=== PATIENT | female | born 1935 | race Caucasian/White ===

== ENCOUNTER → 2016-08-12 | Outpatient (CLI) | payer MEDICARE, OTHER ==
[2016-08-12 14:17] VITALS: BP 113/64; PULSE 74; RESP 18; TEMP 97.6
--- NOTE | 2016-08-12 14:32 | P.PN ---
Progress Note - Text Patient returns for followup for chronic back pain and right shoulder pain secondary to lumbar spondylosis, shoulder OA. Patient recently underwent right intra-articular shoulder injection with trigger point injections on left shoulder, which provided some relief for XXX interval. Patient continues on [place], tramadol, baclofen, and Neurontin medications for pain with good relief. Patient denies adverse drug effects from medications. Today, pt denies new-onset weakness, bowel/bladder incontinence, or any other signs or symptoms of cauda equina syndrome. There are no signs of acute intoxication, and no indications of medication diversion or overuse. In addition to above, 13-point review of systems is also negative for chest pain , shortness of breath, changes in vision, changes in hearing, new onset weakness , abdominal pain, diarrhea, extreme fatigue, malaise, fever, skin changes, homicidal or suicidal ideation, or bowel or bladder incontinence. 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 lumbar spondylosis without myelopathy 2. shoulder OA 3. myofascial pain syndrome Plan: 1. Explanation: Opioid and psychological risk scores were reviewed. Diagnoses , prognoses, and multiple treatment options including but not limited to physical therapy, interventional therapies, adjuvant medical therapies, narcotic medication therapies, and surgery were discussed with the patient and all questions were answered to the patient's satisfaction. 2. Opioid agreement: Patient has previously signed narcotic agreement, and was orally counseled to not overuse, abuse, divert, or cell medications, and to take them as prescribed by only 1 healthcare provider. The patient was also counseled to store opioid medications in a safe and preferably locked location. Patient was also counseled against driving or operating heavy equipment while using narcotic medications and also to not use alcohol or any illicit or recreational drugs. The patient verbalized understanding that lack of compliance with any of the above and likely result in failure to renew narcotic prescriptions, possible discharge from the clinic, and possible legal ramifications thereafter if indicated. 3. Counseling: The patient was counseled extensively on SMOKING CESSATION, BODY MASS INDEX, EXERCISE. Specifically, the patient was instructed regarding the importance of smoking cessation, obesity, and exercise in the context of both chronic pain and overall health. 4. Procedures: right, then left lumbar RFA 5. Consultations: None 6. Investigations: None 7. Medications: Dr. Diamond is now writing [facility]'s opioid at [facility], Will prescribe baclofen 10 TID and gabapentin 300 BID with several refills so no medications will be necessary anytime in the near future. 8. Disposition: f/u for PQRS measures: 1-Patient's medications are documented in the chart. 2-Tobacco use is negative 3-Patient has had a pneumococcal vaccine. 4-Advanced care planning discussed, patient unable to give. 5-Opioid contract signed with the patient. 6-Pain positive, follow-up visit or procedure scheduled 7-Patient's blood pressure measured and documented, and wnl. 8-Patient's weight was measured, and body mass index ABOVE the normal limits, and counseling was done. Patient instructed to follow up with PCP. 9-Patient WAS NOT identified as an unhealthy alcohol user.
== END | disposition home or self-care (01) ==
LOC: PNWHC3 13:59
PROVIDERS: ATTEND Anesthesiology
DX: M47.816 Spondylosis without myelopathy or radiculopathy, lumbar region (principal); M19.011 Primary osteoarthritis, right shoulder; M79.1 Myalgia; Z79.899 Other long term (current) drug therapy
CPT/HCPCS: 99211

== ENCOUNTER 2016-10-03 08:55 | Day surgery (SDC) | payer MEDICARE, OTHER ==
[2016-10-03 09:38] VITALS: RESP 20; TEMP 96.9
[2016-10-03] MEDS ORDERED: LACTATED RINGERS 1,000 ML IV SCH (09:45)
[2016-10-03 09:50] LABS: Glucose,Whole Blood 115 mg/dL (75-99)
[2016-10-03] MEDS ORDERED: LIDOCAINE 1% 20 ML VIAL (10MG/ML) FOR IV START INTRADERMA ONE (09:51)
[2016-10-03] MEDS ORDERED: MIDAZOLAM 2 MG/2 ML VIAL ONE (09:52)
[2016-10-03] MEDS ORDERED: TRIAMCINOLONE ACETONIDE 40 MG/ML 1 ML VIAL ONE (09:52)
[2016-10-03] MEDS ORDERED: fentaNYL (PF) 50 MCG/ML 2 ML AMP ONE (09:52)
[2016-10-03] MEDS ORDERED: IV FLUID CONTINUATION 1,000 ML IV ONE (10:32)
--- NOTE | 2016-10-03 10:34 | FL ---
Fluoroscopy INDICATION: Pain FINDINGS: Fluoroscopy time: 12 seconds. Images obtained: 3. IMPRESSIONS: 1. Documentation of fluoroscopy.
[2016-10-03 11:03] VITALS: BP 130/51; PULSE 68
--- NOTE | 2016-10-14 11:06 | P.PCN ---
Date of Procedure: 10/03/16 Surgeon: Lanre Guevara Pathology: none sent Condition: stable Disposition: PACU Description of Procedure: PREOPERATIVE DIAGNOSIS: Lumbar spondylosis without myelopathy and facet arthropathy POSTOPERATIVE DIAGNOSIS: Lumbar spondylosis without myelopathy and facet arthropathy PROCEDURES: Right Radiofrequency thermocoagulation, L3, L4, and L5 medial branch , with fluoroscopic guidance. ANESTHESIA: 1% lidocaine plain; Conscious sedation with versed/fentanyl EBL: Minimal PROCEDURE INDICATION: The patient with low back pain secondary to lumbar arthropathy who had more than 50% relief of pain with previous diagnostic lumbar medial branch block with bupivacaine and previous good relief from lumbar RFAs. Patient presents for RFA today; no use of blood thinners. PROCEDURE DESCRIPTION / TECHNIQUE: The patient was seen and identified in the preoperative area. Risks, benefits, complications, and alternatives were discussed with the patient (including but not limited to incomplete pain relief , bleeding, infection, nerve damage, and allergies to medications), the patient agreed to proceed with the procedure and signed the consent after all questions were answered. Patient was taken to the OR and time out was completed to verify proper patient , position, laterality of pain, and allergies. Pt was placed in the prone position. IV was started. Vital signs remained stable throughout the procedure. A pillow was placed under the patients chest to decrease lordosis. The lumbosacral area was prepped and draped in the usual sterile fashion. Vital signs were closely monitored during the procedure. Conscious sedation was used during the procedure to decrease patients anxiety. Using AP and then oblique fluoroscopy, the eye of the Jack dog corresponding to the connection between the superior and transverse articular processes of right L4, L5 and top of the sacrum were identified, marked, and localized with 1% lidocaine. Subsequently, a 18 gauge, 100-mm radiofrequency cannula with a 10-mm active tip was advanced guided by fluoroscopy to each of the eyes of the Jcak dog at right L3, L4, and L5 medial branches. Each site then underwent sensory testing at 50 Hz and 0 to 1 volt and motor testing at 2 Hz and 0 to 3 volt with local stimulation, but no radicular symptoms down the legs. Thereafter the right L3, L4, and L5 medial branch sites underwent radiofrequency thermocoagulation at 80 degrees Celsius for 90 seconds after injecting 0.5 ml of PF lidocaine 1%. After thermocoagulation, 1 ml of the block solution containing Kenalog 40 mg and 2 mL of preservative-free normal saline was injected at the right L3, L4, and L5 medial branch levels after negative aspiration of CSF and blood and with no paresthesias. Cannulas were retracted while injecting lidocaine 1% until the needles were removed. At the end of the procedure, the skin was cleansed and bandages were applied. COMPLICATIONS: No acute complications. DISPOSITION / PLANS: The patient was placed in a supine position and transferred to the recovery area in a stable condition for observation and was discharged from the recovery room after meeting discharge criteria. Home discharge instructions given to the patient by the staff. The patient was reexamined prior to discharge and there were no issues. The patient will schedule a follow up for left lumbar RFA in 4-6 weeks.
== END 2016-10-03 11:44 ==
LOC: ORPAIN 08:55
PROVIDERS: ATTEND Anesthesiology
DX: G89.29 Other chronic pain (principal); M54.5 Low back pain; M47.816 Spondylosis without myelopathy or radiculopathy, lumbar region; M46.96 Unspecified inflammatory spondylopathy, lumbar region; Z88.5 Allergy status to narcotic agent; Z88.0 Allergy status to penicillin; Z88.2 Allergy status to sulfonamides
CPT/HCPCS: 99152; 64635; 64636 ×2; J2250; J3301; J3010

== ENCOUNTER 2016-11-13 08:35 | Day surgery (SDC) | payer MEDICARE, OTHER ==
[2016-11-11 11:46] VITALS: BMI 34.2
[~2016-11-13 08:35] MED LIST: LACTATED RINGERS 1,000 ML IV SCH
[2016-11-13 09:08] VITALS: RESP 16; TEMP 98.3
[2016-11-13 09:33] LABS: Glucose,Whole Blood 132 mg/dL (75-99)
[2016-11-13] MEDS ORDERED: LIDOCAINE 1% 20 ML VIAL (10MG/ML) FOR IV START INTRADERMA ONE (09:33)
[2016-11-13] MEDS ORDERED: fentaNYL (PF) 50 MCG/ML 2 ML AMP ONE (09:55)
[2016-11-13] MEDS ORDERED: MIDAZOLAM 2 MG/2 ML VIAL ONE (09:55)
[2016-11-13] MEDS ORDERED: BUPIVACAINE (PF) 0.5% 30 ML VIAL ONE (09:55)
[2016-11-13] MEDS ORDERED: TRIAMCINOLONE ACETONIDE 40 MG/ML 1 ML VIAL ONE (09:55)
--- NOTE | 2016-11-13 10:31 | P.PCN ---
Date of Procedure: 11/13/16 Procedure(s) Performed: PREOPERATIVE DIAGNOSIS: 1-Lumbar Spondylosis with Facet Arthropathy without myelopathy. 2- Lumber degenerative disc disease. POSTOPERATIVE DIAGNOSIS: 1- Lumbar Spondylosis with Facet Arthropathy without myelopathy. 2- Lumber degenerative disc disease. PROCEDURES : Left Radiofrequency thermocoagulation, L3-L4, L4-L5, and L5- S1 medial branch, with fluoroscopic guidance ANESTHESIA: IV sedation with versed 1 mg and fentaneyl 100 mcg and local infiltration with lidocaine 1% 6 ml EBL: Minimal PROCEDURE INDICATION: The patient with low back pain secondary to lumbar facet arthropathy who had more than 50% relief of her pain with previous diagnostic lumbar medial branch block with bupivacaine. PROCEDURE DESCRIPTION / TECHNIQUE: The patient was seen and identified in the preoperative area. Risks, benefits, complications, including but not limited to risk of infection ,bleeding , allergic reactions to the medications and no complete pain releife , and alternatives were discussed with the patient, the patient agreed to proceed with the procedure and signed the consent. IV was started. Vital signs remained stable throughout the procedure. Patient was taken to the OR and time out was completed. The patient was placed in the prone position on the procedure table. The lumber area was prepped and draped in the usual sterile fashion. . Vital signs were closely monitored during the procedure .IV sedation was used during the procedure to decrease patients anxiety. Using AP and then oblique fluoroscopy, the ``eye of the Jack dog corresponding to the connection between the superior and transverse articular processes of left L3, L4, and L5 were identified, marked, and localized with 1 % lidocaine. Subsequently, a 18 [id number] radiofrequency cannula with a 10- mm active tip was advanced guided by fluoroscopy to each of the ``eyes of the Jack dog at left L3, L4, and L5. Each site then underwent sensory testing at 50 Hz and 0 to 1 volt and motor testing at 2.5 Hz and 0 to 3 volt with local stimulation, but no radicular symptoms down the legs. Thereafter the left L3-4, L4-5, and L5-S1 sites underwent radiofrequency thermocoagulation at 80 degrees celsius for 90 seconds after injecting 0.5 ml of PF lidocaine 1%. then After the thermocoagulation done , 1 ml of the block solution containing Kenalog 40 mg and 3 ml of marain 0.5% was injected at the left L3-4 , L4-5 , and L5-S1, levels after negative aspiration of CSF and blood and with no paresthesias. Cannulas were retracted while injecting lidocaine 1% until the needle is out. At the end of the procedure, the skin was cleansed and bandages were applied. COMPLICATIONS: No acute complications. DISPOSITION / PLANS: The patient was placed in a supine position and transferred to the recovery area in a stable condition for observation and was discharged from the recovery room after meeting discharge criteria. Home discharge instructions given to the patient by the staff. The patient was reexamined prior to discharge. The patient will schedule a follow up in the clinic in 2-4 weeks.
[2016-11-13] MEDS ORDERED: IV FLUID CONTINUATION 1,000 ML IV ONE (10:40)
[2016-11-13 10:45] VITALS: PULSE 67
--- NOTE | 2016-11-13 10:56 | FL ---
EXAMINATION TYPE: FL guided pain mgmt statistic DATE OF EXAM: 11/13/2016 10:33 AM CLINICAL HISTORY: Low back pain. TECHNIQUE: Fluoroscopy. COMPARISON: None. FINDINGS: Fluoroscopic guidance was provided during pain relief procedure performed by Dr. Romero . A total of 9 seconds of fluoroscopic time was utilized during the procedure and 3 spot images are acquired. Images acquired shows needle localization in the lower lumbar spine at several levels off the midline. IMPRESSION: As Above.
[2016-11-13 11:07] VITALS: BP 109/52
== END 2016-11-13 11:31 ==
LOC: ORPAIN 08:35
PROVIDERS: ATTEND Specialist
DX: M47.816 Spondylosis without myelopathy or radiculopathy, lumbar region (principal); M46.96 Unspecified inflammatory spondylopathy, lumbar region; M51.36 Other intervertebral disc degeneration, lumbar region; Z88.5 Allergy status to narcotic agent; Z88.0 Allergy status to penicillin; Z88.2 Allergy status to sulfonamides
CPT/HCPCS: 64635; 64636 ×2; 99152; J2250; J3301; J3010; 36415; 83036

== ENCOUNTER → 2017-01-08 | Outpatient (CLI) | payer MEDICARE, OTHER ==
[2017-01-08 14:23] VITALS: BP 126/71; PULSE 69; RESP 18; TEMP 97
--- NOTE | 2017-01-10 06:31 | P.PN ---
Subjective This is a follow-up visit for this 81 years old female with a chronic history of severe low back pain, status post radiofrequency ablation of the medial branch lumbar area, she gets excellent pain relief, her low back pain improved significantly, and she is here asking if anything can be done to help her right knee pain, she is having severe and continuous right knee pain, and her current pain medications she is taking is not helping her knee pain, she continues to take [place] 7.5/325 every 6-8 hours when necessary, amitriptyline 10 mg daily at bedtime, Ultram 50 every 6 hours, Motrin 400 mg every 8 hours, Neurontin 300 mg every morning and 600 mg every Pm, she denies any side effect of the medication she denies any excessive drowsiness and sleepiness Objective - Vital Signs Vital signs: Vital Signs Temp 97 F L 01/08/17 14:17 Pulse 69 01/08/17 14:17 Resp 18 01/08/17 14:17 BP 126/71 01/08/17 14: Pulse Ox 96 01/08/17 14:17 - Exam Physical Examinations : 1-Constitutiona : Cooperative , not in acute distress . 2-HEENT : nech ; supple , no Lymphadenopathy , normal thyroid size . eyes : no ptosis , no icterus, no photophobia . ENT : normal of hearing , normal oropharynx , no Thrush . 3- Respiratory : Chest clear to auscultations Bilaterally , no wheezing , no Rhonchi . 4- Cardiovascular : regular rate and rhythem , S1 , S2 , no S3 , no S4. 5- Gastrointestinal : abdomen soft no tenderness , bowel sounds positive all four quadrents , no organomegally . 6- Genitourinary : Defferred . 7- neurologic : axo x3 8-psychatric : alert , oriented X 3 , appropriate affect , intact judgment and insight . 9-Lymphatic : no Lymphadenopathy . 10- musculoskeltal : tenderness over the right knee flexion and extension of the right knee associated with severe pain There is no sign of effusion, no erythema Assessment and Plan Plan: Assessment and plan= chronic severe low back pain secondary to lumbar spondylosis status post radiofrequency ablation of the medial branch lumbar area Pain improved after the radiofrequency. Chronic severe right knee pain, patient could benefit from right genicular nerves block if she had good pain relief, then she would be good candidate to have radiofrequency of the right genicular nerves Time with Patient: Less than 30
== END ==
LOC: PNWHC3 12:46
PROVIDERS: ATTEND Specialist
DX: M47.816 Spondylosis without myelopathy or radiculopathy, lumbar region (principal); G89.29 Other chronic pain
CPT/HCPCS: 99211

== ENCOUNTER 2017-03-07 05:26 | Inpatient (IN) | payer MEDICARE, OTHER ==
[2017-03-07 05:39] LABS: Glucose,Whole Blood 111 mg/dL (75-99)
--- NOTE | 2017-03-07 05:47 | ED ---
Altered Mental Status HPI - General Source: EMS Mode of arrival: EMS Limitations: altered mental status - History of Present Illness MD Complaint: altered mental status -: unknown Severity: severe Context: history of similar presentation <Bro Brown - Last Filed: 03/07/17 07:10> <Jean Marie Murcia - Last Filed: 03/07/17 08:48> - General Chief Complaint: Altered Mental Status Stated Complaint: altered mental status Time Seen by Provider: 03/07/17 05:33 - History of Present Illness Initial Comments: This patient is an 81-year-old woman who presents with reported change in mental status. The patient is not able to give any history. The nurse to nurse report included that the patient has been moaning for a number of hours and not answering any questions, which she usually does. They do report there is significant underlying dementia. Reportedly the last time the patient was like this she was "septic" related to urinary tract infection. (Bro Brown) - Related Data Home Medications Medication Instructions Recorded Confirmed Amitriptyline HCl [Elavil] 10 mg PO HS 07/30/14 03/07/17 Atenolol [Tenormin] 25 mg PO DAILY 07/30/14 03/07/17 Fluticasone/Salmeterol [Advair 2 puff INHALATION RT-BID 07/30/14 03/07/17 500-50 Diskus] Memantine [Namenda] 10 mg PO BID 07/30/14 03/07/17 Pramipexole [Mirapex] 0.5 mg PO HS 07/30/14 03/07/17 lamoTRIgine [lamoTRIgine ER] 200 mg PO DAILY 07/30/14 03/07/17 Carbidopa-Levodopa 25-100 mg 1 tab PO QID 12/29/14 03/07/17 [Sinemet 25-100 mg] Donepezil [Aricept] 10 mg PO HS 12/29/14 03/07/17 metFORMIN HCL [Glucophage] 500 mg PO DAILY@1700 12/29/14 03/07/17 Pravastatin Sodium [Pravachol] 40 mg PO HS 12/30/14 03/07/17 Isosorbide Mononitrate ER [Imdur] 30 mg PO QAM 03/03/15 03/07/17 Magnesium Hydroxide [Milk of 30 ml PO DAILY PRN 04/10/15 03/07/17 Magnesia Concentrate] Albuterol Nebulized [Ventolin 2.5 mg INHALATION RT-BID 08/16/15 03/07/17 Nebulized] Acetaminophen Tab [Tylenol] 500 mg PO Q6H PRN 09/08/15 03/07/17 metFORMIN HCL 1,000 mg PO QAM 12/07/15 03/07/17 Ibuprofen [Motrin] 400 mg PO Q8HR PRN 05/14/16 03/07/17 Losartan Potassium [Cozaar] 50 mg PO DAILY 05/14/16 03/07/17 Sennosides [Senna] 8.6 mg PO HS 05/14/16 03/07/17 Bisacodyl [Dulcolax] 10 mg RECTAL DAILY PRN 05/23/16 03/07/17 Montelukast [Singulair] 10 mg PO HS 05/23/16 03/07/17 Menthol [Biofreeze] 1 applic TOPICAL Q6H PRN 06/24/16 03/07/17 HYDROcodone/APAP 7.5-325MG [Blairs 1 tab PO Q6H PRN 10/01/16 03/07/17 7.5-325] Metolazone [Zaroxolyn] 1.25 mg PO MOWEFR 10/01/16 03/07/17 Gabapentin [Neurontin] 300 mg PO BID 11/11/16 03/07/17 Mag Hydrox/Al Hydrox/Simeth 15 ml PO Q6HR PRN 11/11/16 03/07/17 [Maalox] Na Phos,M-B/Na Phos,Di-Ba [Fleet 1 dose RECTAL ONCE PRN 11/11/16 03/07/17 Adult] Amantadine HCl [Symmetrel] 100 mg PO DAILY 03/07/17 03/07/17 Glucerna Shake 1 can PO TID 03/07/17 03/07/17 Omeprazole [PriLOSEC] 20 - 40 mg PO DAILY 03/07/17 03/07/17 Previous Rx's Medication Instructions Recorded Furosemide [Lasix] 40 mg PO DAILY #0 05/27/16 Baclofen [Lioresal] 10 mg PO Q8H #90 tab 08/12/16 traMADol HCl [Ultram] 50 mg PO Q6H PRN #120 tab 08/12/16 Allergies Allergy/AdvReac Type Severity Reaction Status Date / Time codeine Allergy Unknown Verified 03/07/17 07:17 Penicillins Allergy Unknown Verified 03/07/17 07:17 Sulfa (Sulfonamide Allergy Unknown Verified 03/07/17 07:17 Antibiotics) Review of Systems ROS Other: All systems not noted in ROS Statement are negative. Limitations: ROS unobtainable due to patients medical condition <Bro Brown - Last Filed: 03/07/17 07:10> ROS Other: All systems not noted in ROS Statement are negative. <Jean Marie Murcia - Last Filed: 03/07/17 08:48> ROS Statement: Those systems with pertinent positive or pertinent negative responses have been documented in the HPI. Past Medical History Past Medical History: Asthma, Coronary Artery Disease (CAD), CVA/TIA, Dementia, Diabetes Mellitus, GERD/Reflux, Hyperlipidemia, Hypertension, Osteoarthritis (OA ), Renal Disease Additional Past Medical History / Comment(s): CVA/TIA; Dysphagia, RLS. Neuropathy. DEG DISC DX-HERNIATED DISCS, spinal stenosis, PARKINSON'S.INCONT BOWEL/BLADDER, CHRONIC PAIN. History of Any Multi-Drug Resistant Organisms: MRSA Date of last positivie culture/infection: 12/11/15 MDRO Source:: sputum Past Surgical History: Appendectomy, Cholecystectomy, Hysterectomy, Joint Replacement, Orthopedic Surgery Additional Past Surgical History / Comment(s): Neck Surgery x2 (1953), Bilat Knee Replacements. [facility] PROC . Past Anesthesia/Blood Transfusion Reactions: No Reported Reaction Past Psychological History: Anxiety, Depression Smoking Status: Former smoker - Past Family History Mother Family Medical History: Unable to Obtain Additional Family Medical History / Comment(s): PER [facility] UNKNOWN FAMILY HISTORY <Bro Brown - Last Filed: 03/07/17 07:10> General Exam Limitations: altered mental status General appearance: alert Head exam: Present: atraumatic, normocephalic Eye exam: Present: PERRL, EOMI. Absent: scleral icterus, conjunctival injection ENT exam: Present: mucous membranes dry Neck exam: Absent: tenderness Respiratory exam: Present: rales (Bilateral bases), other (Exam is slightly limited as the patient is moaning). Absent: wheezes, rhonchi, stridor Cardiovascular Exam: Present: regular rate, normal rhythm, normal heart sounds. Absent: systolic murmur, diastolic murmur, rubs, gallop GI/Abdominal exam: Present: soft. Absent: distended, tenderness, guarding, rebound, mass Extremities exam: Present: normal inspection, normal capillary refill. Absent: pedal edema, calf tenderness Back exam: Absent: CVA tenderness (R), CVA tenderness (L) Neurological exam: Present: alert Skin exam: Present: warm, dry, intact, normal color. Absent: rash <Bro Brown - Last Filed: 03/07/17 07:10> General appearance: alert, in no apparent distress Head exam: Present: atraumatic, normocephalic, normal inspection Eye exam: Present: normal appearance, PERRL, EOMI. Absent: scleral icterus, conjunctival injection, periorbital swelling ENT exam: Present: normal exam, mucous membranes moist Neck exam: Present: normal inspection. Absent: tenderness, meningismus, lymphadenopathy Respiratory exam: Present: normal lung sounds bilaterally. Absent: respiratory distress, wheezes, rales, rhonchi, stridor Cardiovascular Exam: Present: regular rate, normal rhythm, normal heart sounds. Absent: systolic murmur, diastolic murmur, rubs, gallop, clicks GI/Abdominal exam: Present: soft, normal bowel sounds. Absent: distended, tenderness, guarding, rebound, rigid Extremities exam: Present: normal inspection, full ROM, normal capillary refill. Absent: tenderness, pedal edema, joint swelling, calf tenderness Back exam: Present: normal inspection Neurological exam: Present: alert, oriented X3, CN II-XII intact Psychiatric exam: Present: normal affect, normal mood Skin exam: Present: warm, dry, intact, normal color. Absent: rash <Jean Marie Murcia - Last Filed: 03/07/17 08:48> Procedures - Restraint - Face to Face Restraint Occurrence 1 Patient's Immediate Situation: Endangers self safety Patient's Reaction to the Intervention: Restless, Resistive to care Patient's Medical & Behavioral Condition: Awake Need to Continue or Terminate Restraint or Seclusion: Continue Face to Face Eval of Restraint Date: 03/07/17 Face to Face Eval of Restraint Time: 06:40 <Bro Brown - Last Filed: 03/07/17 07:10> Medical Decision Making - Lab Data Result diagrams: 03/07/17 06:45 - EKG Data -: EKG Interpreted by Wy EKG shows normal: sinus rhythm, axis (Left axis deviation), intervals (QRS duration is prolonged at 142 ms.), QRS complexes (Right bundle-branch block pattern) Rate: normal (Rate 80 bpm) When compared to previous EKG there are: other (EKG is similar from 05/23/2016) Interpretation: other (Possible old septal infarct.) <Bro Brown - Last Filed: 03/07/17 07:10> - Lab Data Result diagrams: 03/07/17 06:45 03/07/17 06:45 <Jean Marie Murcia - Last Filed: 03/07/17 08:48> - Medical Decision Making 81 female in the ER regard altered mental status, patient is with urinary tract infection, dehydration, will admit for IV antibiotics and continued medical management (Jean Marie Murcia) - Lab Data Lab Results 03/07/17 03/07/17 03/07/17 Range/Units 05:30 06:25 06:45 WBC 8.0 (3.8-10.6) k/uL RBC 3.49 L (3.80-5.40) m/uL Hgb 10.4 L (11.4-16.0) gm/dL Hct 32.6 L (34.0-46.0) % MCV 93.3 (80.0-100.0) fL MCH 29.9 (25.0-35.0) pg MCHC 32.0 (31.0-37.0) g/dL RDW 14.4 (11.5-15.5) % Plt Count 200 (150-450) k/uL Neutrophils % 73 % Lymphocytes % 14 % Monocytes % 3 % Eosinophils % 8 % Basophils % 0 % Neutrophils # 5.8 (1.3-7.7) k/uL Lymphocytes # 1.1 (1.0-4.8) k/uL Monocytes # 0.3 (0-1.0) k/uL Eosinophils # 0.7 (0-0.7) k/uL Basophils # 0.0 (0-0.2) k/uL PT (9.0-12.0) sec INR (<1.2) APTT (22.0-30.0) sec Sodium (137-145) mmol/L Potassium (3.5-5.1) mmol/L Chloride (98-107) mmol/L Carbon Dioxide (22-30) mmol/L Anion Gap mmol/L BUN (7-17) mg/dL Creatinine (0.52-1.04) mg/dL Est GFR (MDRD) Af Amer (>60 ml/min/1.73 sqM) Est GFR (MDRD) Non-Af (>60 ml/min/1.73 sqM) Glucose (74-99) mg/dL POC Glucose (mg/dL) 111 H (75-99) mg/dL POC Glu Dental Instrument Maker ID Suad Dumas Plasma Lactic Acid Flex (0.7-2.0) mmol/L Calcium (8.4-10.2) mg/dL Total Bilirubin (0.2-1.3) mg/dL AST (14-36) U/L ALT (9-52) U/L Alkaline Phosphatase (38-126) U/L Total Creatine Kinase (30-135) U/L CK-MB (CK-2) (0.0-2.4) ng/mL CK-MB (CK-2) Rel Index Troponin I (0.000-0.034) ng/mL Total Protein (6.3-8.2) g/dL Albumin (3.5-5.0) g/dL Urine Color Light Red Urine Appearance Turbid H (Clear) Urine pH 5.5 (5.0-8.0) Ur Specific [place] 1.014 (1.001-1.035) Urine Protein 1+ H (Negative) Urine Glucose (UA) Negative (Negative) Urine Ketones Negative (Negative) Urine Blood Small H (Negative) Urine Nitrite Positive H (Negative) Urine Bilirubin Negative (Negative) Urine Urobilinogen <2.0 (<2.0) mg/dL Ur Leukocyte Esterase Large H (Negative) Urine RBC 25 H (0-5) /hpf Urine WBC >182 H (0-5) /hpf Urine WBC Clumps Many H (None) /hpf Urine Bacteria Many H (None) /hpf 03/07/17 03/07/17 03/07/17 Range/Units 06:45 06:45 06:45 WBC (3.8-10.6) k/uL RBC (3.80-5.40) m/uL Hgb (11.4-16.0) gm/dL Hct (34.0-46.0) % MCV (80.0-100.0) fL MCH (25.0-35.0) pg MCHC (31.0-37.0) g/dL RDW (11.5-15.5) % Plt Count (150-450) k/uL Neutrophils % % Lymphocytes % % Monocytes % % Eosinophils % % Basophils % % Neutrophils # (1.3-7.7) k/uL Lymphocytes # (1.0-4.8) k/uL Monocytes # (0-1.0) k/uL Eosinophils # (0-0.7) k/uL Basophils # (0-0.2) k/uL PT 10.4 (9.0-12.0) sec INR 1.0 (<1.2) APTT 26.7 (22.0-30.0) sec Sodium 138 (137-145) mmol/L Potassium 4.3 (3.5-5.1) mmol/L Chloride 96 L (98-107) mmol/L Carbon Dioxide 26 (22-30) mmol/L Anion Gap 16 mmol/L BUN 48 H (7-17) mg/dL Creatinine 2.30 H (0.52-1.04) mg/dL Est GFR (MDRD) Af Amer 25 (>60 ml/min/1.73 sqM) Est GFR (MDRD) Non-Af 20 (>60 ml/min/1.73 sqM) Glucose 99 (74-99) mg/dL POC Glucose (mg/dL) (75-99) mg/dL POC Glu Dental Instrument Maker ID Plasma Lactic Acid Flex (0.7-2.0) mmol/L Calcium 9.1 (8.4-10.2) mg/dL Total Bilirubin 0.4 (0.2-1.3) mg/dL AST 13 L (14-36) U/L ALT 23 (9-52) U/L Alkaline Phosphatase 82 (38-126) U/L Total Creatine Kinase 54 (30-135) U/L CK-MB (CK-2) 1.1 (0.0-2.4) ng/mL CK-MB (CK-2) Rel Index 2.0 Troponin I <0.012 (0.000-0.034) ng/mL Total Protein 6.9 (6.3-8.2) g/dL Albumin 4.2 (3.5-5.0) g/dL Urine Color Urine Appearance (Clear) Urine pH (5.0-8.0) Ur Specific [place] (1.001-1.035) Urine Protein (Negative) Urine Glucose (UA) (Negative) Urine Ketones (Negative) Urine Blood (Negative) Urine Nitrite (Negative) Urine Bilirubin (Negative) Urine Urobilinogen (<2.0) mg/dL Ur Leukocyte Esterase (Negative) Urine RBC (0-5) /hpf Urine WBC (0-5) /hpf Urine WBC Clumps (None) /hpf Urine Bacteria (None) /hpf 03/07/17 Range/Units 06:45 WBC (3.8-10.6) k/uL RBC (3.80-5.40) m/uL Hgb (11.4-16.0) gm/dL Hct (34.0-46.0) % MCV (80.0-100.0) fL MCH (25.0-35.0) pg MCHC (31.0-37.0) g/dL RDW (11.5-15.5) % Plt Count (150-450) k/uL Neutrophils % % Lymphocytes % % Monocytes % % Eosinophils % % Basophils % % Neutrophils # (1.3-7.7) k/uL Lymphocytes # (1.0-4.8) k/uL Monocytes # (0-1.0) k/uL Eosinophils # (0-0.7) k/uL Basophils # (0-0.2) k/uL PT (9.0-12.0) sec INR (<1.2) APTT (22.0-30.0) sec Sodium (137-145) mmol/L Potassium (3.5-5.1) mmol/L Chloride (98-107) mmol/L Carbon Dioxide (22-30) mmol/L Anion Gap mmol/L BUN (7-17) mg/dL Creatinine (0.52-1.04) mg/dL Est GFR (MDRD) Af Amer (>60 ml/min/1.73 sqM) Est GFR (MDRD) Non-Af (>60 ml/min/1.73 sqM) Glucose (74-99) mg/dL POC Glucose (mg/dL) (75-99) mg/dL POC Glu Dental Instrument Maker ID Plasma Lactic Acid Flex 2.3 H* (0.7-2.0) mmol/L Calcium (8.4-10.2) mg/dL Total Bilirubin (0.2-1.3) mg/dL AST (14-36) U/L ALT (9-52) U/L Alkaline Phosphatase (38-126) U/L Total Creatine Kinase (30-135) U/L CK-MB (CK-2) (0.0-2.4) ng/mL CK-MB (CK-2) Rel Index Troponin I (0.000-0.034) ng/mL Total Protein (6.3-8.2) g/dL Albumin (3.5-5.0) g/dL Urine Color Urine Appearance (Clear) Urine pH (5.0-8.0) Ur Specific [place] (1.001-1.035) Urine Protein (Negative) Urine Glucose (UA) (Negative) Urine Ketones (Negative) Urine Blood (Negative) Urine Nitrite (Negative) Urine Bilirubin (Negative) Urine Urobilinogen (<2.0) mg/dL Ur Leukocyte Esterase (Negative) Urine RBC (0-5) /hpf Urine WBC (0-5) /hpf Urine WBC Clumps (None) /hpf Urine Bacteria (None) /hpf Disposition <Bro Brown - Last Filed: 03/07/17 07:10> <Jean Marie Murcia - Last Filed: 03/07/17 08:48> Clinical Impression: Dehydration, Uremia, Urinary tract infection, Delirium due to general medical condition, Altered mental status Disposition: ADMITTED IP TO THIS HOSP Condition: Fair Referrals: Jose Luis Diamond MD [Primary Care Provider] - 1-2 days
[2017-03-07] MEDS ORDERED: LEVOFLOXACIN 750MG-D5W PMX 750 MG in DEXTROSE/WATER 1 150ML.BAG IVPB STA (06:21)
[2017-03-07 06:39] LABS: Appearance,Urine Turbid (Clear); Bacteria,Urine Many /hpf; Bilirubin,Urine Negative (Negative); Glucose,Urine (UA) Negative (Negative); Ketones,Urine Negative (Negative); Leukocyte Esterase,Urine Large (Negative); Nitrite,Urine Positive (Negative); PH, Urine 5.5 (5.0-8.0); Particle Count 130395; Protein,Urine 1+ (Negative); RBC,Urine 25 /hpf (0-5); UA Billing (MACRO vs. MICRO) MICRO; Urobilinogen,Urine <2.0 mg/dL (<2.0); WBC,Urine >182 /hpf (0-5)
--- NOTE | 2017-03-07 06:53 | XR ---
EXAM: XR Chest, 1 View CLINICAL HISTORY: Reason: altered mental status TECHNIQUE: Frontal view of the chest. COMPARISON: May 23, 2016. FINDINGS: Lungs: Unremarkable. No consolidation. Pleural space: Unremarkable. No pneumothorax. Heart: Unremarkable. No cardiomegaly. Mediastinum: Unremarkable. Bones/joints: Unremarkable. IMPRESSION: No acute cardiopulmonary process.
[2017-03-07 06:54] LABS: Specific Gravity,Urine 1.014 (1.001-1.035)
[2017-03-07 07:00] LABS: Basophils % (A) 0 %; CH 29.7; Eosinophils # (A) 0.7 k/uL (0-0.7); Eosinophils % (A) 8 %; HCT 32.6 % (34.0-46.0); HDW 2.57; HGB 10.4 gm/dL (11.4-16.0); Luc # (Auto) 0.11; Luc % (Auto) 1; Lymphocytes # (A) 1.1 k/uL (1.0-4.8); Lymphocytes % (A) 14 %; MCH 29.9 pg (25.0-35.0); MCV 93.3 fL (80.0-100.0); Mean Platelet Volume 8.2; Monocytes # (A) 0.3 k/uL (0-1.0); Monocytes % (A) 3 %; Neutrophils # (A) 5.8 k/uL (1.3-7.7); Neutrophils % (A) 73 %; RBC 3.49 m/uL (3.80-5.40); RDW 14.4 % (11.5-15.5); WBC (Perox) 8.12
--- NOTE | 2017-03-07 07:01 | CT ---
EXAM: CT Head Without Intravenous Contrast CLINICAL HISTORY: Reason: Pain TECHNIQUE: Axial computed tomography images of the head/brain without intravenous contrast. CTDI is 60 mGy and DLP is 1200 mGy-cm. This CT exam was performed using one or more of the following dose reduction techniques: automated exposure control, adjustment of the mA and/or kV according to patient size, and/or use of iterative reconstruction technique. Coronal and sagittal reformatted images were acquired. COMPARISON: May 23, 2016. FINDINGS: Brain: Stable small meningiomas. No hemorrhage. Age-appropriate white matter appearance. No CT evidence of acute infarct. Ventricles: Unremarkable. No ventriculomegaly. Bones/joints: Unremarkable. No acute fracture. Soft tissues: Unremarkable. Sinuses: Chronic appearing left maxillary sinusitis. Mastoid air cells: Unremarkable as visualized. No mastoid effusion. IMPRESSION: No acute intracranial process. Age-related changes. Chronic left maxillary sinusitis, worse since prior.
[2017-03-07 07:08] LABS: Partial Thromboplastin Time 26.7 sec (22.0-30.0); Prothrombin Time 10.4 sec (9.0-12.0)
[2017-03-07 07:12] LABS: Calcium 9.1 mg/dL (8.4-10.2); Potassium 4.3 mmol/L (3.5-5.1); Total Bilirubin 0.4 mg/dL (0.2-1.3); Total Protein 6.9 g/dL (6.3-8.2)
[2017-03-07] MEDS ORDERED: SODIUM CHLORIDE 0.9% 500 ML IV STA (07:17)
[2017-03-07] MEDS ORDERED: SODIUM CHLORIDE 0.9% 1,000 ML IV ONE (07:17)
[2017-03-07 07:25] LABS: Creatine Kinase 54 U/L (30-135)
[2017-03-07 07:38] LABS: Creatine Kinase MB 1.1 ng/mL (0.0-2.4); Troponin I <0.012 ng/mL (0.000-0.034)
[2017-03-07] MEDS ORDERED: SODIUM CHLORIDE 0.9% 1,000 ML IV STA (08:14)
[2017-03-07] MEDS ORDERED: ENOXAPARIN 40 MG/0.4 ML SYRINGE SQ SCH (09:00)
[2017-03-07] MEDS: SODIUM CHLORIDE 0.9% 1,000 ML IV ONE ×2 (09:03→10:20)
[2017-03-07] MEDS: ENOXAPARIN 30 MG/0.3 ML SYRINGE SQ SCH (10:20)
[2017-03-07] MEDS ORDERED: ACETAMINOPHEN TAB 500 MG TAB PO PRN (11:58)
[2017-03-07] MEDS ORDERED: BISACODYL 10 MG SUPP RECTAL PRN (11:58)
[2017-03-07] MEDS ORDERED: NON-FORMULARY DRUG (Menthol [Biofreeze] 1 APPLIC) TOPICAL PRN (11:58)
[2017-03-07] MEDS ORDERED: BACLOFEN 10 MG TAB PO SCH (12:00)
--- NOTE | 2017-03-07 13:12 | P.HPIM ---
History of Present Illness H&P Date: 03/07/17 Chief Complaint: Mental status changes This is an 81-year-old female who resides at [facility] under the care of Dr. Diamond. She has underlying history of dementia, asthma, CAD, diabetes mellitus, hypertension and Parkinson's disease. Patient was doing fine last Friday when she was visited by her daughter who was at the bedside, and she became quite confused and agitated with involuntary movement with mental status changes over the last 24 hours, off patient became quite confused a degree that they had to send her to the emergency department at [facility] she was found to have an acute kidney injury as well as acute urinary tract infection she was started on IV fluid resuscitation she was placed on IV antibiotic and she was admitted to the hospital for evaluation of urinary tract infection with sepsis associated with encephalopathy. Review of Systems ROS unobtainable: due to mental status Constitutional: Reports lethargy, Reports malaise, Reports weakness, Denies anorexia, Denies chronic headaches, Denies chronic pain Eyes: bilateral blurred vision, denies bulging eye, denies decreased vision, denies diplopia, denies discharge Ears: bilateral: decreased hearing Ears, nose, mouth and throat: Denies dysphagia, Denies neck lump, Denies swelling in throat, Denies sore throat Cardiovascular: Reports high blood pressure, Denies chest pain, Denies decreased exercise tolerance, Denies dyspnea on exertion, Denies paroxysmal nocturnal dyspnea, Denies phlebitis, Denies rapid heart beat, Denies shortness of breath, Denies syncope Respiratory: Denies congestion, Denies cough, Denies cough with sputum, Denies home oxygen, Denies sleep apnea, Denies snoring, Denies wheezing Gastrointestinal: Denies abdominal pain, Denies bloating, Denies BRBPR, Denies heartburn, Denies melena, Denies nausea, Denies vomiting Genitourinary: Reports dysuria, Reports urinary frequency, Denies hematuria Menstruation: Reports postmenopausal Musculoskeletal: Denies myalgias Musculoskeletal: absent: ankle pain, ankle stiffness, ankle swelling, elbow pain , elbow stiffness, elbow swelling, foot pain, foot stiffness, foot swelling, hand pain, hand stiffness, hand swelling, hip pain, hip stiffness, hip swelling , knee pain, knee stiffness, knee swelling, shoulder pain, shoulder stiffness, shoulder swelling, wrist pain, wrist stiffness, wrist swelling Integumentary: Denies pruritus, Denies rash Neurological: Reports confusion, Reports weakness Psychiatric: Reports anxiety, Reports confusion, Reports irritability, Reports sleep disturbances Endocrine: Denies fatigue, Denies weight change Past Medical History Past Medical History: Asthma, Coronary Artery Disease (CAD), CVA/TIA, Dementia, Diabetes Mellitus, GERD/Reflux, Hyperlipidemia, Hypertension, Osteoarthritis (OA ), Renal Disease Additional Past Medical History / Comment(s): CVA/TIA; Dysphagia, RLS. Neuropathy. DEG DISC DX-HERNIATED DISCS, spinal stenosis, PARKINSON'S.INCONT BOWEL/BLADDER, CHRONIC PAIN, PAST FECAL IMPACTION. History of Any Multi-Drug Resistant Organisms: MRSA Date of last positivie culture/infection: 12/11/15 MDRO Source:: sputum Past Surgical History: Appendectomy, Cholecystectomy, Hysterectomy, Joint Replacement, Orthopedic Surgery Additional Past Surgical History / Comment(s): Neck Surgery x2 (1953), Bilat Knee Replacements. PA[facility] PROC . Past Anesthesia/Blood Transfusion Reactions: No Reported Reaction Past Psychological History: Anxiety, Depression Additional Psychological History / Comment(s): Resident at [facility]. Pt is up in wheelchair. Normally feeds herself. Normally able to answer questions. Smoking Status: Former smoker Past Alcohol Use History: None Reported Additional Past Alcohol Use History / Comment(s): quit smoking 50 years ago Past Drug Use History: None Reported - Past Family History Mother Family Medical History: Diabetes Mellitus (mother at age of 88 from old age and she also had history of diabetes mellitus type 2.) Father Family Medical History: Cancer (father at age 91 from cancer of unknown origin.) Sister(s) Family Medical History: Cancer (patient had 4 sisters one of them in early 60s from colon cancer.) Brother(s) Family Medical History: No Reported History (patient has 4 brothers no major medical problems.) Daughter(s) Family Medical History: No Reported History (patient has 4 daughters no major medical problems.) Son(s) Family Medical History: No Reported History (patient has 2 sons no major medical problems) Medications and Allergies Home Medications Medication Instructions Recorded Confirmed Type Amitriptyline HCl [Elavil] 10 mg PO HS 07/30/14 03/07/17 History Atenolol [Tenormin] 25 mg PO DAILY 07/30/14 03/07/17 History Fluticasone/Salmeterol [Advair 2 puff INHALATION RT-BID 07/30/14 03/07/17 History 500-50 Diskus] Memantine [Namenda] 10 mg PO BID 07/30/14 03/07/17 History Pramipexole [Mirapex] 0.5 mg PO HS 07/30/14 03/07/17 History lamoTRIgine [lamoTRIgine ER] 200 mg PO DAILY 07/30/14 03/07/17 History Carbidopa-Levodopa 25-100 mg 1 tab PO QID 12/29/14 03/07/17 History [Sinemet 25-100 mg] Donepezil [Aricept] 10 mg PO HS 12/29/14 03/07/17 History metFORMIN HCL [Glucophage] 500 mg PO DAILY@1700 12/29/14 03/07/17 History Pravastatin Sodium [Pravachol] 40 mg PO HS 12/30/14 03/07/17 History Isosorbide Mononitrate ER [Imdur] 30 mg PO QAM 03/03/15 03/07/17 History Magnesium Hydroxide [Milk of 30 ml PO DAILY PRN 04/10/15 03/07/17 History Magnesia Concentrate] Albuterol Nebulized [Ventolin 2.5 mg INHALATION RT-BID 08/16/15 03/07/17 History Nebulized] Acetaminophen Tab [Tylenol] 500 mg PO Q6H PRN 09/08/15 03/07/17 History metFORMIN HCL 1,000 mg PO QAM 12/07/15 03/07/17 History Ibuprofen [Motrin] 400 mg PO Q8HR PRN 05/14/16 03/07/17 History Losartan Potassium [Cozaar] 50 mg PO DAILY 05/14/16 03/07/17 History Sennosides [Senna] 8.6 mg PO HS 05/14/16 03/07/17 History Bisacodyl [Dulcolax] 10 mg RECTAL DAILY PRN 05/23/16 03/07/17 History Montelukast [Singulair] 10 mg PO HS 05/23/16 03/07/17 History Menthol [Biofreeze] 1 applic TOPICAL Q6H PRN 06/24/16 03/07/17 History HYDROcodone/APAP 7.5-325MG [[place] 1 tab PO Q6H PRN 10/01/16 03/07/17 History 7.5-325] Metolazone [Zaroxolyn] 1.25 mg PO MOWEFR 10/01/16 03/07/17 History Gabapentin [Neurontin] 300 mg PO BID 11/11/16 03/07/17 History Mag Hydrox/Al Hydrox/Simeth 15 ml PO Q6HR PRN 11/11/16 03/07/17 History [Maalox] Na Phos,M-B/Na Phos,Di-Ba [Fleet 1 dose RECTAL ONCE PRN 11/11/16 03/07/17 History Adult] Amantadine HCl [Symmetrel] 100 mg PO DAILY 03/07/17 03/07/17 History Glucerna Shake 1 can PO TID 03/07/17 03/07/17 History Omeprazole [PriLOSEC] 20 - 40 mg PO DAILY 03/07/17 03/07/17 History Allergies Allergy/AdvReac Type Severity Reaction Status Date / Time codeine Allergy Unknown Verified 03/07/17 07:17 Penicillins Allergy Unknown Verified 03/07/17 07:17 Sulfa (Sulfonamide Allergy Unknown Verified 03/07/17 07:17 Antibiotics) Physical Exam Vitals: Vital Signs Temp Pulse Pulse Resp BP BP Pulse Ox 03/07/17 11:00 98.6 F 66 18 130/63 96 03/07/17 09:22 97.8 F 63 19 151/67 98 03/07/17 07:56 60 20 141/63 97 03/07/17 06:51 98.7 F 75 18 150/67 96 03/07/17 06:00 64 18 160/65 98 03/07/17 05:27 97.4 F L 94 18 163/69 Intake and Output 03/06/17 03/07/17 03/07/17 22:59 06:59 14:59 Other: Weight 86.183 kg - Constitutional General appearance: mild distress, obese - EENT Eyes: anicteric sclerae, EOMI, PERRLA, no ptosis, no scleral icterus, normal appearance ENT: hard of hearing, NA/AT, normal oropharynx, no thrush Ears: bilateral: normal - Neck Neck: no lymphadenopathy, normal ROM, no rigidity, no stridor, no thyromegaly Carotids: bilateral: upstroke delayed Thyroid: bilateral: normal size - Respiratory Respiratory: bilateral: diminished, negative: dullness, rales, rhonchi, wheezing , prolonged expiration - Cardiovascular Rhythm: regular Heart sounds: normal: S1, S2 Abnormal Heart Sounds: systolic murmur, no rub, no S3 Gallop, no S4 Gallop, no click - Gastrointestinal General gastrointestinal: normal bowel sounds, soft, no splenomegaly, tenderness , no umbilical hernia, no ventral hernia - Integumentary Integumentary: decreased turgor - Neurologic Neurologic: CNII-XII intact - Musculoskeletal Musculoskeletal: generalized weakness - Psychiatric Psychiatric: no A&O x's 3, no appropriate affect, no intact judgment & insight Results CBC & Chem 7: 03/07/17 06:45 03/07/17 06:45 Labs: Abnormal Lab Results - Last 24 Hours (Table) 03/07/17 03/07/17 03/07/17 Range/Units 05:30 06:25 06:45 RBC 3.49 L (3.80-5.40) m/uL Hgb 10.4 L (11.4-16.0) gm/dL Hct 32.6 L (34.0-46.0) % Chloride (98-107) mmol/L BUN (7-17) mg/dL Creatinine (0.52-1.04) mg/dL POC Glucose (mg/dL) 111 H (75-99) mg/dL Plasma Lactic Acid Flex (0.7-2.0) mmol/L AST (14-36) U/L Urine Appearance Turbid H (Clear) Urine Protein 1+ H (Negative) Urine Blood Small H (Negative) Urine Nitrite Positive H (Negative) Ur Leukocyte Esterase Large H (Negative) Urine RBC 25 H (0-5) /hpf Urine WBC >182 H (0-5) /hpf Urine WBC Clumps Many H (None) /hpf Urine Bacteria Many H (None) /hpf 03/07/17 03/07/17 Range/Units 06:45 06:45 RBC (3.80-5.40) m/uL Hgb (11.4-16.0) gm/dL Hct (34.0-46.0) % Chloride 96 L (98-107) mmol/L BUN 48 H (7-17) mg/dL Creatinine 2.30 H (0.52-1.04) mg/dL POC Glucose (mg/dL) (75-99) mg/dL Plasma Lactic Acid Flex 2.3 H* (0.7-2.0) mmol/L AST 13 L (14-36) U/L Urine Appearance (Clear) Urine Protein (Negative) Urine Blood (Negative) Urine Nitrite (Negative) Ur Leukocyte Esterase (Negative) Urine RBC (0-5) /hpf Urine WBC (0-5) /hpf Urine WBC Clumps (None) /hpf Urine Bacteria (None) /hpf Thrombosis Risk Factor Assmnt - DVT/VTE Prophylaxis DVT/VTE Prophylaxis: Pharmacologic Prophylaxis ordered, Mechanical Prophylaxis ordered - Choose All That Apply Any of the Below Risk Factors Present?: Yes Each Factor Represents 1 point: Medical pt on bed rest, Obesity (BMI >25) Other Risk Factors: Yes Each Risk Factor Represents 2 Points: Patient confined to bed Each Risk Factor Represents 3 Points: Age 75 years or older Other congenital or acquired thrombophilia - If yes, enter type in comment: No Thrombosis Risk Factor Assessment Total Risk Factor Score: 7 Thrombosis Risk Factor Assessment Level: High Risk Assessment and Plan Plan: Assessment and plan: 1. Urinary tract infection with sepsis. Urine culture, blood culture, start the patient on IV antibiotic in the form of Levaquin 500 mg IV piggyback every 48 hours, continue IV fluid resuscitation the form of normal saline at 100 mL an hour, discontinue all diuretics. 2. Severe metabolic encephalopathy secondary to urinary tract infection with sepsis in a patient with a baseline of Alzheimer dementia. Continue IV fluid, continue IV antibiotic, monitor the patient very closely, patient is to have a sitter 1 and 1. 3. CAD. Continue patient on Imdur 30 mg orally once every day, pravastatin 40 mg orally at bedtime, aspirin 81 mg orally once every day and atenolol 25 mg orally once every day. 4. Hypertension and hypertensive cardiovascular disease. Continue atenolol 25 mg orally once every day. 5. Hyperlipidemia. Continue pravastatin 40 mg orally at bedtime. 6. Diabetes mellitus type 2. Discontinue metformin, start the patient on sliding scale insulin. 7. Acute kidney injury and top of chronic kidney disease stage III. IV fluid resuscitation, check CMP, magnesium, and the next 24 hours. 8. Diabetic polyneuropathy. Continue gabapentin 300 mg orally twice every day. 9. Restless leg syndrome. Continue patient on Mirapex 0.5 mg at bedtime. 10. Alzheimer dementia. Continue Namenda 10 mg orally twice every day and Aricept 10 mg orally bedtime. 11. Depression. Continue Elavil 10 mg at bedtime and Lamictal 100 mg orally twice every day. 12. Parkinson. Continue patient on Sinemet 25/100 one tablet orally 4 times every day, amantadine 100 mg orally once every day. 13. DVT prophylaxis. Continue Lovenox 30 mg subcutaneously every 24 hours. 14. GI prophylaxis. Continue omeprazole 20 mg orally once every day. 15. Patient is full code. 16. Admit to inpatient. Estimate a length of stay 2 midnights.
[2017-03-07] MEDS: ATENOLOL 25 MG TAB PO SCH (13:42)
[2017-03-07] MEDS: CARBIDOPA-LEVODOPA 25-100 MG 1 EACH TAB PO SCH ×3 (13:42→17:08)
[2017-03-07 15:13] VITALS: BMI 29.7
[2017-03-07] MEDS ORDERED: NON-FORMULARY DRUG (Glucerna Shake 1 CAN) PO SCH (16:00)
[2017-03-07] MEDS: ALBUTEROL NEBULIZED 2.5 MG/3 ML INHALATION SCH (21:00)
[2017-03-07] MEDS: SYMBICORT 160-4.5 MCG INHALER INHALATION SCH ×2 (21:00→21:12)
[2017-03-08] MEDS: AMITRIPTYLINE HCL 10 MG TAB PO SCH ×2 (00:40→21:58)
[2017-03-08] MEDS: MEMANTINE 10 MG TAB PO SCH ×2 (00:41→08:01)
[2017-03-08] MEDS: MONTELUKAST 10 MG TAB PO SCH ×2 (00:41→21:57)
[2017-03-08] MEDS: GABAPENTIN 300 MG CAP PO SCH ×3 (00:41→21:58)
[2017-03-08] MEDS: DONEPEZIL 10 MG TAB PO SCH ×2 (00:41→21:58)
[2017-03-08] MEDS: PRAMIPEXOLE 0.5 MG TAB PO SCH ×2 (00:42→21:59)
[2017-03-08] MEDS: PRAVASTATIN SODIUM 40 MG TAB PO SCH ×2 (00:42→21:57)
[2017-03-08] MEDS: SENNOSIDES 8.6 MG TAB PO SCH ×2 (00:43→21:57)
[2017-03-08] MEDS: CARBIDOPA-LEVODOPA 25-100 MG 1 EACH TAB PO SCH ×5 (00:44→21:57)
[2017-03-08] MEDS: ACETAMINOPHEN IV (For NPO) 1,000 MG in EMPTY BAG 1 BAG IVPB PRN ×2 (02:55→08:13)
[2017-03-08] MEDS ORDERED: LEVOFLOXACIN 750MG-D5W PMX 750 MG in DEXTROSE/WATER 1 150ML.BAG IVPB SCH (07:00)
[2017-03-08 07:22] LABS: Calcium 8.3 mg/dL (8.4-10.2); Total Bilirubin 0.3 mg/dL (0.2-1.3); Total Protein 5.5 g/dL (6.3-8.2)
[2017-03-08] MEDS: ISOSORBIDE MONONITRATE ER 30 MG TAB.ER.24H PO SCH (08:01)
[2017-03-08] MEDS: lamoTRIgine 100 MG TAB PO SCH ×2 (08:01→21:58)
[2017-03-08] MEDS: ENOXAPARIN 30 MG/0.3 ML SYRINGE SQ SCH (08:02)
[2017-03-08] MEDS: PANTOPRAZOLE 40 MG TABLET PO SCH (08:02)
[2017-03-08] MEDS: ATENOLOL 25 MG TAB PO SCH (08:02)
[2017-03-08] MEDS: AMANTADINE HCL 100 MG CAP PO SCH (08:02)
[2017-03-08 08:06] LABS: Basophils % (A) 0 %; CH 29.1; Eosinophils # (A) 0.3 k/uL (0-0.7); Eosinophils % (A) 6 %; HDW 2.47; Luc # (Auto) 0.09; Luc % (Auto) 2; Lymphocytes # (A) 1.1 k/uL (1.0-4.8); Lymphocytes % (A) 20 %; MCH 30.1 pg (25.0-35.0); MCV 91.3 fL (80.0-100.0); Mean Platelet Volume 7.7; Monocytes # (A) 0.2 k/uL (0-1.0); Monocytes % (A) 4 %; Neutrophils # (A) 3.7 k/uL (1.3-7.7); Neutrophils % (A) 69 %; RBC 2.96 m/uL (3.80-5.40); RDW 13.7 % (11.5-15.5); WBC 5.4 k/uL (3.8-10.6); WBC (Perox) 5.68
[2017-03-08 08:10] LABS: HGB 8.9 gm/dL (11.4-16.0)
[2017-03-08] MEDS: ALBUTEROL NEBULIZED 2.5 MG/3 ML INHALATION SCH ×2 (08:37→21:13)
[2017-03-08] MEDS: SYMBICORT 160-4.5 MCG INHALER INHALATION SCH ×2 (08:38→21:13)
[2017-03-08] MEDS ORDERED: traMADol 50 MG TAB PO PRN (12:13)
[2017-03-08] MEDS: LOSARTAN 50 MG TAB PO SCH (14:00)
--- NOTE | 2017-03-08 15:40 | P.PN ---
Subjective This is an 81-year-old female who resides at [facility] under the care of Dr. Diamond. She has underlying history of dementia, asthma, CAD, diabetes mellitus, hypertension and Parkinson's disease. Patient was doing fine last Friday when she was visited by her daughter who was at the bedside, and she became quite confused and agitated with involuntary movement with mental status changes over the last 24 hours, off patient became quite confused a degree that they had to send her to the emergency department at [facility] she was found to have an acute kidney injury as well as acute urinary tract infection she was started on IV fluid resuscitation she was placed on IV antibiotic and she was admitted to the hospital for evaluation of urinary tract infection with sepsis associated with encephalopathy. 03/08: Patient's were alert, granddaughter at bedside, patient has improved clinically with mentation, patient denies any aspirate events, bedside swallow eval has been more appropriate for her to take pills this time, diabetes without any problems however she has intermittent dysphagia prior to admission, no aspirate events at this time, patient's wheelchair-bound status chronic chronically requiring intermittent restorative care at the skilled nursing, urine cultures are currently pending patient remains to be febrile, mechanical soft diet would be started secondary to her edentulous state. IV fluids to be decreased to 75 mL an hour. hemodynamically stable, creatinine 1.5 Objective - Vital Signs Vital signs: Vital Signs Temp 99 F 03/08/17 06:37 Pulse 100 03/08/17 09:02 Resp 18 03/08/17 06:37 BP 135/60 03/08/17 06:37 Pulse Ox 93 L 03/08/17 06:37 Intake & Output 03/07/17 03/08/17 03/08/17 18:59 06:59 18:59 Intake Total 350 Balance 350 Weight 86.183 kg 86.183 kg Intake: Oral 350 Other: Voiding Method Incontinent Incontinent Incontinent # Voids 2 1 - Constitutional General appearance: Present: cooperative, no acute distress - EENT Eyes: Present: anicteric sclerae, PERRLA, dentition normal, normal appearance ENT: Present: NA/AT, normal oropharynx - Neck Neck: Present: normal ROM - Respiratory Respiratory: bilateral: CTA, negative: diminished, dullness, rales - Cardiovascular Rhythm: regular Heart sounds: normal: S1, S2 Abnormal Heart Sounds: Absent: systolic murmur, diastolic murmur, rub, S3 Gallop , S4 Gallop, click, other - Gastrointestinal General gastrointestinal: Present: normal bowel sounds, soft - Integumentary Integumentary: Present: normal - Musculoskeletal Musculoskeletal Comment(s): Wheelchair-bound status - Psychiatric Psychiatric: Present: A&O x's 3 (Dysarthria with orofacial dyskinesia), intact judgment & insight - Labs CBC & Chem 7: 03/08/17 06:46 03/08/17 06:46 Labs: Abnormal Lab Results - Last 24 Hours (Table) 03/08/17 03/08/17 Range/Units 06:46 06:46 RBC 2.96 L (3.80-5.40) m/uL Hgb 8.9 L D (11.4-16.0) gm/dL Hct 27.0 L (34.0-46.0) % BUN 25 H (7-17) mg/dL Creatinine 1.55 H (0.52-1.04) mg/dL Calcium 8.3 L (8.4-10.2) mg/dL AST 11 L (14-36) U/L Total Protein 5.5 L (6.3-8.2) g/dL Albumin 3.1 L (3.5-5.0) g/dL Microbiology - Last 24 Hours (Table) 03/07/17 06:45 Blood Culture - Preliminary Blood No Growth after 24 hours 03/07/17 16:55 Urine Culture - Preliminary Urine,Catheterized Assessment and Plan Plan: 1. Urinary tract infection with sepsis. Urine culture, blood culture, start the patient on IV antibiotic in the form of Levaquin 500 mg IV piggyback every 48 hours, continue IV fluid resuscitation the form of normal saline at 100 mL an hourn decrease to 75 cc/hs, discontinue all diuretics. Can start on losartan , avoid hypotensive events 2. Severe metabolic encephalopathy secondary to urinary tract infection with sepsis in a patient with a baseline of Alzheimer dementia. Continue IV fluid, continue IV antibiotic, monitor the patient very closely, patient is to have a sitter 1 and 1. 3. CAD. Continue patient on Imdur 30 mg orally once every day, pravastatin 40 mg orally at bedtime, aspirin 81 mg orally once every day and atenolol 25 mg orally once every day. 4. Hypertension and hypertensive cardiovascular disease. Continue atenolol 25 mg orally once every day. Losartan restarted 5. Hyperlipidemia. Continue pravastatin 40 mg orally at bedtime. 6. Diabetes mellitus type 2. Discontinue metformin, start the patient on sliding scale insulin. 7. Acute kidney injury and top of chronic kidney disease stage III. IV fluid resuscitation, check CMP, magnesium, and the next 24 hours. 8. Diabetic polyneuropathy. Continue gabapentin 300 mg orally twice every day. 9. Restless leg syndrome. Continue patient on Mirapex 0.5 mg at bedtime. 10. Alzheimer dementia. Continue Namenda 10 mg orally twice every day and Aricept 10 mg orally bedtime. 11. Depression. Continue Elavil 10 mg at bedtime and Lamictal 100 mg orally twice every day. 12. Parkinson. Continue patient on Sinemet 25/100 one tablet orally 4 times every day, amantadine 100 mg orally once every day. 13. DVT prophylaxis. Continue Lovenox 30 mg subcutaneously every 24 hours. 14. GI prophylaxis. Continue omeprazole 20 mg orally once every day. 15. Patient is full code. 16. Admit to inpatient. Estimate a length of stay 2 midnights.
[2017-03-08] MEDS: HYDROcodone/APAP 7.5-325MG 1 EACH TAB PO PRN (21:56)
[2017-03-08] MEDS: MEMANTINE 5 MG TAB PO SCH (21:58)
[2017-03-08] MEDS: traMADol 50 MG TAB PO PRN (23:23)
[2017-03-09] MEDS ORDERED: LEVOFLOXACIN 500MG-D5W PMX 500 MG in DEXTROSE/WATER 1 100ML.BAG IVPB SCH (07:00)
[2017-03-09] MEDS ORDERED: LEVOFLOXACIN 750MG-D5W PMX 750 MG in DEXTROSE/WATER 1 150ML.BAG IVPB SCH (07:00)
[2017-03-09 07:33] LABS: CH 29.3; HCT 27.2 % (34.0-46.0); HDW 2.49; HGB 8.7 gm/dL (11.4-16.0); MCH 29.5 pg (25.0-35.0); MCHC 32.1 g/dL (31.0-37.0); MCV 91.9 fL (80.0-100.0); RBC 2.96 m/uL (3.80-5.40); RDW 13.5 % (11.5-15.5); WBC 5.9 k/uL (3.8-10.6)
[2017-03-09 07:50] LABS: Calcium 8.3 mg/dL (8.4-10.2); Potassium 3.7 mmol/L (3.5-5.1)
[2017-03-09] MEDS: CARBIDOPA-LEVODOPA 25-100 MG 1 EACH TAB PO SCH ×3 (08:32→20:01)
[2017-03-09] MEDS: ENOXAPARIN 30 MG/0.3 ML SYRINGE SQ SCH ×2 (08:32→08:33)
[2017-03-09] MEDS: ATENOLOL 25 MG TAB PO SCH (08:32)
[2017-03-09] MEDS: GABAPENTIN 300 MG CAP PO SCH ×2 (08:32→20:01)
[2017-03-09] MEDS: ISOSORBIDE MONONITRATE ER 30 MG TAB.ER.24H PO SCH (08:33)
[2017-03-09] MEDS: LOSARTAN 50 MG TAB PO SCH (08:33)
[2017-03-09] MEDS: MEMANTINE 5 MG TAB PO SCH ×2 (08:33→20:03)
[2017-03-09] MEDS: lamoTRIgine 100 MG TAB PO SCH ×2 (08:33→20:02)
[2017-03-09] MEDS: PANTOPRAZOLE 40 MG TABLET PO SCH (08:33)
[2017-03-09] MEDS: AMANTADINE HCL 100 MG CAP PO SCH (08:33)
[2017-03-09] MEDS: ALBUTEROL NEBULIZED 2.5 MG/3 ML INHALATION SCH ×2 (09:14→22:12)
[2017-03-09] MEDS: SYMBICORT 160-4.5 MCG INHALER INHALATION SCH ×2 (09:19→22:12)
[2017-03-09] MEDS: traMADol 50 MG TAB PO PRN (10:00)
--- NOTE | 2017-03-09 17:28 | P.PN ---
Subjective This is an 81-year-old female who resides at [facility] under the care of Dr. Diamond. She has underlying history of dementia, asthma, CAD, diabetes mellitus, hypertension and Parkinson's disease. Patient was doing fine last Friday when she was visited by her daughter who was at the bedside, and she became quite confused and agitated with involuntary movement with mental status changes over the last 24 hours, off patient became quite confused a degree that they had to send her to the emergency department at [facility] she was found to have an acute kidney injury as well as acute urinary tract infection she was started on IV fluid resuscitation she was placed on IV antibiotic and she was admitted to the hospital for evaluation of urinary tract infection with sepsis associated with encephalopathy. Creatinine on admission 2.3 03/08: Patient's were alert, granddaughter at bedside, patient has improved clinically with mentation, patient denies any aspirate events, bedside swallow eval has been more appropriate for her to take pills this time, diabetes without any problems however she has intermittent dysphagia prior to admission, no aspirate events at this time, patient's wheelchair-bound status chronic chronically requiring intermittent restorative care at the senior living, urine cultures are currently pending patient remains to be febrile, mechanical soft diet would be started secondary to her edentulous state. IV fluids to be decreased to 75 mL an hour. hemodynamically stable, creatinine 1.5 03/09:, Patient seems to be stronger today more alert, 40 seems to be better, patient has been eating without difficulties, family at bedside, urine culture is growing gram-negative bacilli, negative from blood cultures so far, patient remains afebrile creatinine today 1.2-6 Objective - Vital Signs Vital signs: Vital Signs Temp 97 F L 03/09/17 15:00 Pulse 71 03/09/17 15:00 Resp 20 03/09/17 15:00 BP 148/67 03/09/17 15:00 Pulse Ox 94 L 03/09/17 15:00 Intake & Output 03/08/17 03/09/17 03/09/17 18:59 06:59 18:59 Intake Total 350 350 Balance 350 350 Weight 86.183 kg Intake: Oral 350 350 Other: Voiding Method Incontinent Incontinent Incontinent # Voids 2 1 3 - Constitutional General appearance: Present: cooperative, no acute distress - EENT Eyes: Present: EOMI, dentition normal ENT: Present: hard of hearing, NA/AT - Neck Neck: Present: normal ROM. Absent: lymphadenopathy, other, rigidity, stridor, thyromegaly - Respiratory Respiratory: bilateral: rales, negative: CTA, rhonchi, wheezing - Cardiovascular Rhythm: regular Heart sounds: normal: S1, S2 Abnormal Heart Sounds: Absent: systolic murmur, diastolic murmur, rub, S3 Gallop , S4 Gallop, click, other - Gastrointestinal General gastrointestinal: Present: normal bowel sounds, soft - Integumentary Integumentary: Present: normal - Neurologic Neurologic: Present: CNII-XII intact - Musculoskeletal Musculoskeletal: Present: gait normal, strength equal bilaterally - Psychiatric Psychiatric: Present: A&O x's 3, appropriate affect - Labs CBC & Chem 7: 03/09/17 07:14 03/09/17 07:14 Labs: Abnormal Lab Results - Last 24 Hours (Table) 03/09/17 03/09/17 Range/Units 07:14 07:14 RBC 2.96 L (3.80-5.40) m/uL Hgb 8.7 L (11.4-16.0) gm/dL Hct 27.2 L (34.0-46.0) % Creatinine 1.26 H (0.52-1.04) mg/dL Calcium 8.3 L (8.4-10.2) mg/dL Microbiology - Last 24 Hours (Table) 03/07/17 06:45 Blood Culture - Preliminary Blood No Growth after 48 hours 03/07/17 16:55 Urine Culture - Preliminary Urine,Catheterized Gram Neg Bacilli Assessment and Plan Plan: 1. Urinary tract infection with sepsis. Urine culture, blood culture, start the patient on IV antibiotic in the form of Levaquin 500 mg IV piggyback every 48 hours, continue IV fluid resuscitation the form of normal saline at 100 mL an hourn decrease to 75 cc/hs, discontinue all diuretics. Can start on losartan , avoid hypotensive events 2. Severe metabolic encephalopathy secondary to urinary tract infection with sepsis in a patient with a baseline of Alzheimer dementia. Continue IV fluid, continue IV antibiotic, monitor the patient very closely, patient is to have a sitter 1 and 1. 3. CAD. Continue patient on Imdur 30 mg orally once every day, pravastatin 40 mg orally at bedtime, aspirin 81 mg orally once every day and atenolol 25 mg orally once every day. 4. Hypertension and hypertensive cardiovascular disease. Continue atenolol 25 mg orally once every day. Losartan restarted 5. Hyperlipidemia. Continue pravastatin 40 mg orally at bedtime. 6. Diabetes mellitus type 2. Discontinue metformin, start the patient on sliding scale insulin. 7. Acute kidney injury and top of chronic kidney disease stage III. IV fluid resuscitation, check CMP, magnesium, and the next 24 hours. 8. Diabetic polyneuropathy. Continue gabapentin 300 mg orally twice every day. 9. Restless leg syndrome. Continue patient on Mirapex 0.5 mg at bedtime. 10. Alzheimer dementia. Continue Namenda 10 mg orally twice every day and Aricept 10 mg orally bedtime. 11. Depression. Continue Elavil 10 mg at bedtime and Lamictal 100 mg orally twice every day. 12. Parkinson. Continue patient on Sinemet 25/100 one tablet orally 4 times every day, amantadine 100 mg orally once every day. 13. DVT prophylaxis. Continue Lovenox 30 mg subcutaneously every 24 hours. 14. GI prophylaxis. Continue omeprazole 20 mg orally once every day. 15. Patient is full code. 16. Admit to inpatient. Estimate a length of stay 2 midnights.
[2017-03-09] MEDS: HYDROcodone/APAP 7.5-325MG 1 EACH TAB PO PRN (20:00)
[2017-03-09] MEDS: PRAMIPEXOLE 0.5 MG TAB PO SCH (20:01)
[2017-03-09] MEDS: PRAVASTATIN SODIUM 40 MG TAB PO SCH (20:01)
[2017-03-09] MEDS: DONEPEZIL 10 MG TAB PO SCH (20:02)
[2017-03-09] MEDS: AMITRIPTYLINE HCL 10 MG TAB PO SCH (20:02)
[2017-03-09] MEDS: SENNOSIDES 8.6 MG TAB PO SCH (20:02)
[2017-03-09] MEDS: MONTELUKAST 10 MG TAB PO SCH (20:02)
[2017-03-09] MEDS: ONDANSETRON 4 MG/2 ML VIAL IVP PRN (20:08)
[2017-03-10] MEDS: CARBIDOPA-LEVODOPA 25-100 MG 1 EACH TAB PO SCH ×5 (00:01→20:34)
[2017-03-10] MEDS: ONDANSETRON 4 MG/2 ML VIAL IVP PRN (01:09)
[2017-03-10] MEDS: SYMBICORT 160-4.5 MCG INHALER INHALATION SCH ×2 (07:20→20:29)
[2017-03-10] MEDS: ALBUTEROL NEBULIZED 2.5 MG/3 ML INHALATION SCH ×2 (07:20→20:29)
[2017-03-10 08:14] LABS: CH 29.9; CHCM 32.6; HCT 27.9 % (34.0-46.0); HDW 2.49; HGB 9.2 gm/dL (11.4-16.0); MCH 30.4 pg (25.0-35.0); MCV 92.1 fL (80.0-100.0); Mean Platelet Volume 8.4; RBC 3.03 m/uL (3.80-5.40); RDW 13.9 % (11.5-15.5); WBC 7.3 k/uL (3.8-10.6)
[2017-03-10 08:21] LABS: Calcium 8.7 mg/dL (8.4-10.2); Potassium 4.2 mmol/L (3.5-5.1)
[2017-03-10] MEDS: MEMANTINE 5 MG TAB PO SCH ×2 (08:32→20:33)
[2017-03-10] MEDS: lamoTRIgine 100 MG TAB PO SCH ×2 (08:33→20:33)
[2017-03-10] MEDS: GABAPENTIN 300 MG CAP PO SCH ×2 (08:33→20:32)
[2017-03-10] MEDS: ISOSORBIDE MONONITRATE ER 30 MG TAB.ER.24H PO SCH (08:33)
[2017-03-10] MEDS: LOSARTAN 50 MG TAB PO SCH (08:33)
[2017-03-10] MEDS: ATENOLOL 25 MG TAB PO SCH (08:33)
[2017-03-10] MEDS: PANTOPRAZOLE 40 MG TABLET PO SCH (08:34)
[2017-03-10] MEDS: AMANTADINE HCL 100 MG CAP PO SCH (08:34)
[2017-03-10] MEDS: HYDROcodone/APAP 7.5-325MG 1 EACH TAB PO PRN ×2 (08:43→19:39)
--- NOTE | 2017-03-10 14:22 | P.PN ---
Subjective This is an 81-year-old female who resides at [facility] under the care of Dr. Diamond. She has underlying history of dementia, asthma, CAD, diabetes mellitus, hypertension and Parkinson's disease. Patient was doing fine last Friday when she was visited by her daughter who was at the bedside, and she became quite confused and agitated with involuntary movement with mental status changes over the last 24 hours, off patient became quite confused a degree that they had to send her to the emergency department at [facility] she was found to have an acute kidney injury as well as acute urinary tract infection she was started on IV fluid resuscitation she was placed on IV antibiotic and she was admitted to the hospital for evaluation of urinary tract infection with sepsis associated with encephalopathy. Creatinine on admission 2.3 03/08: Patient's were alert, granddaughter at bedside, patient has improved clinically with mentation, patient denies any aspirate events, bedside swallow eval has been more appropriate for her to take pills this time, diabetes without any problems however she has intermittent dysphagia prior to admission, no aspirate events at this time, patient's wheelchair-bound status chronic chronically requiring intermittent restorative care at the care home, urine cultures are currently pending patient remains to be febrile, mechanical soft diet would be started secondary to her edentulous state. IV fluids to be decreased to 75 mL an hour. hemodynamically stable, creatinine 1.5 03/09:, Patient seems to be stronger today more alert, 40 seems to be better, patient has been eating without difficulties, family at bedside, urine culture is growing gram-negative bacilli, negative from blood cultures so far, patient remains afebrile creatinine today 1.2-6 03/10: Patient is complaining of weakness for which physical therapy has been added. Patient only assist with transfers at [facility]. She denies any diarrhea. Consult added for Dr. Ring for antibiotic recommendations. Urine culture is E. coli resistant to fluoroquinolones and Bactrim and patient states she has had an anaphylactic reaction to penicillin. Anticipate possible discharge by tomorrow. Objective - Vital Signs Vital signs: Vital Signs Temp 98.8 F 03/10/17 07:00 Pulse 88 03/10/17 07:31 Resp 18 03/10/17 07:00 BP 164/80 03/10/17 07:00 Pulse Ox 92 L 03/10/17 07:22 Intake & Output 03/09/17 03/10/17 03/10/17 18:59 06:59 18:59 Intake Total 350 Balance 350 Intake: Oral 350 Other: Voiding Method Incontinent Incontinent Incontinent # Voids 3 1 2 - Exam General appearance: Present: cooperative, no acute distress - EENT Eyes: Present: EOMI, dentition normal ENT: Present: hard of hearing, NA/AT - Neck Neck: Present: normal ROM. Absent: lymphadenopathy, other, rigidity, stridor, thyromegaly - Respiratory Respiratory: bilateral: rales, negative: CTA, rhonchi, wheezing - Cardiovascular Rhythm: regular Heart sounds: normal: S1, S2 Abnormal Heart Sounds: Absent: systolic murmur, diastolic murmur, rub, S3 Gallop , S4 Gallop, click, other - Gastrointestinal General gastrointestinal: Present: normal bowel sounds, soft - Integumentary Integumentary: Present: normal - Neurologic Neurologic: Present: CNII-XII intact - Musculoskeletal Musculoskeletal: Present: gait normal, strength equal bilaterally - Psychiatric Psychiatric: Present: A&O x's 3, appropriate affect - Labs CBC & Chem 7: 03/10/17 07:42 03/10/17 07:42 Labs: Abnormal Lab Results - Last 24 Hours (Table) 03/10/17 03/10/17 Range/Units 07:42 07:42 RBC 3.03 L (3.80-5.40) m/uL Hgb 9.2 L (11.4-16.0) gm/dL Hct 27.9 L (34.0-46.0) % Creatinine 1.27 H (0.52-1.04) mg/dL Glucose 111 H (74-99) mg/dL Microbiology - Last 24 Hours (Table) 03/07/17 06:45 Blood Culture - Preliminary Blood No Growth after 72 hours 03/07/17 16:55 Urine Culture - Final Urine,Catheterized Escherichia coli Assessment and Plan Plan: 1. Urinary tract infection with sepsis. Urine culture, blood culture, start the patient on IV antibiotic in the form of Levaquin 500 mg IV piggyback every 48 hours, continue IV fluid resuscitation the form of normal saline at 100 mL an hourn decrease to 75 cc/hs, discontinue all diuretics. Can start on losartan , avoid hypotensive events. Consult with Dr. Ring 2. Severe metabolic encephalopathy secondary to urinary tract infection with sepsis in a patient with a baseline of Alzheimer dementia. Continue IV fluid, continue IV antibiotic, monitor the patient very closely, patient is to have a sitter 1 and 1. 3. CAD. Continue patient on Imdur 30 mg orally once every day, pravastatin 40 mg orally at bedtime, aspirin 81 mg orally once every day and atenolol 25 mg orally once every day. 4. Hypertension and hypertensive cardiovascular disease. Continue atenolol 25 mg orally once every day. Losartan restarted 5. Hyperlipidemia. Continue pravastatin 40 mg orally at bedtime. 6. Diabetes mellitus type 2. Discontinue metformin, start the patient on sliding scale insulin. 7. Acute kidney injury and top of chronic kidney disease stage III. IV fluid resuscitation, check CMP, magnesium, and the next 24 hours. 8. Diabetic polyneuropathy. Continue gabapentin 300 mg orally twice every day. 9. Restless leg syndrome. Continue patient on Mirapex 0.5 mg at bedtime. 10. Alzheimer dementia. Continue Namenda 10 mg orally twice every day and Aricept 10 mg orally bedtime. 11. Depression. Continue Elavil 10 mg at bedtime and Lamictal 100 mg orally twice every day. 12. Parkinson. Continue patient on Sinemet 25/100 one tablet orally 4 times every day, amantadine 100 mg orally once every day. 13. DVT prophylaxis. Continue Lovenox 30 mg subcutaneously every 24 hours. 14. GI prophylaxis. Continue omeprazole 20 mg orally once every day. 15. Patient is full code. Discharge plan: Return to [facility] tomorrow Impression and plan of care have been directed as dictated by the signing physician. Jailyn Navarro nurse practitioner acting as scribe for signing physician.
[2017-03-10] MEDS: AMITRIPTYLINE HCL 10 MG TAB PO SCH (20:32)
[2017-03-10] MEDS: DONEPEZIL 10 MG TAB PO SCH (20:32)
[2017-03-10] MEDS: MONTELUKAST 10 MG TAB PO SCH (20:33)
[2017-03-10] MEDS: PRAMIPEXOLE 0.5 MG TAB PO SCH (20:33)
[2017-03-10] MEDS: SENNOSIDES 8.6 MG TAB PO SCH (20:33)
[2017-03-10] MEDS: PRAVASTATIN SODIUM 40 MG TAB PO SCH (20:34)
[2017-03-11] MEDS: traMADol 50 MG TAB PO PRN (04:32)
[2017-03-11] MEDS: ALBUTEROL NEBULIZED 2.5 MG/3 ML INHALATION SCH ×2 (07:37→20:03)
[2017-03-11] MEDS: SYMBICORT 160-4.5 MCG INHALER INHALATION SCH ×2 (07:37→20:03)
[2017-03-11 08:55] LABS: CH 29.9; CHCM 32.9; HCT 28.3 % (34.0-46.0); HDW 2.48; MCH 29.1 pg (25.0-35.0); MCHC 31.9 g/dL (31.0-37.0); MCV 91.4 fL (80.0-100.0); Mean Platelet Volume 8.1; RBC 3.09 m/uL (3.80-5.40); RDW 13.8 % (11.5-15.5); WBC 5.7 k/uL (3.8-10.6)
[2017-03-11] MEDS: LOSARTAN 50 MG TAB PO SCH (08:57)
[2017-03-11] MEDS: lamoTRIgine 100 MG TAB PO SCH ×2 (08:57→20:00)
[2017-03-11] MEDS: AMANTADINE HCL 100 MG CAP PO SCH (08:57)
[2017-03-11] MEDS: PANTOPRAZOLE 40 MG TABLET PO SCH (08:57)
[2017-03-11] MEDS: ISOSORBIDE MONONITRATE ER 30 MG TAB.ER.24H PO SCH (08:57)
[2017-03-11] MEDS: GABAPENTIN 300 MG CAP PO SCH ×2 (08:57→20:00)
[2017-03-11] MEDS: MEMANTINE 5 MG TAB PO SCH ×2 (08:57→20:01)
[2017-03-11] MEDS: ATENOLOL 25 MG TAB PO SCH (08:57)
[2017-03-11] MEDS: ENOXAPARIN 30 MG/0.3 ML SYRINGE SQ SCH (08:58)
[2017-03-11] MEDS: CARBIDOPA-LEVODOPA 25-100 MG 1 EACH TAB PO SCH ×4 (08:58→20:02)
[2017-03-11 09:11] LABS: Calcium 8.5 mg/dL (8.4-10.2); Potassium 3.9 mmol/L (3.5-5.1)
--- NOTE | 2017-03-11 10:23 | P.DS ---
Providers Date of admission: 03/07/17 08:49 Expected date of discharge: 03/12/17 Attending physician: Reina Amaya Consults: 03/10/17 12:26 Consult Physician Routine Consulting Provider: Darwin Ring Consult Reason/Comments: MDRO UTI Do you want consulting provider notified?: Yes Primary care physician: [facility] Course: This is an 81-year-old female who resides at [facility] under the care of Dr. Diamond. She has underlying history of dementia, asthma, CAD, diabetes mellitus, hypertension and Parkinson's disease. Patient was doing fine last Friday when she was visited by her daughter who was at the bedside, and she became quite confused and agitated with involuntary movement with mental status changes over the last 24 hours, off patient became quite confused a degree that they had to send her to the emergency department at [facility] she was found to have an acute kidney injury as well as acute urinary tract infection she was started on IV fluid resuscitation she was placed on IV antibiotic and she was admitted to the hospital for evaluation of urinary tract infection with sepsis associated with encephalopathy. Creatinine on admission 2.3 03/08: Patient's were alert, granddaughter at bedside, patient has improved clinically with mentation, patient denies any aspirate events, bedside swallow eval has been more appropriate for her to take pills this time, diabetes without any problems however she has intermittent dysphagia prior to admission, no aspirate events at this time, patient's wheelchair-bound status chronic chronically requiring intermittent restorative care at the half-way, urine cultures are currently pending patient remains to be febrile, mechanical soft diet would be started secondary to her edentulous state. IV fluids to be decreased to 75 mL an hour. hemodynamically stable, creatinine 1.5 03/09:, Patient seems to be stronger today more alert, 40 seems to be better, patient has been eating without difficulties, family at bedside, urine culture is growing gram-negative bacilli, negative from blood cultures so far, patient remains afebrile creatinine today 1.2-6 03/10: Patient is complaining of weakness for which physical therapy has been added. Patient only assist with transfers at [facility]. She denies any diarrhea. Consult added for Dr. Ring for antibiotic recommendations. Urine culture is E. coli resistant to fluoroquinolones and Bactrim and patient states she has had an anaphylactic reaction to penicillin. Anticipate possible discharge by tomorrow. 03/11: Patient has been seen by Dr. Ring and started on ceftriaxone and patient has not had any reaction. He has recommended Ceftin 500 mg twice daily for 7 days for discharge. We will plan for discharge back to [facility] tomorrow. Patient has had increased confusion and paranoia today Xanax has been added. 03/12: No new complaints today. Mental status is improved today from yesterday. Patient will be discharged back to [facility] in stable condition. She will be continued on Ceftin as recommended by Dr. Ring. Discharge diagnoses: 1. [id number] E. coli urinary tract infection with sepsis. 2. Severe metabolic encephalopathy secondary to urinary tract infection with sepsis in a patient with a baseline of Alzheimer dementia. 3. CAD. 4. Hypertension and hypertensive cardiovascular disease. 5. Hyperlipidemia. 6. Diabetes mellitus type 2. 7. Acute kidney injury and top of chronic kidney disease stage III. 8. Diabetic polyneuropathy. 9. Restless leg syndrome. 10. Alzheimer dementia. 11. Depression, recurrent. 12. Parkinson. Discharge plan: Return to [facility] Impression and plan of care have been directed as dictated by the signing physician. Jailyn Navarro nurse practitioner acting as scribe for signing physician. Patient Condition at Discharge: Good Plan - Discharge Summary New Discharge Prescriptions: New Cefuroxime Axetil [Ceftin] 500 mg PO BID #14 tab ALPRAZolam [Xanax] 0.25 mg PO BID PRN #60 tab PRN Reason: Anxiety Melatonin 3 mg PO HS tab Continue Amitriptyline HCl [Elavil] 10 mg PO HS Memantine [Namenda] 10 mg PO BID Pramipexole [Mirapex] 0.5 mg PO HS Atenolol [Tenormin] 25 mg PO DAILY Fluticasone/Salmeterol [Advair 500-50 Diskus] 2 puff INHALATION RT-BID lamoTRIgine [lamoTRIgine ER] 200 mg PO DAILY Carbidopa-Levodopa 25-100 mg [Sinemet 25-100 mg] 1 tab PO QID Donepezil [Aricept] 10 mg PO HS Pravastatin Sodium [Pravachol] 40 mg PO HS Isosorbide Mononitrate ER [Imdur] 30 mg PO QAM Magnesium Hydroxide [Milk of Magnesia Concentrate] 30 ml PO DAILY PRN PRN Reason: Constipation Albuterol Nebulized [Ventolin Nebulized] 2.5 mg INHALATION RT-BID Acetaminophen Tab [Tylenol] 500 mg PO Q6H PRN PRN Reason: Pain Losartan Potassium [Cozaar] 50 mg PO DAILY Sennosides [Senna] 8.6 mg PO HS Bisacodyl [Dulcolax] 10 mg RECTAL DAILY PRN PRN Reason: Constipation Montelukast [Singulair] 10 mg PO HS Furosemide [Lasix] 40 mg PO DAILY #0 Menthol [Biofreeze] 1 applic TOPICAL Q6H PRN PRN Reason: Pain Baclofen [Lioresal] 10 mg PO Q8H #90 tab Metolazone [Zaroxolyn] 1.25 mg PO MOWEFR Gabapentin [Neurontin] 300 mg PO BID Na Phos,M-B/Na Phos,Di-Ba [Fleet Adult] 1 dose RECTAL ONCE PRN PRN Reason: Constipation Mag Hydrox/Al Hydrox/Simeth [Maalox] 15 ml PO Q6HR PRN PRN Reason: Upset Stomach Amantadine HCl [Symmetrel] 100 mg PO DAILY Glucerna Shake 1 can PO TID Omeprazole [PriLOSEC] 20 - 40 mg PO DAILY HYDROcodone/APAP 7.5-325MG [[place] 7.5-325] 1 tab PO Q6H PRN #90 PRN Reason: Severe Pain traMADol HCl [Ultram] 50 mg PO Q6H PRN #120 tab PRN Reason: Mild Pain Changed metFORMIN HCL [Glucophage] 1,000 mg PO DAILY@1700 #0 Discontinued metFORMIN HCL 1,000 mg PO QAM Ibuprofen [Motrin] 400 mg PO Q8HR PRN PRN Reason: Pain Discharge Medication List Amitriptyline HCl [Elavil] 10 mg PO HS 07/30/14 [History] Atenolol [Tenormin] 25 mg PO DAILY 07/30/14 [History] Fluticasone/Salmeterol [Advair 500-50 Diskus] 2 puff INHALATION RT-BID 07/30/14 [History] Memantine [Namenda] 10 mg PO BID 07/30/14 [History] Pramipexole [Mirapex] 0.5 mg PO HS 07/30/14 [History] lamoTRIgine [lamoTRIgine ER] 200 mg PO DAILY 07/30/14 [History] Carbidopa-Levodopa 25-100 mg [Sinemet 25-100 mg] 1 tab PO QID 12/29/14 [History] Donepezil [Aricept] 10 mg PO HS 12/29/14 [History] Pravastatin Sodium [Pravachol] 40 mg PO HS 12/30/14 [History] Isosorbide Mononitrate ER [Imdur] 30 mg PO QAM 03/03/15 [History] Magnesium Hydroxide [Milk of Magnesia Concentrate] 30 ml PO DAILY PRN 04/10/15 [ History] Albuterol Nebulized [Ventolin Nebulized] 2.5 mg INHALATION RT-BID 08/16/15 [ History] Acetaminophen Tab [Tylenol] 500 mg PO Q6H PRN 09/08/15 [History] Losartan Potassium [Cozaar] 50 mg PO DAILY 05/14/16 [History] Sennosides [Senna] 8.6 mg PO HS 05/14/16 [History] Bisacodyl [Dulcolax] 10 mg RECTAL DAILY PRN 05/23/16 [History] Montelukast [Singulair] 10 mg PO HS 05/23/16 [History] Furosemide [Lasix] 40 mg PO DAILY #0 05/27/16 [Rx] Menthol [Biofreeze] 1 applic TOPICAL Q6H PRN 06/24/16 [History] Baclofen [Lioresal] 10 mg PO Q8H #90 tab 08/12/16 [Rx] Metolazone [Zaroxolyn] 1.25 mg PO MOWEFR 10/01/16 [History] Gabapentin [Neurontin] 300 mg PO BID 11/11/16 [History] Mag Hydrox/Al Hydrox/Simeth [Maalox] 15 ml PO Q6HR PRN 11/11/16 [History] Na Phos,M-B/Na Phos,Di-Ba [Fleet Adult] 1 dose RECTAL ONCE PRN 11/11/16 [History ] Amantadine HCl [Symmetrel] 100 mg PO DAILY 03/07/17 [History] Glucerna Shake 1 can PO TID 03/07/17 [History] Omeprazole [PriLOSEC] 20 - 40 mg PO DAILY 03/07/17 [History] Cefuroxime Axetil [Ceftin] 500 mg PO BID #14 tab 03/11/17 [Rx] ALPRAZolam [Xanax] 0.25 mg PO BID PRN #60 tab 03/12/17 [Rx] HYDROcodone/APAP 7.5-325MG [[place] 7.5-325] 1 tab PO Q6H PRN #90 03/12/17 [Rx] Melatonin 3 mg PO HS tab 03/12/17 [Rx] metFORMIN HCL [Glucophage] 1,000 mg PO DAILY@1700 #0 03/12/17 [Rx] traMADol HCl [Ultram] 50 mg PO Q6H PRN #120 tab 03/12/17 [Rx] Follow up Appointment(s)/Referral(s): Jose Luis Diamond MD [Primary Care Provider] - 1 Week (at [facility]) Patient Instructions/Handouts: Cefuroxime (By mouth), Hydrocodone/ Acetaminophen (By mouth), Alprazolam (By mouth), Tramadol (By mouth), Dehydration (DC), Altered Mental Status (GEN) Discharge Disposition: TRANSFER TO SNF/ECF
[2017-03-11] MEDS: HYDROcodone/APAP 7.5-325MG 1 EACH TAB PO PRN ×2 (11:09→22:00)
[2017-03-11] MEDS ORDERED: ALPRAZolam 0.25 MG TAB PO PRN (11:40)
[2017-03-11] MEDS ORDERED: ALPRAZolam 0.25 MG TAB PO STA (11:40)
--- NOTE | 2017-03-11 12:28 | CONS ---
DATE OF SERVICE: 03/11/2017 REASON FOR CONSULTATION: Urinary tract infection, multidrug resistant HISTORY OF PRESENT ILLNESS: The patient is an 81-year-old female who presented to the ER at [facility] on 03/07/2017 with chief complaint of mental status changes. Per history given by the ER nurse, the patient was noticed to be moaning for a number of hours and not answering any questions like she usually does. The patient did have underlying significant dementia and prone to UTIs. The patient was noted to have significantly positive UA. Her white count was normal and no fever. Patient was admitted to the hospital for urinary tract infection and was being treated with Levaquin. However, the urinary culture reported yesterday positive E. Coli that did show resistant to the quinolones. Patient did have underlying sulfa and penicillin allergy. Hence , ID was consulted for further recommendations regarding antibiotic therapy. Per discussion with the patient and nurse on the phone yesterday she was noticed to have ,PCN allergy with rash and no history of anaphylaxis. The patient was given a dose of Rocephin and has tolerated it so far. She was slightly more awake and alert today to me though she denied having any headache , any chest pain, shortness of breath or cough. No abdominal pain. No diarrhea. Review of systems could not be reliably obtained with the positive points as mentioned in HPI. PAST MEDICAL HISTORY: Significant for coronary artery disease, CVA, TIA, dementia, diabetes mellitus, gastroesophageal reflux disease, hypertension, hyperlipidemia, osteoarthritis. Parkinsons disease. PAST SURGICAL HISTORY: Appendectomy, cholecystectomy, hysterectomy, neck surgery, bilateral knee replacement. SOCIAL HISTORY: Remote history of smoking. No drinking or drug use. FAMILY HISTORY: No pertinent findings noticed. ALLERGIES: PENICILLIN AND SULFA. No history of anaphylaxis. Medications include the patient is currently on Senokot, Pravachol, Mirapex, Protonix, Zofran, Singulair, Namenda, melatonin, Cozaar, Lamictal, Imdur, Neurontin, Aricept, Sinemet, Dulcolax, Elavil, Xanax, [place]. On examination: Blood pressure 150/84 with pulse 85. Temperature 99.2. She is 96 % on 2-L nasal cannula. General description is an elderly female lying in bed in no distress. No tachypnea or accessory muscle of respiration use. HEENT examination shows no pallor or scleral icterus. oral mucous membrane is dry. NECK: Trachea is central. No thyromegaly. LUNGS: Unlabored breathing. Clear to auscultation anteriorly. HEART: S1, S2 regular rate and rhythm. ABDOMEN: Soft, no tenderness. No guarding or rigidity. EXTREMITIES: No edema feet. SKIN: No rash or mass palpable. NEUROLOGICAL: Patient is awake, alert, oriented x3. Mood and affect normal. LABS: Hemoglobin is 9. White count 5.7. BUN 12, creatinine 1.27. Urine was positive and culture with an E. coli. DIAGNOSTIC IMPRESSION AND PLAN: Patient admitted to the hospital with mental status changes with likely multifactorial and likely component of urinary tract infection with urine showing E. coli resistant to the quinolones, sulfa; though sensitive to the ceftriaxone. Patient did have a PENICILLIN ALLERGY but no anaphylaxis and seems to have done well with Rocephin. PLAN: Patient is continued on Rocephin 1 gram daily and the patient will continue with plan to finish therapy with p.o. Ceftin 500 mg daily twice a day for another 7 days. MTDD
[2017-03-11] MEDS: ACETAMINOPHEN TAB 325 MG TAB PO PRN ×2 (14:18→19:59)
--- NOTE | 2017-03-11 14:30 | P.PN ---
Subjective This is an 81-year-old female who resides at [facility] under the care of Dr. Diamond. She has underlying history of dementia, asthma, CAD, diabetes mellitus, hypertension and Parkinson's disease. Patient was doing fine last Friday when she was visited by her daughter who was at the bedside, and she became quite confused and agitated with involuntary movement with mental status changes over the last 24 hours, off patient became quite confused a degree that they had to send her to the emergency department at [facility] she was found to have an acute kidney injury as well as acute urinary tract infection she was started on IV fluid resuscitation she was placed on IV antibiotic and she was admitted to the hospital for evaluation of urinary tract infection with sepsis associated with encephalopathy. Creatinine on admission 2.3 03/08: Patient's were alert, granddaughter at bedside, patient has improved clinically with mentation, patient denies any aspirate events, bedside swallow eval has been more appropriate for her to take pills this time, diabetes without any problems however she has intermittent dysphagia prior to admission, no aspirate events at this time, patient's wheelchair-bound status chronic chronically requiring intermittent restorative care at the assisted, urine cultures are currently pending patient remains to be febrile, mechanical soft diet would be started secondary to her edentulous state. IV fluids to be decreased to 75 mL an hour. hemodynamically stable, creatinine 1.5 03/09:, Patient seems to be stronger today more alert, 40 seems to be better, patient has been eating without difficulties, family at bedside, urine culture is growing gram-negative bacilli, negative from blood cultures so far, patient remains afebrile creatinine today 1.2-6 03/10: Patient is complaining of weakness for which physical therapy has been added. Patient only assist with transfers at [facility]. She denies any diarrhea. Consult added for Dr. Ring for antibiotic recommendations. Urine culture is E. coli resistant to fluoroquinolones and Bactrim and patient states she has had an anaphylactic reaction to penicillin. Anticipate possible discharge by tomorrow. 03/11: Patient has been seen by Dr. Ring and started on ceftriaxone and patient has not had any reaction. He has recommended Ceftin 500 mg twice daily for 7 days for discharge. We will plan for discharge back to [facility] tomorrow. Patient has had increased confusion and paranoia today Xanax has been added. Objective - Vital Signs Vital signs: Vital Signs Temp 99.4 F 03/11/17 11:00 Pulse 85 03/11/17 08:00 Resp 20 03/11/17 08:00 BP 150/84 03/11/17 07:00 Pulse Ox 94 L 03/11/17 07:37 Intake & Output 03/10/17 03/11/17 03/11/17 18:59 06:59 18:59 Intake Total 990 120 Balance 990 120 Weight 86.183 kg Intake: Oral 990 120 Other: Voiding Method Incontinent Incontinent Incontinent # Voids 2 3 2 - Exam General appearance: Present: cooperative, no acute distress - EENT Eyes: Present: EOMI, dentition normal ENT: Present: hard of hearing, NA/AT - Neck Neck: Present: normal ROM. Absent: lymphadenopathy, other, rigidity, stridor, thyromegaly - Respiratory Respiratory: bilateral: rales, negative: CTA, rhonchi, wheezing - Cardiovascular Rhythm: regular Heart sounds: normal: S1, S2 Abnormal Heart Sounds: Absent: systolic murmur, diastolic murmur, rub, S3 Gallop , S4 Gallop, click, other - Gastrointestinal General gastrointestinal: Present: normal bowel sounds, soft - Integumentary Integumentary: Present: normal - Neurologic Neurologic: Present: CNII-XII intact - Musculoskeletal Musculoskeletal: Present: gait normal, strength equal bilaterally - Psychiatric Psychiatric: Present: A&O x's 3, appropriate affect - Labs CBC & Chem 7: 03/11/17 08:30 03/11/17 08:30 Labs: Abnormal Lab Results - Last 24 Hours (Table) 03/11/17 03/11/17 Range/Units 08:30 08:30 RBC 3.09 L (3.80-5.40) m/uL Hgb 9.0 L (11.4-16.0) gm/dL Hct 28.3 L (34.0-46.0) % Creatinine 1.27 H (0.52-1.04) mg/dL Glucose 106 H (74-99) mg/dL Microbiology - Last 24 Hours (Table) 03/07/17 06:45 Blood Culture - Preliminary Blood No Growth after 96 hours Assessment and Plan Plan: 1. Urinary tract infection with sepsis. Continue ceftriaxone. Consult with Dr. Jhonathan benítez. 2. Severe metabolic encephalopathy secondary to urinary tract infection with sepsis in a patient with a baseline of Alzheimer dementia. Continue IV fluid, continue IV antibiotic, monitor the patient very closely, patient is to have a sitter 1 and 1. 3. CAD. Continue patient on Imdur 30 mg orally once every day, pravastatin 40 mg orally at bedtime, aspirin 81 mg orally once every day and atenolol 25 mg orally once every day. 4. Hypertension and hypertensive cardiovascular disease. Continue atenolol 25 mg orally once every day. Losartan restarted 5. Hyperlipidemia. Continue pravastatin 40 mg orally at bedtime. 6. Diabetes mellitus type 2. Discontinue metformin, start the patient on sliding scale insulin. 7. Acute kidney injury and top of chronic kidney disease stage III. IV fluid resuscitation, check CMP, magnesium, and the next 24 hours. 8. Diabetic polyneuropathy. Continue gabapentin 300 mg orally twice every day. 9. Restless leg syndrome. Continue patient on Mirapex 0.5 mg at bedtime. 10. Alzheimer dementia with behavioral disturbance. Continue Namenda 10 mg orally twice every day and Aricept 10 mg orally bedtime. Xanax added 11. Depression. Continue Elavil 10 mg at bedtime and Lamictal 100 mg orally twice every day. 12. Parkinson. Continue patient on Sinemet 25/100 one tablet orally 4 times every day, amantadine 100 mg orally once every day. 13. DVT prophylaxis. Continue Lovenox 30 mg subcutaneously every 24 hours. 14. GI prophylaxis. Continue omeprazole 20 mg orally once every day. 15. Patient is full code. Discharge plan: Return to [facility] tomorrow Impression and plan of care have been directed as dictated by the signing physician. Jailyn Navarro nurse practitioner acting as scribe for signing physician.
[2017-03-11] MEDS: DONEPEZIL 10 MG TAB PO SCH (20:00)
[2017-03-11] MEDS: AMITRIPTYLINE HCL 10 MG TAB PO SCH (20:00)
[2017-03-11] MEDS: PRAMIPEXOLE 0.5 MG TAB PO SCH (20:01)
[2017-03-11] MEDS: PRAVASTATIN SODIUM 40 MG TAB PO SCH (20:01)
[2017-03-11] MEDS: MONTELUKAST 10 MG TAB PO SCH (20:01)
[2017-03-11] MEDS: SENNOSIDES 8.6 MG TAB PO SCH (20:01)
[2017-03-11] MEDS ORDERED: MELATONIN 3 MG TABLET PO SCH (21:00)
[2017-03-12] MEDS: SYMBICORT 160-4.5 MCG INHALER INHALATION SCH (07:52)
[2017-03-12] MEDS: ALBUTEROL NEBULIZED 2.5 MG/3 ML INHALATION SCH (07:52)
[2017-03-12 08:03] VITALS: PULSE 72
[2017-03-12 08:12] LABS: CH 29.9; CHCM 32.7; HCT 31.1 % (34.0-46.0); HDW 2.52; HGB 9.9 gm/dL (11.4-16.0); MCH 29.2 pg (25.0-35.0); MCHC 31.7 g/dL (31.0-37.0); Mean Platelet Volume 8.2; RBC 3.38 m/uL (3.80-5.40); RDW 14.2 % (11.5-15.5); WBC 6.2 k/uL (3.8-10.6)
[2017-03-12 08:27] LABS: Calcium 8.8 mg/dL (8.4-10.2); Potassium 3.7 mmol/L (3.5-5.1)
[2017-03-12 08:28] VITALS: RESP 20
[2017-03-12 08:55] VITALS: BP 164/80
[2017-03-12] MEDS: PANTOPRAZOLE 40 MG TABLET PO SCH (08:56)
[2017-03-12] MEDS: AMANTADINE HCL 100 MG CAP PO SCH (08:56)
[2017-03-12] MEDS: lamoTRIgine 100 MG TAB PO SCH (08:57)
[2017-03-12] MEDS: MEMANTINE 5 MG TAB PO SCH (08:57)
[2017-03-12] MEDS: ISOSORBIDE MONONITRATE ER 30 MG TAB.ER.24H PO SCH (08:57)
[2017-03-12] MEDS: GABAPENTIN 300 MG CAP PO SCH (08:57)
[2017-03-12] MEDS: ATENOLOL 25 MG TAB PO SCH (08:57)
[2017-03-12] MEDS: LOSARTAN 50 MG TAB PO SCH (08:57)
[2017-03-12] MEDS: CARBIDOPA-LEVODOPA 25-100 MG 1 EACH TAB PO SCH ×2 (08:57→15:33)
[2017-03-12] MEDS ORDERED: ENOXAPARIN 40 MG/0.4 ML SYRINGE SQ SCH (09:00)
[2017-03-12 16:26] VITALS: TEMP 98.4
--- NOTE | 2017-03-12 18:08 | PN ---
DATE OF SERVICE: 03/12/2017 REASON FOR FOLLOWUP: E coli urinary tract infection. INTERVAL HISTORY: The patient is afebrile. She is breathing comfortably. Patient remains pleasantly confused. No nausea, vomiting or any diarrhea per the nursing staff. On examination, blood pressure is 164/80 with a pulse of 72, temperature 98.8. . General description is an elderly female up in the bed in no distress. RESPIRATORY SYSTEM: Unlabored breathing. Clear to auscultation anteriorly. HEART: S1, S2. Regular rate and rhythm. ABDOMEN: Soft. No tenderness. LABS: Hemoglobin is 9.9 with a white count of 6.2 with a BUN of 16, creatinine 1.29. DIAGNOSTIC IMPRESSION AND PLAN: Patient with an E coli urinary tract infection, multi-resistant. Patient seems to have shown overall clinical improvement. Plan to finish therapy with p.o. Ceftin 500 mg twice a day for another week. Continue supportive care. MTDD
== END 2017-03-12 16:32 | DRG 871 ==
LOC: EC 05:26 → 5MS5E 08:49
PROVIDERS: ADMIT Internal Medicine; ATTEND Internal Medicine
DX: A41.51 Sepsis due to Escherichia coli [E. coli] (principal); G93.41 Metabolic encephalopathy; N17.9 Acute kidney failure, unspecified; F05 Delirium due to known physiological condition; N39.0 Urinary tract infection, site not specified; F33.9 Major depressive disorder, recurrent, unspecified; G30.9 Alzheimer's disease, unspecified; E11.22 Type 2 diabetes mellitus with diabetic chronic kidney disease; I13.10 Hypertensive heart and chronic kidney disease without heart failure, with stage 1 through stage 4 chronic kidney disease, or unspecified chronic kidney disease; G20 Parkinson's disease; N18.3 Chronic kidney disease, stage 3 (moderate); I25.10 Atherosclerotic heart disease of native coronary artery without angina pectoris; R13.10 Dysphagia, unspecified; E11.42 Type 2 diabetes mellitus with diabetic polyneuropathy; E86.0 Dehydration; J45.909 Unspecified asthma, uncomplicated; F22 Delusional disorders; F02.80 Dementia in other diseases classified elsewhere, unspecified severity, without behavioral disturbance, psychotic disturbance, mood disturbance, and anxiety; G24.4 Idiopathic orofacial dystonia; K08.109 Complete loss of teeth, unspecified cause, unspecified class; K21.9 Gastro-esophageal reflux disease without esophagitis; R47.1 Dysarthria and anarthria; E78.5 Hyperlipidemia, unspecified; G25.81 Restless legs syndrome; F41.9 Anxiety disorder, unspecified; G89.29 Other chronic pain; M48.00 Spinal stenosis, site unspecified; I45.10 Unspecified right bundle-branch block; R32 Unspecified urinary incontinence; E66.9 Obesity, unspecified; R53.1 Weakness; M19.90 Unspecified osteoarthritis, unspecified site; H91.90 Unspecified hearing loss, unspecified ear; R21 Rash and other nonspecific skin eruption; Z99.3 Dependence on wheelchair; Z87.440 Personal history of urinary (tract) infections; Z16.24 Resistance to multiple antibiotics; Z88.5 Allergy status to narcotic agent; Z71.3 Dietary counseling and surveillance; Z87.891 Personal history of nicotine dependence; Z96.653 Presence of artificial knee joint, bilateral; Z86.73 Personal history of transient ischemic attack (TIA), and cerebral infarction without residual deficits; Z83.3 Family history of diabetes mellitus; Z80.0 Family history of malignant neoplasm of digestive organs; Z79.899 Other long term (current) drug therapy; Z88.0 Allergy status to penicillin; Z88.2 Allergy status to sulfonamides; Z90.49 Acquired absence of other specified parts of digestive tract; Z90.710 Acquired absence of both cervix and uterus; Z80.9 Family history of malignant neoplasm, unspecified; Z86.14 Personal history of Methicillin resistant Staphylococcus aureus infection; Z87.19 Personal history of other diseases of the digestive system; Z79.84 Long term (current) use of oral hypoglycemic drugs; Z79.1 Long term (current) use of non-steroidal anti-inflammatories (NSAID); Z79.51 Long term (current) use of inhaled steroids; Z79.891 Long term (current) use of opiate analgesic
CPT/HCPCS: 36415; 70450; 71010; 80048; 80053; 81001; 82550; 82553; 83605; 83735; 84484; 85025; 85027; 85610; 85730; 87040; 87077; 87086; 87186; 93005; 94640; 94760; 96360; 96365; 96366; 99285

== ENCOUNTER 2017-04-03 19:33 | Inpatient (IN) | payer MEDICARE, OTHER ==
[2017-04-03] MEDS ORDERED: SODIUM CHLORIDE 0.9% 500 ML IV ONE (19:43)
--- NOTE | 2017-04-03 19:46 | ED ---
General Adult HPI <Audi Márquez - Last Filed: 04/03/17 22:37> <Analy Barksdale - Last Filed: 04/03/17 23:15> - General Stated complaint: Sepsis Fever - History of Present Illness Initial comments: 81-year-old female patient who currently resides at [facility] under the care of Dr. Diamond presents today for evaluation of altered mental status and fever. Patient has a past medical history significant for CVA, CAD, dementia, Parkinson's, renal disease, hypertension, diabetes mellitus. Staff at [facility] gave nurse to nurse report and stated that patient did have a temperature today of 101.3, and has had altered mental status today. Patient is currently being treated with IV Rocephin for urinary tract infection with multidrug resistant E. coli. Patient was discharged from here on 03/12/2017 for similar symptoms. Patient does follow commands and gives one word answers however is a very poor historian and is unable to give any information regarding her symptoms. (Analy Barksdale) - Related Data Home Medications Medication Instructions Recorded Confirmed Amitriptyline HCl [Elavil] 10 mg PO HS 07/30/14 04/03/17 Atenolol [Tenormin] 25 mg PO DAILY 07/30/14 04/03/17 Fluticasone/Salmeterol [Advair 1 puff INHALATION RT-BID@0800,1700 07/30/1404/03 500-50 Diskus] Memantine [Namenda] 10 mg PO BID 07/30/14 04/03/17 Pramipexole [Mirapex] 0.5 mg PO HS 07/30/14 04/03/17 Carbidopa-Levodopa 25-100 mg 1 tab PO QID@08,12,17,21 12/29/14 04/03/17 [Sinemet 25-100 mg] Donepezil [Aricept] 10 mg PO HS 12/29/14 04/03/17 Pravastatin Sodium [Pravachol] 40 mg PO HS 12/30/14 04/03/17 Isosorbide Mononitrate ER [Imdur] 30 mg PO DAILY 03/03/15 04/03/17 Magnesium Hydroxide [Milk of 7,200 mg PO DAILY PRN 04/10/15 04/03/17 Magnesia Concentrate] Albuterol Nebulized [Ventolin 2.5 mg INHALATION RT-BID@0800,1700 08/16/15 Nebulized] Acetaminophen Tab [Tylenol] 500 mg PO Q6H PRN 09/08/15 04/03/17 Losartan Potassium [Cozaar] 50 mg PO DAILY 05/14/16 04/03/17 Sennosides [Senna] 8.6 mg PO HS 05/14/16 04/03/17 Bisacodyl [Dulcolax] 10 mg RECTAL DAILY PRN 05/23/16 04/03/17 Montelukast [Singulair] 10 mg PO HS 05/23/16 04/03/17 Menthol [Biofreeze] 1 applic TOPICAL Q6H PRN 06/24/16 04/03/17 Metolazone [Zaroxolyn] 1.25 mg PO MOWEFR 10/01/16 04/03/17 Gabapentin [Neurontin] 300 mg PO BID@0800,1700 11/11/16 04/03/17 Mag Hydrox/Al Hydrox/Simeth 30 ml PO Q6HR PRN 11/11/16 04/03/17 [Maalox] Na Phos,M-B/Na Phos,Di-Ba [Fleet 1 dose RECTAL ONCE PRN 11/11/16 04/03/17 Adult] Omeprazole [PriLOSEC] 20 mg PO DAILY 03/07/17 04/03/17 ALPRAZolam [Xanax] 0.25 mg PO BID PRN 04/03/17 04/03/17 ALPRAZolam [Xanax] 0.25 mg PO BID@1400,209904/03/17 04/03/17 Baclofen [Lioresal] 10 mg PO TID@0600,1400,2100 04/03/17 04/03/17 Cefuroxime Axetil [Ceftin] 500 mg PO BID 04/03/17 04/03/17 QUEtiapine [SEROquel] 50 mg PO HS 04/03/17 04/03/17 lamoTRIgine 200 mg PO DAILY 04/03/17 04/03/17 metFORMIN HCL 1,000 mg PO QAM 04/03/17 04/03/17 metFORMIN HCL [Glucophage] 500 mg PO DAILY@1700 04/03/17 04/03/17 Previous Rx's Medication Instructions Recorded Furosemide [Lasix] 40 mg PO DAILY #0 05/27/16 HYDROcodone/APAP 7.5-325MG [[place] 1 tab PO Q6H PRN #90 03/12/17 7.5-325] Melatonin 3 mg PO HS tab 03/12/17 traMADol HCl [Ultram] 50 mg PO Q6H PRN #120 tab 03/12/17 Allergies Allergy/AdvReac Type Severity Reaction Status Date / Time codeine Allergy Unknown Verified 04/03/17 19:56 Penicillins Allergy Unknown Verified 04/03/17 19:56 Sulfa (Sulfonamide Allergy Unknown Verified 04/03/17 19:56 Antibiotics) Review of Systems ROS Other: All systems not noted in ROS Statement are negative. <Audi Márquez - Last Filed: 04/03/17 22:37> ROS Other: All systems not noted in ROS Statement are negative. <Analy Barksdale - Last Filed: 04/03/17 23:15> ROS Statement: Those systems with pertinent positive or pertinent negative responses have been documented in the HPI. Past Medical History Past Medical History: Asthma, Coronary Artery Disease (CAD), CVA/TIA, Dementia, Diabetes Mellitus, GERD/Reflux, Hyperlipidemia, Hypertension, Osteoarthritis (OA ), Renal Disease Additional Past Medical History / Comment(s): CVA/TIA; Dysphagia, RLS. Neuropathy. DEG DISC DX-HERNIATED DISCS, spinal stenosis, PARKINSON'S.INCONT BOWEL/BLADDER, CHRONIC PAIN, PAST FECAL IMPACTION. History of Any Multi-Drug Resistant Organisms: MRSA Date of last positivie culture/infection: 12/11/15 MDRO Source:: sputum Past Surgical History: Appendectomy, Cholecystectomy, Hysterectomy, Joint Replacement, Orthopedic Surgery Additional Past Surgical History / Comment(s): Neck Surgery x2 (195), Bilat Knee Replacements. PAIN clinic PROC . Past Anesthesia/Blood Transfusion Reactions: No Reported Reaction Past Psychological History: Anxiety, Depression Additional Psychological History / Comment(s): Resident at [facility]. Pt is up in wheelchair. Normally feeds herself. Normally able to answer questions. Smoking Status: Former smoker Past Alcohol Use History: None Reported Additional Past Alcohol Use History / Comment(s): quit smoking 50 years ago Past Drug Use History: None Reported - Past Family History Father Family Medical History: Cancer (father at age 91 from cancer of unknown origin.) Sister(s) Family Medical History: Cancer (patient had 4 sisters one of them in early 60s from colon cancer.) Brother(s) Family Medical History: No Reported History (patient has 4 brothers no major medical problems.) Daughter(s) Family Medical History: No Reported History (patient has 4 daughters no major medical problems.) Son(s) Family Medical History: No Reported History (patient has 2 sons no major medical problems) Mother Family Medical History: Diabetes Mellitus (mother at age of 88 from old age and she also had history of diabetes mellitus type 2.) Additional Family Medical History / Comment(s): PER LONG TERM UNKNOWN FAMILY HISTORY <Analy Barksdale - Last Filed: 04/03/17 23:15> General Exam General appearance: alert, in no apparent distress Head exam: Present: atraumatic, normocephalic, normal inspection Eye exam: Present: normal appearance, PERRL, EOMI. Absent: scleral icterus, conjunctival injection, periorbital swelling ENT exam: Present: normal exam, normal oropharynx, mucous membranes moist, TM's normal bilaterally Neck exam: Present: normal inspection. Absent: tenderness, meningismus, lymphadenopathy Respiratory exam: Present: normal lung sounds bilaterally, rhonchi (Right lung alfred). Absent: respiratory distress, wheezes, rales, stridor Cardiovascular Exam: Present: regular rate, normal rhythm, normal heart sounds. Absent: systolic murmur, diastolic murmur, rubs, gallop, clicks GI/Abdominal exam: Present: soft, normal bowel sounds. Absent: distended, tenderness, guarding, rebound, rigid Extremities exam: Present: normal inspection, full ROM, normal capillary refill. Absent: tenderness, pedal edema, joint swelling, calf tenderness Back exam: Present: normal inspection. Absent: CVA tenderness (R), CVA tenderness (L) Neurological exam: Present: alert, CN II-XII intact, other (Gives one-word answers, speech is slurred.). Absent: oriented X3 (Oriented 1 only) Skin exam: Present: warm, dry, intact, normal color. Absent: rash <Analy Barksdale - Last Filed: 04/03/17 23:15> EKG Findings - EKG Comments: EKG Findings:: EKG obtained at 2003 shows an overlying sinus rhythm with heavy artifact related to patient's resting tremor. Ventricular rate is 68, QRS duration 134, QT 466, QTC 495. The P waves are difficult to distinguish from the artifact however some P waves present and rhythm is regular. <Analy Barksdale - Last Filed: 04/03/17 23:15> Medical Decision Making - Lab Data Result diagrams: 04/03/17 20:41 04/03/17 20:41 <Audi Márquez - Last Filed: 04/03/17 22:37> - Lab Data Result diagrams: 04/03/17 20:41 04/03/17 20:41 - Radiology Data Radiology results: report reviewed, image reviewed <Analy Barksdale - Last Filed: 04/03/17 23:15> - Medical Decision Making Patient reevaluated by myself, Dr. Márquez. Patient is nonverbal. Family states this normally happens with urinary tract infection. Patient was on Rocephin at the custodial. Case was discussed in detail with Dr. Eagle, who will admit for Dr. Diamond. Patient does not meet sepsis criteria at this time. This will be started on meropenem 1 g every 12. She also request kidney ultrasound. ( Audi Márquez) 81-year-old female patient was sent to to emergency department today for evaluation of altered mental status. Patient has been being treated with IV Rocephin for urinary tract infection however today developed some confusion and fever. Lab work was performed and did show a hemoglobin of 10.5 which is improved from last visit, BUN 38, creatinine of 1.90. Urinalysis did show a turbid appearance, 1+ protein, small amount of blood, positive for nitrates, large amount of leukocyte esterase, 18 red blood cells, greater than 182 white blood cells many white blood cell clumps, and bacteria in the urine. Influenza was tested and was negative. Chest x-ray was negative for any acute cardiopulmonary process. Patient will be admitted to the hospital for IV antibiotics and further evaluation of altered mental status. My attending Dr. Márquez did speak to Dr. Eagle covering for Dr. Diamond who agrees to admission. Ultrasound of the kidneys will be obtained. (Bantle,Analy M) - Lab Data Lab Results 04/03/17 04/03/17 04/03/17 Range/Units 20:41 20:41 20:41 WBC 6.5 (3.8-10.6) k/uL RBC 3.59 L (3.80-5.40) m/uL Hgb 10.5 L (11.4-16.0) gm/dL Hct 32.2 L (34.0-46.0) % MCV 89.6 (80.0-100.0) fL MCH 29.2 (25.0-35.0) pg MCHC 32.6 (31.0-37.0) g/dL RDW 14.1 (11.5-15.5) % Plt Count 164 (150-450) k/uL Neutrophils % 80 % Lymphocytes % 11 % Monocytes % 3 % Eosinophils % 5 % Basophils % 0 % Neutrophils # 5.1 (1.3-7.7) k/uL Lymphocytes # 0.7 L (1.0-4.8) k/uL Monocytes # 0.2 (0-1.0) k/uL Eosinophils # 0.3 (0-0.7) k/uL Basophils # 0.0 (0-0.2) k/uL PT (9.0-12.0) sec INR (<1.2) APTT (22.0-30.0) sec Sodium 142 (137-145) mmol/L Potassium 4.3 (3.5-5.1) mmol/L Chloride 101 (98-107) mmol/L Carbon Dioxide 30 (22-30) mmol/L Anion Gap 11 mmol/L BUN 38 H (7-17) mg/dL Creatinine 1.90 H (0.52-1.04) mg/dL Est GFR (MDRD) Af Amer 31 (>60 ml/min/1.73 sqM) Est GFR (MDRD) Non-Af 25 (>60 ml/min/1.73 sqM) Glucose 107 H (74-99) mg/dL Plasma Lactic Acid Flex 0.9 (0.7-2.0) mmol/L Calcium 8.9 (8.4-10.2) mg/dL Total Bilirubin 0.4 (0.2-1.3) mg/dL AST 14 (14-36) U/L ALT 24 (9-52) U/L Alkaline Phosphatase 91 (38-126) U/L Total Protein 6.7 (6.3-8.2) g/dL Albumin 3.9 (3.5-5.0) g/dL Urine Color Urine Appearance (Clear) Urine pH (5.0-8.0) Ur Specific [place] (1.001-1.035) Urine Protein (Negative) Urine Glucose (UA) (Negative) Urine Ketones (Negative) Urine Blood (Negative) Urine Nitrite (Negative) Urine Bilirubin (Negative) Urine Urobilinogen (<2.0) mg/dL Ur Leukocyte Esterase (Negative) Urine RBC (0-5) /hpf Urine WBC (0-5) /hpf Urine WBC Clumps (None) /hpf Urine Bacteria (None) /hpf Influenza Type A RNA (Not Detectd) Influenza Type B (PCR) (Not Detectd) 04/03/17 04/03/17 04/03/17 Range/Units 20:41 20:41 21:22 WBC (3.8-10.6) k/uL RBC (3.80-5.40) m/uL Hgb (11.4-16.0) gm/dL Hct (34.0-46.0) % MCV (80.0-100.0) fL MCH (25.0-35.0) pg MCHC (31.0-37.0) g/dL RDW (11.5-15.5) % Plt Count (150-450) k/uL Neutrophils % % Lymphocytes % % Monocytes % % Eosinophils % % Basophils % % Neutrophils # (1.3-7.7) k/uL Lymphocytes # (1.0-4.8) k/uL Monocytes # (0-1.0) k/uL Eosinophils # (0-0.7) k/uL Basophils # (0-0.2) k/uL PT 10.8 (9.0-12.0) sec INR 1.1 (<1.2) APTT 32.9 H (22.0-30.0) sec Sodium (137-145) mmol/L Potassium (3.5-5.1) mmol/L Chloride (98-107) mmol/L Carbon Dioxide (22-30) mmol/L Anion Gap mmol/L BUN (7-17) mg/dL Creatinine (0.52-1.04) mg/dL Est GFR (MDRD) Af Amer (>60 ml/min/1.73 sqM) Est GFR (MDRD) Non-Af (>60 ml/min/1.73 sqM) Glucose (74-99) mg/dL Plasma Lactic Acid Flex (0.7-2.0) mmol/L Calcium (8.4-10.2) mg/dL Total Bilirubin (0.2-1.3) mg/dL AST (14-36) U/L ALT (9-52) U/L Alkaline Phosphatase (38-126) U/L Total Protein (6.3-8.2) g/dL Albumin (3.5-5.0) g/dL Urine Color Yellow Urine Appearance Turbid H (Clear) Urine pH 5.5 (5.0-8.0) Ur Specific [place] 1.016 (1.001-1.035) Urine Protein 1+ H (Negative) Urine Glucose (UA) Negative (Negative) Urine Ketones Negative (Negative) Urine Blood Small H (Negative) Urine Nitrite Positive H (Negative) Urine Bilirubin Negative (Negative) Urine Urobilinogen <2.0 (<2.0) mg/dL Ur Leukocyte Esterase Large H (Negative) Urine RBC 18 H (0-5) /hpf Urine WBC >182 H (0-5) /hpf Urine WBC Clumps Many H (None) /hpf Urine Bacteria Many H (None) /hpf Influenza Type A RNA Not Detected (Not Detectd) Influenza Type B (PCR) Not Detected (Not Detectd) - Radiology Data Two-view x-ray of the chest shows the EKG leads are noted. There is no pulmonary edema. There is no definite focal airspace opacity, pleural effusion , or pneumothorax seen. The cardiac silhouette size is within normal limits. The osseous structures are intact. Impression by Dr. Medellin shows no acute process. (Analy Barksdale) Disposition <Audi Márquez - Last Filed: 04/03/17 22:37> Decision to Admit Reason: Admit from EC Decision Date: 04/03/17 Decision Time: 23:10 <Analy Barksdale - Last Filed: 04/03/17 23:15> Clinical Impression: Urinary tract infection, Metabolic encephalopathy Disposition: ADMITTED IP TO THIS HOSP Condition: Fair Referrals: Jose Luis Diamond MD [Primary Care Provider] - 1-2 days
[2017-04-03 20:56] LABS: Basophils % (A) 0 %; CH 30.3; Eosinophils # (A) 0.3 k/uL (0-0.7); Eosinophils % (A) 5 %; HCT 32.2 % (34.0-46.0); HDW 2.42; HGB 10.5 gm/dL (11.4-16.0); Luc # (Auto) 0.09; Luc % (Auto) 1; Lymphocytes # (A) 0.7 k/uL (1.0-4.8); Lymphocytes % (A) 11 %; MCH 29.2 pg (25.0-35.0); MCHC 32.6 g/dL (31.0-37.0); MCV 89.6 fL (80.0-100.0); Mean Platelet Volume 8.6; Monocytes # (A) 0.2 k/uL (0-1.0); Monocytes % (A) 3 %; Neutrophils # (A) 5.1 k/uL (1.3-7.7); Neutrophils % (A) 80 %; RBC 3.59 m/uL (3.80-5.40); RDW 14.1 % (11.5-15.5); WBC 6.5 k/uL (3.8-10.6); WBC (Perox) 6.77
[2017-04-03 21:07] LABS: Calcium 8.9 mg/dL (8.4-10.2); INR 1.1 (<1.2); Partial Thromboplastin Time 32.9 sec (22.0-30.0); Potassium 4.3 mmol/L (3.5-5.1); Prothrombin Time 10.8 sec (9.0-12.0); Total Bilirubin 0.4 mg/dL (0.2-1.3); Total Protein 6.7 g/dL (6.3-8.2)
--- NOTE | 2017-04-03 21:14 | XR ---
EXAMINATION TYPE: XR chest 2V DATE OF EXAM: 04/03/2017 COMPARISON: 03/07/2017 AP upright portable radiograph HISTORY: Fever and sepsis TECHNIQUE: PA and lateral views FINDINGS: EKG leads are noted. There is no pulmonary edema. There is no definite focal air space opac ity, pleural effusion, or pneumothorax seen. The cardiac silhouette size is within normal limits. The osseous structures are intact. IMPRESSION: NO ACUTE PROCESS.
[2017-04-03 22:01] LABS: Appearance,Urine Turbid (Clear); Bacteria,Urine Many /hpf; Bilirubin,Urine Negative (Negative); Glucose,Urine (UA) Negative (Negative); Ketones,Urine Negative (Negative); Leukocyte Esterase,Urine Large (Negative); Nitrite,Urine Positive (Negative); PH, Urine 5.5 (5.0-8.0); Particle Count 28174; Protein,Urine 1+ (Negative); RBC,Urine 18 /hpf (0-5); Specific Gravity,Urine 1.016 (1.001-1.035); UA Billing (MACRO vs. MICRO) MICRO; Urobilinogen,Urine <2.0 mg/dL (<2.0); WBC,Urine >182 /hpf (0-5)
[2017-04-03] MEDS ORDERED: SODIUM CHLORIDE 0.9% 1,000 ML IV STA (22:40)
[2017-04-03] MEDS ORDERED: NALOXONE 0.4 MG/ML 1 ML VIAL IV PRN (22:57)
[2017-04-03] MEDS ORDERED: FLUCONAZOLE 100 MG TAB PO ONE (23:33)
--- NOTE | 2017-04-04 00:08 | US ---
EXAM: US Retroperitoneal Limited, Renal CLINICAL HISTORY: Reason: Pain TECHNIQUE: Real-time ultrasound of the retroperitoneum (limited) with image documentation. COMPARISON: CT abdomen-pelvis 05/23/2016 FINDINGS: Right kidney: Right kidney measures 11.5 x 3.6 x 5.1 cm. Benign- appearing cyst upper pole of right kidney measuring 3.8 cm in maximum diameter. No renal mass identified. No shadowing renal calculi. No evidence of hydronephrosis. Left kidney: Left kidney measures 9.2 x 6.0 x 4.3 cm. Left kidney suboptimally visualized due to patient's clinical status small approximately 1 cm cyst inferior pole left kidney. No definite renal mass. No evidence of hydronephrosis. No shadowing renal calculi identified. Bladder: Urinary bladder is unremarkable. Left ureteral jet identified. Right ureteral jet is not clearly visualized. IMPRESSION: Bilateral renal cysts. No evidence of renal calculi or hydronephrosis.
[2017-04-04] MEDS: MEROPENEM 1 GM in SODIUM CHLORIDE 0.9% 100 ML IVPB SCH ×2 (03:56→09:49)
[2017-04-04] MEDS: SODIUM CHLORIDE 0.9% 1,000 ML IV SCH ×2 (03:56→21:09)
[2017-04-04] MEDS: BACLOFEN 10 MG TAB PO SCH ×3 (06:32→21:02)
[2017-04-04] MEDS: PANTOPRAZOLE 40 MG TABLET PO SCH (06:32)
[2017-04-04 06:57] LABS: Glucose,Whole Blood 109 mg/dL (75-99)
[2017-04-04] MEDS: ALBUTEROL NEBULIZED 2.5 MG/3 ML INHALATION SCH ×2 (08:12→19:29)
[2017-04-04] MEDS: SYMBICORT 160-4.5 MCG INHALER INHALATION SCH ×2 (08:15→19:27)
[2017-04-04 08:24] LABS: Basophils % (A) 0 %; CHCM 33.2; Eosinophils # (A) 0.3 k/uL (0-0.7); Eosinophils % (A) 6 %; HCT 30.5 % (34.0-46.0); HDW 2.43; HGB 9.6 gm/dL (11.4-16.0); Luc # (Auto) 0.09; Luc % (Auto) 2; Lymphocytes # (A) 0.7 k/uL (1.0-4.8); Lymphocytes % (A) 14 %; MCH 28.6 pg (25.0-35.0); MCHC 31.5 g/dL (31.0-37.0); MCV 90.9 fL (80.0-100.0); Mean Platelet Volume 8.9; Monocytes # (A) 0.2 k/uL (0-1.0); Monocytes % (A) 4 %; Neutrophils # (A) 3.9 k/uL (1.3-7.7); Neutrophils % (A) 74 %; RBC 3.36 m/uL (3.80-5.40); RDW 13.9 % (11.5-15.5); WBC 5.3 k/uL (3.8-10.6); WBC (Perox) 5.32
[2017-04-04 08:27] LABS: Calcium 8.8 mg/dL (8.4-10.2); Potassium 3.8 mmol/L (3.5-5.1)
[2017-04-04] MEDS ORDERED: LOSARTAN 50 MG TAB PO SCH (09:00)
[2017-04-04 09:46] LABS: Hemoglobin A1C 5.5 % (4.2-6.1)
[2017-04-04] MEDS: CARBIDOPA-LEVODOPA 25-100 MG 1 EACH TAB PO SCH ×4 (09:49→21:02)
[2017-04-04] MEDS: GABAPENTIN 300 MG CAP PO SCH ×2 (09:49→16:51)
[2017-04-04] MEDS: FUROSEMIDE 40 MG TAB PO SCH (09:50)
[2017-04-04] MEDS: ATENOLOL 25 MG TAB PO SCH (09:50)
[2017-04-04] MEDS: ISOSORBIDE MONONITRATE ER 30 MG TAB.ER.24H PO SCH (09:50)
[2017-04-04] MEDS: lamoTRIgine 100 MG TAB PO SCH (09:51)
[2017-04-04] MEDS: MEMANTINE 10 MG TAB PO SCH ×2 (09:52→21:02)
[2017-04-04] MEDS: METOLAZONE 2.5 MG TAB PO SCH (09:53)
[2017-04-04] MEDS: metFORMIN 500 MG TAB PO SCH (09:53)
[2017-04-04 11:57] LABS: Glucose,Whole Blood 112 mg/dL (75-99)
[2017-04-04] MEDS: INSULIN LISPRO (humaLOG) 300 UNIT/3 ML VIAL SQ SCH ×3 (12:27→21:03)
[2017-04-04] MEDS: ALPRAZolam 0.25 MG TAB PO SCH ×2 (14:27→21:09)
[2017-04-04] MEDS: HYDROcodone/APAP 7.5-325MG 1 EACH TAB PO PRN (16:49)
--- NOTE | 2017-04-04 16:53 | P.HPIM ---
History of Present Illness This is an 81-year-old female who resides at [facility] under the care of Dr. Diamond. She has underlying history of dementia, asthma, CAD, diabetes mellitus, hypertension and Parkinson's disease. She has recurrent urinary tract infection and was sent in secondary to increasing confusion and discharge not eating, patient was subsequently transferred to emergency room and was found to have another urinary tract infection. She received Rocephin at [facility] prior to her transfer here to [facility]. Patient is admitted for urinary tract infection with sepsis with metabolic encephalopathy. ALLERGIES were noted patient was initially started on meropenem based on our ER discussion with up history of penicillin ALLERGY and can only resistant E. coli based on urine sensitivity 03/07/2017 Past Medical History Past Medical History: Asthma, Coronary Artery Disease (CAD), CVA/TIA, Dementia, Diabetes Mellitus, GERD/Reflux, Hyperlipidemia, Hypertension, Osteoarthritis (OA ), Renal Disease Additional Past Medical History / Comment(s): Osteoarthritis, HTN, asthma, hyperlipidemia, TIA, insomina, RLS, Parkinson's disease, spinal stenosis, intervertebral disc degeneration (lumbosacral region), neuropathy, dysphagia, MRSA, dementia, diabetes mellitus type 2, UTI, bowel/bladder incontinence, past fecal impaction, chronic pain. History of Any Multi-Drug Resistant Organisms: MRSA Date of last positivie culture/infection: 12/11/15 MDRO Source:: sputum Past Surgical History: Appendectomy, Cholecystectomy, Hysterectomy, Joint Replacement, Orthopedic Surgery Additional Past Surgical History / Comment(s): Neck Surgery x2 (195), BL knee replacements. Pain clinic procedure. Past Anesthesia/Blood Transfusion Reactions: No Reported Reaction Past Psychological History: Anxiety, Depression Additional Psychological History / Comment(s): Resident at [facility]. Pt is up in wheelchair. Normally feeds herself. Normally able to answer questions. Smoking Status: Former smoker Past Alcohol Use History: None Reported Additional Past Alcohol Use History / Comment(s): Quit smoking 50 years ago Past Drug Use History: None Reported - Past Family History Father Family Medical History: Cancer Sister(s) Family Medical History: Cancer Brother(s) Family Medical History: No Reported History Daughter(s) Family Medical History: No Reported History Son(s) Family Medical History: No Reported History Mother Family Medical History: Diabetes Mellitus Additional Family Medical History / Comment(s): PER ALF UNKNOWN FAMILY HISTORY Medications and Allergies Home Medications Medication Instructions Recorded Confirmed Type Amitriptyline HCl [Elavil] 10 mg PO HS 07/30/14 04/03/17 History Atenolol [Tenormin] 25 mg PO DAILY 07/30/14 04/03/17 History Fluticasone/Salmeterol [Advair 1 puff INHALATION RT-BID@0800,1700 07/30/1404/03 History 500-50 Diskus] Memantine [Namenda] 10 mg PO BID 07/30/14 04/03/17 History Pramipexole [Mirapex] 0.5 mg PO HS 07/30/14 04/03/17 History Carbidopa-Levodopa 25-100 mg 1 tab PO QID@08,,17,21 12/29/14 04/03/17 History [Sinemet 25-100 mg] Donepezil [Aricept] 10 mg PO HS 12/29/14 04/03/17 History Pravastatin Sodium [Pravachol] 40 mg PO HS 12/30/14 04/03/17 History Isosorbide Mononitrate ER [Imdur] 30 mg PO DAILY 03/03/15 04/03/17 History Magnesium Hydroxide [Milk of 7,200 mg PO DAILY PRN 04/10/15 04/03/17 History Magnesia Concentrate] Albuterol Nebulized [Ventolin 2.5 mg INHALATION RT-BID@0800,1700 08/16/15 History Nebulized] Acetaminophen Tab [Tylenol] 500 mg PO Q6H PRN 09/08/15 04/03/17 History Losartan Potassium [Cozaar] 50 mg PO DAILY 05/14/16 04/03/17 History Sennosides [Senna] 8.6 mg PO HS 05/14/16 04/03/17 History Bisacodyl [Dulcolax] 10 mg RECTAL DAILY PRN 05/23/16 04/03/17 History Montelukast [Singulair] 10 mg PO HS 05/23/16 04/03/17 History Furosemide [Lasix] 40 mg PO DAILY #0 05/27/16 04/03/17 Rx Menthol [Biofreeze] 1 applic TOPICAL Q6H PRN 06/24/16 04/03/17 History Metolazone [Zaroxolyn] 1.25 mg PO MOWEFR 10/01/16 04/03/17 History Gabapentin [Neurontin] 300 mg PO BID@0800,1700 11/11/16 04/03/17 History Mag Hydrox/Al Hydrox/Simeth 30 ml PO Q6HR PRN 11/11/16 04/03/17 History [Maalox] Na Phos,M-B/Na Phos,Di-Ba [Fleet 1 dose RECTAL ONCE PRN 11/11/16 04/03/17 History Adult] Omeprazole [PriLOSEC] 20 mg PO DAILY 03/07/17 04/03/17 History HYDROcodone/APAP 7.5-325MG [[place] 1 tab PO Q6H PRN #90 03/12/17 04/03/17 Rx 7.5-325] Melatonin 3 mg PO HS tab 03/12/17 04/03/17 Rx traMADol HCl [Ultram] 50 mg PO Q6H PRN #120 tab 03/12/17 04/03/17 Rx ALPRAZolam [Xanax] 0.25 mg PO BID PRN 04/03/17 04/03/17 History ALPRAZolam [Xanax] 0.25 mg PO BID@1400,2100 04/03/17 04/03/17 History Baclofen [Lioresal] 10 mg PO TID@0600,1400,2100 04/03/17 04/03/17 History Cefuroxime Axetil [Ceftin] 500 mg PO BID 04/03/17 04/03/17 History QUEtiapine [SEROquel] 50 mg PO HS 04/03/17 04/03/17 History lamoTRIgine 200 mg PO DAILY 04/03/17 04/03/17 History metFORMIN HCL 1,000 mg PO QAM 04/03/17 04/03/17 History metFORMIN HCL [Glucophage] 500 mg PO DAILY@1700 04/03/17 04/03/17 History Allergies Allergy/AdvReac Type Severity Reaction Status Date / Time codeine Allergy Unknown Verified 04/03/17 19:56 Penicillins Allergy Unknown Verified 04/03/17 19:56 Sulfa (Sulfonamide Allergy Unknown Verified 04/03/17 19:56 Antibiotics) Physical Exam Vitals: Vital Signs Temp Pulse Pulse Resp BP BP Pulse Ox 04/04/17 08:26 68 04/04/17 08:15 68 97 04/04/17 07:00 99.4 F 66 18 144/73 97 04/04/17 00:34 98.6 F 63 14 114/56 96 04/03/17 22:55 98.7 F 60 18 139/62 95 04/03/17 21:24 99.2 F 57 L 16 139/64 97 04/03/17 20:44 61 18 148/104 96 04/03/17 19:34 101.0 F H 65 18 175/77 92 L Intake and Output 04/03/17 04/04/17 04/04/17 22:59 06:59 14:59 Other: Voiding Method Diaper Incontinent # Voids 3 Weight 90.718 kg Results CBC & Chem 7: 04/04/17 07:52 04/04/17 07:52 Labs: Abnormal Lab Results - Last 24 Hours (Table) 04/03/17 04/03/17 04/03/17 Range/Units 20:41 20:41 20:41 RBC 3.59 L (3.80-5.40) m/uL Hgb 10.5 L (11.4-16.0) gm/dL Hct 32.2 L (34.0-46.0) % Lymphocytes # 0.7 L (1.0-4.8) k/uL APTT 32.9 H (22.0-30.0) sec Carbon Dioxide (22-30) mmol/L BUN 38 H (7-17) mg/dL Creatinine 1.90 H (0.52-1.04) mg/dL Glucose 107 H (74-99) mg/dL POC Glucose (mg/dL) (75-99) mg/dL Urine Appearance (Clear) Urine Protein (Negative) Urine Blood (Negative) Urine Nitrite (Negative) Ur Leukocyte Esterase (Negative) Urine RBC (0-5) /hpf Urine WBC (0-5) /hpf Urine WBC Clumps (None) /hpf Urine Bacteria (None) /hpf 04/03/17 04/04/17 04/04/17 Range/Units 21:22 06:52 07:52 RBC 3.36 L (3.80-5.40) m/uL Hgb 9.6 L (11.4-16.0) gm/dL Hct 30.5 L (34.0-46.0) % Lymphocytes # 0.7 L (1.0-4.8) k/uL APTT (22.0-30.0) sec Carbon Dioxide (22-30) mmol/L BUN (7-17) mg/dL Creatinine (0.52-1.04) mg/dL Glucose (74-99) mg/dL POC Glucose (mg/dL) 109 H (75-99) mg/dL Urine Appearance Turbid H (Clear) Urine Protein 1+ H (Negative) Urine Blood Small H (Negative) Urine Nitrite Positive H (Negative) Ur Leukocyte Esterase Large H (Negative) Urine RBC 18 H (0-5) /hpf Urine WBC >182 H (0-5) /hpf Urine WBC Clumps Many H (None) /hpf Urine Bacteria Many H (None) /hpf 04/04/17 Range/Units 07:52 RBC (3.80-5.40) m/uL Hgb (11.4-16.0) gm/dL Hct (34.0-46.0) % Lymphocytes # (1.0-4.8) k/uL APTT (22.0-30.0) sec Carbon Dioxide 32 H (22-30) mmol/L BUN 32 H (7-17) mg/dL Creatinine 1.69 H (0.52-1.04) mg/dL Glucose 102 H (74-99) mg/dL POC Glucose (mg/dL) (75-99) mg/dL Urine Appearance (Clear) Urine Protein (Negative) Urine Blood (Negative) Urine Nitrite (Negative) Ur Leukocyte Esterase (Negative) Urine RBC (0-5) /hpf Urine WBC (0-5) /hpf Urine WBC Clumps (None) /hpf Urine Bacteria (None) /hpf Thrombosis Risk Factor Assmnt - Choose All That Apply Any of the Below Risk Factors Present?: Yes Each Risk Factor Represents 2 Points: Patient confined to bed Each Risk Factor Represents 3 Points: Age 75 years or older Other congenital or acquired thrombophilia - If yes, enter type in comment: No Thrombosis Risk Factor Assessment Total Risk Factor Score: 5 Thrombosis Risk Factor Assessment Level: High Risk Assessment and Plan Plan: 1. Urinary tract infection with sepsis. Urine culture, blood culture, start the patient on IV antibiotic in the form of Rocephin 1 g every 24 hours, discuss this with Dr. Ring which we have consulted meropenem that was started from the ER was discontinued, monitor for any drug reaction with underlying history of penicillin ALLERGY, 2. Severe metabolic encephalopathy secondary to urinary tract infection with sepsis in a patient with a baseline of Alzheimer dementia. Continue IV fluid, continue IV antibiotic, no safety person needed at this time and patient has improved 3. CAD. Continue patient on Imdur 30 mg orally once every day, pravastatin 40 mg orally at bedtime, aspirin 81 mg orally once every day and atenolol 25 mg orally once every day. Losartan 50 mg daily 4. Hypertension and hypertensive cardiovascular disease. Continue atenolol 25 mg orally once every day. 5. Hyperlipidemia. Continue pravastatin 40 mg orally at bedtime. 6. Diabetes mellitus type 2. discontinue metformin secondary to elevated creatinine of 1.9. Would resume this once creatinine is 1.4, start the patient on sliding scale insulin. 7. Acute kidney injury and top of chronic kidney disease stage III. IV fluid resuscitation, check CMP, magnesium, and the next 24 hours. 8. Diabetic polyneuropathy. disContinue gabapentin 300 mg orally twice every day. 9. Restless leg syndrome. Continue patient on Mirapex 0.5 mg at bedtime. 10. Alzheimer dementia with behaviors and impaired oral phase of eating patient tends to pocket food. Continue Namenda 10 mg orally twice every day and Aricept 10 mg orally bedtime. Seroquel 50 mg at bedtime and Lamictal 200 mg daily changes made 11. Depression. Continue Elavil 10 mg at bedtime and Lamictal 100 mg orally twice every day. 12. Parkinson with orofacial dyskinesia. Continue patient on Sinemet 25/100 one tablet orally 4 times every day, amantadine 100 mg orally once every day. Baclofen 13. Stage III decubitus sacral ulcer present before admission, a Aquacel Silver with yfn [address] wound care nurse 13. DVT prophylaxis. Continue Lovenox 30 mg subcutaneously every 24 hours. 14. GI prophylaxis. Continue omeprazole 20 mg orally once every day. 15. Patient is full code. 16. Admit to inpatient. Estimate a length of stay 2 midnights.
[2017-04-04 17:13] LABS: Glucose,Whole Blood 113 mg/dL (75-99)
[2017-04-04 20:43] LABS: Glucose,Whole Blood 125 mg/dL (75-99)
[2017-04-04] MEDS: PRAVASTATIN SODIUM 40 MG TAB PO SCH (21:01)
[2017-04-04] MEDS: AMITRIPTYLINE HCL 10 MG TAB PO SCH (21:01)
[2017-04-04] MEDS: DONEPEZIL 10 MG TAB PO SCH (21:01)
[2017-04-04] MEDS: PRAMIPEXOLE 0.5 MG TAB PO SCH (21:01)
[2017-04-04] MEDS: MONTELUKAST 10 MG TAB PO SCH (21:02)
[2017-04-04] MEDS: QUEtiapine 50 MG TAB PO SCH (21:02)
[2017-04-04] MEDS: MELATONIN 3 MG TABLET PO SCH (21:02)
[2017-04-04] MEDS ORDERED: SODIUM CHLORIDE 0.9% 500 ML IV ONE (23:28)
[2017-04-05] MEDS: SODIUM CHLORIDE 0.9% 1,000 ML IV SCH ×6 (01:20→23:29)
[2017-04-05] MEDS: BACLOFEN 10 MG TAB PO SCH ×3 (06:58→21:13)
[2017-04-05] MEDS: INSULIN LISPRO (humaLOG) 300 UNIT/3 ML VIAL SQ SCH ×4 (07:40→21:16)
[2017-04-05 07:49] LABS: Glucose,Whole Blood 104 mg/dL (75-99)
[2017-04-05] MEDS: ISOSORBIDE MONONITRATE ER 30 MG TAB.ER.24H PO SCH (08:11)
[2017-04-05] MEDS: ATENOLOL 25 MG TAB PO SCH (08:11)
[2017-04-05] MEDS: CARBIDOPA-LEVODOPA 25-100 MG 1 EACH TAB PO SCH ×4 (08:14→21:14)
[2017-04-05] MEDS: lamoTRIgine 100 MG TAB PO SCH (08:15)
[2017-04-05] MEDS: GABAPENTIN 300 MG CAP PO SCH ×2 (08:15→16:44)
[2017-04-05] MEDS: PANTOPRAZOLE 40 MG TABLET PO SCH (08:15)
[2017-04-05] MEDS: HYDROcodone/APAP 7.5-325MG 1 EACH TAB PO PRN (08:15)
[2017-04-05] MEDS: MEMANTINE 10 MG TAB PO SCH ×2 (08:15→21:12)
[2017-04-05] MEDS: SYMBICORT 160-4.5 MCG INHALER INHALATION SCH ×2 (08:39→19:49)
[2017-04-05] MEDS: ALBUTEROL NEBULIZED 2.5 MG/3 ML INHALATION SCH ×2 (08:40→19:51)
--- NOTE | 2017-04-05 09:03 | CONS ---
CONSULTATION DATE OF SERVICE: 04/04/2017 REASON FOR CONSULTATION: Urinary tract infection and sacral pressure ulcer. HISTORY OF PRESENT ILLNESS: The patient is an 81-year-old, female, previously seen by myself back in January when the patient was treated for E coli urinary tract infection. She finished therapy with p.o. Ceftin. The patient who is a resident of [facility] has been sent to the ER at [facility] with chief complaints of mental status changes and fever. Apparently the patient's symptoms started that evening and the patient was noted to have fever of 101.3 degrees Fahrenheit. The patient subsequently was evaluated by the ER physician at this facility. The patient did have a chest x-ray that was reported to be negative. The patient did have a positive UA with large leukocyte esterase with 9 WBC count. Influenza A and B were negative. She did receive a dose of Rocephin; however, subsequently over to meropenem with concern for her PENICILLIN allergy. She was admitted to the hospital and ID was consulted for further recommendation regarding antibiotic therapy. The patient also notice to have pressure ulcer in the sacral area. Most of this information has been obtained from review of the chart and talking to the nurses. The patient is not verbal and unable to provide any reliable history. REVIEW OF SYSTEMS: Could not be reliably obtained. The positive points have been mentioned in HPI. PAST MEDICAL HISTORY: Significant for recurrent urinary tract infection, history of coronary artery disease, dementia, diabetes mellitus, hypertension, hyperlipidemia, osteoarthritis, renal insufficiency and recurrent UTIs. PAST SURGICAL HISTORY: Significant for an appendectomy, cholecystectomy, hysterectomy, back surgery x2 and bilateral knee replacement. SOCIAL HISTORY: The patient quit smoking about 50 years ago. Currently a resident of [facility]. No drinking or drug use. FAMILY HISTORY: No pertinent findings noticed. ALLERGY: PENICILLIN, SULFA AND CODEINE. MEDICATIONS: Include the patient is currently on [place], Ventolin, Xanax, Elavil, Tenormin, baclofen, Symbicort, Sinemet, meropenem 1 g q.12h. She is on Aricept, Lasix, Humalog, Imdur, Lamictal, Cozaar, melatonin, Namenda, Glucophage, Zaroxolyn. EXAMINATION: On examination, blood pressure is 144/73 with a pulse of 63, temperature 99.4, T-max of 101.3. She is 97% on 3 L nasal cannula. General description is an elderly female, lying in bed, in no distress. No tachypnea or accessory muscle of respiration use. HEENT: Shows slight pallor. No scleral icterus. Oral mucous membranes dry. NECK: Trachea is central. No thyromegaly. LUNGS: Unlabored breathing. Clear to auscultation anteriorly. No wheeze or crackle. HEART: S1, S2. Regular rate and rhythm. ABDOMEN: Soft, no tenderness. No guarding or rigidity. EXTREMITIES: No edema of feet. SKIN EXAMINATION: No rash or mass palpable. NEUROLOGICAL: Patient is awake, responds to her name. However orientation could not be done as the patient is nonverbal. LABS: Hemoglobin is 9.8, white count of 5.3 with a BUN of 32, creatinine 1.69. UA has been positive. The ultrasound did show some cyst, but no evidence of any hydronephrosis. DIAGNOSTIC IMPRESSION AND PLAN: 1. Patient with a fever in a patient in patient who did have mental status changes in patient who did have history of recurrent urinary tract infection. The last urine culture done on March 29 was positive for a E coli that was sensitive to Rocephin. 2. Patient with a stage III sacral pressure ulcer. No evidence of any cellulitis. PLAN: 1. Discontinue meropenem. 2. Start the patient on Rocephin 1 g IV piggyback daily to cover for the possible E. coli urinary tract infection. 3. Aquacel silver dressing to the sacral wound. Keep the area off pressure. 4. We will follow up on clinical condition and cultures to further adjust medication if needed. Plan of care discussed in detail with the attending physician on the phone. MMODL / IJN: [id number] /
[2017-04-05 12:20] LABS: Glucose,Whole Blood 112 mg/dL (75-99)
[2017-04-05] MEDS: ALPRAZolam 0.25 MG TAB PO SCH ×2 (14:15→23:28)
[2017-04-05 14:46] VITALS: BMI 30.4
--- NOTE | 2017-04-05 16:27 | P.PN ---
Subjective This is an 81-year-old female who resides at [facility] under the care of Dr. Diamond. She has underlying history of dementia, asthma, CAD, diabetes mellitus, hypertension and Parkinson's disease. She has recurrent urinary tract infection and was sent in secondary to increasing confusion and discharge not eating, patient was subsequently transferred to emergency room and was found to have another urinary tract infection. She received Rocephin at [facility] prior to her transfer here to [facility]. Patient is admitted for urinary tract infection with sepsis with metabolic encephalopathy. ALLERGIES were noted patient was initially started on meropenem based on our ER discussion with up history of penicillin ALLERGY and can only resistant E. coli based on urine sensitivity 03/07/201704/05: Patient continues to be stable, slight hypotension noted, fluid boluses and IV hydration still maintain and increase the 125 mL an hour overnight, and decreased to 100 cc an hour, cultures gram-negative bacilli ID and sensitivity pending. Blood cultures negative so far, T-max 100.5 predicted events noted diarrhea. Losartan on hold metformin on hold Lasix on hold Objective - Vital Signs Vital signs: Vital Signs Temp 98.4 F 04/05/17 15:00 Pulse 65 04/05/17 15:00 Resp 16 04/05/17 15:00 BP 113/65 04/05/17 15:00 Pulse Ox 97 04/05/17 15:00 Intake & Output 04/04/17 04/05/17 04/05/17 18:59 06:59 18:59 Intake Total 1376 Balance 1376 Weight 90.718 kg Intake: IV 50 cefTRIAXone 1,000 mg In 50 Sodium Chloride 0.9% 50 ml @ 100 mls/hr IVPB Q24H NABEEL Rx#:[id number] Intake, IV Titration 800 Amount Sodium Chloride 0.9% 1, 800 000 ml @ 125 mls/hr IV . Q8H NABEEL Rx#:[id number] Oral 526 Other: Voiding Method Diaper Diaper Incontinent Incontinent # Voids 3 1 3 # Bowel Movements 0 0 0 - Constitutional General appearance: Present: cooperative, no acute distress - EENT Eyes: Present: anicteric sclerae, EOMI, PERRLA, normal appearance ENT: Present: NA/AT, normal oropharynx - Neck Neck: Present: normal ROM - Respiratory Respiratory: bilateral: CTA, negative: diminished, dullness, rales, rhonchi - Cardiovascular Rhythm: regular Heart sounds: normal: S1, S2 Abnormal Heart Sounds: Absent: systolic murmur, diastolic murmur, rub, S3 Gallop , S4 Gallop, click, other - Gastrointestinal General gastrointestinal: Present: normal bowel sounds, soft - Integumentary Integumentary: Present: normal, normal turgor - Neurologic Neurologic: Present: CNII-XII intact - Musculoskeletal Musculoskeletal: Present: gait normal - Psychiatric Psychiatric: Present: A&O x's 3, appropriate affect - Labs CBC & Chem 7: 04/04/17 07:52 04/04/17 07:52 Labs: Abnormal Lab Results - Last 24 Hours (Table) 04/04/17 04/04/17 04/05/17 Range/Units 17:11 20:39 07:29 POC Glucose (mg/dL) 113 H 125 H 104 H (75-99) mg/dL 04/05/17 Range/Units 12:00 POC Glucose (mg/dL) 112 H (75-99) mg/dL Microbiology - Last 24 Hours (Table) 04/03/17 21:22 Urine Culture - Preliminary Urine,Catheterized Gram Neg Bacilli 04/03/17 20:41 Blood Culture - Preliminary Blood No Growth after 24 hours Assessment and Plan Plan: 1. Urinary tract infection with sepsis. With hemodynamic instability and hypotension secondary to sepsis Urine culture, blood culture, start the patient on IV antibiotic in the form of Rocephin 1 g every 24 hours, discuss this with Dr. Ring which we have consulted, meropenem that was started from the ER was discontinued, monitor for any drug reaction with underlying history of penicillin ALLERGY, 2. Severe metabolic encephalopathy secondary to urinary tract infection with sepsis in a patient with a baseline of Alzheimer dementia. Continue IV fluid, continue IV antibiotic, no safety and skill based pay manager needed at this time and patient has improved 3. CAD. Continue patient on Imdur 30 mg orally once every day, pravastatin 40 mg orally at bedtime, aspirin 81 mg orally once every day and atenolol 25 mg orally once every day. Losartan 50 mg daily 4. Hypertension and hypertensive cardiovascular disease. Continue atenolol 25 mg orally once every day. 5. Hyperlipidemia. Continue pravastatin 40 mg orally at bedtime. 6. Diabetes mellitus type 2. discontinue metformin secondary to elevated creatinine of 1.9. Would resume this once creatinine is 1.4, start the patient on sliding scale insulin. 7. Acute kidney injury and top of chronic kidney disease stage III. IV fluid resuscitation, check CMP, magnesium, and the next 24 hours. 8. Diabetic polyneuropathy. disContinue gabapentin 300 mg orally twice every day. 9. Restless leg syndrome. Continue patient on Mirapex 0.5 mg at bedtime. 10. Alzheimer dementia with behaviors and impaired oral phase of eating patient tends to pocket food. Continue Namenda 10 mg orally twice every day and Aricept 10 mg orally bedtime. Seroquel 50 mg at bedtime and Lamictal 200 mg daily changes made 11. Depression. Continue Elavil 10 mg at bedtime and Lamictal 100 mg orally twice every day. 12. Parkinson with orofacial dyskinesia. Continue patient on Sinemet 25/100 one tablet orally 4 times every day, amantadine 100 mg orally once every day. Baclofen 13. Stage III decubitus sacral ulcer present before admission, a Aquacel Silver with yfn [address] wound care nurse 13. DVT prophylaxis. Continue Lovenox 30 mg subcutaneously every 24 hours. 14. GI prophylaxis. Continue omeprazole 20 mg orally once every day. 15. Patient is full code. 16. Admit to inpatient. Estimate a length of stay 2 midnights.
[2017-04-05 17:00] LABS: Glucose,Whole Blood 126 mg/dL (75-99)
[2017-04-05 20:18] LABS: Glucose,Whole Blood 154 mg/dL (75-99)
[2017-04-05] MEDS: QUEtiapine 50 MG TAB PO SCH (21:13)
[2017-04-05] MEDS: PRAMIPEXOLE 0.5 MG TAB PO SCH (21:13)
[2017-04-05] MEDS: AMITRIPTYLINE HCL 10 MG TAB PO SCH (21:13)
[2017-04-05] MEDS: MONTELUKAST 10 MG TAB PO SCH (21:14)
[2017-04-05] MEDS: DONEPEZIL 10 MG TAB PO SCH (21:14)
[2017-04-05] MEDS: PRAVASTATIN SODIUM 40 MG TAB PO SCH (21:14)
[2017-04-05] MEDS: MELATONIN 3 MG TABLET PO SCH (21:40)
[2017-04-06] MEDS: SODIUM CHLORIDE 0.9% 1,000 ML IV SCH ×2 (00:50→11:38)
[2017-04-06] MEDS: BACLOFEN 10 MG TAB PO SCH ×3 (06:18→20:49)
[2017-04-06] MEDS: SYMBICORT 160-4.5 MCG INHALER INHALATION SCH ×2 (07:01→20:16)
[2017-04-06] MEDS: ALBUTEROL NEBULIZED 2.5 MG/3 ML INHALATION SCH ×2 (07:01→20:15)
[2017-04-06 07:23] LABS: Glucose,Whole Blood 106 mg/dL (75-99)
[2017-04-06 07:29] LABS: Basophils % (A) 0 %; CH 28.5; CHCM 31.6; Eosinophils # (A) 0.4 k/uL (0-0.7); Eosinophils % (A) 9 %; HCT 26.4 % (34.0-46.0); HDW 2.59; HGB 8.6 gm/dL (11.4-16.0); Luc # (Auto) 0.09; Luc % (Auto) 2; Lymphocytes # (A) 0.9 k/uL (1.0-4.8); Lymphocytes % (A) 18 %; MCH 29.7 pg (25.0-35.0); MCHC 32.8 g/dL (31.0-37.0); MCV 90.6 fL (80.0-100.0); Mean Platelet Volume 8.2; Monocytes # (A) 0.3 k/uL (0-1.0); Monocytes % (A) 5 %; Neutrophils # (A) 3.5 k/uL (1.3-7.7); Neutrophils % (A) 67 %; RBC 2.91 m/uL (3.80-5.40); RDW 13.4 % (11.5-15.5); WBC 5.2 k/uL (3.8-10.6); WBC (Perox) 5.49
[2017-04-06 07:45] LABS: Calcium 8.1 mg/dL (8.4-10.2); Potassium 3.5 mmol/L (3.5-5.1); Total Bilirubin 0.2 mg/dL (0.2-1.3); Total Protein 5.1 g/dL (6.3-8.2)
[2017-04-06] MEDS: INSULIN LISPRO (humaLOG) 300 UNIT/3 ML VIAL SQ SCH ×4 (08:03→20:49)
[2017-04-06] MEDS: lamoTRIgine 100 MG TAB PO SCH (08:06)
[2017-04-06] MEDS: FUROSEMIDE 40 MG TAB PO SCH (08:06)
[2017-04-06] MEDS: MEMANTINE 10 MG TAB PO SCH ×2 (08:06→20:49)
[2017-04-06] MEDS: ISOSORBIDE MONONITRATE ER 30 MG TAB.ER.24H PO SCH (08:06)
[2017-04-06] MEDS: ATENOLOL 25 MG TAB PO SCH (08:06)
[2017-04-06] MEDS: CARBIDOPA-LEVODOPA 25-100 MG 1 EACH TAB PO SCH ×4 (08:06→20:49)
[2017-04-06] MEDS: GABAPENTIN 300 MG CAP PO SCH ×2 (08:06→16:00)
[2017-04-06] MEDS: PANTOPRAZOLE 40 MG TABLET PO SCH (08:06)
[2017-04-06] MEDS: ALPRAZolam 0.25 MG TAB PO SCH ×3 (08:51→21:02)
[2017-04-06] MEDS ORDERED: ACETAMINOPHEN IV (For NPO) 1,000 MG in EMPTY BAG 1 BAG IVPB STA (09:43)
[2017-04-06 10:13] LABS: ABG Base Excess 5.6 mmol/L; ABG HCO3 30 mmol/L (21-25); ABG PCO2 45 mmHg (35-45); ABG PH 7.44 (7.35-7.45); ABG PO2 75 mmHg (83-108); ABG TCO2 31 mmol/L (19-24)
--- NOTE | 2017-04-06 10:20 | XR ---
EXAMINATION TYPE: XR chest 1V portable DATE OF EXAM: 04/06/2017 HISTORY: fever. REFERENCE: Previous study dated 04/03/2017. FINDINGS: The heart is enlarged. There is vascular congestion and pulmonary edema. There is a small l eft effusion. IMPRESSION: FINDINGS CONSISTENT WITH CONGESTIVE HEART FAILURE.
--- NOTE | 2017-04-06 12:17 | CT ---
EXAMINATION TYPE: CT brain wo con DATE OF EXAM: 04/06/2017 COMPARISON: Previous study dated 03/07/2017. HISTORY: Altered mental changes CT DLP: 1060.4 mGycm Automated exposure control for dose reduction was used. FINDINGS: There are mild, generalized changes of sulcal prominence and ventriculomegaly, compatible with atroph ic change. There is diffuse periventricular white matter lucency, compatible with chronic white matte r ischemic change. There is no acute focal lesion, mass effect or midline shift identified. I do not see evidence of intracranial blood. There is complete opacification of the left maxillary sinus. Previously was only partially opacified. This suggests ongoing inflammation. No bony expansion is seen. There is also some mucosal disease in the anterior ethmoid air cells on the left. IMPRESSION: 1. NO ACUTE INTRACRANIAL ABNORMALITY. 2. MILD ATROPHIC CHANGE. 3. CHRONIC WHITE MATTER ISCHEMIC CHANGE. 4. ACUTE ON CHRONIC SINUS MUCOSAL DISEASE.
[2017-04-06 12:22] LABS: Glucose,Whole Blood 201 mg/dL (75-99)
--- NOTE | 2017-04-06 13:49 | P.CONS ---
History of Present Illness - Reason for Consult Consult date: 04/06/17 altered mental status - Chief Complaint altered mental status - History of Present Illness Is an 81-year-old female who is a resident of [facility]. She has a history of dementia, asthma, coronary artery disease, diabetes, hypertension, Alzheimer's dementia with behavior changes and Parkinson's. She was sent to the [facility] with increased confusion and a urinary tract infection. She had been doing well until last night when she developed increased confusion and agitation. A CT of the brain was done and showed no acute intracranial abnormalities. There was some mild atrophy. There is chronic white matter ischemic changes. At the time of my exam she is agitated. Review of Systems All systems: negative Past Medical History Past Medical History: Asthma, Coronary Artery Disease (CAD), CVA/TIA, Dementia, Diabetes Mellitus, GERD/Reflux, Hyperlipidemia, Hypertension, Osteoarthritis (OA ), Renal Disease Additional Past Medical History / Comment(s): Osteoarthritis, HTN, asthma, hyperlipidemia, TIA, insomina, RLS, Parkinson's disease, spinal stenosis, intervertebral disc degeneration (lumbosacral region), neuropathy, dysphagia, MRSA, dementia, diabetes mellitus type 2, UTI, bowel/bladder incontinence, past fecal impaction, chronic pain. History of Any Multi-Drug Resistant Organisms: MRSA Year Discovered:: 12/11/15 MDRO Source:: sputum Past Surgical History: Appendectomy, Cholecystectomy, Hysterectomy, Joint Replacement, Orthopedic Surgery Additional Past Surgical History / Comment(s): Neck Surgery x2 (195), BL knee replacements. Pain clinic procedure. Past Anesthesia/Blood Transfusion Reactions: No Reported Reaction Past Psychological History: Anxiety, Depression Additional Psychological History / Comment(s): Resident at [facility]. Pt is up in wheelchair. Normally feeds herself. Normally able to answer questions. Smoking Status: Former smoker Past Alcohol Use History: None Reported Additional Past Alcohol Use History / Comment(s): Quit smoking 50 years ago Past Drug Use History: None Reported - Past Family History Father Family Medical History: Cancer Sister(s) Family Medical History: Cancer Brother(s) Family Medical History: No Reported History Daughter(s) Family Medical History: No Reported History Son(s) Family Medical History: No Reported History Mother Family Medical History: Diabetes Mellitus Additional Family Medical History / Comment(s): PER CUSTODIAL UNKNOWN FAMILY HISTORY Medications and Allergies Home Medications Medication Instructions Recorded Confirmed Type RX: Amitriptyline HCl [Elavil] 10 mg PO HS 07/30/14 04/03/17 History RX: Atenolol [Tenormin] 25 mg PO DAILY 07/30/14 04/03/17 History RX: Fluticasone/Salmeterol [Advair 1 puff INHALATION RT-BID@0800,1700 07/30/14 04/03/17 History 500-50 Diskus] RX: Memantine [Namenda] 10 mg PO BID 07/30/14 04/03/17 History RX: Pramipexole [Mirapex] 0.5 mg PO HS 07/30/14 04/03/17 History RX: Carbidopa-Levodopa 25-100 mg 1 tab PO QID@08,12,17,21 12/29/14 04/03/17 History [Sinemet 25-100 mg] RX: Donepezil [Aricept] 10 mg PO HS 12/29/14 04/03/17 History RX: Pravastatin Sodium [Pravachol] 40 mg PO HS 12/30/14 04/03/17 History RX: Isosorbide Mononitrate ER 30 mg PO DAILY 03/03/15 04/03/17 History [Imdur] RX: Magnesium Hydroxide [Milk of 7,200 mg PO DAILY PRN 04/10/15 04/03/17 History Magnesia Concentrate] RX: Albuterol Nebulized [Ventolin 2.5 mg INHALATION RT-BID@0800,1700 08/16/15 History Nebulized] RX: Acetaminophen Tab [Tylenol] 500 mg PO Q6H PRN 09/08/15 04/03/17 History RX: Losartan Potassium [Cozaar] 50 mg PO DAILY 05/14/16 04/03/17 History RX: Sennosides [Senna] 8.6 mg PO HS 05/14/16 04/03/17 History RX: Bisacodyl [Dulcolax] 10 mg RECTAL DAILY PRN 05/23/16 04/03/17 History RX: Montelukast [Singulair] 10 mg PO HS 05/23/16 04/03/17 History RX: Furosemide [Lasix] 40 mg PO DAILY #0 05/27/16 04/03/17 Rx RX: Menthol [Biofreeze] 1 applic TOPICAL Q6H PRN 06/24/16 04/03/17 History RX: Metolazone [Zaroxolyn] 1.25 mg PO MOWEFR 10/01/16 04/03/17 History RX: Gabapentin [Neurontin] 300 mg PO BID@0800,1700 11/11/16 04/03/17 History RX: Mag Hydrox/Al Hydrox/Simeth 30 ml PO Q6HR PRN 11/11/16 04/03/17 History [Maalox] RX: Na Phos,M-B/Na Phos,Di-Ba 1 dose RECTAL ONCE PRN 11/11/16 04/03/17 History [[facility] Adult] RX: Omeprazole [PriLOSEC] 20 mg PO DAILY 03/07/17 04/03/17 History RX: HYDROcodone/APAP 7.5-325MG 1 tab PO Q6H PRN #90 03/12/17 04/03/17 Rx [[place] 7.5-325] RX: Melatonin 3 mg PO HS tab 03/12/17 04/03/17 Rx RX: traMADol HCl [Ultram] 50 mg PO Q6H PRN #120 tab 03/12/17 04/03/17 Rx ALPRAZolam [Xanax] 0.25 mg PO BID PRN 04/03/17 04/03/17 History Cefuroxime Axetil [Ceftin] 500 mg PO BID 04/03/17 04/03/17 History QUEtiapine [SEROquel] 50 mg PO HS 04/03/17 04/03/17 History RX: ALPRAZolam [Xanax] 0.25 mg PO BID@1400,2100 04/03/17 04/03/17 History RX: Baclofen [Lioresal] 10 mg PO TID@0600,1400,2100 04/03/17 04/03/17 History RX: lamoTRIgine 200 mg PO DAILY 04/03/17 04/03/17 History RX: metFORMIN HCL 1,000 mg PO QAM 04/03/17 04/03/17 History RX: metFORMIN HCL [Glucophage] 500 mg PO DAILY@1700 04/03/17 04/03/17 History Allergies Allergy/AdvReac Type Severity Reaction Status Date / Time codeine Allergy Unknown Verified 04/03/17 19:56 Penicillins Allergy Unknown Verified 04/03/17 19:56 Sulfa (Sulfonamide Allergy Unknown Verified 04/03/17 19:56 Antibiotics) Physical Exam Vitals: Vital Signs Temp Pulse Pulse Pulse Resp BP BP 04/06/17 07:12 78 14 04/06/17 07:01 78 14 04/06/17 07:00 97.0 F L 67 22 142/61 04/05/17 23:00 99.2 F 81 16 122/60 04/05/17 20:01 80 04/05/17 19:51 80 04/05/17 15:00 98.4 F 65 16 113/65 Pulse Ox 04/06/17 07:12 04/06/17 07:01 04/06/17 07:00 99 04/05/17 23:00 97 04/05/17 20:01 04/05/17 19:51 04/05/17 15:00 97 Intake and Output 04/05/17 04/06/17 04/06/17 22:59 06:59 14:59 Intake Total 800 Balance 800 Intake: Intake, IV Titration 800 Amount Sodium Chloride 0.9% 1, 800 000 ml @ 100 mls/hr IV . Q10H [facility] Rx#:[id number] Other: Voiding Method Diaper Diaper Diaper Incontinent Incontinent Incontinent # Voids 1 1 # Bowel Movements 0 0 - Constitutional General appearance: mild distress - EENT Eyes: no abnormal pupil, EOMI, PERRLA, no ptosis ENT: hearing grossly normal - Neck Neck: normal ROM, no rigidity Thyroid: bilateral: normal size - Respiratory Respiratory: negative: prolonged expiration, prolonged inspiration - Cardiovascular Rhythm: regular - Gastrointestinal General gastrointestinal: no distended, no tenderness - Neurologic The patient is awake but does not respond to her name or simple commands. She is quite agitated. There is no facial asymmetry. There is no observed lateralizing weakness. She has sensation to light touch in bilateral upper and lower extremities. No tremors or seizure-like activities are seen. Results CBC & Chem 7: 04/06/17 06:44 04/06/17 06:41 Labs: Abnormal Lab Results - Last 24 Hours (Table) 04/05/17 04/05/17 04/06/17 Range/Units 16:49 20:16 06:41 RBC (3.80-5.40) m/uL Hgb (11.4-16.0) gm/dL Hct (34.0-46.0) % Plt Count (150-450) k/uL Lymphocytes # (1.0-4.8) k/uL ABG pO2 (83-108) mmHg ABG HCO3 (21-25) mmol/L ABG Total CO2 (19-24) mmol/L Carbon Dioxide 31 H (22-30) mmol/L Creatinine 1.20 H (0.52-1.04) mg/dL Glucose 100 H (74-99) mg/dL POC Glucose (mg/dL) 126 H 154 H (75-99) mg/dL Calcium 8.1 L (8.4-10.2) mg/dL AST 9 L (14-36) U/L Total Protein 5.1 L (6.3-8.2) g/dL Albumin 2.8 L (3.5-5.0) g/dL 04/06/17 04/06/17 04/06/17 Range/Units 06:44 07:21 10:06 RBC 2.91 L (3.80-5.40) m/uL Hgb 8.6 L (11.4-16.0) gm/dL Hct 26.4 L (34.0-46.0) % Plt Count 115 L (150-450) k/uL Lymphocytes # 0.9 L (1.0-4.8) k/uL ABG pO2 75 L (83-108) mmHg ABG HCO3 30 H (21-25) mmol/L ABG Total CO2 31 H (19-24) mmol/L Carbon Dioxide (22-30) mmol/L Creatinine (0.52-1.04) mg/dL Glucose (74-99) mg/dL POC Glucose (mg/dL) 106 H (75-99) mg/dL Calcium (8.4-10.2) mg/dL AST (14-36) U/L Total Protein (6.3-8.2) g/dL Albumin (3.5-5.0) g/dL 04/06/17 Range/Units 12:20 RBC (3.80-5.40) m/uL Hgb (11.4-16.0) gm/dL Hct (34.0-46.0) % Plt Count (150-450) k/uL Lymphocytes # (1.0-4.8) k/uL ABG pO2 (83-108) mmHg ABG HCO3 (21-25) mmol/L ABG Total CO2 (19-24) mmol/L Carbon Dioxide (22-30) mmol/L Creatinine (0.52-1.04) mg/dL Glucose (74-99) mg/dL POC Glucose (mg/dL) 201 H (75-99) mg/dL Calcium (8.4-10.2) mg/dL AST (14-36) U/L Total Protein (6.3-8.2) g/dL Albumin (3.5-5.0) g/dL Microbiology - Last 24 Hours (Table) 04/03/17 21:22 Urine Culture - Final Urine,Catheterized Escherichia coli 04/03/17 20:41 Blood Culture - Preliminary Blood No Growth after 48 hours Assessment and Plan (1) Metabolic encephalopathy Status: Suspected (2) Urinary tract infection Status: Acute (3) Altered mental status Status: Acute (4) Delirium due to general medical condition Status: Acute (5) Dementia Status: Chronic (6) Diabetes mellitus Status: Chronic (7) Parkinson disease Status: Chronic Plan: This 81-year-old female with multiple complex medical problems is likely experiencing severe metabolic and infectious encephalopathy on top of her chronic dementia and behavioral impairment. It's reassuring that her CAT scan showed no acute intracranial abnormalities. We have ordered a carotid Doppler and EEG. Doubt any underlying seizure activity. Continue to treat urinary tract infection and decubitus ulcer. Continue to follow medically and correct any metabolic abnormalities. Continue Namenda and Aricept for her dementia. Continue Sinemet and amantadine for Parkinson's. Her gabapentin has been discontinued for now. It looks like this was for her diabetic neuropathy. Start aspirin 81 mg. We will continue to follow and make recommendations based on the above studies. I have reviewed the history and physical on the above patient. I have reviewed the above note, and agree.
--- NOTE | 2017-04-06 15:12 | P.PN ---
Subjective This is an 81-year-old female who resides at [facility] under the care of Dr. Diamond. She has underlying history of dementia, asthma, CAD, diabetes mellitus, hypertension and Parkinson's disease. She has recurrent urinary tract infection and was sent in secondary to increasing confusion and discharge not eating, patient was subsequently transferred to emergency room and was found to have another urinary tract infection. She received Rocephin at [facility] prior to her transfer here to [facility]. Patient is admitted for urinary tract infection with sepsis with metabolic encephalopathy. ALLERGIES were noted patient was initially started on meropenem based on our ER discussion with up history of penicillin ALLERGY and can only resistant E. coli based on urine sensitivity 03/07/201704/05: Patient continues to be stable, slight hypotension noted, fluid boluses and IV hydration still maintain and increase the 125 mL an hour overnight, and decreased to 100 cc an hour, cultures gram-negative bacilli ID and sensitivity pending. Blood cultures negative so far, T-max 100.5 predicted events noted diarrhea. Losartan on hold metformin on hold Lasix on hold 04/06:. New mental status changes with obtundation, unknown cause, possibly lack off proper sleep from last night, no new medication changes to include any psychotropic started, cannot rule out seizure disorder, ABGs performed without any CO2 retention, chest x-ray did not show any aspirative infiltrate. Stat CT performed, EEG of the brain to be performed, consult with Dr. Acosta neurology. Chest x-ray shows mild congestion, clinically patient is without any pulmonary complaints, IV fluid increase to 50 mL an hour especially with diminished by mouth intake with her new mental status change and blood cultures currently pending, urine culture growing Escherichia coli sensitive to Rocephin Objective - Vital Signs Vital signs: Vital Signs Temp 97.0 F L 04/06/17 07:00 Pulse 78 04/06/17 07:12 Resp 14 04/06/17 07:12 BP 142/61 04/06/17 07:00 Pulse Ox 99 04/06/17 07:00 Intake & Output 04/05/17 04/06/17 04/06/17 18:59 06:59 18:59 Intake Total 1376 800 Balance 1376 800 Weight 90.718 kg Intake: IV 50 cefTRIAXone 1,000 mg In 50 Sodium Chloride 0.9% 50 ml @ 100 mls/hr IVPB Q24H [facility] Rx#:[id number] Intake, IV Titration 800 800 Amount Sodium Chloride 0.9% 1, 800 800 000 ml @ 100 mls/hr IV . Q10H [facility] Rx#:[id number] Oral 526 Other: Voiding Method Diaper Diaper Diaper Incontinent Incontinent Incontinent # Voids 2 1 # Bowel Movements 0 0 - Constitutional General appearance: Present: average body habitus - EENT Eyes: Present: anicteric sclerae, poor dentition ENT: Present: NA/AT - Respiratory Respiratory: bilateral: CTA, negative: dullness, rales, prolonged expiration, prolonged inspiration - Cardiovascular Rhythm: regular Heart sounds: normal: S1 - Gastrointestinal General gastrointestinal: Present: normal bowel sounds, soft - Integumentary Integumentary: Present: decreased turgor, normal - Neurologic Neurologic: Present: CNII-XII intact - Psychiatric Psychiatric Comment(s): Patient's obtunded takes off quickly to sleep, withdraws only with painful stimuli otherwise has been more difficult to arouse - Labs CBC & Chem 7: 04/06/17 06:44 04/06/17 06:41 Labs: Abnormal Lab Results - Last 24 Hours (Table) 04/05/17 04/05/17 04/06/17 Range/Units 16:49 20:16 06:41 RBC (3.80-5.40) m/uL Hgb (11.4-16.0) gm/dL Hct (34.0-46.0) % Plt Count (150-450) k/uL Lymphocytes # (1.0-4.8) k/uL ABG pO2 (83-108) mmHg ABG HCO3 (21-25) mmol/L ABG Total CO2 (19-24) mmol/L Carbon Dioxide 31 H (22-30) mmol/L Creatinine 1.20 H (0.52-1.04) mg/dL Glucose 100 H (74-99) mg/dL POC Glucose (mg/dL) 126 H 154 H (75-99) mg/dL Calcium 8.1 L (8.4-10.2) mg/dL AST 9 L (14-36) U/L Total Protein 5.1 L (6.3-8.2) g/dL Albumin 2.8 L (3.5-5.0) g/dL 09/10/17 09/10/17 09/10/17 Range/Units 06:44 07:21 10:06 RBC 2.91 L (3.80-5.40) m/uL Hgb 8.6 L (11.4-16.0) gm/dL Hct 26.4 L (34.0-46.0) % Plt Count 115 L (150-450) k/uL Lymphocytes # 0.9 L (1.0-4.8) k/uL ABG pO2 75 L (83-108) mmHg ABG HCO3 30 H (21-25) mmol/L ABG Total CO2 31 H (19-24) mmol/L Carbon Dioxide (22-30) mmol/L Creatinine (0.52-1.04) mg/dL Glucose (74-99) mg/dL POC Glucose (mg/dL) 106 H (75-99) mg/dL Calcium (8.4-10.2) mg/dL AST (14-36) U/L Total Protein (6.3-8.2) g/dL Albumin (3.5-5.0) g/dL 04/06/17 Range/Units 12:20 RBC (3.80-5.40) m/uL Hgb (11.4-16.0) gm/dL Hct (34.0-46.0) % Plt Count (150-450) k/uL Lymphocytes # (1.0-4.8) k/uL ABG pO2 (83-108) mmHg ABG HCO3 (21-25) mmol/L ABG Total CO2 (19-24) mmol/L Carbon Dioxide (22-30) mmol/L Creatinine (0.52-1.04) mg/dL Glucose (74-99) mg/dL POC Glucose (mg/dL) 201 H (75-99) mg/dL Calcium (8.4-10.2) mg/dL AST (14-36) U/L Total Protein (6.3-8.2) g/dL Albumin (3.5-5.0) g/dL Microbiology - Last 24 Hours (Table) 04/03/17 21:22 Urine Culture - Final Urine,Catheterized Escherichia coli 04/03/17 20:41 Blood Culture - Preliminary Blood No Growth after 48 hours Assessment and Plan Plan: 1. Urinary tract infection with sepsis. With hemodynamic instability and hypotension secondary to sepsis Urine culture, blood culture, start the patient on IV antibiotic in the form of Rocephin 1 g every 24 hours, discuss this with Dr. Ring which we have consulted, meropenem that was started from the ER was discontinued, monitor for any drug reaction with underlying history of penicillin ALLERGY, 2. Severe metabolic encephalopathy secondary to urinary tract infection with sepsis in a patient with a baseline of Alzheimer dementia. Continue IV fluid, continue IV antibiotic, no occupational health and safety adviser needed at this time and patient has improved. 3. New mental status changes with obtundation, unknown cause, possibly lack off proper sleep from last night, no new medication changes to include any psychotropic started, cannot rule out seizure disorder, ABGs performed without any CO2 retention, chest x-ray did not show any aspirative infiltrate. Stat CT performed, EEG of the brain to be performed, consult with Dr. Hinkle neurology 3. CAD. Continue patient on Imdur 30 mg orally once every day, pravastatin 40 mg orally at bedtime, aspirin 81 mg orally once every day and atenolol 25 mg orally once every day. Losartan 50 mg daily 4. Hypertension and hypertensive cardiovascular disease. Continue atenolol 25 mg orally once every day. 5. Hyperlipidemia. Continue pravastatin 40 mg orally at bedtime. 6. Diabetes mellitus type 2. discontinue metformin secondary to elevated creatinine of 1.9. Would resume this once creatinine is 1.4, start the patient on sliding scale insulin. 7. Acute kidney injury and top of chronic kidney disease stage III. IV fluid resuscitation, check CMP, magnesium, and the next 24 hours. 8. Diabetic polyneuropathy. disContinue gabapentin 300 mg orally twice every day. 9. Restless leg syndrome. Continue patient on Mirapex 0.5 mg at bedtime. 10. Alzheimer dementia with behaviors and impaired oral phase of eating patient tends to pocket food. Continue Namenda 10 mg orally twice every day and Aricept 10 mg orally bedtime. Seroquel 50 mg at bedtime and Lamictal 200 mg daily changes made 11. Depression. Continue Elavil 10 mg at bedtime and Lamictal 100 mg orally twice every day. 12. Parkinson with orofacial dyskinesia. Continue patient on Sinemet 25/100 one tablet orally 4 times every day, amantadine 100 mg orally once every day. Baclofen 13. Stage III decubitus sacral ulcer present before admission, a Aquacel Silver with yfn [address] wound care nurse 13. DVT prophylaxis. Continue Lovenox 30 mg subcutaneously every 24 hours. 14. GI prophylaxis. Continue omeprazole 20 mg orally once every day. 15. Patient is full code. 16. Admit to inpatient. Estimate a length of stay 2 midnights.
[2017-04-06] MEDS: ASPIRIN 81 MG PO SCH (15:55)
[2017-04-06] MEDS: metFORMIN 500 MG TAB PO SCH (16:00)
[2017-04-06 17:14] LABS: Glucose,Whole Blood 112 mg/dL (75-99)
[2017-04-06 20:43] LABS: Glucose,Whole Blood 107 mg/dL (75-99)
[2017-04-06] MEDS: AMITRIPTYLINE HCL 10 MG TAB PO SCH (20:49)
[2017-04-06] MEDS: DONEPEZIL 10 MG TAB PO SCH (20:49)
[2017-04-06] MEDS: MONTELUKAST 10 MG TAB PO SCH (20:50)
[2017-04-06] MEDS: PRAMIPEXOLE 0.5 MG TAB PO SCH (20:50)
[2017-04-06] MEDS: MELATONIN 3 MG TABLET PO SCH (20:51)
[2017-04-06] MEDS: PRAVASTATIN SODIUM 40 MG TAB PO SCH (21:09)
[2017-04-06] MEDS: QUEtiapine 50 MG TAB PO SCH (21:12)
[2017-04-07] MEDS: HYDROcodone/APAP 7.5-325MG 1 EACH TAB PO PRN ×3 (01:03→15:17)
[2017-04-07] MEDS: BACLOFEN 10 MG TAB PO SCH ×3 (05:27→21:43)
--- NOTE | 2017-04-07 07:05 | PN ---
PROGRESS NOTE DATE OF SERVICE: 04/06/2017. REASON FOR FOLLOWUP: 1. E. coli urinary tract infection. 2. Stage III sacral wound. INTERVAL HISTORY: The patient is afebrile. She seemed to have more mental status changes for which Neurology has been consulted. No nausea or vomiting has been noticed or any diarrhea. Patient remains unable to provide any history. PHYSICAL EXAMINATION: On examination, blood pressure 120/58 with a pulse of 66, temperature 99.3. She is 95% on 3 L nasal cannula. General description in an elderly female lying in bed in no distress. RESPIRATORY SYSTEM: Unlabored breathing. Clear to auscultation anteriorly. HEART: S1, S2. Regular rate and rhythm. ABDOMEN: Soft. No tenderness. LABS: Lactic acid of 0.9 with hemoglobin 8.6, white count 5.2. Urine with an E coli sensitive to Rocephin. Blood culture has been negative. DIAGNOSTIC IMPRESSION AND PLAN: Patient with Escherichia coli urinary tract infection. Patient admitted to the hospital with fever and mental status changes. The patient's fever has resolved. White count normal. Urine with Escherichia coli that is sensitive to Rocephin, that will be continued. Blood culture has been negative. Family was present at bedside. Their questions were answered. MMODL / IJN: [id number] /
[2017-04-07] MEDS: ALBUTEROL NEBULIZED 2.5 MG/3 ML INHALATION SCH ×2 (07:12→16:49)
[2017-04-07] MEDS: SYMBICORT 160-4.5 MCG INHALER INHALATION SCH ×2 (07:14→16:49)
[2017-04-07 07:39] LABS: Glucose,Whole Blood 102 mg/dL (75-99)
[2017-04-07 07:42] LABS: Basophils % (A) 0 %; CH 28.7; CHCM 31.7; Eosinophils # (A) 0.4 k/uL (0-0.7); Eosinophils % (A) 9 %; HCT 26.8 % (34.0-46.0); HDW 2.62; HGB 8.8 gm/dL (11.4-16.0); Luc # (Auto) 0.11; Luc % (Auto) 3; Lymphocytes # (A) 1.1 k/uL (1.0-4.8); Lymphocytes % (A) 25 %; MCH 29.8 pg (25.0-35.0); MCHC 32.8 g/dL (31.0-37.0); Mean Platelet Volume 8.1; Monocytes # (A) 0.2 k/uL (0-1.0); Monocytes % (A) 4 %; Neutrophils # (A) 2.5 k/uL (1.3-7.7); Neutrophils % (A) 58 %; RBC 2.94 m/uL (3.80-5.40); RDW 13.3 % (11.5-15.5); WBC 4.3 k/uL (3.8-10.6); WBC (Perox) 4.45
[2017-04-07] MEDS: INSULIN LISPRO (humaLOG) 300 UNIT/3 ML VIAL SQ SCH ×4 (08:00→21:45)
[2017-04-07 08:20] LABS: Calcium 8.4 mg/dL (8.4-10.2); Potassium 3.2 mmol/L (3.5-5.1); Total Bilirubin 0.3 mg/dL (0.2-1.3); Total Protein 5.5 g/dL (6.3-8.2)
[2017-04-07] MEDS: CARBIDOPA-LEVODOPA 25-100 MG 1 EACH TAB PO SCH ×4 (08:36→21:45)
[2017-04-07] MEDS: SODIUM CHLORIDE 0.9% 1,000 ML IV SCH (08:36)
[2017-04-07] MEDS: PANTOPRAZOLE 40 MG TABLET PO SCH (08:36)
[2017-04-07] MEDS: ATENOLOL 25 MG TAB PO SCH (08:37)
[2017-04-07] MEDS: GABAPENTIN 300 MG CAP PO SCH ×2 (08:37→16:59)
[2017-04-07] MEDS: ASPIRIN 81 MG PO SCH (08:37)
[2017-04-07] MEDS: FUROSEMIDE 40 MG TAB PO SCH (08:37)
[2017-04-07] MEDS: lamoTRIgine 100 MG TAB PO SCH (08:38)
[2017-04-07] MEDS: ISOSORBIDE MONONITRATE ER 30 MG TAB.ER.24H PO SCH (08:38)
[2017-04-07] MEDS: METOLAZONE 2.5 MG TAB PO SCH (08:39)
[2017-04-07] MEDS: metFORMIN 500 MG TAB PO SCH ×2 (08:39→16:59)
[2017-04-07] MEDS: MEMANTINE 10 MG TAB PO SCH ×2 (08:39→21:44)
--- NOTE | 2017-04-07 11:38 | US ---
EXAMINATION TYPE: US carotid duplex BILAT DATE OF EXAM: 04/07/2017 COMPARISON: US CLINICAL HISTORY: ms change. Mental status change EXAM MEASUREMENTS: RIGHT: Peak Systolic Velocity (PSV) cm/sec ----- Right CCA: 74.2 ----- Right ICA: 100.0 ----- Right ECA: 119.0 ICA/CCA ratio: 1.3 RIGHT: End Diastole cm/sec ----- Right CCA: 12.0 ----- Right ICA: 20.9 ----- Right ECA: 0.0 LEFT: Peak Systolic Velocity (PSV) cm/sec ----- Left CCA: 83.4 ----- Left ICA: 78.7 ----- Left ECA: 124.1 ICA/CCA ratio: 0.9 LEFT: End Diastole cm/sec ----- Left CCA: 17.2 ----- Left ICA: 24.3 ----- Left ECA: 7.3 VERTEBRALS (direction of flow): Right Vertebral: Antegrade Left Vertebral: Antegrade Bilateral intimal thickening, plaque bilateral bulb and ICA, no elevated velocities, no significant s tenosis. IMPRESSION: Minimal bilateral grayscale atheromatous plaquing without significant hemodynamic stenos is of either carotid system.
[2017-04-07 12:19] LABS: Glucose,Whole Blood 141 mg/dL (75-99)
--- NOTE | 2017-04-07 14:51 | P.PN ---
Subjective Principal diagnosis: Altered mental status Is an 81-year-old female continuing to be evaluated by the neurology service for altered mental status. She resides [place]. She presented with acute confusion and urinary tract infection. She did develop an acute episode of increased confusion and agitation. This has resolved. Recall his CT of the brain showed no acute intracranial abnormalities. Carotid Doppler showed no hemodynamically significant stenosis. At the time of my exam she is resting comfortably in bed home and conversant. He is being followed by infectious disease, and treated for her infectious processes. Objective - Vital Signs Vital signs: Vital Signs Temp 100.5 F H 04/07/17 07:00 Pulse 68 04/07/17 07:28 Resp 16 04/07/17 07:00 BP 145/63 04/07/17 07:00 Pulse Ox 95 04/07/17 07:14 Intake & Output 04/06/17 04/07/17 04/07/17 18:59 06:59 18:59 Intake Total 50 240 Balance 50 240 Intake: Intake, IV Titration 50 Amount cefTRIAXone 1,000 mg In 50 Sodium Chloride 0.9% 50 ml @ 100 mls/hr IVPB Q24H [facility] Rx#:[id number] Oral 240 Other: Voiding Method Diaper Diaper Diaper Incontinent Incontinent Incontinent # Voids 2 2 # Bowel Movements 0 0 - Constitutional General appearance: Present: cooperative, no acute distress - EENT Eyes: Present: EOMI, PERRLA. Absent: abnormal pupil, ptosis - Neck Neck: Present: normal ROM. Absent: rigidity - Respiratory Respiratory: negative: prolonged expiration, prolonged inspiration - Gastrointestinal General gastrointestinal: Absent: distended - Neurologic Neurologic Comment(s): Patient is alert awake and oriented to self and partially to place and partially to time. Speech and language are normal. There is no lateralizing weakness. There is resting tremor bilateral upper extremities. There is no sensory deficit appreciated. - Labs CBC & Chem 7: 04/07/17 06:56 04/07/17 06:56 Labs: Abnormal Lab Results - Last 24 Hours (Table) 04/06/17 04/06/17 04/07/17 Range/Units 17:08 20:40 06:56 RBC 2.94 L (3.80-5.40) m/uL Hgb 8.8 L (11.4-16.0) gm/dL Hct 26.8 L (34.0-46.0) % Plt Count 128 L (150-450) k/uL Potassium (3.5-5.1) mmol/L Carbon Dioxide (22-30) mmol/L Creatinine (0.52-1.04) mg/dL POC Glucose (mg/dL) 112 H 107 H (75-99) mg/dL AST (14-36) U/L Total Protein (6.3-8.2) g/dL Albumin (3.5-5.0) g/dL 04/07/17 04/07/17 04/07/17 Range/Units 06:56 07:18 12:13 RBC (3.80-5.40) m/uL Hgb (11.4-16.0) gm/dL Hct (34.0-46.0) % Plt Count (150-450) k/uL Potassium 3.2 L (3.5-5.1) mmol/L Carbon Dioxide 34 H (22-30) mmol/L Creatinine 1.24 H (0.52-1.04) mg/dL POC Glucose (mg/dL) 102 H 141 H (75-99) mg/dL AST 9 L (14-36) U/L Total Protein 5.5 L (6.3-8.2) g/dL Albumin 3.1 L (3.5-5.0) g/dL Microbiology - Last 24 Hours (Table) 04/06/17 09:53 Blood Culture - Preliminary Blood No Growth after 24 hours 04/03/17 20:41 Blood Culture - Preliminary Blood No Growth after 72 hours Assessment and Plan (1) Metabolic encephalopathy Status: Suspected (2) Urinary tract infection Status: Acute (3) Altered mental status Status: Resolved (4) Delirium due to general medical condition Status: Resolved (5) Dementia Status: Chronic (6) Diabetes mellitus Status: Chronic (7) Parkinson disease Status: Chronic Plan: This 81-year-old female with multiple complex medical problems was likely experiencing severe metabolic and infectious encephalopathy on top of her chronic dementia and behavioral impairment. It's reassuring that her CAT scan showed no acute intracranial abnormalities. Her EEG has been performed and we are in the process of evaluating the data. Doubt any underlying seizure activity. Continue to treat urinary tract infection and decubitus ulcer. Continue to follow medically and correct any metabolic abnormalities. Continue Namenda and Aricept for her dementia. Continue Sinemet and amantadine for Parkinson's. Continue aspirin 81 mg. according to her and her family at bedside she is back to her baseline. Barring any significant abnormalities on her EEG she would be cleared from a neurological standpoint. I have reviewed the history and physical on the above patient. I have reviewed the above note, and agree.
[2017-04-07] MEDS: CEFUROXIME 250 MG TAB PO SCH ×2 (15:17→21:45)
[2017-04-07] MEDS: ALPRAZolam 0.25 MG TAB PO SCH ×2 (15:18→21:43)
--- NOTE | 2017-04-07 15:18 | P.PN ---
Subjective This is an 81-year-old female who resides at [facility] under the care of Dr. Diamond. She has underlying history of dementia, asthma, CAD, diabetes mellitus, hypertension and Parkinson's disease. She has recurrent urinary tract infection and was sent in secondary to increasing confusion and discharge not eating, patient was subsequently transferred to emergency room and was found to have another urinary tract infection. She received Rocephin at [facility] prior to her transfer here to [facility]. Patient is admitted for urinary tract infection with sepsis with metabolic encephalopathy. ALLERGIES were noted patient was initially started on meropenem based on our ER discussion with up history of penicillin ALLERGY and can only resistant E. coli based on urine sensitivity 03/07/201704/05: Patient continues to be stable, slight hypotension noted, fluid boluses and IV hydration still maintain and increase the 125 mL an hour overnight, and decreased to 100 cc an hour, cultures gram-negative bacilli ID and sensitivity pending. Blood cultures negative so far, T-max 100.5 predicted events noted diarrhea. Losartan on hold metformin on hold Lasix on hold 04/06: New mental status changes with obtundation, unknown cause, possibly lack off proper sleep from last night, no new medication changes to include any psychotropic started, cannot rule out seizure disorder, ABGs performed without any CO2 retention, chest x-ray did not show any aspirative infiltrate. Stat CT performed, EEG of the brain to be performed, consult with Dr. Acosta neurology. Chest x-ray shows mild congestion, clinically patient is without any pulmonary complaints, IV fluid increase to 50 mL an hour especially with diminished by mouth intake with her new mental status change and blood cultures currently pending, urine culture growing Escherichia coli sensitive to Rocephin 04/07: Patient was seen and evaluated today. She was noted sitting up in bed eating lunch. Urine culture shows Escherichia Coli urinary tract infection, blood culture still pending. Carotid ultrasound show minimal bilateral plaquing but without significant stenosis. Infectious disease on consult. She continues to receive IV ceftriaxone. Will add Ceftin 250 mg twice a day, plan for discharge tomorrow back to [facility]. Objective - Vital Signs Vital signs: Vital Signs Temp 100.5 F H 04/07/17 07:00 Pulse 68 04/07/17 07:28 Resp 16 04/07/17 07:00 BP 145/63 04/07/17 07:00 Pulse Ox 95 04/07/17 07:14 Intake & Output 04/06/17 04/07/17 04/07/17 18:59 06:59 18:59 Intake Total 50 Balance 50 Intake: Intake, IV Titration 50 Amount cefTRIAXone 1,000 mg In 50 Sodium Chloride 0.9% 50 ml @ 100 mls/hr IVPB Q24H [facility] Rx#:[id number] Other: Voiding Method Diaper Diaper Incontinent Incontinent # Voids 2 2 # Bowel Movements 0 0 - Exam - Constitutional General appearance: Present: average body habitus - EENT Eyes: Present: anicteric sclerae, poor dentition ENT: Present: NA/AT - Respiratory Respiratory: bilateral: CTA, negative: dullness, rales, prolonged expiration, prolonged inspiration - Cardiovascular Rhythm: regular Heart sounds: normal: S1 - Gastrointestinal General gastrointestinal: Present: normal bowel sounds, soft - Integumentary Integumentary: Present: decreased turgor, normal - Neurologic Neurologic: Present: CNII-XII intact - Psychiatric Psychiatric Comment(s): Patient's obtunded takes off quickly to sleep, withdraws only with painful stimuli otherwise has been more difficult to arouse - Labs CBC & Chem 7: 04/07/17 06:56 04/07/17 06:56 Labs: Abnormal Lab Results - Last 24 Hours (Table) 04/06/17 04/06/17 04/06/17 Range/Units 10:06 12:20 17:08 RBC (3.80-5.40) m/uL Hgb (11.4-16.0) gm/dL Hct (34.0-46.0) % Plt Count (150-450) k/uL ABG pO2 75 L (83-108) mmHg ABG HCO3 30 H (21-25) mmol/L ABG Total CO2 31 H (19-24) mmol/L Potassium (3.5-5.1) mmol/L Carbon Dioxide (22-30) mmol/L Creatinine (0.52-1.04) mg/dL POC Glucose (mg/dL) 201 H 112 H (75-99) mg/dL AST (14-36) U/L Total Protein (6.3-8.2) g/dL Albumin (3.5-5.0) g/dL 04/06/17 04/07/17 04/07/17 Range/Units 20:40 06:56 06:56 RBC 2.94 L (3.80-5.40) m/uL Hgb 8.8 L (11.4-16.0) gm/dL Hct 26.8 L (34.0-46.0) % Plt Count 128 L (150-450) k/uL ABG pO2 (83-108) mmHg ABG HCO3 (21-25) mmol/L ABG Total CO2 (19-24) mmol/L Potassium 3.2 L (3.5-5.1) mmol/L Carbon Dioxide 34 H (22-30) mmol/L Creatinine 1.24 H (0.52-1.04) mg/dL POC Glucose (mg/dL) 107 H (75-99) mg/dL AST 9 L (14-36) U/L Total Protein 5.5 L (6.3-8.2) g/dL Albumin 3.1 L (3.5-5.0) g/dL 04/07/17 Range/Units 07:18 RBC (3.80-5.40) m/uL Hgb (11.4-16.0) gm/dL Hct (34.0-46.0) % Plt Count (150-450) k/uL ABG pO2 (83-108) mmHg ABG HCO3 (21-25) mmol/L ABG Total CO2 (19-24) mmol/L Potassium (3.5-5.1) mmol/L Carbon Dioxide (22-30) mmol/L Creatinine (0.52-1.04) mg/dL POC Glucose (mg/dL) 102 H (75-99) mg/dL AST (14-36) U/L Total Protein (6.3-8.2) g/dL Albumin (3.5-5.0) g/dL Microbiology - Last 24 Hours (Table) 04/03/17 20:41 Blood Culture - Preliminary Blood No Growth after 72 hours 04/03/17 21:22 Urine Culture - Final Urine,Catheterized Escherichia coli Assessment and Plan Plan: 1. Urinary tract infection with sepsis. With hemodynamic instability and hypotension secondary to sepsis Urine culture, blood culture, start the patient on IV antibiotic in the form of Rocephin 1 g every 24 hours, discuss this with Dr. Ring which we have consulted, meropenem that was started from the ER was discontinued, monitor for any drug reaction with underlying history of penicillin. Ceftin added. 2. Severe metabolic encephalopathy secondary to urinary tract infection with sepsis in a patient with a baseline of Alzheimer dementia. Continue IV fluid, continue IV antibiotic, no manager environmental health and safety needed at this time and patient has improved. 3. New mental status changes with obtundation, unknown cause, possibly lack off proper sleep from last night, no new medication changes to include any psychotropic started, cannot rule out seizure disorder, ABGs performed without any CO2 retention, chest x-ray did not show any aspirative infiltrate. Stat CT performed, EEG of the brain to be performed, consult with Dr. Hinkle neurology 3. CAD. Continue patient on Imdur 30 mg orally once every day, pravastatin 40 mg orally at bedtime, aspirin 81 mg orally once every day and atenolol 25 mg orally once every day. Losartan 50 mg daily 4. Hypertension and hypertensive cardiovascular disease. Continue atenolol 25 mg orally once every day. 5. Hyperlipidemia. Continue pravastatin 40 mg orally at bedtime. 6. Diabetes mellitus type 2. discontinue metformin secondary to elevated creatinine of 1.9. Would resume this once creatinine is 1.4, start the patient on sliding scale insulin. 7. Acute kidney injury and top of chronic kidney disease stage III. IV fluid resuscitation, check CMP, magnesium, and the next 24 hours. 8. Diabetic polyneuropathy. disContinue gabapentin 300 mg orally twice every day. 9. Restless leg syndrome. Continue patient on Mirapex 0.5 mg at bedtime. 10. Alzheimer dementia with behaviors and impaired oral phase of eating patient tends to pocket food. Continue Namenda 10 mg orally twice every day and Aricept 10 mg orally bedtime. Seroquel 50 mg at bedtime and Lamictal 200 mg daily changes made 11. Depression. Continue Elavil 10 mg at bedtime and Lamictal 100 mg orally twice every day. 12. Parkinson with orofacial dyskinesia. Continue patient on Sinemet 25/100 one tablet orally 4 times every day, amantadine 100 mg orally once every day. Baclofen 13. Stage III decubitus sacral ulcer present before admission, a Aquacel Silver with Tomás, yfn Ring aware, wound care nurse 13. DVT prophylaxis. Continue Lovenox 30 mg subcutaneously every 24 hours. 14. GI prophylaxis. Continue omeprazole 20 mg orally once every day. The above impression and plan of care have been discussed and directed by signing physician. Christina Dietz nurse practitioner acting as scribe for signing physician.
[2017-04-07 17:18] LABS: Glucose,Whole Blood 131 mg/dL (75-99)
[2017-04-07 20:43] LABS: Glucose,Whole Blood 149 mg/dL (75-99)
--- NOTE | 2017-04-07 20:50 | EEG ---
ELECTROENCEPHALOGRAM REPORT DATE OF SERVICE: 04/07/2017. REASON FOR TESTING: Altered mental status. DESCRIPTION OF THE PROCEDURE: This EEG was performed using a 21 channel digital electroencephalograph, following international 10-20 system. DESCRIPTION OF THE RECORDING: From the beginning of the tracing, and with patient's eyes closed, the background rhythm was mostly consisting of 8 Hz alpha frequency in the posterior occipital leads. No obvious asymmetry is seen. Photic stimulation was performed with no driving response seen. No pathological waves were elicited. Hyperventilation was not performed. Occasional movement artifacts are seen. The patient remains awake throughout the tracing. No epileptiform discharges were seen. Her EKG lead showed a regular rate and rhythm. INTERPRETATION: This awake EEG can be considered within normal limits. There is no asymmetry seen. No epileptiform discharges were noticed. The absence of epileptiform discharges does not rule out the diagnosis of epilepsy, therefore clinical correlation is recommended. MMVONNIEL / IJAlison: [id number] /
[2017-04-07] MEDS: MONTELUKAST 10 MG TAB PO SCH (21:43)
[2017-04-07] MEDS: QUEtiapine 50 MG TAB PO SCH (21:44)
[2017-04-07] MEDS: PRAVASTATIN SODIUM 40 MG TAB PO SCH (21:44)
[2017-04-07] MEDS: AMITRIPTYLINE HCL 10 MG TAB PO SCH (21:44)
[2017-04-07] MEDS: DONEPEZIL 10 MG TAB PO SCH (21:44)
[2017-04-07] MEDS: PRAMIPEXOLE 0.5 MG TAB PO SCH (21:44)
[2017-04-07] MEDS: MELATONIN 3 MG TABLET PO SCH (21:44)
--- NOTE | 2017-04-08 00:05 | PN ---
PROGRESS NOTE DATE OF SERVICE: 04/07/2017 REASON FOR FOLLOWUP: 1. E coli urinary tract infection. 2. Stage III sacral wound. INTERVAL HISTORY: The patient did have a low-grade fever this morning of 100.5. The patient has been afebrile since then. The patient is more awake and alert today. She is breathing comfortably. Denies any chest pain, shortness of breath or cough. No abdominal pain or any diarrhea. PHYSICAL EXAMINATION: Blood pressure is 117/58 with a pulse of 70, temperature 99.8. She is 99% on 3 L nasal cannula. General description is an elderly female lying in bed in no distress. RESPIRATORY SYSTEM: Unlabored breathing with decreased breath sounds at the bases. HEART: S1, S2. Regular rate and rhythm. ABDOMEN: Soft. No tenderness. Sacral wound examined with the daughter with a stage III wound, with no significant slough tissue or surrounding erythema. LABS: Hemoglobin 8.8, white count 4.3 with a BUN of 14, creatinine 1.24. Urine culture has grown E coli. DIAGNOSTIC IMPRESSION/PLAN: 1. Patient admitted to hospital with a fever. Source is multifactorial with a urinary tract infection, urine showing an E coli, currently covered with Rocephin. Still has a low-grade fever with a question of possible atelectasis. Patient will be started on incentive spirometry, as the patient ( ) antibiotic for her urinary tract infection and the sacral wound does not look infected. 2. Sacral wound, stage III. Aquacel Silver dressing and keep the area off pressure. Daughter was present at the bedside. All her questions were answered. MMODL / IJN: [id number] /
[2017-04-08] MEDS: SODIUM CHLORIDE 0.9% 1,000 ML IV SCH (06:37)
[2017-04-08] MEDS: BACLOFEN 10 MG TAB PO SCH (06:38)
[2017-04-08 07:22] LABS: Glucose,Whole Blood 128 mg/dL (75-99)
[2017-04-08] MEDS: INSULIN LISPRO (humaLOG) 300 UNIT/3 ML VIAL SQ SCH (07:29)
[2017-04-08 07:41] VITALS: BP 132/60; RESP 19; TEMP 99
[2017-04-08] MEDS: metFORMIN 500 MG TAB PO SCH (07:50)
[2017-04-08] MEDS: ASPIRIN 81 MG PO SCH (07:51)
[2017-04-08] MEDS: FUROSEMIDE 40 MG TAB PO SCH (07:51)
[2017-04-08] MEDS: lamoTRIgine 100 MG TAB PO SCH (07:51)
[2017-04-08] MEDS: ISOSORBIDE MONONITRATE ER 30 MG TAB.ER.24H PO SCH (07:51)
[2017-04-08] MEDS: ATENOLOL 25 MG TAB PO SCH (07:51)
[2017-04-08] MEDS: CARBIDOPA-LEVODOPA 25-100 MG 1 EACH TAB PO SCH (07:51)
[2017-04-08] MEDS: MEMANTINE 10 MG TAB PO SCH (07:51)
[2017-04-08] MEDS: CEFUROXIME 250 MG TAB PO SCH (07:51)
[2017-04-08] MEDS: GABAPENTIN 300 MG CAP PO SCH (07:51)
[2017-04-08] MEDS: PANTOPRAZOLE 40 MG TABLET PO SCH (07:51)
[2017-04-08] MEDS: SYMBICORT 160-4.5 MCG INHALER INHALATION SCH (07:58)
[2017-04-08] MEDS: ALBUTEROL NEBULIZED 2.5 MG/3 ML INHALATION SCH (07:58)
[2017-04-08 08:50] LABS: Basophils % (A) 0 %; CH 29.5; CHCM 32.8; Eosinophils # (A) 0.5 k/uL (0-0.7); Eosinophils % (A) 9 %; HCT 25.6 % (34.0-46.0); HGB 8.3 gm/dL (11.4-16.0); Luc # (Auto) 0.09; Luc % (Auto) 2; Lymphocytes # (A) 1.5 k/uL (1.0-4.8); Lymphocytes % (A) 27 %; MCH 29.4 pg (25.0-35.0); MCHC 32.6 g/dL (31.0-37.0); MCV 90.4 fL (80.0-100.0); Monocytes # (A) 0.2 k/uL (0-1.0); Monocytes % (A) 4 %; Neutrophils # (A) 3.2 k/uL (1.3-7.7); Neutrophils % (A) 58 %; RBC 2.83 m/uL (3.80-5.40); RDW 13.9 % (11.5-15.5); WBC 5.6 k/uL (3.8-10.6); WBC (Perox) 5.65
[2017-04-08] MEDS: HYDROcodone/APAP 7.5-325MG 1 EACH TAB PO PRN (08:51)
[2017-04-08 09:17] LABS: Calcium 7.9 mg/dL (8.4-10.2); Potassium 3.3 mmol/L (3.5-5.1); Total Bilirubin 0.2 mg/dL (0.2-1.3); Total Protein 5.3 g/dL (6.3-8.2)
[2017-04-08 10:22] VITALS: PULSE 69
--- NOTE | 2017-04-08 12:20 | P.DS ---
Providers Date of admission: 04/03/17 22:39 Expected date of discharge: 04/08/17 Attending physician: Fide Eagle Consults: 04/04/17 14:39 Consult Physician Routine Consulting Provider: Darwin Ring Consult Reason/Comments: recurrent uti Do you want consulting provider notified?: Already Contacted 04/06/17 11:15 Consult Physician Routine Consulting Provider: Jaison Acosta Consult Reason/Comments: acute mental status change, Do you want consulting provider notified?: Yes Primary care physician: [facility] Hospital Course: This is an 81-year-old female who resides at [facility] under the care of Dr. Diamond. She has underlying history of dementia, asthma, CAD, diabetes mellitus, hypertension and Parkinson's disease. She has recurrent urinary tract infection and was sent in secondary to increasing confusion and discharge not eating, patient was subsequently transferred to emergency room and was found to have another urinary tract infection. She received Rocephin at [facility] prior to her transfer here to [facility]. Patient is admitted for urinary tract infection with sepsis with metabolic encephalopathy. ALLERGIES were noted patient was initially started on meropenem based on our ER discussion with up history of penicillin ALLERGY and can only resistant E. coli based on urine sensitivity 03/07/201704/05: Patient continues to be stable, slight hypotension noted, fluid boluses and IV hydration still maintain and increase the 125 mL an hour overnight, and decreased to 100 cc an hour, cultures gram-negative bacilli ID and sensitivity pending. Blood cultures negative so far, T-max 100.5 predicted events noted diarrhea. Losartan on hold metformin on hold Lasix on hold 04/06: New mental status changes with obtundation, unknown cause, possibly lack off proper sleep from last night, no new medication changes to include any psychotropic started, cannot rule out seizure disorder, ABGs performed without any CO2 retention, chest x-ray did not show any aspirative infiltrate. Stat CT performed, EEG of the brain to be performed, consult with Dr. Acosta neurology. Chest x-ray shows mild congestion, clinically patient is without any pulmonary complaints, IV fluid increase to 50 mL an hour especially with diminished by mouth intake with her new mental status change and blood cultures currently pending, urine culture growing Escherichia coli sensitive to Rocephin 04/07: Patient was seen and evaluated today. She was noted sitting up in bed eating lunch. Urine culture shows Escherichia Coli urinary tract infection, blood culture still pending. Carotid ultrasound show minimal bilateral plaquing but without significant stenosis. Infectious disease on consult. She continues to receive IV ceftriaxone. Will add Ceftin 250 mg twice a day, plan for discharge tomorrow back to [facility]. 04/08: Patient's overall condition has improved. The patient will finish Ceftin for 10 days. She will then be started on Macrodantin daily for the next 60 days for prophylaxis for her UTIs. Will also obtain UA every 2 weeks for next 3 months. Will watch closely for recurrence. She will be transferred back to [facility] today. Discharge diagnoses 1. Urinary tract infection with sepsis 2. Severe metabolic encephalopathy secondary to urinary tract infection with sepsis 3. New mental status changes 3. CAD 4. Hypertension and hypertensive cardiovascular disease 5. Hyperlipidemia 6. Diabetes mellitus type 2 7. Acute kidney injury and top of chronic kidney disease stage III 8. Diabetic polyneuropathy 9. Restless leg syndrome 10. Alzheimer dementia 11. Depression 12. Parkinson with orofacial dyskinesia 13. Stage III decubitus sacral ulcer The above impression and plan of care have been discussed and directed by signing physician. Christina Dietz nurse practitioner acting as scribe for signing physician. Patient Condition at Discharge: Good Plan - Discharge Summary New Discharge Prescriptions: New Aspirin 81 mg PO DAILY Cefuroxime [Ceftin] 250 mg PO BID #18 tab Nitrofurantoin Macrocrystal [Macrodantin] 100 mg PO HS #60 cap Continue Amitriptyline HCl [Elavil] 10 mg PO HS Memantine [Namenda] 10 mg PO BID Pramipexole [Mirapex] 0.5 mg PO HS Atenolol [Tenormin] 25 mg PO DAILY Fluticasone/Salmeterol [Advair 500-50 Diskus] 1 puff INHALATION RT-BID@0800, 1700 Carbidopa-Levodopa 25-100 mg [Sinemet 25-100 mg] 1 tab PO QID@08,12,17,21 Donepezil [Aricept] 10 mg PO HS Pravastatin Sodium [Pravachol] 40 mg PO HS Isosorbide Mononitrate ER [Imdur] 30 mg PO DAILY Magnesium Hydroxide [Milk of Magnesia Concentrate] 7,200 mg PO DAILY PRN PRN Reason: Constipation Albuterol Nebulized [Ventolin Nebulized] 2.5 mg INHALATION RT-BID@0800,1700 Acetaminophen Tab [Tylenol] 500 mg PO Q6H PRN PRN Reason: Pain Losartan Potassium [Cozaar] 50 mg PO DAILY Sennosides [Senna] 8.6 mg PO HS Bisacodyl [Dulcolax] 10 mg RECTAL DAILY PRN PRN Reason: Constipation Montelukast [Singulair] 10 mg PO HS Furosemide [Lasix] 40 mg PO DAILY #0 Menthol [Biofreeze] 1 applic TOPICAL Q6H PRN PRN Reason: Pain Metolazone [Zaroxolyn] 1.25 mg PO MOWEFR Gabapentin [Neurontin] 300 mg PO BID@0800,1700 Na Phos,M-B/Na Phos,Di-Ba [Fleet Adult] 1 dose RECTAL ONCE PRN PRN Reason: Constipation Mag Hydrox/Al Hydrox/Simeth [Maalox] 30 ml PO Q6HR PRN PRN Reason: Indigestion Omeprazole [PriLOSEC] 20 mg PO DAILY Melatonin 3 mg PO HS tab ALPRAZolam [Xanax] 0.25 mg PO BID PRN PRN Reason: Anxiety QUEtiapine [SEROquel] 50 mg PO HS metFORMIN HCL 1,000 mg PO QAM lamoTRIgine 200 mg PO DAILY Baclofen [Lioresal] 10 mg PO TID@0600,1400,2100 Cefuroxime Axetil [Ceftin] 500 mg PO BID metFORMIN HCL [Glucophage] 500 mg PO DAILY@1700 ALPRAZolam [Xanax] 0.25 mg PO BID@1400,2100 #60 HYDROcodone/APAP 7.5-325MG [Windom 7.5-325] 1 tab PO Q6H PRN #90 PRN Reason: Severe Pain traMADol HCl [Ultram] 50 mg PO Q6H PRN #120 tab PRN Reason: Mild Pain Discharge Medication List Amitriptyline HCl [Elavil] 10 mg PO HS 07/30/14 [History] Atenolol [Tenormin] 25 mg PO DAILY 07/30/14 [History] Fluticasone/Salmeterol [Advair 500-50 Diskus] 1 puff INHALATION RT-BID@0800, 1700 07/30/14 [History] Memantine [Namenda] 10 mg PO BID 07/30/14 [History] Pramipexole [Mirapex] 0.5 mg PO HS 07/30/14 [History] Carbidopa-Levodopa 25-100 mg [Sinemet 25-100 mg] 1 tab PO QID@08,12,17,21 [History] Donepezil [Aricept] 10 mg PO HS 12/29/14 [History] Pravastatin Sodium [Pravachol] 40 mg PO HS 12/30/14 [History] Isosorbide Mononitrate ER [Imdur] 30 mg PO DAILY 03/03/15 [History] Magnesium Hydroxide [Milk of Magnesia Concentrate] 7,200 mg PO DAILY PRN [History] Albuterol Nebulized [Ventolin Nebulized] 2.5 mg INHALATION RT-BID@0800,1700 [History] Acetaminophen Tab [Tylenol] 500 mg PO Q6H PRN 09/08/15 [History] Losartan Potassium [Cozaar] 50 mg PO DAILY 05/14/16 [History] Sennosides [Senna] 8.6 mg PO HS 05/14/16 [History] Bisacodyl [Dulcolax] 10 mg RECTAL DAILY PRN 05/23/16 [History] Montelukast [Singulair] 10 mg PO HS 05/23/16 [History] Furosemide [Lasix] 40 mg PO DAILY #0 05/27/16 [Rx] Menthol [Biofreeze] 1 applic TOPICAL Q6H PRN 06/24/16 [History] Metolazone [Zaroxolyn] 1.25 mg PO MOWEFR 10/01/16 [History] Gabapentin [Neurontin] 300 mg PO BID@0800,1700 11/11/16 [History] Mag Hydrox/Al Hydrox/Simeth [Maalox] 30 ml PO Q6HR PRN 11/11/16 [History] Na Phos,M-B/Na Phos,Di-Ba [Fleet Adult] 1 dose RECTAL ONCE PRN 11/11/16 [History ] Omeprazole [PriLOSEC] 20 mg PO DAILY 03/07/17 [History] Melatonin 3 mg PO HS tab 03/12/17 [Rx] ALPRAZolam [Xanax] 0.25 mg PO BID PRN 04/03/17 [History] Baclofen [Lioresal] 10 mg PO TID@0600,1400,2100 04/03/17 [History] Cefuroxime Axetil [Ceftin] 500 mg PO BID 04/03/17 [History] QUEtiapine [SEROquel] 50 mg PO HS 04/03/17 [History] lamoTRIgine 200 mg PO DAILY 04/03/17 [History] metFORMIN HCL 1,000 mg PO QAM 04/03/17 [History] metFORMIN HCL [Glucophage] 500 mg PO DAILY@1700 04/03/17 [History] ALPRAZolam [Xanax] 0.25 mg PO BID@1400,2100 #60 04/08/17 [Rx] Aspirin 81 mg PO DAILY 04/08/17 [Rx] Cefuroxime [Ceftin] 250 mg PO BID #18 tab 04/08/17 [Rx] HYDROcodone/APAP 7.5-325MG [Windom 7.5-325] 1 tab PO Q6H PRN #90 04/08/17 [Rx] Nitrofurantoin Macrocrystal [Macrodantin] 100 mg PO HS #60 cap 04/08/17 [Rx] traMADol HCl [Ultram] 50 mg PO Q6H PRN #120 tab 04/08/17 [Rx] Follow up Appointment(s)/Referral(s): Jose Luis Diamond MD [Primary Care Provider] - 1-2 days Roel Singh [NON-STAFF] - 1 Week Ambulatory/Diagnostic Orders: Urinalysis [LAB.AMB] Location: Determined By Patient Patient Instructions/Handouts: Urinary Tract Infection in Women (DC), Pressure Ulcer (DC) Activity/Diet/Wound Care/Special Instructions: MRSA precautions. Turn every 2 hours while awake. Discharge Disposition: TRANSFER TO SNF/ECF
--- NOTE | 2017-04-08 22:45 | PN ---
PROGRESS NOTE DATE OF SERVICE: 04/08/2017 REASON FOR FOLLOWUP: 1. E. coli urinary tract infection. 2. Stage III sacral wound. INTERVAL HISTORY: The patient was seen on rounds early this morning. The patient has been afebrile. She denies having any chest pain, shortness of breath or cough. No abdominal pain or any diarrhea. EXAMINATION: Blood pressure is 132/60 with a pulse of 69, temperature 99. She is 95% on 3L nasal cannula. GENERAL DESCRIPTION: An elderly female lying in bed in no distress. RESPIRATORY SYSTEM: Unlabored breathing. Clear to auscultation anteriorly. HEART: S1, S2. Regular rate and rhythm. ABDOMEN: Soft. No tenderness. LABS: Hemoglobin 8.3, white count 5.6 with a BUN of 16, creatinine 1.18. DIAGNOSTIC IMPRESSION/PLAN: 1. Patient with an Escherichia coli urinary tract infection. Continue therapy with p.o. Ceftin 250 twice a day for another 7 to 10 days. 2. Stage III sacral wound, persistent and worsening. Keep the area off the pressure. MMODL / IJN: [id number] /
== END 2017-04-08 11:19 | DRG 871 ==
LOC: EC 19:33 → 4MS4W 22:39
PROVIDERS: ADMIT Family Medicine; ATTEND Family Medicine
DX: A41.9 Sepsis, unspecified organism (principal); G93.41 Metabolic encephalopathy; N17.9 Acute kidney failure, unspecified; L89.153 Pressure ulcer of sacral region, stage 3; E11.22 Type 2 diabetes mellitus with diabetic chronic kidney disease; I13.10 Hypertensive heart and chronic kidney disease without heart failure, with stage 1 through stage 4 chronic kidney disease, or unspecified chronic kidney disease; E11.42 Type 2 diabetes mellitus with diabetic polyneuropathy; F05 Delirium due to known physiological condition; F02.81 Dementia in other diseases classified elsewhere, unspecified severity, with behavioral disturbance; N39.0 Urinary tract infection, site not specified; G30.9 Alzheimer's disease, unspecified; B96.20 Unspecified Escherichia coli [E. coli] as the cause of diseases classified elsewhere; E78.5 Hyperlipidemia, unspecified; F32.9 Major depressive disorder, single episode, unspecified; F41.9 Anxiety disorder, unspecified; G20 Parkinson's disease; G25.81 Restless legs syndrome; G24.4 Idiopathic orofacial dystonia; I25.10 Atherosclerotic heart disease of native coronary artery without angina pectoris; J45.909 Unspecified asthma, uncomplicated; K21.9 Gastro-esophageal reflux disease without esophagitis; N18.3 Chronic kidney disease, stage 3 (moderate); Z86.14 Personal history of Methicillin resistant Staphylococcus aureus infection; Z79.82 Long term (current) use of aspirin; Z79.899 Other long term (current) drug therapy; Z80.0 Family history of malignant neoplasm of digestive organs; Z83.3 Family history of diabetes mellitus; Z86.73 Personal history of transient ischemic attack (TIA), and cerebral infarction without residual deficits; Z87.440 Personal history of urinary (tract) infections; Z87.891 Personal history of nicotine dependence; Z88.0 Allergy status to penicillin; Z96.653 Presence of artificial knee joint, bilateral; Z74.01 Bed confinement status; R45.1 Restlessness and agitation; M19.90 Unspecified osteoarthritis, unspecified site; Z88.5 Allergy status to narcotic agent; Z88.2 Allergy status to sulfonamides; G47.00 Insomnia, unspecified; M51.37 Other intervertebral disc degeneration, lumbosacral region; M48.00 Spinal stenosis, site unspecified; R15.9 Full incontinence of feces; R32 Unspecified urinary incontinence; G89.29 Other chronic pain
CPT/HCPCS: 36415; 36600; 70450; 71010; 71020; 76770; 80048; 80053; 81001; 82805; 83036; 83605; 85025; 85610; 85730; 87040; 87077; 87086; 87186; 87502; 93005; 93880; 94640; 94760; 95819; 99285

== ENCOUNTER 2017-04-20 21:55 | Inpatient (IN) | payer MEDICARE, OTHER ==
[2017-04-20 22:41] LABS: Basophils % (A) 1 %; CH 29.8; CHCM 32.8; Eosinophils # (A) 0.9 k/uL (0-0.7); Eosinophils % (A) 14 %; HCT 30.8 % (34.0-46.0); HDW 2.38; HGB 9.7 gm/dL (11.4-16.0); Luc % (Auto) 2; Lymphocytes # (A) 1.4 k/uL (1.0-4.8); Lymphocytes % (A) 22 %; MCH 28.7 pg (25.0-35.0); MCHC 31.4 g/dL (31.0-37.0); MCV 91.3 fL (80.0-100.0); Mean Platelet Volume 8.7; Monocytes # (A) 0.2 k/uL (0-1.0); Monocytes % (A) 3 %; Neutrophils # (A) 3.6 k/uL (1.3-7.7); Neutrophils % (A) 59 %; RBC 3.38 m/uL (3.80-5.40); RDW 14.2 % (11.5-15.5); WBC 6.2 k/uL (3.8-10.6); WBC (Perox) 6.53
[2017-04-20 22:50] LABS: Calcium 8.8 mg/dL (8.4-10.2); INR 1.1 (<1.2); Potassium 4.2 mmol/L (3.5-5.1); Prothrombin Time 11.5 sec (9.0-12.0); Total Bilirubin 0.3 mg/dL (0.2-1.3)
[2017-04-20 22:51] LABS: Ammonia <9 umol/L (<30)
[2017-04-20 23:03] LABS: Creatine Kinase 88 U/L (30-135)
[2017-04-20 23:15] LABS: Appearance,Urine Cloudy (Clear); Bacteria,Urine Rare /hpf; Bilirubin,Urine Negative (Negative); Glucose,Urine (UA) Negative (Negative); Ketones,Urine Negative (Negative); Leukocyte Esterase,Urine Small (Negative); Mucus,Urine Rare /hpf; Nitrite,Urine Negative (Negative); PH, Urine 5.5 (5.0-8.0); Particle Count 12070; Protein,Urine Trace (Negative); RBC,Urine <1 /hpf (0-5); Specific Gravity,Urine 1.015 (1.001-1.035); Squamous Epithelial Cell,Urine 1 /hpf (0-4); UA Billing (MACRO vs. MICRO) MICRO; Urobilinogen,Urine <2.0 mg/dL (<2.0); WBC,Urine 2 /hpf (0-5)
[2017-04-20 23:15] LABS: Creatine Kinase MB 1.9 ng/mL (0.0-2.4); Troponin I <0.012 ng/mL (0.000-0.034)
[2017-04-20] MEDS ORDERED: SODIUM CHLORIDE 0.9% 1,000 ML IV ONE (23:15)
[2017-04-20 23:23] LABS: Glucose,Whole Blood 116 mg/dL (75-99)
[2017-04-21] MEDS ORDERED: SODIUM CHLORIDE 0.9% 1,000 ML IV ONE (00:24)
[2017-04-21] MEDS ORDERED: CARBIDOPA-LEVODOPA 25-100 MG 1 EACH TAB PO STA (00:25)
--- NOTE | 2017-04-21 00:45 | XR ---
EXAM: XR Chest, 1 View CLINICAL HISTORY: Reason: altered mental status TECHNIQUE: Frontal view of the chest. COMPARISON: Chest x-ray 04/03/17 FINDINGS: Lungs: Mild vascular prominence. Left midlung atelectasis. Pleural space: Tiny left pleural effusion. No pneumothorax. Heart: Cardiomegaly. Mediastinum: Unremarkable. Bones/joints: Unremarkable. Other findings: IMPRESSION: Cardiomegaly. Mild vascular prominence. Tiny left pleural effusion
--- NOTE | 2017-04-21 00:54 | CT ---
EXAM: CT Head Without Intravenous Contrast CLINICAL HISTORY: Reason: altered mental status TECHNIQUE: Axial computed tomography images of the head/brain without intravenous contrast. CTDI is 57.4 mGy and DLP is 1862 mGy-cm. This CT exam was performed using one or more of the following dose reduction techniques: automated exposure control, adjustment of the mA and/or kV according to patient size, and/or use of iterative reconstruction technique. COMPARISON: Head CT 04/06/17 FINDINGS: There is mild motion degradation. No intracranial hemorrhage, abnormal intra- or extra-axial collections or parenchymal lesions are seen. There are mild involutional changes with prominence of the sulci, basal cisterns and ventricles. Scattered white matter hypoattenuations are present, likely from small vessel disease. The andersen-white differentiation is preserved. Bilateral frontal and right parietal small extra-axial calcifications likely small meningiomas. There is a 9.7 mm right frontal extra-axial soft tissue density with associated calcification likely meningioma, stable. No evidence of mass effect, midline shift, or edema. The osseous structures are unremarkable. Complete opacification of the left maxillary sinus. IMPRESSION: 1. No acute intracranial process. 2. Involutional changes with small vessel disease. 3. Stable chronic left maxillary sinus opacification.
[2017-04-21] MEDS ORDERED: NALOXONE 0.4 MG/ML 1 ML VIAL IV PRN (05:17)
[2017-04-21] MEDS ORDERED: SODIUM CHLORIDE 0.9% 2,000 ML IV ONE (05:21)
[2017-04-21] MEDS: ALBUTEROL NEBULIZED 2.5 MG/3 ML INHALATION SCH ×2 (10:49→20:23)
[2017-04-21] MEDS: ATENOLOL 25 MG TAB PO SCH (11:08)
[2017-04-21] MEDS: CARBIDOPA-LEVODOPA 25-100 MG 1 EACH TAB PO SCH ×4 (11:08→22:56)
[2017-04-21] MEDS: SODIUM CHLORIDE 0.9% 1,000 ML IV SCH ×2 (11:08→14:39)
[2017-04-21] MEDS: HEPARIN SODIUM,PORCINE 5,000 UNIT/ML 1 ML VIAL SQ SCH ×2 (11:09→22:54)
--- NOTE | 2017-04-21 11:11 | P.NPCON ---
History of Present Illness - Reason for Consult acute renal failure - History of Present Illness Reason for consultation: Acute kidney injury on chronic kidney disease History of present illness: Patient is a 81-year-old female seen in renal consultation for acute kidney injury on chronic kidney disease. Patient has underlying chronic kidney disease stage III with baseline creatinine near 1.2 secondary to diabetic kidney disease. Patient presented from [facility] with altered mental status.. She was refusing all her medications. She received 4 L of IV fluid resuscitation in the ER and is currently maintained on normal saline at 1 25 mL an hour. It appears she was taking a diuretic as well as an angiotensin receptor nazia along with metformin which are all currently held at this time. Patient remains quite confused and somewhat combative. She is only moaning and does not respond appropriately to verbal commands. No history of vomiting or diarrhea. She has been voiding but is incontinent. Hemodynamically she stable. Urinalysis is quite benign with no evidence of UTI. Patient was recently discharged earlier this month and at that time was admitted with altered mental status as well as urinary tract infection. Vital signs are stable. She is afebrile. No pitting edema. Patient is refusing rest of the physical exam at this time. Past Medical History Past Medical History: Asthma, Coronary Artery Disease (CAD), CVA/TIA, Dementia, Diabetes Mellitus, GERD/Reflux, Hyperlipidemia, Hypertension, Osteoarthritis (OA ), Renal Disease Additional Past Medical History / Comment(s): Osteoarthritis, HTN, asthma, hyperlipidemia, TIA, insomina, RLS, Parkinson's disease, spinal stenosis, intervertebral disc degeneration (lumbosacral region), neuropathy, dysphagia, MRSA, dementia, diabetes mellitus type 2, UTI, bowel/bladder incontinence, past fecal impaction, chronic pain. History of Any Multi-Drug Resistant Organisms: MRSA Date of last positivie culture/infection: 12/11/15 MDRO Source:: sputum Past Surgical History: Appendectomy, Cholecystectomy, Hysterectomy, Joint Replacement, Orthopedic Surgery Additional Past Surgical History / Comment(s): Neck Surgery x2 (1954), BL knee replacements. Pain clinic procedure. Past Anesthesia/Blood Transfusion Reactions: No Reported Reaction Past Psychological History: Unable to Obtain, Anxiety, Depression Smoking Status: Unknown if ever smoked Past Alcohol Use History: Unable to Obtain Past Drug Use History: Unable to Obtain - Past Family History Father Family Medical History: Cancer Sister(s) Family Medical History: Cancer Brother(s) Family Medical History: No Reported History Daughter(s) Family Medical History: No Reported History Son(s) Family Medical History: No Reported History Mother Family Medical History: Diabetes Mellitus Additional Family Medical History / Comment(s): PER [facility] UNKNOWN FAMILY HISTORY Medications and Allergies Home Medications Medication Instructions Recorded Confirmed Type Amitriptyline HCl [Elavil] 10 mg PO HS 07/30/14 04/20/17 History Atenolol [Tenormin] 25 mg PO QAM 07/30/14 04/20/17 History Fluticasone/Salmeterol [Advair 1 puff INHALATION RT-BID@0800,1700 07/30/1404/20 History 500-50 Diskus] Memantine [Namenda] 10 mg PO BID 07/30/14 04/20/17 History Pramipexole [Mirapex] 0.5 mg PO HS 07/30/14 04/20/17 History Carbidopa-Levodopa 25-100 mg 1 tab PO QID 12/29/14 04/20/17 History [Sinemet 25-100 mg] Donepezil [Aricept] 10 mg PO HS 12/29/14 04/20/17 History Pravastatin Sodium [Pravachol] 40 mg PO HS 12/30/14 04/20/17 History Isosorbide Mononitrate ER [Imdur] 30 mg PO DAILY 03/03/15 04/20/17 History Magnesium Hydroxide [Milk of 7,200 mg PO DAILY PRN 04/10/15 04/20/17 History Magnesia Concentrate] Albuterol Nebulized [Ventolin 2.5 mg INHALATION RT-BID@0800,1700 08/16/15 History Nebulized] Acetaminophen Tab [Tylenol] 500 mg PO Q6H PRN 09/08/15 04/20/17 History Losartan Potassium [Cozaar] 50 mg PO QAM 05/14/16 04/20/17 History Sennosides [Senna] 8.6 mg PO HS 05/14/16 04/20/17 History Bisacodyl [Dulcolax] 10 mg RECTAL DAILY PRN 05/23/16 04/20/17 History Montelukast [Singulair] 10 mg PO HS 05/23/16 04/20/17 History Menthol [Biofreeze] 1 applic TOPICAL Q6H PRN 06/24/16 04/20/17 History Metolazone [Zaroxolyn] 1.25 mg PO MOWEFR 10/01/16 04/20/17 History Gabapentin [Neurontin] 300 mg PO BID@0800,1700 11/11/16 04/20/17 History Mag Hydrox/Al Hydrox/Simeth 30 ml PO Q6HR PRN 11/11/16 04/20/17 History [Maalox] Na Phos,M-B/Na Phos,Di-Ba [Fleet 133 ml RECTAL DAILY PRN 11/11/16 04/20/17 History Adult] Omeprazole [PriLOSEC] 20 mg PO QAM 03/07/17 04/20/17 History Melatonin 3 mg PO HS tab 03/12/17 04/20/17 Rx ALPRAZolam [Xanax] 0.25 mg PO BID PRN 04/03/17 04/20/17 History Baclofen [Lioresal] 10 mg PO TID@0600,1400,2100 04/03/17 04/20/17 History QUEtiapine [SEROquel] 50 mg PO HS 04/03/17 04/20/17 History lamoTRIgine 200 mg PO QAM 04/03/17 04/20/17 History metFORMIN HCL 1,000 mg PO QAM 04/03/17 04/20/17 History metFORMIN HCL [Glucophage] 500 mg PO DAILY@1700 04/03/17 04/20/17 History ALPRAZolam [Xanax] 0.25 mg PO BID@1400,2100 #60 04/08/17 04/20/17 Rx traMADol HCl [Ultram] 50 mg PO Q6H PRN #120 tab 04/08/17 04/20/17 Rx Aspirin 81 mg PO QAM 04/20/17 04/20/17 History Furosemide [Lasix] 40 mg PO QAM 04/20/17 04/20/17 History HYDROcodone/APAP 7.5-325MG [[place] 1 tab PO Q6H PRN 04/20/17 04/20/17 History 7.5-325] Nitrofurantoin Monohyd/M-Cryst 100 mg PO HS 04/20/17 04/20/17 History [Macrobid] Olopatadine HCl [Patanol] 1 drop BOTH EYES BID@0700,1700 04/20/17 04/20/17 History Allergies Allergy/AdvReac Type Severity Reaction Status Date / Time codeine Allergy Unknown Verified 04/20/17 23:50 Penicillins Allergy Unknown Verified 04/20/17 23:24 Sulfa (Sulfonamide Allergy Unknown Verified 04/20/17 23:24 Antibiotics) Physical Exam Vitals: Vital Signs Temp Pulse Pulse Resp BP BP Pulse Ox 04/21/17 08:00 98.1 F 63 16 109/65 93 L 04/21/17 06:39 98.3 F 70 147/66 96 04/21/17 05:33 97.9 F 70 20 97 04/21/17 04:15 68 18 112/53 99 04/21/17 03:20 53 L 104/51 100 04/21/17 02:28 53 L 16 135/63 98 04/21/17 01:39 69 16 135/58 97 04/21/17 00:44 63 20 150/61 96 04/21/17 00:00 68 94 L 04/20/17 23:07 65 22 96 04/20/17 22:04 98.0 F 72 20 161/99 95 Intake and Output 04/20/17 04/21/17 04/21/17 22:59 06:59 14:59 Intake Total 1999 Balance 1999 Intake: Amount of Fluid Infused ( 2000 ml) Other: Voiding Method Diaper Weight 108.862 kg Results - Lab Results Most recent lab results Calcium 8.8 mg/dL (8.4-10.2) 04/20/17 22:11 04/20/17 22:11 04/20/17 22:11 Assessment and Plan Plan: Assessment: #1. Nonoliguric acute kidney injury mostly prerenal from poor oral intake and further worsened with the use of hard and diuretics. She was also on metformin. Creatinine up to 2. Urinalysis is quite benign. #2. Chronic kidney disease stage III secondary to diabetic kidney disease with baseline creatinine near 1.2. #3. Anemia. Rule out iron deficiency. #4. Altered mental status. No signs of sepsis. Possibly drug induced. She does have underlying dementia. #5. Diabetes mellitus. Plan: Continue normal saline to be run at 125 mL an hour. Next line check iron studies. Avoid nephrotoxic agents and hypotensive episodes. Diuretics and Cozaar held for now. Recommend staying off metformin as her GFR is quite labile. Repeat electrolytes in the morning. Follow-up cultures. Thank you for the consultation. I will continue to follow the patient with you during her hospital stay.
[2017-04-21] MEDS ORDERED: NA PHOS,M-B/NA PHOS,DI-BA 133 ML ENEMA RECTAL PRN (13:20)
[2017-04-21] MEDS ORDERED: MAG HYDROX/AL HYDROX/SIMETH 30 ML CUP PO PRN (13:20)
[2017-04-21] MEDS ORDERED: HYDROcodone/APAP 7.5-325MG 1 EACH TAB PO PRN (13:20)
[2017-04-21] MEDS ORDERED: ACETAMINOPHEN TAB 500 MG TAB PO PRN (13:20)
[2017-04-21] MEDS ORDERED: MENTHOL-ZINC OXIDE OINT 113 GM TUBE TOPICAL PRN (13:20)
[2017-04-21] MEDS ORDERED: BISACODYL 10 MG SUPP RECTAL PRN (13:20)
[2017-04-21] MEDS ORDERED: MAGNESIUM HYDROXIDE 2,400 MG/10 ML CUP PO PRN (13:20)
--- NOTE | 2017-04-21 16:05 | P.HPIM ---
History of Present Illness H&P Date: 04/21/17 Chief Complaint: Confusion This is an 81-year-old female who resides at [facility] under the care of Dr. Diamond. She has underlying history of dementia, asthma, CAD, diabetes mellitus, hypertension, chronic kidney disease stage III and Parkinson' s disease. She has recurrent urinary tract infection and has had multiple admissions in the recent past for E. coli urinary tract infections and has been on IV antibiotics in the past. Most recently she was discharged on April 08 on Ceftin for 10 days. On that admission, patient had a workup for metabolic encephalopathy and was seen by neurology, Dr. Acosta. Carotid ultrasound show minimal bilateral plaquing without significant stenosis. CAT scan of the brain showed no acute intracranial abnormality. Mild atrophic change. Chronic white matter ischemic change. Acute on chronic sinus disease. EEG was within normal limits. Patient is now transferred from [facility] due to increasing mental status changes and combativeness. Patient was refusing to take medication. She underwent a CAT scan of the brain that showed no acute intracranial process, there is small vessel disease and stable chronic left maxillary sinus opacification. Chest x-ray showed cardiomegaly and mild vascular prominence. Tiny left pleural effusion. Creatinine was elevated at 2 which her baseline is around 1.6. Patient was started on IV fluids and [facility] and consult requested with nephrology. Urinalysis negative for urinary tract infection. There is noted to be small amount of blood and protein and small leukoesterase. Review of Systems ROS unobtainable: due to mental status Past Medical History Past Medical History: Asthma, CVA/TIA, Dementia, Diabetes Mellitus, GERD/Reflux , Hyperlipidemia, Hypertension, Musculoskeletal Disorder, Neurologic Disorder, Osteoarthritis (OA), Renal Disease Additional Past Medical History / Comment(s): Pt recently admitted to [facility] on 04/03/17 with UTI/sepsis, AMS, severe metabolic encephalopathy Other HX: Current stage III decubitus ulcer, TIA possible CVA, insomina, RLS, Parkinson's disease with orofacial dyskinesia, dysphagia, spinal stenosis, DDD (lumbosacral region), NIDDM type II, polyneuropathy, UTI, chronic kidney dx stage IV, bowel/ bladder incontinence, past fecal impaction, chronic pain, per family-pt has periods of lucidity and occasional confusion. History of Any Multi-Drug Resistant Organisms: MRSA Date of last positivie culture/infection: 12/11/15 MDRO Source:: sputum Past Surgical History: Appendectomy, Cholecystectomy, Hysterectomy, Joint Replacement, Orthopedic Surgery Additional Past Surgical History / Comment(s): Cervical surgery x2 (1954), BL knee replacements. Pain clinic procedure. Past Anesthesia/Blood Transfusion Reactions: No Reported Reaction Smoking Status: Former smoker - Past Family History Father Family Medical History: Cancer Additional Family Medical History / Comment(s): Unknown type of cancer. Sister(s) Family Medical History: Cancer Brother(s) Family Medical History: No Reported History Daughter(s) Family Medical History: No Reported History Son(s) Family Medical History: No Reported History Mother Family Medical History: Diabetes Mellitus Additional Family Medical History / Comment(s): PER [facility]F UNKNOWN FAMILY HISTORY Medications and Allergies Home Medications Medication Instructions Recorded Confirmed Type RX: Amitriptyline HCl [Elavil] 10 mg PO HS 07/30/14 04/20/17 History RX: Atenolol [Tenormin] 25 mg PO QAM 07/30/14 04/20/17 History RX: Fluticasone/Salmeterol [Advair 1 puff INHALATION RT-BID@0800,1700 07/30/14 04/20/17 History 500-50 Diskus] RX: Memantine [Namenda] 10 mg PO BID 07/30/14 04/20/17 History RX: Pramipexole [Mirapex] 0.5 mg PO HS 07/30/14 04/20/17 History RX: Carbidopa-Levodopa 25-100 mg 1 tab PO QID 12/29/14 04/20/17 History [Sinemet 25-100 mg] RX: Donepezil [Aricept] 10 mg PO HS 12/29/14 04/20/17 History RX: Pravastatin Sodium [Pravachol] 40 mg PO HS 12/30/14 04/20/17 History RX: Isosorbide Mononitrate ER 30 mg PO DAILY 03/03/15 04/20/17 History [Imdur] RX: Magnesium Hydroxide [Milk of 7,200 mg PO DAILY PRN 04/10/15 04/20/17 History Magnesia Concentrate] RX: Albuterol Nebulized [Ventolin 2.5 mg INHALATION RT-BID@0800,1700 08/16/15 History Nebulized] RX: Acetaminophen Tab [Tylenol] 500 mg PO Q6H PRN 09/08/15 04/20/17 History RX: Losartan Potassium [Cozaar] 50 mg PO QAM 05/14/16 04/20/17 History RX: Sennosides [Senna] 8.6 mg PO HS 05/14/16 04/20/17 History RX: Bisacodyl [Dulcolax] 10 mg RECTAL DAILY PRN 05/23/16 04/20/17 History RX: Montelukast [Singulair] 10 mg PO HS 05/23/16 04/20/17 History RX: Menthol [Biofreeze] 1 applic TOPICAL Q6H PRN 06/24/16 04/20/17 History RX: Metolazone [Zaroxolyn] 1.25 mg PO MOWEFR 10/01/16 04/20/17 History RX: Gabapentin [Neurontin] 300 mg PO BID@0800,1700 11/11/16 04/20/17 History RX: Mag Hydrox/Al Hydrox/Simeth 30 ml PO Q6HR PRN 11/11/16 04/20/17 History [Maalox] RX: Na Phos,M-B/Na Phos,Di-Ba 133 ml RECTAL DAILY PRN 11/11/16 04/20/17 History [Fleet Adult] RX: Omeprazole [PriLOSEC] 20 mg PO QAM 03/07/17 04/20/17 History RX: Melatonin 3 mg PO HS tab 03/12/17 04/20/17 Rx RX: ALPRAZolam [Xanax] 0.25 mg PO BID PRN 04/03/17 04/20/17 History RX: Baclofen [Lioresal] 10 mg PO TID@0600,1400,2100 04/03/17 04/20/17 History RX: QUEtiapine [SEROquel] 50 mg PO HS 04/03/17 04/20/17 History RX: lamoTRIgine 200 mg PO QAM 04/03/17 04/20/17 History RX: metFORMIN HCL 1,000 mg PO QAM 04/03/17 04/20/17 History RX: metFORMIN HCL [Glucophage] 500 mg PO DAILY@1700 04/03/17 04/20/17 History RX: ALPRAZolam [Xanax] 0.25 mg PO BID@1400,2100 #60 04/08/17 04/20/17 Rx RX: traMADol HCl [Ultram] 50 mg PO Q6H PRN #120 tab 04/08/17 04/20/17 Rx Nitrofurantoin Monohyd/M-Cryst 100 mg PO HS 04/20/17 04/20/17 History [Macrobid] Olopatadine HCl [Patanol] 1 drop BOTH EYES BID@0700,1700 04/20/17 04/20/17 History RX: Aspirin 81 mg PO QAM 04/20/17 04/20/17 History RX: Furosemide [Lasix] 40 mg PO QAM 04/20/17 04/20/17 History RX: HYDROcodone/APAP 7.5-325MG 1 tab PO Q6H PRN 04/20/17 04/20/17 History [[place] 7.5-325] Allergies Allergy/AdvReac Type Severity Reaction Status Date / Time codeine Allergy Unknown Verified 04/20/17 23:50 Penicillins Allergy Unknown Verified 04/20/17 23:24 Sulfa (Sulfonamide Allergy Unknown Verified 04/20/17 23:24 Antibiotics) Physical Exam Vitals: Vital Signs Temp Pulse Pulse Resp BP BP Pulse Ox 04/21/17 08:00 98.1 F 63 16 109/65 93 L 04/21/17 06:39 98.3 F 70 147/66 96 04/21/17 05:33 97.9 F 70 20 97 04/21/17 04:15 68 18 112/53 99 04/21/17 03:20 53 L 104/51 100 04/21/17 02:28 53 L 16 135/63 98 04/21/17 01:39 69 16 135/58 97 04/21/17 00:44 63 20 150/61 96 04/21/17 00:00 68 94 L 04/20/17 23:07 65 22 96 04/20/17 22:04 98.0 F 72 20 161/99 95 Intake and Output 04/21/17 04/21/17 04/21/17 06:59 14:59 22:59 Intake Total 1999 1499 Balance 1999 1499 Intake: Amount of Fluid Infused ( 2000 ml) Intake, IV Titration 1500 Amount Sodium Chloride 0.9% 1, 1000 000 ml @ 125 mls/hr IV . Q8H [facility] Rx#:[id number] Sodium Chloride 0.9% 2, 500 000 ml @ 999 mls/hr IV . Q2H1M ONE Rx#:[id number] Other: Voiding Method Diaper General appearance: Present: cooperative, no acute distress - EENT Eyes: Present: anicteric sclerae, EOMI, PERRLA, normal appearance ENT: Present: NA/AT, normal oropharynx - Neck Neck: Present: normal ROM - Respiratory Respiratory: bilateral: CTA, negative: diminished, dullness, rales, rhonchi - Cardiovascular Rhythm: regular Heart sounds: normal: S1, S2 Abnormal Heart Sounds: Absent: systolic murmur, diastolic murmur, rub, S3 Gallop , S4 Gallop, click, other - Gastrointestinal General gastrointestinal: Present: normal bowel sounds, soft - Integumentary Integumentary: Present: normal, normal turgor - Neurologic Neurologic: Present: CNII-XII intact - Musculoskeletal Musculoskeletal: Present: gait normal - Psychiatric Psychiatric: Present: A&O x's 1, no appropriate affect Results CBC & Chem 7: 04/23/17 02:53 04/23/17 02:53 Labs: Abnormal Lab Results - Last 24 Hours (Table) 04/20/17 04/20/17 04/20/17 Range/Units 22:11 22:11 22:11 RBC 3.38 L (3.80-5.40) m/uL Hgb 9.7 L (11.4-16.0) gm/dL Hct 30.8 L (34.0-46.0) % Eosinophils # 0.9 H (0-0.7) k/uL APTT 34.0 H (22.0-30.0) sec Sodium 136 L (137-145) mmol/L Chloride 95 L (98-107) mmol/L Carbon Dioxide 31 H (22-30) mmol/L BUN 48 H (7-17) mg/dL Creatinine 2.00 H (0.52-1.04) mg/dL POC Glucose (mg/dL) (75-99) mg/dL AST 12 L (14-36) U/L Total Protein 6.0 L (6.3-8.2) g/dL Albumin 3.4 L (3.5-5.0) g/dL Urine Appearance (Clear) Urine Protein (Negative) Urine Blood (Negative) Ur Leukocyte Esterase (Negative) Urine Bacteria (None) /hpf Urine Mucus (None) /hpf 04/20/17 04/20/17 Range/Units 23:00 23:12 RBC (3.80-5.40) m/uL Hgb (11.4-16.0) gm/dL Hct (34.0-46.0) % Eosinophils # (0-0.7) k/uL APTT (22.0-30.0) sec Sodium (137-145) mmol/L Chloride (98-107) mmol/L Carbon Dioxide (22-30) mmol/L BUN (7-17) mg/dL Creatinine (0.52-1.04) mg/dL POC Glucose (mg/dL) 116 H (75-99) mg/dL AST (14-36) U/L Total Protein (6.3-8.2) g/dL Albumin (3.5-5.0) g/dL Urine Appearance Cloudy H (Clear) Urine Protein Trace H (Negative) Urine Blood Trace H (Negative) Ur Leukocyte Esterase Small H (Negative) Urine Bacteria Rare H (None) /hpf Urine Mucus Rare H (None) /hpf Microbiology - Last 24 Hours (Table) 04/20/17 23:00 Urine Culture - Preliminary Urine,Catheterized Thrombosis Risk Factor Assmnt - DVT/VTE Prophylaxis DVT/VTE Prophylaxis: Pharmacologic Prophylaxis ordered - Choose All That Apply Any of the Below Risk Factors Present?: Yes Each Factor Represents 1 point: Obesity (BMI >25) Other Risk Factors: Yes Each Risk Factor Represents 3 Points: Age 75 years or older Other congenital or acquired thrombophilia - If yes, enter type in comment: No Thrombosis Risk Factor Assessment Total Risk Factor Score: 4 Thrombosis Risk Factor Assessment Level: Moderate Risk Assessment and Plan Plan: 1. Acute metabolic encephalopathy secondary to acute kidney injury. Patient on IV fluids of 1 25 mL per hour. Diuretics and Cozaar are on hold as well as metformin. Nephrology consult is appreciated. 2. Acute kidney injury with chronic kidney disease stage III. Continue as in # 1. Repeat labs daily. 3. CAD. Continue patient on Imdur 30 mg orally once every day, pravastatin 40 mg orally at bedtime, aspirin 81 mg orally once every day and atenolol 25 mg orally once every day. Losartan discontinued. 4. Hypertension and hypertensive cardiovascular disease. Continue atenolol 25 mg orally once every day. 5. Hyperlipidemia. Continue pravastatin 40 mg orally at bedtime. 6. Diabetes mellitus type 2. discontinue metformin secondary to elevated creatinine. Humalog scale before meals and at bedtime. 7. Parkinson with orofacial dyskinesia. Continue patient on Sinemet 25/100 one tablet orally 4 times every day, amantadine 100 mg orally once every day. Baclofen 8. Diabetic polyneuropathy. disContinue gabapentin 300 mg orally twice every day. 9. Restless leg syndrome. Continue patient on Mirapex 0.5 mg at bedtime. 10. Alzheimer dementia with behavior disturbance and impaired oral phase of eating patient tends to pocket food. Continue Namenda 10 mg orally twice every day and Aricept 10 mg orally bedtime. Seroquel 50 mg at bedtime and Lamictal 200 mg daily changes made. Speech therapy on consult. 11. Depression, recurrent. Continue Elavil 10 mg at bedtime and Lamictal 100 mg orally twice every day. 12. Frequent urinary tract infections. Patient has on Macrobid 100 mg at bedtime prophylactically. 13. Stage III decubitus sacral ulcer present before admission, a Aquacel Silver with yfn [address] wound care nurse 13. DVT prophylaxis. Heparin 5000 units every 12 hours subcutaneously. 14. GI prophylaxis. Protonix 40 mg daily. 15. Patient is no code. 16. Admit to inpatient. Estimate a length of stay 2 midnights. Discharge plan: Return to [facility] Impression and plan of care have been directed as dictated by the signing physician. Jailyn Navarro nurse practitioner acting as scribe for signing physician.
[2017-04-21] MEDS ORDERED: SYMBICORT 160-4.5 MCG INHALER INHALATION SCH (17:00)
[2017-04-21 17:11] LABS: Iron Saturation 12.4 (12.00-45.00)
[2017-04-21 17:58] LABS: Glucose,Whole Blood 108 mg/dL (75-99)
[2017-04-21] MEDS: KETOTIFEN 0.025% OPHTH DROPS 5 ML BTL BOTH EYES SCH (18:02)
[2017-04-21] MEDS: INSULIN LISPRO (humaLOG) 300 UNIT/3 ML VIAL SQ SCH ×2 (18:03→22:54)
[2017-04-21 20:13] LABS: Hemoglobin A1C 5.4 % (4.2-6.1)
[2017-04-21 22:33] LABS: Glucose,Whole Blood 87 mg/dL (75-99)
[2017-04-21] MEDS: DONEPEZIL 10 MG TAB PO SCH (22:54)
[2017-04-21] MEDS: MONTELUKAST 10 MG TAB PO SCH (22:55)
[2017-04-21] MEDS: MELATONIN 3 MG TABLET PO SCH (22:55)
[2017-04-21] MEDS: NITROFURANTOIN MONOHYD/M-CRYST 100 MG CAP PO SCH (22:55)
[2017-04-21] MEDS: MEMANTINE 10 MG TAB PO SCH (22:55)
[2017-04-21] MEDS: PRAVASTATIN SODIUM 40 MG TAB PO SCH (22:56)
[2017-04-21] MEDS: SENNOSIDES 8.6 MG TAB PO SCH (22:56)
[2017-04-21] MEDS: QUEtiapine 50 MG TAB PO SCH (22:56)
[2017-04-21] MEDS: PRAMIPEXOLE 0.5 MG TAB PO SCH (22:56)
[2017-04-22] MEDS: SODIUM CHLORIDE 0.9% 1,000 ML IV SCH (00:31)
[2017-04-22] MEDS ORDERED: METOPROLOL TARTRATE 5 MG/5 ML VIAL IVP PRN (02:09)
[2017-04-22] MEDS: DEXTROSE 5%-0.45% NACL 1,000 ML IV SCH ×2 (04:43→17:41)
[2017-04-22] MEDS: hydrALAZINE HCL 20 MG/ML 1 ML VIAL IVP PRN ×2 (04:44→19:08)
[2017-04-22 07:53] LABS: Glucose,Whole Blood 96 mg/dL (75-99)
[2017-04-22] MEDS: SYMBICORT 160-4.5 MCG INHALER INHALATION SCH ×2 (08:50→21:07)
[2017-04-22] MEDS: ALBUTEROL NEBULIZED 2.5 MG/3 ML INHALATION SCH ×2 (08:51→21:07)
--- NOTE | 2017-04-22 08:52 | P.PN ---
Subjective Patient is seen in follow-up for acute kidney injury on chronic kidney disease. Patient has chronic kidney disease stage III secondary to diabetic kidney disease with baseline creatinine near 1.2. Her creatinine was elevated at 21 admission. Patient presented from [facility] with altered mental status. There was concern for UTI however her urinalysis has been quite benign. Patient has a little bit more calm today but remains confused. Vital signs are stable. General: The patient appeared well nourished and normally developed. HEENT: Head exam is unremarkable. Neck is without jugular venous distension. EXTREMITITES: No clubbing, cyanosis, or edema. Patient refusing rest of the physical exam. Objective - Vital Signs Vital signs: Vital Signs Temp 98.4 F 04/22/17 08:11 Pulse 71 04/22/17 08:11 Resp 17 04/22/17 08:11 BP 156/78 04/22/17 08:11 Pulse Ox 93 L 04/22/17 01:35 Intake & Output 04/21/17 04/22/17 04/22/17 18:59 06:59 18:59 Intake Total 1500 Balance 1500 Intake: Intake, IV Titration 1500 Amount Sodium Chloride 0.9% 1, 1000 000 ml @ 125 mls/hr IV . Q8H [facility] Rx#:[id number] Sodium Chloride 0.9% 2, 500 000 ml @ 999 mls/hr IV . Q2H1M [facility] Rx#:[id number] Other: Voiding Method Diaper Diaper # Voids 2 - Labs CBC & Chem 7: 04/20/17 22:11 04/20/17 22:11 Labs: Abnormal Lab Results - Last 24 Hours (Table) 04/20/17 04/21/17 Range/Units 22:11 17:56 POC Glucose (mg/dL) 108 H (75-99) mg/dL Iron 30 L (50-170) ug/dL Microbiology - Last 24 Hours (Table) 04/20/17 22:11 Blood Culture - Preliminary Blood No Growth after 24 hours 04/20/17 23:00 Urine Culture - Preliminary Urine,Catheterized Assessment and Plan Plan: Assessment: #1. Nonoliguric acute kidney injury mostly prerenal from poor oral intake and further worsened with the use of ARB and diuretics. She was also on metformin. Creatinine up to 2. Urinalysis is quite benign. Labs from today are pending at this time. #2. Chronic kidney disease stage III secondary to diabetic kidney disease with baseline creatinine near 1.2. #3. Anemia of chronic kidney disease. Iron replete. #4. Altered mental status. No signs of sepsis. Possibly drug induced. She does have underlying dementia. #5. Diabetes mellitus. Plan: Continue with half-normal saline at 75 mL an hour but need to monitor sodium levels closely as it may further drop her sodium level. Avoid nephrotoxic agents and hypotensive episodes. Diuretics and Cozaar held for now. Recommend staying off metformin as her GFR is quite labile. Repeat electrolytes in the morning. Follow-up cultures. Discontinue Fleet enemas.
[2017-04-22 09:21] LABS: Basophils % (A) 0 %; CH 28.7; CHCM 31.1; Eosinophils # (A) 0.3 k/uL (0-0.7); Eosinophils % (A) 5 %; HCT 30.9 % (34.0-46.0); HDW 2.42; HGB 9.8 gm/dL (11.4-16.0); Hypochromasia Slight; Luc # (Auto) 0.12; Luc % (Auto) 2; Lymphocytes # (A) 1.3 k/uL (1.0-4.8); Lymphocytes % (A) 20 %; MCH 29.4 pg (25.0-35.0); MCHC 31.8 g/dL (31.0-37.0); MCV 92.4 fL (80.0-100.0); Mean Platelet Volume 8.1; Monocytes # (A) 0.2 k/uL (0-1.0); Monocytes % (A) 3 %; Neutrophils # (A) 4.5 k/uL (1.3-7.7); Neutrophils % (A) 70 %; RBC 3.35 m/uL (3.80-5.40); RDW 13.5 % (11.5-15.5); WBC 6.4 k/uL (3.8-10.6); WBC (Perox) 6.74
[2017-04-22 09:27] LABS: ALT 19 U/L (9-52); AST 14 U/L (14-36); Alkaline Phosphatase 69 U/L (38-126); Anion Gap 14 mmol/L; Blood Urea Nitrogen 18 mg/dL (7-17); Calcium 8.6 mg/dL (8.4-10.2); Carbon Dioxide 23 mmol/L (22-30); Chloride 108 mmol/L (98-107); Glucose 92 mg/dL (74-99); Non-African American GFR(MDRD) 51 (>60 ml/min/1.73 sqM); Potassium 3.6 mmol/L (3.5-5.1); Sodium 145 mmol/L (137-145); Total Bilirubin 0.2 mg/dL (0.2-1.3); Total Protein 5.8 g/dL (6.3-8.2)
--- NOTE | 2017-04-22 10:01 | CONS ---
CONSULTATION DATE OF CONSULTATION: 04/21/2017 CHIEF COMPLAINT: Altered mental status. HISTORY OF PRESENT ILLNESS: Mrs. Butcher is a pleasant 81-year-old, female, who was being evaluated today on 04/21/2017 by the Neurology Service per the request of Dr. Eagle for altered mental status. The patient resides at [facility] and was transferred to [facility] Emergency Room for increased confusion. The patient has been having recurrent urinary tract infections which do cause her to be quite confused afterwards. She also has significant problems of confusion when she becomes even slightly dehydrated according to the family. Prior to this admission, the patient had a significant reduction in oral intake and was not drinking any fluids. She is having dysphagia at this time. Given this, she has not been receiving her oral medications at the [facility]. She does have a previous history of dementia and stroke. A CT scan of the brain was done, which showed small-vessel ischemic changes. Her CBC showed anemia with a hemoglobin of 9.7 and hematocrit of 30.8. Her comprehensive metabolic profile showed renal insufficiency with a BUN of 48 and creatinine of 2.0. Her urinalysis showed 2+ WBCs with small leukocyte esterase. At the time of my evaluation, the patient is sitting up in her bed and appears to be in no acute distress. She appears to be confused and speech is difficult to comprehend. She does move her extremities spontaneously. PAST MEDICAL HISTORY: Asthma, stroke, dementia, diabetes, gastroesophageal reflux disease, dyslipidemia, hypertension, arthritis, recurrent urinary tract infections, decubitus ulcers, Parkinson's disease, restless legs syndrome, polyneuropathy, history of cervical spine surgery, knee replacement surgery, appendectomy, cholecystectomy, hysterectomy. SOCIAL HISTORY: The patient is a former smoker. There is no history of any alcohol or drug use. FAMILY HISTORY: Positive for cancer. HOME MEDICATIONS: Reviewed in the chart. ALLERGIES: CODEINE, PENICILLIN, SULFA DRUGS. REVIEW OF SYSTEMS: Unable to obtain due to altered mental status. PHYSICAL EXAM: Vital signs show a temperature of 97.9, pulse 70, respirations 16, blood pressure 110/74. GENERAL APPEARANCE: The patient is a well-developed, elderly female, who appears to be in no acute distress. HEENT: Normocephalic, atraumatic, no facial asymmetry is seen. Neck is supple with no masses felt. CARDIOVASCULAR: Regular rate and rhythm. ABDOMEN: Nontender, nondistended. Extremities showed edema with no clubbing seen. NEUROLOGICAL EXAM: The patient is awake. She does not answer questions appropriately and appears to be quite disoriented. Speech is difficult to comprehend. She does have an oral facial dyskinesias. She is not following commands appropriately but she does move her extremities spontaneously. I was unable to perform a sensory examination as she was not understanding the questions. Postural tremors are seen. No seizure-like activity is noticed. No obvious facial asymmetry is seen on cranial nerve testing. IMPRESSION: 1. Altered mental status. 2. Acute multifactorial encephalopathy. 3. Dehydration. 4. Dysphagia. 5. Possible aphasia. 6. Renal insufficiency. 7. Small vessel ischemic disease. RECOMMENDATION: The patient has been having recurrent episodes of significant encephalopathy secondary to urinary tract infections and dehydration. She has been having dysphagia lately which likely contributed to her current dehydration status. Continue IV hydration as tolerated. Repeat lab work has been ordered for the morning. I will repeat a CT scan of the brain tomorrow to rule out any ischemic strokes as she does have some evidence of a receptive aphasia. I will consult speech therapy for her dysphagia and will order a barium swallow study. An EEG has been ordered. Continue the rest of your current workup and management. I will continue to follow with you. Further recommendations to follow. Thank you for allowing me to participate in the care of your patient. If you have any questions, please feel free to contact me. YOLI / GARCIA: [id number] /
--- NOTE | 2017-04-22 10:54 | CT ---
EXAMINATION TYPE: CT brain wo con DATE OF EXAM: 04/22/2017 HISTORY: Altered mental status rule out CVA. CT DLP: 981.7 mGycm. Automated Exposure Control for Dose Reduction was Utilized. TECHNIQUE: CT scan of the head is performed without contrast. COMPARISON: CT brain from 2 days earlier and older studies. FINDINGS: There is no acute intracranial hemorrhage or midline shift identified. There is diffuse v entricular and sulcal prominence consistent with diffuse age-related cerebral atrophy. There is low- attenuation in the periventricular white matter consistent with chronic small vessel ischemic change. Near complete opacification of left maxillary sinus is redemonstrated. There is mild to moderate muc osal thickening in the left sphenoid sinus. There is mild mucosal thickening in the posterior left et hmoid sinus. Hyperostosis frontalis is present. Bilateral globes are intact. IMPRESSION: No acute intracranial hemorrhage or midline shift. There is mild diffuse age-related ce rebral atrophy and mild to moderate chronic small vessel ischemic change noted. No significant rodriguez e from CT study 2 days earlier.
[2017-04-22 12:28] LABS: Glucose,Whole Blood 97 mg/dL (75-99)
[2017-04-22] MEDS: ATENOLOL 25 MG TAB PO SCH ×3 (13:44→17:59)
[2017-04-22] MEDS: KETOTIFEN 0.025% OPHTH DROPS 5 ML BTL BOTH EYES SCH ×2 (13:44→17:34)
[2017-04-22] MEDS: PANTOPRAZOLE 40 MG TABLET PO SCH (13:44)
[2017-04-22] MEDS: ASPIRIN 81 MG PO SCH (13:44)
[2017-04-22] MEDS: INSULIN LISPRO (humaLOG) 300 UNIT/3 ML VIAL SQ SCH ×4 (13:45→21:40)
[2017-04-22] MEDS: lamoTRIgine 100 MG TAB PO SCH (13:45)
[2017-04-22] MEDS: HEPARIN SODIUM,PORCINE 5,000 UNIT/ML 1 ML VIAL SQ SCH ×2 (13:45→22:02)
[2017-04-22] MEDS: CARBIDOPA-LEVODOPA 25-100 MG 1 EACH TAB PO SCH ×3 (13:45→23:19)
[2017-04-22] MEDS: ISOSORBIDE MONONITRATE ER 30 MG TAB.ER.24H PO SCH ×3 (13:45→17:59)
[2017-04-22] MEDS: MEMANTINE 10 MG TAB PO SCH ×2 (13:45→22:03)
[2017-04-22 17:33] LABS: Glucose,Whole Blood 106 mg/dL (75-99)
--- NOTE | 2017-04-22 17:35 | XR ---
EXAMINATION TYPE: XR chest 1V portable DATE OF EXAM: 04/22/2017 COMPARISON: 04/20/2017 HISTORY: Aspiration TECHNIQUE: Single frontal view of the chest is obtained. FINDINGS: There is general coarsening of interstitial markings. Heart is enlarged. There is probably pulmonary vascular congestion. There is no pulmonary consolidation. Thoracic aorta is atheromatous. IMPRESSION: There is evidence for new mild congestive heart failure compared to last exam. No pulmon oscar consolidation.
--- NOTE | 2017-04-22 17:38 | P.PN ---
Subjective Principal diagnosis: Patient is a pleasant 81-year-old female who is being followed by the neurology service for altered mental status. Patient presented to [facility] from [facility] with increased confusion. Patient has history of chronic recurrent urinary tract infections and dehydration. snf staff reports patient had several day history of decreased oral intake. Patient does have previous history of dementia and stroke. Computed tomography scan of the brain showed no acute intracranial process. CT did show cerebral atrophy and small vessel ischemic disease. Family informs me patient has been bedbound for his last few years. She does follow simple commands. She does move all extremities spontaneously. A meaningful neurological exam was unable to be performed due to patient not understanding questions. Patient had an EEG performed today. At the time of my evaluation, patient is resting comfortably in bed and appears to be in no acute distress. Objective - Vital Signs Vital signs: Vital Signs Temp 98.4 F 04/22/17 08:11 Pulse 71 04/22/17 08:11 Resp 17 04/22/17 08:11 BP 156/78 04/22/17 08:11 Pulse Ox 93 L 04/22/17 01:35 Intake & Output 04/21/17 04/22/17 04/22/17 18:59 06:59 18:59 Intake Total 1500 600 Balance 1500 600 Intake: Intake, IV Titration 1500 600 Amount Dextrose 5%-0.45% NaCl 1, 600 000 ml @ 75 mls/hr IV . [id number] [facility] Rx#:[id number] Sodium Chloride 0.9% 1, 1000 000 ml @ 125 mls/hr IV . Q8H [facility] Rx#:[id number] Sodium Chloride 0.9% 2, 500 000 ml @ 999 mls/hr IV . Q2H1M [facility] Rx#:[id number] Other: Voiding Method Diaper Diaper Diaper # Voids 2 1 - Exam PHYSICAL EXAM: GENERAL APPEARANCE: Patient is a well-developed, female who appears to be in no acute distress. HEENT: Normocephalic, atraumatic, no facial asymmetry is seen. Neck is supple with no masses felt. CARDIOVASCULAR: Regular rate and rhythm. ABDOMEN: Nontender, nondistended. EXTREMITIES: Show no edema or clubbing. NEUROLOGICAL EXAM: Patient is awake, alert, and oriented to self only. Patient states she is at [facility]. Patient states the year is 2036. Patient does not always answer questions appropriately. Each is difficult to comprehend. Patient does have an oral facial dyskinesia. Mild postural tremors noted. No seizure-like activity is seen. No obvious facial asymmetry is seen on cranial nerve testing. - Labs CBC & Chem 7: 04/22/17 08:03 04/22/17 08:03 Labs: Abnormal Lab Results - Last 24 Hours (Table) 04/20/17 04/21/17 04/22/17 Range/Units 22:11 17:56 08:03 RBC (3.80-5.40) m/uL Hgb (11.4-16.0) gm/dL Hct (34.0-46.0) % Chloride 108 H (98-107) mmol/L BUN 18 H (7-17) mg/dL POC Glucose (mg/dL) 108 H (75-99) mg/dL Iron 30 L (50-170) ug/dL Total Protein 5.8 L (6.3-8.2) g/dL Albumin 3.2 L (3.5-5.0) g/dL 04/22/17 Range/Units 08:03 RBC 3.35 L (3.80-5.40) m/uL Hgb 9.8 L (11.4-16.0) gm/dL Hct 30.9 L (34.0-46.0) % Chloride (98-107) mmol/L BUN (7-17) mg/dL POC Glucose (mg/dL) (75-99) mg/dL Iron (50-170) ug/dL Total Protein (6.3-8.2) g/dL Albumin (3.5-5.0) g/dL Microbiology - Last 24 Hours (Table) 04/20/17 23:00 Urine Culture - Final Urine,Catheterized 04/20/17 22:11 Blood Culture - Preliminary Blood No Growth after 24 hours Assessment and Plan (1) Altered mental status Status: Acute (2) Dehydration Status: Acute (3) Metabolic encephalopathy Status: Acute (4) Urinary tract infection Status: Acute Plan: Patient's changes in mental status and recurrent episodes of significant encephalopathy most likely due to urinary tract infections and dehydration. Family states patient has been having difficulty with dysphagia lately which contributed to her current dehydration status. Repeat computed tomography scan of the brain was done which showed no change from previous computed tomography scan of 2 days ago. Computed tomography scan did show cerebral atrophy and small vessel ischemic disease. Staff reports patient mentation is improved since being on IV hydration. Barium swallow was unable to be performed due to patient holding food and meds in her mouth. Nurse reports she will try to give her meds with some applesauce now the patient is more awake and alert. I recommend speech therapy to retry a barium swallow and continue to see her for dysphagia. Continue medical management for urinary tract infection and dehydration. EEG was done and results are pending. I will continue to follow with you. Further recommendations to follow. I performed an examination of the patient and discussed the management with the DISTRICT SALES REPRESENTATIVE. I have reviewed the DISTRICT SALES REPRESENTATIVE notes and agree with the findings and plan of care.
--- NOTE | 2017-04-22 19:15 | EEG ---
ELECTROENCEPHALOGRAM REPORT DATE OF SERVICE: 04/22/2017. REASON FOR TESTING: Altered mental status. PROCEDURE: This EEG was performed using a 21 channel digital electroencephalograph, following international 10-20 system. DESCRIPTION OF THE RECORDING: From the beginning of the tracing, and with the patient's eyes closed, the background rhythm was mostly consisting of 6-7 hertz theta frequency in the posterior occipital leads. No obvious asymmetry is seen. Frequent muscle artifacts and movement artifacts are seen. Photic stimulation was performed with no driving response seen. No pathological waves were elicited. Hyperventilation was not performed. The patient remains awake throughout the tracing. No epileptiform discharges were seen. Her EKG lead showed a regular rate and rhythm. INTERPRETATION: This awake EEG is abnormal due to the presence of generalized slowing of the background rhythm, mostly in the theta range. This is consistent with mild encephalopathy. The study is limited due to the frequency of movement and muscle artifacts. No obvious epileptiform discharges were seen. The absence of epileptiform discharges does not rule out the diagnosis of epilepsy, therefore clinical correlation is recommended. MMVONNIEL / IJAlison: [id number] /
[2017-04-22 20:09] LABS: Glucose,Whole Blood 119 mg/dL (75-99)
[2017-04-22] MEDS ORDERED: ACETAMINOPHEN SUPPOSITORY 650 MG SUPP RECTAL PRN (21:05)
[2017-04-22] MEDS: DONEPEZIL 10 MG TAB PO SCH (21:58)
[2017-04-22] MEDS: MELATONIN 3 MG TABLET PO SCH (22:03)
[2017-04-22] MEDS: MONTELUKAST 10 MG TAB PO SCH (22:03)
[2017-04-22] MEDS: NITROFURANTOIN MONOHYD/M-CRYST 100 MG CAP PO SCH (23:11)
[2017-04-22] MEDS: PRAMIPEXOLE 0.5 MG TAB PO SCH (23:12)
[2017-04-22] MEDS: PRAVASTATIN SODIUM 40 MG TAB PO SCH (23:13)
[2017-04-22] MEDS: SENNOSIDES 8.6 MG TAB PO SCH (23:18)
[2017-04-22] MEDS: QUEtiapine 50 MG TAB PO SCH (23:18)
[2017-04-23 03:41] LABS: Basophils % (A) 0 %; CH 28.9; CHCM 31.1; Eosinophils # (A) 0.1 k/uL (0-0.7); Eosinophils % (A) 2 %; HCT 31.1 % (34.0-46.0); HGB 9.7 gm/dL (11.4-16.0); Hypochromasia Slight; Luc # (Auto) 0.12; Luc % (Auto) 2; Lymphocytes # (A) 1.1 k/uL (1.0-4.8); Lymphocytes % (A) 18 %; MCH 29.1 pg (25.0-35.0); MCHC 31.2 g/dL (31.0-37.0); MCV 93.2 fL (80.0-100.0); Mean Platelet Volume 7.5; Monocytes # (A) 0.3 k/uL (0-1.0); Monocytes % (A) 4 %; Neutrophils # (A) 4.8 k/uL (1.3-7.7); Neutrophils % (A) 74 %; RBC 3.34 m/uL (3.80-5.40); RDW 13.5 % (11.5-15.5); WBC 6.5 k/uL (3.8-10.6)
[2017-04-23 03:53] LABS: ALT 27 U/L (9-52); AST 16 U/L (14-36); Alkaline Phosphatase 72 U/L (38-126); Anion Gap 13 mmol/L; Blood Urea Nitrogen 13 mg/dL (7-17); Calcium 8.8 mg/dL (8.4-10.2); Carbon Dioxide 24 mmol/L (22-30); Chloride 105 mmol/L (98-107); Glucose 123 mg/dL (74-99); Non-African American GFR(MDRD) >60 (>60 ml/min/1.73 sqM); Potassium 3.4 mmol/L (3.5-5.1); Sodium 142 mmol/L (137-145); Total Bilirubin 0.3 mg/dL (0.2-1.3); Total Protein 5.8 g/dL (6.3-8.2)
[2017-04-23] MEDS: DEXTROSE 5%-0.45% NACL 1,000 ML IV SCH (04:22)
[2017-04-23 07:07] LABS: Glucose,Whole Blood 120 mg/dL (75-99)
--- NOTE | 2017-04-23 08:15 | XR ---
EXAMINATION TYPE: XR chest 1V portable DATE OF EXAM: 04/23/2017 COMPARISON: 04/22/2017 HISTORY: Shortness of breath TECHNIQUE: Frontal and lateral views of the chest are obtained. FINDINGS: Scattered senescent parenchymal changes noted. Hyperinflation compatible with COPD. No evidence for infiltrate. No evidence for atelectasis. The heart is enlarged. Pulmonary venous congestion without overt failure at this time. Overall stable examination. Mediastinal structures are stable and grossly unremarkable. No evidence for hilar prominence. Degenerative changes dorsal spine. IMPRESSION: 1. The heart is enlarged. Pulmonary venous congestion without overt failure at this time. Overall sta ble examination.
[2017-04-23] MEDS: KETOTIFEN 0.025% OPHTH DROPS 5 ML BTL BOTH EYES SCH ×2 (08:25→18:02)
[2017-04-23] MEDS: INSULIN LISPRO (humaLOG) 300 UNIT/3 ML VIAL SQ SCH ×4 (08:25→21:52)
[2017-04-23] MEDS: ISOSORBIDE MONONITRATE ER 30 MG TAB.ER.24H PO SCH (08:26)
[2017-04-23] MEDS: ASPIRIN 81 MG PO SCH (08:26)
[2017-04-23] MEDS: CARBIDOPA-LEVODOPA 25-100 MG 1 EACH TAB PO SCH ×3 (08:26→21:52)
[2017-04-23] MEDS: PANTOPRAZOLE 40 MG TABLET PO SCH (08:26)
[2017-04-23] MEDS: MEMANTINE 10 MG TAB PO SCH ×2 (08:26→21:51)
[2017-04-23] MEDS: ATENOLOL 25 MG TAB PO SCH (08:26)
[2017-04-23] MEDS: lamoTRIgine 100 MG TAB PO SCH (08:26)
[2017-04-23] MEDS: ALBUTEROL NEBULIZED 2.5 MG/3 ML INHALATION SCH ×2 (08:33→21:21)
[2017-04-23] MEDS: SYMBICORT 160-4.5 MCG INHALER INHALATION SCH ×3 (08:33→21:23)
--- NOTE | 2017-04-23 08:50 | P.PN ---
Subjective Patient is seen in follow-up for acute kidney injury on chronic kidney disease. Patient has chronic kidney disease stage III secondary to diabetic kidney disease with baseline creatinine near 1-1.2. Her creatinine was elevated at 2.1 admission. Down to 0.9 today. Patient presented from [facility] with altered mental status. There was concern for UTI however her urinalysis has been quite benign. Her mentation is improved today. Vital signs are stable. General: The patient appeared well nourished and normally developed. HEENT: Head exam is unremarkable. Neck is without jugular venous distension. LUNGS: Lungs are clear to auscultation and percussion. Breath sounds decreased. HEART: Rate and Rhythm are regular. First and second heart sounds normal. No murmurs, rubs or gallops. ABDOMEN: Abdominal exam reveals normal bowel sounds. Non-tender and non- distended. No evidence of peritonitis. EXTREMITITES: No clubbing, cyanosis, or edema. Objective - Vital Signs Vital signs: Vital Signs Temp 98.1 F 04/23/17 07:20 Pulse 92 04/23/17 08:33 Resp 17 04/23/17 07:20 BP 160/86 04/23/17 07:20 Pulse Ox 95 04/23/17 00:10 Intake & Output 04/22/17 04/23/17 04/23/17 18:59 06:59 18:59 Intake Total 600 Balance 600 Weight 108.862 kg Intake: Intake, IV Titration 600 Amount Dextrose 5%-0.45% NaCl 1, 600 000 ml @ 75 mls/hr IV . [id number] [facility] Rx#:[id number] Other: Voiding Method Diaper Diaper # Voids 1 1 - Labs CBC & Chem 7: 04/23/17 02:53 04/23/17 02:53 Labs: Abnormal Lab Results - Last 24 Hours (Table) 04/22/17 04/22/17 04/22/17 Range/Units 08:03 08:03 17:30 RBC 3.35 L (3.80-5.40) m/uL Hgb 9.8 L (11.4-16.0) gm/dL Hct 30.9 L (34.0-46.0) % Potassium (3.5-5.1) mmol/L Chloride 108 H (98-107) mmol/L BUN 18 H (7-17) mg/dL Glucose (74-99) mg/dL POC Glucose (mg/dL) 106 H (75-99) mg/dL Troponin I (0.000-0.034) ng/mL Total Protein 5.8 L (6.3-8.2) g/dL Albumin 3.2 L (3.5-5.0) g/dL 04/22/17 04/22/17 04/23/17 Range/Units 20:07 21:21 02:53 RBC 3.34 L (3.80-5.40) m/uL Hgb 9.7 L (11.4-16.0) gm/dL Hct 31.1 L (34.0-46.0) % Potassium (3.5-5.1) mmol/L Chloride (98-107) mmol/L BUN (7-17) mg/dL Glucose (74-99) mg/dL POC Glucose (mg/dL) 119 H (75-99) mg/dL Troponin I 0.035 H* (0.000-0.034) ng/mL Total Protein (6.3-8.2) g/dL Albumin (3.5-5.0) g/dL 04/23/17 04/23/17 Range/Units 02:53 07:05 RBC (3.80-5.40) m/uL Hgb (11.4-16.0) gm/dL Hct (34.0-46.0) % Potassium 3.4 L (3.5-5.1) mmol/L Chloride (98-107) mmol/L BUN (7-17) mg/dL Glucose 123 H (74-99) mg/dL POC Glucose (mg/dL) 120 H (75-99) mg/dL Troponin I (0.000-0.034) ng/mL Total Protein 5.8 L (6.3-8.2) g/dL Albumin 3.3 L (3.5-5.0) g/dL Microbiology - Last 24 Hours (Table) 04/20/17 22:11 Blood Culture - Preliminary Blood No Growth after 48 hours 04/20/17 23:00 Urine Culture - Final Urine,Catheterized Assessment and Plan Plan: Assessment: #1. Nonoliguric acute kidney injury mostly prerenal from poor oral intake and further worsened with the use of ARB and diuretics. She was also on metformin. Creatinine up to 2 on admission and is down to 0.9 today. Urinalysis is quite benign. #2. Chronic kidney disease stage III secondary to diabetic kidney disease with baseline creatinine near 1-1.2. #3. Anemia of chronic kidney disease. Iron replete. #4. Altered mental status. No signs of sepsis. Possibly drug induced. She does have underlying dementia. #5. Diabetes mellitus. #6. Mild fluid overload. #7. Hypokalemia from poor oral intake. Rule out magnesium deficiency. Plan: Decrease half-normal saline to be run at 50 mL an hour. Lasix 20 mg IV once today. Replace potassium. 40 mEq today. Check magnesium level. Avoid nephrotoxic agents and hypotensive episodes. Recommend staying off metformin as her GFR is quite labile. Repeat electrolytes in the morning. Follow-up cultures. Discontinued Fleet enemas.
[2017-04-23] MEDS ORDERED: FUROSEMIDE 10 MG/ML 2 ML VIAL IV ONE (09:00)
[2017-04-23] MEDS: POTASSIUM CHLORIDE 10 MEQ, LIDOCAINE 2% INJ 10 MG in SODIUM CHLORIDE 0.9% 100 ML IVPB SCH ×4 (09:54→15:07)
--- NOTE | 2017-04-23 10:21 | P.PN ---
Subjective This is an 81-year-old female who resides at [facility] under the care of Dr. Diamond. She has underlying history of dementia, asthma, CAD, diabetes mellitus, hypertension, chronic kidney disease stage III and Parkinson' s disease. She has recurrent urinary tract infection and has had multiple admissions in the recent past for E. coli urinary tract infections and has been on IV antibiotics in the past. Most recently she was discharged on April 08 on Ceftin for 10 days. On that admission, patient had a workup for metabolic encephalopathy and was seen by neurology, Dr. Acosta. Carotid ultrasound show minimal bilateral plaquing without significant stenosis. CAT scan of the brain showed no acute intracranial abnormality. Mild atrophic change. Chronic white matter ischemic change. Acute on chronic sinus disease. EEG was within normal limits. Patient is now transferred from [facility] due to increasing mental status changes and combativeness. Patient was refusing to take medication. She underwent a CAT scan of the brain that showed no acute intracranial process, there is small vessel disease and stable chronic left maxillary sinus opacification. Chest x-ray showed cardiomegaly and mild vascular prominence. Tiny left pleural effusion. Creatinine was elevated at 2 which her baseline is around 1.6. Patient was started on IV fluids and admitted to [facility] floor and consult requested with nephrology. Urinalysis negative for urinary tract infection. There is noted to be small amount of blood and protein and small leukoesterase. 04/22: Patient failed evaluation by speech therapy and is unable to undergo modified barium swallow. Patient continues to be confused. She's not eating anything and is now nothing by mouth. Chest x-ray and echocardiogram ordered. Repeat CAT scan of the brain was negative for acute change. There is mild diffuse age-related cerebral atrophy and mild to moderate chronic small vessel ischemic changes. Patient is followed by neurology. EEG is abnormal due to presence of generalized slowing of the background rhythm mostly in the theta range. This is consistent with mild encephalopathy. Patient is also followed by Dr. Baumann. He has decreased half normal saline to 50 mL per hour. BUN is 18 and creatinine 1.04. Urine culture is finalized with no growth and blood culture showing no growth at 48 hours. Objective - Vital Signs Vital signs: Vital Signs Temp 98.4 F 04/22/17 08:11 Pulse 71 04/22/17 08:11 Resp 17 04/22/17 08:11 BP 156/78 04/22/17 08:11 Pulse Ox 93 L 04/22/17 01:35 Intake & Output 04/21/17 04/22/17 04/22/17 18:59 06:59 18:59 Intake Total 1500 600 Balance 1500 600 Intake: Intake, IV Titration 1500 600 Amount Dextrose 5%-0.45% NaCl 1, 600 000 ml @ 75 mls/hr IV . [id number] [facility] Rx#:[id number] Sodium Chloride 0.9% 1, 1000 000 ml @ 125 mls/hr IV . Q8H [facility] Rx#:[id number] Sodium Chloride 0.9% 2, 500 000 ml @ 999 mls/hr IV . Q2H1M [facility] Rx#:[id number] Other: Voiding Method Diaper Diaper Diaper # Voids 2 1 - Exam General appearance: Present: cooperative, no acute distress - EENT Eyes: Present: anicteric sclerae, EOMI, PERRLA, normal appearance ENT: Present: NA/AT, normal oropharynx - Neck Neck: Present: normal ROM - Respiratory Respiratory: bilateral: CTA, negative: diminished, dullness, rales, rhonchi - Cardiovascular Rhythm: regular Heart sounds: normal: S1, S2 Abnormal Heart Sounds: Absent: systolic murmur, diastolic murmur, rub, S3 Gallop , S4 Gallop, click, other - Gastrointestinal General gastrointestinal: Present: normal bowel sounds, soft - Integumentary Integumentary: Present: normal, normal turgor - Neurologic Neurologic: Present: CNII-XII intact - Musculoskeletal Musculoskeletal: Present: gait normal - Psychiatric Psychiatric: Present: A&O x's 1, no appropriate affect - Labs CBC & Chem 7: 04/23/17 02:53 04/23/17 02:53 Labs: Abnormal Lab Results - Last 24 Hours (Table) 04/20/17 04/21/17 04/22/17 Range/Units 22:11 17:56 08:03 RBC (3.80-5.40) m/uL Hgb (11.4-16.0) gm/dL Hct (34.0-46.0) % Chloride 108 H (98-107) mmol/L BUN 18 H (7-17) mg/dL POC Glucose (mg/dL) 108 H (75-99) mg/dL Iron 30 L (50-170) ug/dL Total Protein 5.8 L (6.3-8.2) g/dL Albumin 3.2 L (3.5-5.0) g/dL 04/22/17 Range/Units 08:03 RBC 3.35 L (3.80-5.40) m/uL Hgb 9.8 L (11.4-16.0) gm/dL Hct 30.9 L (34.0-46.0) % Chloride (98-107) mmol/L BUN (7-17) mg/dL POC Glucose (mg/dL) (75-99) mg/dL Iron (50-170) ug/dL Total Protein (6.3-8.2) g/dL Albumin (3.5-5.0) g/dL Microbiology - Last 24 Hours (Table) 04/20/17 23:00 Urine Culture - Final Urine,Catheterized 04/20/17 22:11 Blood Culture - Preliminary Blood No Growth after 24 hours Assessment and Plan Plan: 1. Acute metabolic encephalopathy secondary to acute kidney injury. Patient on IV fluids. Diuretics and Cozaar are on hold as well as metformin. Nephrology consult is appreciated. 2. Acute kidney injury with chronic kidney disease stage III. Continue as in # 1. Repeat labs daily. 3. CAD. Continue patient on Imdur 30 mg orally once every day, pravastatin 40 mg orally at bedtime, aspirin 81 mg orally once every day and atenolol 25 mg orally once every day. Losartan discontinued. 4. Hypertension and hypertensive cardiovascular disease. Continue atenolol 25 mg orally once every day. 5. Hyperlipidemia. Continue pravastatin 40 mg orally at bedtime. 6. Diabetes mellitus type 2. discontinue metformin secondary to elevated creatinine. Humalog scale before meals and at bedtime. 7. Parkinson with orofacial dyskinesia. Continue patient on Sinemet 25/100 one tablet orally 4 times every day, amantadine 100 mg orally once every day. Baclofen 8. Diabetic polyneuropathy. disContinue gabapentin 300 mg orally twice every day. 9. Restless leg syndrome. Continue patient on Mirapex 0.5 mg at bedtime. 10. Alzheimer dementia with behavior disturbance and impaired oral phase of eating patient tends to pocket food. Continue Namenda 10 mg orally twice every day and Aricept 10 mg orally bedtime. Seroquel 50 mg at bedtime and Lamictal 200 mg daily changes made. Speech therapy is following. 11. Depression, recurrent. Continue Elavil 10 mg at bedtime and Lamictal 100 mg orally twice every day. 12. Frequent urinary tract infections. Patient has on Macrobid 100 mg at bedtime prophylactically. 13. Stage III decubitus sacral ulcer present before admission, a Aquacel Silver with [employer], ma Dr. Jhonathan montoya, wound care nurse 13. DVT prophylaxis. Heparin 5000 units every 12 hours subcutaneously. 14. GI prophylaxis. Protonix 40 mg daily. 15. Patient is no code. Discharge plan: Return to [facility] Impression and plan of care have been directed as dictated by the signing physician. Jailyn Navarro nurse practitioner acting as scribe for signing physician.
--- NOTE | 2017-04-23 10:52 | ECHOF ---
Referral Reason:LVF MEASUREMENTS -------- HEIGHT: 170.2 cm WEIGHT: 108.9 kg BP: 156/78 RVIDd: 2.8 cm (< 3.3) IVSd: 1.4 cm (0.6 - 1.1) LVIDd: 5.0 cm (3.9 - 5.3) LVPWd: 1.3 cm (0.6 - 1.1) IVSs: 2.1 cm LVIDs: 3.2 cm LVPWs: 2.0 cm LAESV Index (A-L): 28.29 ml/m Ao Diam: 3.4 cm (2.0 - 3.7) AV Cusp: 0.8 cm (1.5 - 2.6) LA Diam: 3.3 cm (2.7 - 3.8) MV EXCURSION: 17.007 mm (> 18.000) MV EF SLOPE: 78 mm/s (70 - 150) EPSS: 0.7 cm MV E Santiago: 1.16 m/s MV DecT: 290 ms MV A Santiago: 1.44 m/s MV E/A Ratio: 0.81 AV maxP.64 mmHg AV meanP.57 mmHg RAP: 5.00 mmHg RVSP: 44.77 mmHg FINDINGS -------- Sinus rhythm. This was a technically adequate study. The left ventricular size is normal. There is mild concentric left ventricular hypertrophy. Overall left ventricular systolic function is normal with, an EF between 55 - 60 %. Sigmoid shaped septum with focal hypertrophy of the basal septum. The right ventricle is normal in size and function. Normal LA size by volume 22+/-6 ml/m2. The right atrium is normal in size. Aortic valve is trileaflet and is moderately thickened. Trace amount of aortic regurgitation. Mild aortic stenosis with peak/mean pressure gradient of 32.64mmHg / 15.57mmHg , the aortic valve area by continuity equation is 1.2cm. The mitral valve leaflets are mildly thickened. There is trace mitral regurgitation. Trace tricuspid regurgitation present. There is mild pulmonary hypertension. The right ventricular systolic pressure, as measured by Doppler, is 44.77mmHg. The pulmonic valve was not well visualized. The aortic root size is normal. Normal inferior vena cava with normal inspiratory collapse consistent with estimated right atrial pressure of 5 mmHg. There is a small pericardial effusion is located near the right ventricle. CONCLUSIONS -------- 1. Sinus rhythm. 2. Mild aortic stenosis with peak/mean pressure gradient of 32.64mmHg / 15.57mmHg , the aortic valve area by continuity equation is 1.2cm. 3. The mitral valve leaflets are mildly thickened. 4. There is trace mitral regurgitation. 5. Trace tricuspid regurgitation present. 6. There is mild pulmonary hypertension. 7. The right ventricular systolic pressure, as measured by Doppler, is 44.77mmHg. 8. The pulmonic valve was not well visualized. 9. The aortic root size is normal. 10. There is a small pericardial effusion is located near the right ventricle. 11. This was a technically adequate study. 12. The left ventricular size is normal. 13. There is mild concentric left ventricular hypertrophy. 14. Overall left ventricular systolic function is normal with, an EF between 55 - 60 %. 15. Sigmoid shaped septum with focal hypertrophy of the basal septum. 16. Normal LA size by volume 22+/-6 ml/m2. 17. Aortic valve is trileaflet and is moderately thickened. 18. Trace amount of aortic regurgitation. PAEDIATRIC SURGEON: Jenny Johansen RDCS
[2017-04-23] MEDS: HEPARIN SODIUM,PORCINE 5,000 UNIT/ML 1 ML VIAL SQ SCH ×2 (10:57→21:52)
[2017-04-23 11:21] LABS: Glucose,Whole Blood 134 mg/dL (75-99)
[2017-04-23 13:42] VITALS: BMI 37.5
[2017-04-23] MEDS: hydrALAZINE HCL 20 MG/ML 1 ML VIAL IVP PRN (15:50)
[2017-04-23] MEDS ORDERED: VANCOMYCIN IV PER PHARMACY 1 EACH MISC MISCELLANE PRN (16:11)
[2017-04-23] MEDS ORDERED: VANCOMYCIN 2,000 MG in SODIUM CHLORIDE 0.9% 500 ML IVPB ONE (17:00)
[2017-04-23 17:06] LABS: Glucose,Whole Blood 115 mg/dL (75-99)
--- NOTE | 2017-04-23 18:03 | P.PN ---
Subjective Principal diagnosis: Patient is a pleasant 81-year-old female who is being followed by the neurology service for altered mental status. Patient presented to [facility] from [facility] with increased confusion. Patient has history of chronic recurrent urinary tract infections and dehydration. long term staff reports patient had several day history of decreased oral intake. Patient does have previous history of dementia and stroke. Computed tomography scan of the brain showed no acute intracranial process. CT did show cerebral atrophy and small vessel ischemic disease. Family informs me patient has been bedbound for his last few years. She does follow simple commands. She does move all extremities spontaneously. A meaningful neurological exam was unable to be performed due to patient not understanding questions. Patient had an EEG performed today. At the time of my evaluation, patient is resting comfortably in bed and appears to be in no acute distress. 04/23/2017 Patient is much more awake and alert today. Family is at the bedside. Family informs me patient has frequent cycles of dehydration and urinary tract infections with recurrent episodes of significant encephalopathy. Patient's been living at [facility] for the last 3 years. Patient had a speech therapy evaluation for swallow done which did not show evidence for aspiration. Patient dysphagia is much improved and she is tolerating diet well. Speech is much more intelligible today. Patient had repeat computed tomography scan of the brain which was negative for any acute abnormality. CT did show cerebral atrophy and small vessel ischemic disease. EEG was done and showed mild encephalopathy. At the time of my evaluation, patient's resting comfortably in bed and appears to be in no acute distress. Objective - Vital Signs Vital signs: Vital Signs Temp 98.2 F 04/23/17 14:14 Pulse 80 04/23/17 15:15 Resp 16 04/23/17 14:14 BP 172/75 04/23/17 15:15 Pulse Ox 98 04/23/17 14:14 Intake & Output 04/22/17 04/23/17 04/23/17 18:59 06:59 18:59 Intake Total 600 550 Balance 600 550 Weight 108.862 kg 108.862 kg Intake: Intake, IV Titration 600 500 Amount Dextrose 5%-0.45% NaCl 1, 600 400 000 ml @ 50 mls/hr IV . Q20H [facility] Rx#:[id number] Potassium Chloride 10 meq 100 Lidocaine 2% Inj 10 mg In Sodium Chloride 0.9% 100 ml @ 100 mls/hr IVPB Q1HR [facility] Rx#:[id number] Oral 50 Other: Voiding Method Diaper Diaper Diaper Incontinent # Voids 1 1 3 - Exam PHYSICAL EXAM: GENERAL APPEARANCE: Patient is a well-developed, female who appears to be in no acute distress. HEENT: Normocephalic, atraumatic, no facial asymmetry is seen. Neck is supple with no masses felt. CARDIOVASCULAR: Regular rate and rhythm. ABDOMEN: Nontender, nondistended. EXTREMITIES: Show no edema or clubbing. NEUROLOGICAL EXAM: Patient is awake, alert, and oriented to self only. Patient states she is at [facility]. Patient does not always answer questions appropriately. Speech is much clearer today. Patient does have an oral facial dyskinesia. Mild postural tremors noted. No seizure-like activity is seen. No obvious facial asymmetry is seen on cranial nerve testing. - Labs CBC & Chem 7: 04/23/17 02:53 04/23/17 02:53 Labs: Abnormal Lab Results - Last 24 Hours (Table) 04/22/17 04/22/17 04/22/17 Range/Units 17:30 20:07 21:21 RBC (3.80-5.40) m/uL Hgb (11.4-16.0) gm/dL Hct (34.0-46.0) % Potassium (3.5-5.1) mmol/L Glucose (74-99) mg/dL POC Glucose (mg/dL) 106 H 119 H (75-99) mg/dL Troponin I 0.035 H* (0.000-0.034) ng/mL Total Protein (6.3-8.2) g/dL Albumin (3.5-5.0) g/dL 04/23/17 04/23/17 04/23/17 Range/Units 02:53 02:53 07:05 RBC 3.34 L (3.80-5.40) m/uL Hgb 9.7 L (11.4-16.0) gm/dL Hct 31.1 L (34.0-46.0) % Potassium 3.4 L (3.5-5.1) mmol/L Glucose 123 H (74-99) mg/dL POC Glucose (mg/dL) 120 H (75-99) mg/dL Troponin I (0.000-0.034) ng/mL Total Protein 5.8 L (6.3-8.2) g/dL Albumin 3.3 L (3.5-5.0) g/dL 04/23/17 04/23/17 Range/Units 11:15 17:03 RBC (3.80-5.40) m/uL Hgb (11.4-16.0) gm/dL Hct (34.0-46.0) % Potassium (3.5-5.1) mmol/L Glucose (74-99) mg/dL POC Glucose (mg/dL) 134 H 115 H (75-99) mg/dL Troponin I (0.000-0.034) ng/mL Total Protein (6.3-8.2) g/dL Albumin (3.5-5.0) g/dL Microbiology - Last 24 Hours (Table) 04/22/17 21:21 Blood Culture Gram Stain - Preliminary Blood Blood Culture - Preliminary 04/22/17 21:21 Blood Culture - Final Blood 04/20/17 22:11 Blood Culture - Preliminary Blood No Growth after 48 hours Assessment and Plan (1) Altered mental status Status: Acute (2) Dehydration Status: Acute (3) Metabolic encephalopathy Status: Acute (4) Urinary tract infection Status: Acute Plan: Patient's changes in mental status and recurrent episodes of significant encephalopathy most likely due to urinary tract infections and dehydration. Family states patient has been having difficulty with dysphagia lately which contributed to her current dehydration status. Repeat computed tomography scan of the brain was done which showed no change from previous computed tomography scan of 2 days ago. Computed tomography scan did show cerebral atrophy and small vessel ischemic disease. Patient mentation is improved since being on IV hydration. Continue medical management for urinary tract infection and dehydration. EEG was done which showed mild encephalopathy. Patient is with acute metabolic encephalopathy and is being followed by medicine. Patient is stable from a neurology standpoint for discharge. I will continue to follow with you on an as-needed basis. Feel free to call with any questions or concerns. I performed an examination of the patient and discussed the management with the TOOL GRINDING TECHNICIAN. I have reviewed the TOOL GRINDING TECHNICIAN notes and agree with the findings and plan of care.
[2017-04-23 20:18] LABS: Glucose,Whole Blood 136 mg/dL (75-99)
[2017-04-23] MEDS: PRAVASTATIN SODIUM 40 MG TAB PO SCH (21:51)
[2017-04-23] MEDS: QUEtiapine 50 MG TAB PO SCH (21:51)
[2017-04-23] MEDS: DONEPEZIL 10 MG TAB PO SCH (21:52)
[2017-04-23] MEDS: MONTELUKAST 10 MG TAB PO SCH (21:53)
[2017-04-23] MEDS: MELATONIN 3 MG TABLET PO SCH (21:53)
[2017-04-23] MEDS: NITROFURANTOIN MONOHYD/M-CRYST 100 MG CAP PO SCH (21:55)
[2017-04-23] MEDS: PRAMIPEXOLE 0.5 MG TAB PO SCH ×2 (22:07→22:15)
[2017-04-24] MEDS: SENNOSIDES 8.6 MG TAB PO SCH (00:25)
[2017-04-24] MEDS: CARBIDOPA-LEVODOPA 25-100 MG 1 EACH TAB PO SCH ×3 (00:25→13:07)
[2017-04-24] MEDS: hydrALAZINE HCL 20 MG/ML 1 ML VIAL IVP PRN ×2 (01:50→09:06)
[2017-04-24 06:58] LABS: Glucose,Whole Blood 132 mg/dL (75-99)
[2017-04-24 07:37] LABS: Basophils % (A) 0 %; CHCM 31.9; Eosinophils # (A) 0.3 k/uL (0-0.7); Eosinophils % (A) 5 %; HCT 31.4 % (34.0-46.0); HDW 2.37; HGB 9.8 gm/dL (11.4-16.0); Luc # (Auto) 0.09; Luc % (Auto) 2; Lymphocytes # (A) 1.2 k/uL (1.0-4.8); Lymphocytes % (A) 20 %; MCH 28.5 pg (25.0-35.0); MCHC 31.2 g/dL (31.0-37.0); MCV 91.2 fL (80.0-100.0); Monocytes # (A) 0.3 k/uL (0-1.0); Monocytes % (A) 5 %; Neutrophils % (A) 68 %; RBC 3.44 m/uL (3.80-5.40); RDW 13.6 % (11.5-15.5); WBC 5.8 k/uL (3.8-10.6); WBC (Perox) 5.81
[2017-04-24 07:48] LABS: Anion Gap 9 mmol/L; Blood Urea Nitrogen 11 mg/dL (7-17); Calcium 8.1 mg/dL (8.4-10.2); Carbon Dioxide 27 mmol/L (22-30); Chloride 105 mmol/L (98-107); Glucose 114 mg/dL (74-99); Magnesium 1.1 mg/dL (1.6-2.3); Non-African American GFR(MDRD) >60 (>60 ml/min/1.73 sqM); Potassium 3.2 mmol/L (3.5-5.1); Sodium 141 mmol/L (137-145)
[2017-04-24] MEDS: SYMBICORT 160-4.5 MCG INHALER INHALATION SCH (07:56)
[2017-04-24] MEDS: ALBUTEROL NEBULIZED 2.5 MG/3 ML INHALATION SCH (07:56)
--- NOTE | 2017-04-24 08:31 | P.PN ---
Subjective This is an 81-year-old female who resides at [facility] under the care of Dr. Diamond. She has underlying history of dementia, asthma, CAD, diabetes mellitus, hypertension, chronic kidney disease stage III and Parkinson' s disease. She has recurrent urinary tract infection and has had multiple admissions in the recent past for E. coli urinary tract infections and has been on IV antibiotics in the past. Most recently she was discharged on April 08 on Ceftin for 10 days. On that admission, patient had a workup for metabolic encephalopathy and was seen by neurology, Dr. Acosta. Carotid ultrasound show minimal bilateral plaquing without significant stenosis. CAT scan of the brain showed no acute intracranial abnormality. Mild atrophic change. Chronic white matter ischemic change. Acute on chronic sinus disease. EEG was within normal limits. Patient is now transferred from [facility] due to increasing mental status changes and combativeness. Patient was refusing to take medication. She underwent a CAT scan of the brain that showed no acute intracranial process, there is small vessel disease and stable chronic left maxillary sinus opacification. Chest x-ray showed cardiomegaly and mild vascular prominence. Tiny left pleural effusion. Creatinine was elevated at 2 which her baseline is around 1.6. Patient was started on IV fluids and admitted to the [facility] floor and consult requested with nephrology. Urinalysis negative for urinary tract infection. There is noted to be small amount of blood and protein and small leukoesterase. 04/22: Patient failed evaluation by speech therapy and is unable to undergo modified barium swallow. Patient continues to be confused. She's not eating anything and is now nothing by mouth. Chest x-ray and echocardiogram ordered. Repeat CAT scan of the brain was negative for acute change. There is mild diffuse age-related cerebral atrophy and mild to moderate chronic small vessel ischemic changes. Patient is followed by neurology. EEG is abnormal due to presence of generalized slowing of the background rhythm mostly in the theta range. This is consistent with mild encephalopathy. Patient is also followed by Dr. Baumann. He has decreased half normal saline to 50 mL per hour. BUN is 18 and creatinine 1.04. Urine culture is finalized with no growth and blood culture showing no growth at 48 hours. 04/23: Repeat BUN [address] Baumann has ordered Lasix 20 mg IV 1. He has also replace potassium. EKG showed T-wave inversion for which a cardiology consult and troponins were ordered. Patient has been reevaluated by speech therapy and can start diet. Blood culture is showing gram-positive cocci which may be a contamination. Weight 4 culture report finalized. Objective - Vital Signs Vital signs: Vital Signs Temp 98.1 F 04/23/17 07:20 Pulse 92 04/23/17 08:50 Resp 17 04/23/17 07:20 BP 160/86 04/23/17 07:20 Pulse Ox 95 04/23/17 00:10 Intake & Output 04/22/17 04/23/17 04/23/17 18:59 06:59 18:59 Intake Total 600 Balance 600 Weight 108.862 kg Intake: Intake, IV Titration 600 Amount Dextrose 5%-0.45% NaCl 1, 600 000 ml @ 75 mls/hr IV . [id number] [facility] Rx#:[id number] Other: Voiding Method Diaper Diaper # Voids 1 1 - Exam General appearance: Present: cooperative, no acute distress - EENT Eyes: Present: anicteric sclerae, EOMI, PERRLA, normal appearance ENT: Present: NA/AT, normal oropharynx - Neck Neck: Present: normal ROM - Respiratory Respiratory: bilateral: CTA, negative: diminished, dullness, rales, rhonchi - Cardiovascular Rhythm: regular Heart sounds: normal: S1, S2 Abnormal Heart Sounds: Absent: systolic murmur, diastolic murmur, rub, S3 Gallop , S4 Gallop, click, other - Gastrointestinal General gastrointestinal: Present: normal bowel sounds, soft - Integumentary Integumentary: Present: normal, normal turgor - Neurologic Neurologic: Present: CNII-XII intact - Musculoskeletal Musculoskeletal: Present: gait normal - Psychiatric Psychiatric: Present: A&O x's 1, no appropriate affect - Labs CBC & Chem 7: 04/24/17 06:45 04/24/17 06:45 Labs: Abnormal Lab Results - Last 24 Hours (Table) 04/22/17 04/22/17 04/22/17 Range/Units 17:30 20:07 21:21 RBC (3.80-5.40) m/uL Hgb (11.4-16.0) gm/dL Hct (34.0-46.0) % Potassium (3.5-5.1) mmol/L Glucose (74-99) mg/dL POC Glucose (mg/dL) 106 H 119 H (75-99) mg/dL Troponin I 0.035 H* (0.000-0.034) ng/mL Total Protein (6.3-8.2) g/dL Albumin (3.5-5.0) g/dL 04/23/17 04/23/17 04/23/17 Range/Units 02:53 02:53 07:05 RBC 3.34 L (3.80-5.40) m/uL Hgb 9.7 L (11.4-16.0) gm/dL Hct 31.1 L (34.0-46.0) % Potassium 3.4 L (3.5-5.1) mmol/L Glucose 123 H (74-99) mg/dL POC Glucose (mg/dL) 120 H (75-99) mg/dL Troponin I (0.000-0.034) ng/mL Total Protein 5.8 L (6.3-8.2) g/dL Albumin 3.3 L (3.5-5.0) g/dL Microbiology - Last 24 Hours (Table) 04/20/17 22:11 Blood Culture - Preliminary Blood No Growth after 48 hours 04/20/17 23:00 Urine Culture - Final Urine,Catheterized Assessment and Plan Plan: 1. Acute metabolic encephalopathy secondary to acute kidney injury. Patient on IV fluids. Diuretics and Cozaar are on hold as well as metformin. Nephrology consult is appreciated. 2. Acute kidney injury with chronic kidney disease stage III. Continue as in # 1. Repeat labs daily. 3. CAD. Continue patient on Imdur 30 mg orally once every day, pravastatin 40 mg orally at bedtime, aspirin 81 mg orally once every day and atenolol 25 mg orally once every day. Losartan discontinued. 4. Hypertension and hypertensive cardiovascular disease. Continue atenolol 25 mg orally once every day. 5. Hyperlipidemia. Continue pravastatin 40 mg orally at bedtime. 6. Diabetes mellitus type 2. discontinue metformin secondary to elevated creatinine. Humalog scale before meals and at bedtime. 7. Parkinson with orofacial dyskinesia. Continue patient on Sinemet 25/100 one tablet orally 4 times every day, amantadine 100 mg orally once every day. Baclofen. Patient is followed by speech therapy 8. Diabetic polyneuropathy. disContinue gabapentin 300 mg orally twice every day. 9. Restless leg syndrome. Continue patient on Mirapex 0.5 mg at bedtime. 10. Alzheimer dementia with behavior disturbance and impaired oral phase of eating patient tends to pocket food. Continue Namenda 10 mg orally twice every day and Aricept 10 mg orally bedtime. Seroquel 50 mg at bedtime and Lamictal 200 mg daily changes made. Speech therapy is following. 11. Depression, recurrent. Continue Elavil 10 mg at bedtime and Lamictal 100 mg orally twice every day. 12. Frequent urinary tract infections. Patient has on Macrobid 100 mg at bedtime prophylactically. 13. Stage III decubitus sacral ulcer present before admission, a Aquacel Silver with yfn [address] Dr[address] wound care nurse 13. DVT prophylaxis. Heparin 5000 units every 12 hours subcutaneously. 14. GI prophylaxis. Protonix 40 mg daily. 15. Positive blood culture for which it appears to be contamination. Await finalization. Patient is no code. Discharge plan: Return to [facility] Impression and plan of care have been directed as dictated by the signing physician. Jailyn Navarro nurse practitioner acting as scribe for signing physician.
[2017-04-24] MEDS: INSULIN LISPRO (humaLOG) 300 UNIT/3 ML VIAL SQ SCH ×2 (08:46→11:58)
[2017-04-24] MEDS: MEMANTINE 10 MG TAB PO SCH (08:57)
[2017-04-24] MEDS: lamoTRIgine 100 MG TAB PO SCH (08:57)
[2017-04-24] MEDS: ATENOLOL 25 MG TAB PO SCH (08:57)
[2017-04-24] MEDS: ISOSORBIDE MONONITRATE ER 30 MG TAB.ER.24H PO SCH (08:58)
[2017-04-24] MEDS: HEPARIN SODIUM,PORCINE 5,000 UNIT/ML 1 ML VIAL SQ SCH (08:58)
[2017-04-24] MEDS ORDERED: VANCOMYCIN 1,750 MG in SODIUM CHLORIDE 0.9% 250 ML IVPB SCH (09:00)
[2017-04-24] MEDS: KETOTIFEN 0.025% OPHTH DROPS 5 ML BTL BOTH EYES SCH (09:02)
[2017-04-24] MEDS ORDERED: POTASSIUM CHLORIDE ER 20 MEQ TAB.ER PO STA (09:04)
--- NOTE | 2017-04-24 09:04 | P.PN ---
Subjective Patient is seen in follow-up for acute kidney injury on chronic kidney disease. Patient has chronic kidney disease stage III secondary to diabetic kidney disease with baseline creatinine near 1. Her creatinine was elevated at 2.1 admission. Down to 0.88 today. Patient presented from [facility] with altered mental status. There was concern for UTI however her urinalysis has been quite benign. Her mentation is improved today. Oral intake is starting to improve. Has been voiding. Vital signs are stable. General: The patient appeared well nourished and normally developed. HEENT: Head exam is unremarkable. Neck is without jugular venous distension. LUNGS: Lungs are clear to auscultation and percussion. Breath sounds decreased. HEART: Rate and Rhythm are regular. First and second heart sounds normal. No murmurs, rubs or gallops. ABDOMEN: Abdominal exam reveals normal bowel sounds. Non-tender and non- distended. No evidence of peritonitis. EXTREMITITES: No clubbing, cyanosis, or edema. Objective - Vital Signs Vital signs: Vital Signs Temp 98 F 04/24/17 07:00 Pulse 92 04/24/17 08:04 Resp 12 04/24/17 07:00 BP 172/84 04/24/17 07:00 Pulse Ox 95 04/24/17 07:00 Intake & Output 04/23/17 04/24/17 04/24/17 18:59 06:59 18:59 Intake Total 550 600 Balance 550 600 Weight 108.862 kg Intake: Intake, IV Titration 500 600 Amount Dextrose 5%-0.45% NaCl 1, 400 600 000 ml @ 50 mls/hr IV . Q20H [facility] Rx#:[id number] Potassium Chloride 10 meq 100 Lidocaine 2% Inj 10 mg In Sodium Chloride 0.9% 100 ml @ 100 mls/hr IVPB Q1HR [facility] Rx#:[id number] Oral 50 Other: Voiding Method Diaper Diaper Incontinent Incontinent # Voids 3 1 - Labs CBC & Chem 7: 04/24/17 06:45 04/24/17 06:45 Labs: Abnormal Lab Results - Last 24 Hours (Table) 04/23/17 04/23/17 04/23/17 Range/Units 11:15 17:03 20:16 RBC (3.80-5.40) m/uL Hgb (11.4-16.0) gm/dL Hct (34.0-46.0) % Potassium (3.5-5.1) mmol/L Glucose (74-99) mg/dL POC Glucose (mg/dL) 134 H 115 H 136 H (75-99) mg/dL Calcium (8.4-10.2) mg/dL Magnesium (1.6-2.3) mg/dL 04/24/17 04/24/17 04/24/17 Range/Units 06:45 06:45 06:52 RBC 3.44 L (3.80-5.40) m/uL Hgb 9.8 L (11.4-16.0) gm/dL Hct 31.4 L (34.0-46.0) % Potassium 3.2 L (3.5-5.1) mmol/L Glucose 114 H (74-99) mg/dL POC Glucose (mg/dL) 132 H (75-99) mg/dL Calcium 8.1 L (8.4-10.2) mg/dL Magnesium 1.1 L (1.6-2.3) mg/dL Microbiology - Last 24 Hours (Table) 04/20/17 22:11 Blood Culture - Preliminary Blood No Growth after 72 hours 04/22/17 22:10 Blood Culture - Preliminary Blood No Growth after 24 hours 04/22/17 21:21 Blood Culture Gram Stain - Preliminary Blood Blood Culture - Preliminary 04/22/17 21:21 Blood Culture - Final Blood Assessment and Plan Plan: Assessment: #1. Nonoliguric acute kidney injury mostly prerenal from poor oral intake and further worsened with the use of ARB and diuretics. She was also on metformin. Creatinine up to 2 on admission and is down to 0.88 today. Urinalysis is quite benign. #2. Chronic kidney disease stage III secondary to diabetic kidney disease with baseline creatinine near 1-1.2. #3. Anemia of chronic kidney disease. Iron replete. #4. Altered mental status. No signs of sepsis. Possibly drug induced. She does have underlying dementia. #5. Diabetes mellitus. #6. Mild fluid overload. #7. Hypokalemia from poor oral intake and hypoMg. #8. Hypomagnesemia secondary to poor nutritional status and diuretics. Plan: Fluids have been discontinued. Replace potassium. 60 mEq today. Replace magnesium. 4 g magnesium sulfate IV today Avoid nephrotoxic agents and hypotensive episodes. Recommend staying off metformin as her GFR is quite labile. Repeat electrolytes in the morning. Follow-up cultures. Discontinued Fleet enemas.
[2017-04-24] MEDS ORDERED: LOSARTAN 50 MG TAB PO SCH (09:15)
[2017-04-24] MEDS: PANTOPRAZOLE 40 MG TABLET PO SCH (10:32)
[2017-04-24] MEDS: ASPIRIN 81 MG PO SCH (10:32)
[2017-04-24] MEDS: MAGNESIUM SULFATE-D5W PMX 1 GM in DEXTROSE/WATER 1 100ML.BAG IVPB SCH ×4 (10:37→14:16)
[2017-04-24] MEDS ORDERED: POTASSIUM CHLORIDE ER 20 MEQ TAB.ER PO ONE (11:00)
--- NOTE | 2017-04-24 11:26 | P.DS ---
Providers Date of admission: 04/21/17 05:18 Expected date of discharge: 04/24/17 Attending physician: Fide Eagle Consults: 04/21/17 05:19 Consult Physician Routine Consulting Provider: Natalie León Consult Reason/Comments: Acute renal failure Do you want consulting provider notified?: Yes 04/21/17 13:31 Consult Physician Routine Consulting Provider: aJison Acosta Consult Reason/Comments: confusion Do you want consulting provider notified?: Yes 04/23/17 14:39 Consult Physician Routine Consulting Provider: Hardy Tijerina Consult Reason/Comments: t wave inversion Do you want consulting provider notified?: Yes Primary care physician: [facility] Course: This is an 81-year-old female who resides at [facility] under the care of Dr. Diamond. She has underlying history of dementia, asthma, CAD, diabetes mellitus, hypertension, chronic kidney disease stage III and Parkinson' s disease. She has recurrent urinary tract infection and has had multiple admissions in the recent past for E. coli urinary tract infections and has been on IV antibiotics in the past. Most recently she was discharged on April 08 on Ceftin for 10 days. On that admission, patient had a workup for metabolic encephalopathy and was seen by neurology, Dr. Acosta. Carotid ultrasound show minimal bilateral plaquing without significant stenosis. CAT scan of the brain showed no acute intracranial abnormality. Mild atrophic change. Chronic white matter ischemic change. Acute on chronic sinus disease. EEG was within normal limits. Patient is now transferred from [facility] due to increasing mental status changes and combativeness. Patient was refusing to take medication. She underwent a CAT scan of the brain that showed no acute intracranial process, there is small vessel disease and stable chronic left maxillary sinus opacification. Chest x-ray showed cardiomegaly and mild vascular prominence. Tiny left pleural effusion. Creatinine was elevated at 2 which her baseline is around 1.6. Patient was started on IV fluids and admitted to the [facility] floor and consult requested with nephrology. Urinalysis negative for urinary tract infection. There is noted to be small amount of blood and protein and small leukoesterase. 04/22: Patient failed evaluation by speech therapy and is unable to undergo modified barium swallow. Patient continues to be confused. She's not eating anything and is now nothing by mouth. Chest x-ray and echocardiogram ordered. Repeat CAT scan of the brain was negative for acute change. There is mild diffuse age-related cerebral atrophy and mild to moderate chronic small vessel ischemic changes. Patient is followed by neurology. EEG is abnormal due to presence of generalized slowing of the background rhythm mostly in the theta range. This is consistent with mild encephalopathy. Patient is also followed by Dr. Baumann. He has decreased half normal saline to 50 mL per hour. BUN is 18 and creatinine 1.04. Urine culture is finalized with no growth and blood culture showing no growth at 48 hours. 04/23: Repeat BUN [address] Baumann has ordered Lasix 20 mg IV 1. He has also replace potassium. EKG showed T-wave inversion for which a cardiology consult and troponins were ordered. Patient has been reevaluated by speech therapy and can start diet. Blood culture is showing gram-positive cocci which may be a contamination. Wait for culture report finalized. 04/24: Blood culture came back positive for coag negative staph which is a contamination. Vancomycin will be discontinued. Dr. Baumann has ordered for potassium and magnesium replacement today. Patient has been seen by cyber forensics analyst and atenolol has been increased. We have made significant changes to her medications for discharge either related to her kidney function or mental status changes. Patient is much more alert today and seems to be back to baseline. Speech therapy has evaluated and recommend a regular diet at [facility]. Patient will be discharged back to [facility] today in stable condition. Discharge diagnoses: 1. Acute metabolic encephalopathy secondary to acute kidney injury. 2. Acute kidney injury with chronic kidney disease stage III. 3. CAD. 4. Hypertension and hypertensive cardiovascular disease. 5. Hyperlipidemia. 6. Diabetes mellitus type 2. 7. Parkinson with orofacial dyskinesia. 8. Diabetic polyneuropathy. 9. Restless leg syndrome. 10. Alzheimer dementia with behavior disturbance and impaired oral phase of eating patient tends to pocket food. 11. Depression, recurrent. 12. Frequent urinary tract infections. 13. Stage III decubitus sacral ulcer present before admission Discharge plan: Return to [facility] Impression and plan of care have been directed as dictated by the signing physician. Jailyn Navarro nurse practitioner acting as scribe for signing physician. Patient Condition at Discharge: Good Plan - Discharge Summary New Discharge Prescriptions: New Atenolol [Tenormin] 50 mg PO DAILY tab Continue Memantine [Namenda] 10 mg PO BID Pramipexole [Mirapex] 0.5 mg PO HS Fluticasone/Salmeterol [Advair 500-50 Diskus] 1 puff INHALATION RT-BID@0800, 1700 Carbidopa-Levodopa 25-100 mg [Sinemet 25-100 mg] 1 tab PO QID Donepezil [Aricept] 10 mg PO HS Pravastatin Sodium [Pravachol] 40 mg PO HS Isosorbide Mononitrate ER [Imdur] 30 mg PO DAILY Magnesium Hydroxide [Milk of Magnesia Concentrate] 7,200 mg PO DAILY PRN PRN Reason: Constipation Albuterol Nebulized [Ventolin Nebulized] 2.5 mg INHALATION RT-BID@0800,1700 Acetaminophen Tab [Tylenol] 500 mg PO Q6H PRN PRN Reason: Pain Losartan Potassium [Cozaar] 50 mg PO QAM Sennosides [Senna] 8.6 mg PO HS Bisacodyl [Dulcolax] 10 mg RECTAL DAILY PRN PRN Reason: Constipation Montelukast [Singulair] 10 mg PO HS Menthol [Biofreeze] 1 applic TOPICAL Q6H PRN PRN Reason: Pain Na Phos,M-B/Na Phos,Di-Ba [Fleet Adult] 133 ml RECTAL DAILY PRN PRN Reason: Constipation Mag Hydrox/Al Hydrox/Simeth [Maalox] 30 ml PO Q6HR PRN PRN Reason: Indigestion Omeprazole [PriLOSEC] 20 mg PO QAM Melatonin 3 mg PO HS tab ALPRAZolam [Xanax] 0.25 mg PO BID PRN PRN Reason: Anxiety QUEtiapine [SEROquel] 50 mg PO HS metFORMIN HCL 1,000 mg PO QAM lamoTRIgine 200 mg PO QAM Aspirin 81 mg PO QAM Furosemide [Lasix] 40 mg PO QAM Nitrofurantoin Monohyd/M-Cryst [Macrobid] 100 mg PO HS Olopatadine HCl [Patanol] 1 drop BOTH EYES BID@0700,1700 ALPRAZolam [Xanax] 0.25 mg PO BID@1400,2100 #60 HYDROcodone/APAP 7.5-325MG [Cassandra 7.5-325] 1 tab PO Q6H PRN #90 PRN Reason: Severe Pain Discontinued Amitriptyline HCl [Elavil] 10 mg PO HS Atenolol [Tenormin] 25 mg PO QAM Metolazone [Zaroxolyn] 1.25 mg PO MOWEFR Gabapentin [Neurontin] 300 mg PO BID@0800,1700 Baclofen [Lioresal] 10 mg PO TID@0600,1400,2100 metFORMIN HCL [Glucophage] 500 mg PO DAILY@1700 traMADol HCl [Ultram] 50 mg PO Q6H PRN #120 tab PRN Reason: Mild Pain Discharge Medication List Fluticasone/Salmeterol [Advair 500-50 Diskus] 1 puff INHALATION RT-BID@0800, 1700 07/30/14 [History] Memantine [Namenda] 10 mg PO BID 07/30/14 [History] Pramipexole [Mirapex] 0.5 mg PO HS 07/30/14 [History] Carbidopa-Levodopa 25-100 mg [Sinemet 25-100 mg] 1 tab PO QID 12/29/14 [History] Donepezil [Aricept] 10 mg PO HS 12/29/14 [History] Pravastatin Sodium [Pravachol] 40 mg PO HS 12/30/14 [History] Isosorbide Mononitrate ER [Imdur] 30 mg PO DAILY 03/03/15 [History] Magnesium Hydroxide [Milk of Magnesia Concentrate] 7,200 mg PO DAILY PRN [History] Albuterol Nebulized [Ventolin Nebulized] 2.5 mg INHALATION RT-BID@0800,1700 [History] Acetaminophen Tab [Tylenol] 500 mg PO Q6H PRN 09/08/15 [History] Losartan Potassium [Cozaar] 50 mg PO QAM 05/14/16 [History] Sennosides [Senna] 8.6 mg PO HS 05/14/16 [History] Bisacodyl [Dulcolax] 10 mg RECTAL DAILY PRN 05/23/16 [History] Montelukast [Singulair] 10 mg PO HS 05/23/16 [History] Menthol [Biofreeze] 1 applic TOPICAL Q6H PRN 06/24/16 [History] Mag Hydrox/Al Hydrox/Simeth [Maalox] 30 ml PO Q6HR PRN 11/11/16 [History] Na Phos,M-B/Na Phos,Di-Ba [Fleet Adult] 133 ml RECTAL DAILY PRN 11/11/16 [ History] Omeprazole [PriLOSEC] 20 mg PO QAM 03/07/17 [History] Melatonin 3 mg PO HS tab 03/12/17 [Rx] ALPRAZolam [Xanax] 0.25 mg PO BID PRN 04/03/17 [History] QUEtiapine [SEROquel] 50 mg PO HS 04/03/17 [History] lamoTRIgine 200 mg PO QAM 04/03/17 [History] metFORMIN HCL 1,000 mg PO QAM 04/03/17 [History] Aspirin 81 mg PO QAM 04/20/17 [History] Furosemide [Lasix] 40 mg PO QAM 04/20/17 [History] Nitrofurantoin Monohyd/M-Cryst [Macrobid] 100 mg PO HS 04/20/17 [History] Olopatadine HCl [Patanol] 1 drop BOTH EYES BID@0700,1700 04/20/17 [History] ALPRAZolam [Xanax] 0.25 mg PO BID@1400,2100 #60 04/24/17 [Rx] Atenolol [Tenormin] 50 mg PO DAILY tab 04/24/17 [Rx] HYDROcodone/APAP 7.5-325MG [Cassandra 7.5-325] 1 tab PO Q6H PRN #90 04/24/17 [Rx] Follow up Appointment(s)/Referral(s): Jose Luis Diamond MD [Primary Care Provider] - 1 Week (at [facility]) Ethan Rose MD [STAFF PHYSICIAN] - 2 Weeks Activity/Diet/Wound Care/Special Instructions: Regular diet at [facility] Discharge Disposition: TRANSFER TO SNF/ECF
[2017-04-24 11:57] LABS: Glucose,Whole Blood 135 mg/dL (75-99)
--- NOTE | 2017-04-24 12:52 | P.CRDCN ---
History of Present Illness History of present illness: Patient interviewed and examined. Patient admitted with altered mental status. Called to evaluate for an abnormal ECG Twelve-lead ECG shows a right bundle branch block pattern with T-wave inversions. We reviewed all her ECGs and it appears that the T-wave inversions in V4 through the 6 are now inverted. I would treat this lady with statins and aspirin and increase atenolol to 50 mrem by mouth daily Recommend medical management. Please see full dictation by nurse practitioner Please call us as needed Past Medical History Past Medical History: Asthma, CVA/TIA, Dementia, Diabetes Mellitus, GERD/Reflux , Hyperlipidemia, Hypertension, Musculoskeletal Disorder, Neurologic Disorder, Osteoarthritis (OA), Renal Disease Additional Past Medical History / Comment(s): Pt recently admitted to [facility] on 04/03/17 with UTI/sepsis, AMS, severe metabolic encephalopathy Other HX: Current stage III decubitus ulcer, TIA possible CVA, insomina, RLS, Parkinson's disease with orofacial dyskinesia, dysphagia, spinal stenosis, DDD (lumbosacral region), NIDDM type II, polyneuropathy, UTI, chronic kidney dx stage IV, bowel/ bladder incontinence, past fecal impaction, chronic pain, per family-pt has periods of lucidity and occasional confusion. History of Any Multi-Drug Resistant Organisms: MRSA Date of last positivie culture/infection: 12/11/15 MDRO Source:: sputum Past Surgical History: Appendectomy, Cholecystectomy, Hysterectomy, Joint Replacement, Orthopedic Surgery Additional Past Surgical History / Comment(s): Cervical surgery x2 (195), BL knee replacements. Pain clinic procedure. Past Anesthesia/Blood Transfusion Reactions: No Reported Reaction Smoking Status: Former smoker - Past Family History Father Family Medical History: Cancer Additional Family Medical History / Comment(s): Unknown type of cancer. Sister(s) Family Medical History: Cancer Brother(s) Family Medical History: No Reported History Daughter(s) Family Medical History: No Reported History Son(s) Family Medical History: No Reported History Mother Family Medical History: Diabetes Mellitus Additional Family Medical History / Comment(s): PER RESIDENTIAL UNKNOWN FAMILY HISTORY Medications and Allergies Home Medications Medication Instructions Recorded Confirmed Type Amitriptyline HCl [Elavil] 10 mg PO HS 07/30/14 04/20/17 History Atenolol [Tenormin] 25 mg PO QAM 07/30/14 04/20/17 History Fluticasone/Salmeterol [Advair 1 puff INHALATION RT-BID@0800,1700 07/30/1404/20 History 500-50 Diskus] Memantine [Namenda] 10 mg PO BID 07/30/14 04/20/17 History Pramipexole [Mirapex] 0.5 mg PO HS 07/30/14 04/20/17 History Carbidopa-Levodopa 25-100 mg 1 tab PO QID 12/29/14 04/20/17 History [Sinemet 25-100 mg] Donepezil [Aricept] 10 mg PO HS 12/29/14 04/20/17 History Pravastatin Sodium [Pravachol] 40 mg PO HS 12/30/14 04/20/17 History Isosorbide Mononitrate ER [Imdur] 30 mg PO DAILY 03/03/15 04/20/17 History Magnesium Hydroxide [Milk of 7,200 mg PO DAILY PRN 04/10/15 04/20/17 History Magnesia Concentrate] Albuterol Nebulized [Ventolin 2.5 mg INHALATION RT-BID@0800,1700 08/16/15 History Nebulized] Acetaminophen Tab [Tylenol] 500 mg PO Q6H PRN 09/08/15 04/20/17 History Losartan Potassium [Cozaar] 50 mg PO QAM 05/14/16 04/20/17 History Sennosides [Senna] 8.6 mg PO HS 05/14/16 04/20/17 History Bisacodyl [Dulcolax] 10 mg RECTAL DAILY PRN 05/23/16 04/20/17 History Montelukast [Singulair] 10 mg PO HS 05/23/16 04/20/17 History Menthol [Biofreeze] 1 applic TOPICAL Q6H PRN 06/24/16 04/20/17 History Metolazone [Zaroxolyn] 1.25 mg PO MOWEFR 10/01/16 04/20/17 History Gabapentin [Neurontin] 300 mg PO BID@0800,1700 11/11/16 04/20/17 History Mag Hydrox/Al Hydrox/Simeth 30 ml PO Q6HR PRN 11/11/16 04/20/17 History [Maalox] Na Phos,M-B/Na Phos,Di-Ba [Fleet 133 ml RECTAL DAILY PRN 11/11/16 04/20/17 History Adult] Omeprazole [PriLOSEC] 20 mg PO QAM 03/07/17 04/20/17 History Melatonin 3 mg PO HS tab 03/12/17 04/20/17 Rx ALPRAZolam [Xanax] 0.25 mg PO BID PRN 04/03/17 04/20/17 History Baclofen [Lioresal] 10 mg PO TID@0600,1400,2100 04/03/17 04/20/17 History QUEtiapine [SEROquel] 50 mg PO HS 04/03/17 04/20/17 History lamoTRIgine 200 mg PO QAM 04/03/17 04/20/17 History metFORMIN HCL 1,000 mg PO QAM 04/03/17 04/20/17 History metFORMIN HCL [Glucophage] 500 mg PO DAILY@1700 04/03/17 04/20/17 History ALPRAZolam [Xanax] 0.25 mg PO BID@1400,2100 #60 04/08/17 04/20/17 Rx traMADol HCl [Ultram] 50 mg PO Q6H PRN #120 tab 04/08/17 04/20/17 Rx Aspirin 81 mg PO QAM 04/20/17 04/20/17 History Furosemide [Lasix] 40 mg PO QAM 04/20/17 04/20/17 History HYDROcodone/APAP 7.5-325MG [[place] 1 tab PO Q6H PRN 04/20/17 04/20/17 History 7.5-325] Nitrofurantoin Monohyd/M-Cryst 100 mg PO HS 04/20/17 04/20/17 History [Macrobid] Olopatadine HCl [Patanol] 1 drop BOTH EYES BID@0700,1700 04/20/17 04/20/17 History Allergies Allergy/AdvReac Type Severity Reaction Status Date / Time codeine Allergy Unknown Verified 04/20/17 23:50 Penicillins Allergy Unknown Verified 04/20/17 23:24 Sulfa (Sulfonamide Allergy Unknown Verified 04/20/17 23:24 Antibiotics) Physical Exam Vitals: Vital Signs Temp Pulse Pulse Resp BP Pulse Ox 04/24/17 10:37 128/76 04/24/17 08:04 92 04/24/17 08:00 92 04/24/17 07:56 92 04/24/17 07:00 98 F 92 12 172/84 95 04/24/17 00:50 98.1 F 90 16 165/82 98 04/23/17 21:33 92 04/23/17 21:24 92 04/23/17 20:00 16 04/23/17 19:44 98.6 F 91 16 144/83 97 04/23/17 15:15 80 172/75 04/23/17 14:14 98.2 F 82 16 170/87 98 Intake and Output 04/23/17 04/24/17 04/24/17 22:59 06:59 14:59 Intake Total 600 Balance 600 Intake: Intake, IV Titration 600 Amount Dextrose 5%-0.45% NaCl 1, 600 000 ml @ 50 mls/hr IV . Q20H [facility] Rx#:[id number] Other: Voiding Method Diaper Diaper Incontinent Incontinent # Voids 1 Results 04/24/17 06:45 04/24/17 06:45 CBC 04/24/17 Range/Units 06:45 WBC 5.8 (3.8-10.6) k/uL RBC 3.44 L (3.80-5.40) m/uL Hgb 9.8 L (11.4-16.0) gm/dL Hct 31.4 L (34.0-46.0) % Plt Count 193 (150-450) k/uL Comprehensive Metabolic Panel 04/24/17 Range/Units 06:45 Sodium 141 (137-145) mmol/L Potassium 3.2 L (3.5-5.1) mmol/L Chloride 105 (98-107) mmol/L Carbon Dioxide 27 (22-30) mmol/L BUN 11 (7-17) mg/dL Creatinine 0.88 (0.52-1.04) mg/dL Glucose 114 H (74-99) mg/dL Calcium 8.1 L (8.4-10.2) mg/dL Current Medications Generic Name Dose Route Start Last Admin Trade Name Freq PRN Reason Stop Dose Admin Acetaminophen 500 mg 04/21/17 13:20 Tylenol Tab PO Q6H PRN Mild Pain Acetaminophen 650 mg 04/22/17 21:05 04/22/17 22:15 Tylenol Suppository RECTAL 650 mg Q6HR PRN Administration Mild Pain or Fever > 100.5 Hydrocodone Bitart/Acetaminophen 1 each 04/21/17 13:20 [place] 7.5-325 PO Q6H PRN Severe Pain Al Hydroxide/Mg Hydroxide 30 ml 04/21/17 13:20 Maalox PO Q6HR PRN Indigestion Albuterol Sulfate 2.5 mg 04/22/17 09:00 04/24/17 07:56 Ventolin Nebulized INHALATION 2.5 mg BID [facility] Administration Aspirin 81 mg 04/22/17 09:00 04/24/17 10:32 Aspirin PO Not Given QAM [facility] Atenolol 25 mg 04/21/17 09:00 04/24/17 08:57 Tenormin PO 25 mg QAM [facility] Administration Bisacodyl 10 mg 04/21/17 13:20 Dulcolax RECTAL DAILY PRN Constipation Budesonide/Formoterol Fumarate 2 puff 04/22/17 08:00 04/24/17 07:56 Symbicort 160-4.5 Mcg Inhaler INHALATION Not Given RT-BID [facility] Calamine/Phenol 1 applic 04/21/17 13:20 Risamine Oint TOPICAL Q6H PRN Pain Carbidopa/Levodopa 1 each 04/21/17 09:00 04/24/17 08:57 Sinemet 25-100 PO 1 each QID [facility] Administration Donepezil HCl 10 mg 04/21/17 21:00 04/23/17 21:52 Aricept PO 10 mg HS [facility] Administration Heparin Sodium (Porcine) 5,000 unit 04/21/17 09:00 04/24/17 08:58 Heparin SQ 5,000 unit Q12HR [facility] Administration Hydralazine HCl 5 mg 04/22/17 02:27 04/24/17 09:06 Apresoline IVP 5 mg Q8HR PRN Administration Blood Pressure - High Magnesium Sulfate/Dextrose 1 100 mls @ 100 mls/hr 04/24/17 10:00 04/24/17 11: 50 gm/ IV Solution IVPB 04/24/17 13:59 100 mls/hr Q1H [facility] Administration Potassium Chloride 10 meq/ 105.5 mls @ 100 mls/hr 04/24/17 12:00 Lidocaine HCl 10 mg/ Sodium IVPB 04/24/17 13:59 Chloride Q1HR [facility] Insulin Human Lispro 0 unit 04/21/17 17:30 04/24/17 11:58 Humalog SQ Not Given ACHS [facility] Protocol Isosorbide Mononitrate 30 mg 04/22/17 09:00 04/24/17 08:58 Imdur PO 30 mg DAILY [facility] Administration Ketotifen Fumarate 1 drops 04/21/17 17:00 04/24/17 09:02 Zaditor BOTH EYES 1 drops BID@0700,1700 [facility] Administration Lamotrigine 200 mg 04/22/17 09:00 04/24/17 08:57 Lamictal PO 200 mg QAM [facility] Administration Losartan Potassium 50 mg 04/24/17 09:15 04/24/17 10:38 Cozaar PO 50 mg DAILY [facility] Administration Magnesium Hydroxide 2,400 mg 04/21/17 13:20 Milk Of Magnesia PO DAILY PRN Constipation Melatonin 3 mg 04/21/17 21:00 04/23/17 21:53 Melatonin PO 3 mg HS [facility] Administration Memantine 10 mg 04/21/17 21:00 04/24/17 08:57 Namenda PO 10 mg BID [facility] Administration Montelukast Sodium 10 mg 04/21/17 21:00 04/23/17 21:53 Singulair PO 10 mg HS [facility] Administration Naloxone HCl 0.2 mg 04/21/17 05:17 Narcan IV Q2M PRN Opioid Reversal Nitrofurantoin Macrocrystals 100 mg 04/21/17 21:00 04/23/17 21:55 Macrobid PO Not Given HS [facility] Pantoprazole Sodium 40 mg 04/22/17 07:30 04/24/17 10:32 Protonix PO Not Given AC-BRKFST [facility] Pramipexole Dihydrochloride 0.5 mg 04/21/17 21:00 04/23/17 22:15 Mirapex PO 0.5 mg HS [facility] Administration Pravastatin Sodium 40 mg 04/21/17 21:00 04/23/17 21:51 Pravachol PO 40 mg HS [facility] Administration Quetiapine Fumarate 50 mg 04/21/17 21:00 04/23/17 21:51 Seroquel PO 50 mg HS [facility] Administration Senna 8.6 mg 04/21/17 21:00 04/24/17 00:25 Senokot PO Not Given HS [facility] Intake and Output 04/23/17 04/24/17 04/24/17 22:59 06:59 14:59 Intake Total 600 Balance 600 Intake: Intake, IV Titration 600 Amount Dextrose 5%-0.45% NaCl 1, 600 000 ml @ 50 mls/hr IV . Q20H [facility] Rx#:[id number] Other: Voiding Method Diaper Diaper Incontinent Incontinent # Voids 1 04/24/17 06:45 04/24/17 06:45
[2017-04-24] MEDS: POTASSIUM CHLORIDE 10 MEQ, LIDOCAINE 2% INJ 10 MG in SODIUM CHLORIDE 0.9% 100 ML IVPB SCH ×2 (13:00→14:15)
[2017-04-24] MEDS ORDERED: ATENOLOL 25 MG TAB PO ONE (13:00)
--- NOTE | 2017-04-24 14:08 | P.CRDCN ---
History of Present Illness Consult date: 04/24/17 History of present illness: This is an 81-year-old female with past medical history significant for diabetes mellitus, hyperlipidemia, hypertension. She is admitted to the hospital for altered mental status with urinary tract infection. We have been asked to see the patient for EKG changes. EKG shows right bundle branch block pattern with T-wave inversions in V4-6. We reviewed old EKGs and it appears she had T-wave inversions in the past but new in V4-6 on this admission. She denies chest pain, shortness of breath, dizziness, palpitations or nausea/vomiting. Echocardiogram on admission reveals preserved LV function with ejection fraction 55-60% with moderately thickened aortic valve. She has seen Dr. Rose in the past and apparently now lives at [facility]. Review of Systems Extensive review of systems performed, negative except mentioned in HPI. Past Medical History Past Medical History: Asthma, CVA/TIA, Dementia, Diabetes Mellitus, GERD/Reflux , Hyperlipidemia, Hypertension, Musculoskeletal Disorder, Neurologic Disorder, Osteoarthritis (OA), Renal Disease Additional Past Medical History / Comment(s): Pt recently admitted to [facility] on 04/03/17 with UTI/sepsis, AMS, severe metabolic encephalopathy Other HX: Current stage III decubitus ulcer, TIA possible CVA, insomina, RLS, Parkinson's disease with orofacial dyskinesia, dysphagia, spinal stenosis, DDD (lumbosacral region), NIDDM type II, polyneuropathy, UTI, chronic kidney dx stage IV, bowel/ bladder incontinence, past fecal impaction, chronic pain, per family-pt has periods of lucidity and occasional confusion. History of Any Multi-Drug Resistant Organisms: MRSA Date of last positivie culture/infection: 12/11/15 MDRO Source:: sputum Past Surgical History: Appendectomy, Cholecystectomy, Hysterectomy, Joint Replacement, Orthopedic Surgery Additional Past Surgical History / Comment(s): Cervical surgery x2 (1954), BL knee replacements. Pain clinic procedure. Past Anesthesia/Blood Transfusion Reactions: No Reported Reaction Smoking Status: Former smoker - Past Family History Father Family Medical History: Cancer Additional Family Medical History / Comment(s): Unknown type of cancer. Sister(s) Family Medical History: Cancer Brother(s) Family Medical History: No Reported History Daughter(s) Family Medical History: No Reported History Son(s) Family Medical History: No Reported History Mother Family Medical History: Diabetes Mellitus Additional Family Medical History / Comment(s): PER RESIDENTIAL UNKNOWN FAMILY HISTORY Medications and Allergies Home Medications Medication Instructions Recorded Confirmed Type Amitriptyline HCl [Elavil] 10 mg PO HS 07/30/14 04/20/17 History Fluticasone/Salmeterol [Advair 1 puff INHALATION RT-BID@0800,1700 07/30/1404/20 History 500-50 Diskus] Memantine [Namenda] 10 mg PO BID 07/30/14 04/20/17 History Pramipexole [Mirapex] 0.5 mg PO HS 07/30/14 04/20/17 History Carbidopa-Levodopa 25-100 mg 1 tab PO QID 12/29/14 04/20/17 History [Sinemet 25-100 mg] Donepezil [Aricept] 10 mg PO HS 12/29/14 04/20/17 History Pravastatin Sodium [Pravachol] 40 mg PO HS 12/30/14 04/20/17 History Isosorbide Mononitrate ER [Imdur] 30 mg PO DAILY 03/03/15 04/20/17 History Magnesium Hydroxide [Milk of 7,200 mg PO DAILY PRN 04/10/15 04/20/17 History Magnesia Concentrate] Albuterol Nebulized [Ventolin 2.5 mg INHALATION RT-BID@0800,1700 08/16/15 History Nebulized] Acetaminophen Tab [Tylenol] 500 mg PO Q6H PRN 09/08/15 04/20/17 History Losartan Potassium [Cozaar] 50 mg PO QAM 05/14/16 04/20/17 History Sennosides [Senna] 8.6 mg PO HS 05/14/16 04/20/17 History Bisacodyl [Dulcolax] 10 mg RECTAL DAILY PRN 05/23/16 04/20/17 History Montelukast [Singulair] 10 mg PO HS 05/23/16 04/20/17 History Menthol [Biofreeze] 1 applic TOPICAL Q6H PRN 06/24/16 04/20/17 History Metolazone [Zaroxolyn] 1.25 mg PO MOWEFR 10/01/16 04/20/17 History Gabapentin [Neurontin] 300 mg PO BID@0800,1700 11/11/16 04/20/17 History Mag Hydrox/Al Hydrox/Simeth 30 ml PO Q6HR PRN 11/11/16 04/20/17 History [Maalox] Na Phos,M-B/Na Phos,Di-Ba [Fleet 133 ml RECTAL DAILY PRN 11/11/16 04/20/17 History Adult] Omeprazole [PriLOSEC] 20 mg PO QAM 03/07/17 04/20/17 History Melatonin 3 mg PO HS tab 03/12/17 04/20/17 Rx ALPRAZolam [Xanax] 0.25 mg PO BID PRN 04/03/17 04/20/17 History Baclofen [Lioresal] 10 mg PO TID@0600,1400,2100 04/03/17 04/20/17 History QUEtiapine [SEROquel] 50 mg PO HS 04/03/17 04/20/17 History lamoTRIgine 200 mg PO QAM 04/03/17 04/20/17 History metFORMIN HCL 1,000 mg PO QAM 04/03/17 04/20/17 History metFORMIN HCL [Glucophage] 500 mg PO DAILY@1700 04/03/17 04/20/17 History ALPRAZolam [Xanax] 0.25 mg PO BID@1400,2100 #60 04/08/17 04/20/17 Rx traMADol HCl [Ultram] 50 mg PO Q6H PRN #120 tab 04/08/17 04/20/17 Rx Aspirin 81 mg PO QAM 04/20/17 04/20/17 History Furosemide [Lasix] 40 mg PO QAM 04/20/17 04/20/17 History HYDROcodone/APAP 7.5-325MG [[place] 1 tab PO Q6H PRN 04/20/17 04/20/17 History 7.5-325] Nitrofurantoin Monohyd/M-Cryst 100 mg PO HS 04/20/17 04/20/17 History [Macrobid] Olopatadine HCl [Patanol] 1 drop BOTH EYES BID@0700,1700 04/20/17 04/20/17 History Atenolol [Tenormin] 50 mg PO DAILY tab 04/24/17 Rx Allergies Allergy/AdvReac Type Severity Reaction Status Date / Time codeine Allergy Unknown Verified 04/20/17 23:50 Penicillins Allergy Unknown Verified 04/20/17 23:24 Sulfa (Sulfonamide Allergy Unknown Verified 04/20/17 23:24 Antibiotics) Physical Exam Vitals: Vital Signs Temp Pulse Pulse Resp BP Pulse Ox 04/24/17 10:37 128/76 04/24/17 08:04 92 04/24/17 08:00 92 04/24/17 07:56 92 04/24/17 07:00 98 F 92 12 172/84 95 04/24/17 00:50 98.1 F 90 16 165/82 98 04/23/17 21:33 92 04/23/17 21:24 92 04/23/17 20:00 16 04/23/17 19:44 98.6 F 91 16 144/83 97 04/23/17 15:15 80 172/75 04/23/17 14:14 98.2 F 82 16 170/87 98 Intake and Output 04/23/17 04/24/17 04/24/17 22:59 06:59 14:59 Intake Total 600 Balance 600 Intake: Intake, IV Titration 600 Amount Dextrose 5%-0.45% NaCl 1, 600 000 ml @ 50 mls/hr IV . Q20H [facility] Rx#:[id number] Other: Voiding Method Diaper Diaper Incontinent Incontinent # Voids 1 GENERAL: This is a 81-year-old female in no apparent distress at the time of my examination. HEENT: Head is atraumatic, normocephalic. Pupils are equal, round. Sclerae anicteric. Conjunctivae are clear. Mucous membranes of the mouth are moist. Neck is supple. There is no jugular venous distention. No carotid bruit is heard. LUNGS: Clear to auscultation no wheezes, rales or rhonchi. No chest wall tenderness is noted on palpation or with deep breathing. HEART: Regular rate and rhythm with systolic ejection murmurat all listening points strongest at the base, no rubs or gallops. S1 and S2 heard. ABDOMEN: Soft, nontender. Bowel sounds are heard. No organomegaly noted. EXTREMITIES: 2+ peripheral pulses with no evidence of peripheral edema and no calf tenderness noted. NEUROLOGIC: Patient is awake, alert and oriented x3. Results 04/24/17 06:45 04/24/17 06:45 CBC 04/24/17 Range/Units 06:45 WBC 5.8 (3.8-10.6) k/uL RBC 3.44 L (3.80-5.40) m/uL Hgb 9.8 L (11.4-16.0) gm/dL Hct 31.4 L (34.0-46.0) % Plt Count 193 (150-450) k/uL Comprehensive Metabolic Panel 04/24/17 Range/Units 06:45 Sodium 141 (137-145) mmol/L Potassium 3.2 L (3.5-5.1) mmol/L Chloride 105 (98-107) mmol/L Carbon Dioxide 27 (22-30) mmol/L BUN 11 (7-17) mg/dL Creatinine 0.88 (0.52-1.04) mg/dL Glucose 114 H (74-99) mg/dL Calcium 8.1 L (8.4-10.2) mg/dL Current Medications Generic Name Dose Route Start Last Admin Trade Name Freq PRN Reason Stop Dose Admin Acetaminophen 500 mg 04/21/17 13:20 Tylenol Tab PO Q6H PRN Mild Pain Acetaminophen 650 mg 04/22/17 21:05 04/22/17 22:15 Tylenol Suppository RECTAL 650 mg Q6HR PRN Administration Mild Pain or Fever > 100.5 Hydrocodone Bitart/Acetaminophen 1 each 04/21/17 13:20 [place] 7.5-325 PO Q6H PRN Severe Pain Al Hydroxide/Mg Hydroxide 30 ml 04/21/17 13:20 Maalox PO Q6HR PRN Indigestion Albuterol Sulfate 2.5 mg 04/22/17 09:00 04/24/17 07:56 Ventolin Nebulized INHALATION 2.5 mg BID NABEEL Administration Aspirin 81 mg 04/22/17 09:00 04/24/17 10:32 Aspirin PO Not Given QAM NABEEL Atenolol 50 mg 04/25/17 09:00 Tenormin PO DAILY NABEEL Bisacodyl 10 mg 04/21/17 13:20 Dulcolax RECTAL DAILY PRN Constipation Budesonide/Formoterol Fumarate 2 puff 04/22/17 08:00 04/24/17 07:56 Symbicort 160-4.5 Mcg Inhaler INHALATION Not Given RT-BID NABEEL Calamine/Phenol 1 applic 04/21/17 13:20 Risamine Oint TOPICAL Q6H PRN Pain Carbidopa/Levodopa 1 each 04/21/17 09:00 04/24/17 13:07 Sinemet 25-100 PO 1 each QID NABEEL Administration Donepezil HCl 10 mg 04/21/17 21:00 04/23/17 21:52 Aricept PO 10 mg HS NABEEL Administration Heparin Sodium (Porcine) 5,000 unit 04/21/17 09:00 04/24/17 08:58 Heparin SQ 5,000 unit Q12HR NABEEL Administration Hydralazine HCl 5 mg 04/22/17 02:27 04/24/17 09:06 Apresoline IVP 5 mg Q8HR PRN Administration Blood Pressure - High Insulin Human Lispro 0 unit 04/21/17 17:30 04/24/17 11:58 Humalog SQ Not Given ACHS [facility] Protocol Isosorbide Mononitrate 30 mg 04/22/17 09:00 04/24/17 08:58 Imdur PO 30 mg DAILY NABEEL Administration Ketotifen Fumarate 1 drops 04/21/17 17:00 04/24/17 09:02 Zaditor BOTH EYES 1 drops BID@0700,1700 NABEEL Administration Lamotrigine 200 mg 04/22/17 09:00 04/24/17 08:57 Lamictal PO 200 mg QAM NABEEL Administration Losartan Potassium 50 mg 04/24/17 09:15 04/24/17 10:38 Cozaar PO 50 mg DAILY NABEEL Administration Magnesium Hydroxide 2,400 mg 04/21/17 13:20 Milk Of Magnesia PO DAILY PRN Constipation Melatonin 3 mg 04/21/17 21:00 04/23/17 21:53 Melatonin PO 3 mg HS NABEEL Administration Memantine 10 mg 04/21/17 21:00 04/24/17 08:57 Namenda PO 10 mg BID NABEEL Administration Montelukast Sodium 10 mg 04/21/17 21:00 04/23/17 21:53 Singulair PO 10 mg HS NABEEL Administration Naloxone HCl 0.2 mg 04/21/17 05:17 Narcan IV Q2M PRN Opioid Reversal Nitrofurantoin Macrocrystals 100 mg 04/21/17 21:00 04/23/17 21:55 Macrobid PO Not Given HS NABEEL Pantoprazole Sodium 40 mg 04/22/17 07:30 04/24/17 10:32 Protonix PO Not Given AC-BRKFST NABEEL Pramipexole Dihydrochloride 0.5 mg 04/21/17 21:00 04/23/17 22:15 Mirapex PO 0.5 mg HS NABEEL Administration Pravastatin Sodium 40 mg 04/21/17 21:00 04/23/17 21:51 Pravachol PO 40 mg HS NABEEL Administration Quetiapine Fumarate 50 mg 04/21/17 21:00 04/23/17 21:51 Seroquel PO 50 mg HS NABEEL Administration Senna 8.6 mg 04/21/17 21:00 04/24/17 00:25 Senokot PO Not Given HS NABEEL Intake and Output 04/23/17 04/24/17 04/24/17 22:59 06:59 14:59 Intake Total 600 Balance 600 Intake: Intake, IV Titration 600 Amount Dextrose 5%-0.45% NaCl 1, 600 000 ml @ 50 mls/hr IV . Q20H [facility] Rx#:[id number] Other: Voiding Method Diaper Diaper Incontinent Incontinent # Voids 1 04/24/17 06:45 04/24/17 06:45 Assessment and Plan Plan: ASSESSMENT 1. EKG with T-wave inversions 2. Essential hypertension 3. Hyperlipidemia PLAN Please see Plan by Dr. Tijerina Nurse Practitioner note has been reviewed, I agree with a documented findings and plan of care. Patient was seen and examined.
[2017-04-24 15:58] VITALS: BP 128/72; PULSE 74; RESP 16; TEMP 97
[2017-04-25] MEDS ORDERED: ATENOLOL 50 MG TAB PO SCH (09:00)
--- NOTE | 2017-07-14 09:24 | ED ---
Altered Mental Status HPI - General Chief Complaint: Altered Mental Status Stated Complaint: Altered mental status Time Seen by Provider: 04/20/17 22:16 Source: EMS Mode of arrival: EMS Limitations: altered mental status - History of Present Illness Initial Comments: This patient is an 81-year-old woman sent from her long-term care facility to be evaluated for altered mental status. The patient reportedly is having treatment for urinary tract infection. She reportedly has had sepsis develop with these and she appeared to the staff to be in a similar state as the last episode. The patient is not able to provide any history due to mental status change. MD Complaint: altered mental status -: hour(s) Consistency of Symptoms: getting worse Context: history of similar presentation - Related Data Home Medications Medication Instructions Recorded Confirmed Fluticasone/Salmeterol [Advair 1 puff INHALATION RT-BID@0800,1700 07/30/1404/20 500-50 Diskus] Memantine [Namenda] 10 mg PO BID 07/30/14 04/20/17 Pramipexole [Mirapex] 0.5 mg PO HS 07/30/14 04/20/17 Carbidopa-Levodopa 25-100 mg 1 tab PO QID 12/29/14 04/20/17 [Sinemet 25-100 mg] Donepezil [Aricept] 10 mg PO HS 12/29/14 04/20/17 Pravastatin Sodium [Pravachol] 40 mg PO HS 12/30/14 04/20/17 Isosorbide Mononitrate ER [Imdur] 30 mg PO DAILY 03/03/15 04/20/17 Magnesium Hydroxide [Milk of 7,200 mg PO DAILY PRN 04/10/15 04/20/17 Magnesia Concentrate] Albuterol Nebulized [Ventolin 2.5 mg INHALATION RT-BID@0800,1700 08/16/15 Nebulized] Acetaminophen Tab [Tylenol] 500 mg PO Q6H PRN 09/08/15 04/20/17 Losartan Potassium [Cozaar] 50 mg PO QAM 05/14/16 04/20/17 Sennosides [Senna] 8.6 mg PO HS 05/14/16 04/20/17 Bisacodyl [Dulcolax] 10 mg RECTAL DAILY PRN 05/23/16 04/20/17 Montelukast [Singulair] 10 mg PO HS 05/23/16 04/20/17 Menthol [Biofreeze] 1 applic TOPICAL Q6H PRN 06/24/16 04/20/17 Mag Hydrox/Al Hydrox/Simeth 30 ml PO Q6HR PRN 11/11/16 04/20/17 [Maalox] Na Phos,M-B/Na Phos,Di-Ba [Fleet 133 ml RECTAL DAILY PRN 11/11/16 04/20/17 Adult] Omeprazole [PriLOSEC] 20 mg PO QAM 03/07/17 04/20/17 ALPRAZolam [Xanax] 0.25 mg PO BID PRN 04/03/17 04/20/17 QUEtiapine [SEROquel] 50 mg PO HS 04/03/17 04/20/17 lamoTRIgine 200 mg PO QAM 04/03/17 04/20/17 metFORMIN HCL 1,000 mg PO QAM 04/03/17 04/20/17 Aspirin 81 mg PO QAM 04/20/17 04/20/17 Furosemide [Lasix] 40 mg PO QAM 04/20/17 04/20/17 Nitrofurantoin Monohyd/M-Cryst 100 mg PO HS 04/20/17 04/20/17 [Macrobid] Olopatadine HCl [Patanol] 1 drop BOTH EYES BID@0700,1700 04/20/17 04/20/17 Previous Rx's Medication Instructions Recorded Melatonin 3 mg PO HS tab 03/12/17 ALPRAZolam [Xanax] 0.25 mg PO BID@1400,2100 #60 04/24/17 Atenolol [Tenormin] 50 mg PO DAILY tab 04/24/17 HYDROcodone/APAP 7.5-325MG [[place] 1 tab PO Q6H PRN #90 04/24/17 7.5-325] Allergies Allergy/AdvReac Type Severity Reaction Status Date / Time codeine Allergy Unknown Verified 04/20/17 23:50 Penicillins Allergy Unknown Verified 04/20/17 23:24 Sulfa (Sulfonamide Allergy Unknown Verified 04/20/17 23:24 Antibiotics) Review of Systems ROS Statement: Those systems with pertinent positive or pertinent negative responses have been documented in the HPI. ROS Other: All systems not noted in ROS Statement are negative. Limitations: ROS unobtainable due to patients medical condition (Altered mental status) Past Medical History Past Medical History: Asthma, CVA/TIA, Dementia, Diabetes Mellitus, GERD/Reflux , Hyperlipidemia, Hypertension, Musculoskeletal Disorder, Neurologic Disorder, Osteoarthritis (OA), Renal Disease Additional Past Medical History / Comment(s): Pt recently admitted to [facility] on 04/03/17 with UTI/sepsis, AMS, severe metabolic encephalopathy Other HX: Current stage III decubitus ulcer, TIA possible CVA, insomina, RLS, Parkinson's disease with orofacial dyskinesia, dysphagia, spinal stenosis, DDD (lumbosacral region), NIDDM type II, polyneuropathy, UTI, chronic kidney dx stage IV, bowel/ bladder incontinence, past fecal impaction, chronic pain, per family-pt has periods of lucidity and occasional confusion. History of Any Multi-Drug Resistant Organisms: MRSA Date of last positivie culture/infection: 12/11/15 MDRO Source:: sputum Past Surgical History: Appendectomy, Cholecystectomy, Hysterectomy, Joint Replacement, Orthopedic Surgery Additional Past Surgical History / Comment(s): Cervical surgery x2 (1953), BL knee replacements. Pain clinic procedure. Past Anesthesia/Blood Transfusion Reactions: No Reported Reaction Smoking Status: Former smoker - Past Family History Father Family Medical History: Cancer Additional Family Medical History / Comment(s): Unknown type of cancer. Sister(s) Family Medical History: Cancer Brother(s) Family Medical History: No Reported History Daughter(s) Family Medical History: No Reported History Son(s) Family Medical History: No Reported History Mother Family Medical History: Diabetes Mellitus Additional Family Medical History / Comment(s): PER [facility] UNKNOWN FAMILY HISTORY General Exam Limitations: no limitations General appearance: obtunded Head exam: Present: atraumatic, normocephalic Eye exam: Present: normal appearance. Absent: scleral icterus, conjunctival injection ENT exam: Present: mucous membranes dry Neck exam: Present: normal inspection, full ROM. Absent: meningismus Respiratory exam: Present: rhonchi. Absent: respiratory distress, wheezes, rales, chest wall tenderness Cardiovascular Exam: Present: regular rate, normal rhythm, normal heart sounds. Absent: systolic murmur, diastolic murmur, rubs, gallop GI/Abdominal exam: Present: soft. Absent: distended, tenderness, guarding, rebound, mass Extremities exam: Present: normal inspection, normal capillary refill. Absent: pedal edema, calf tenderness Back exam: Present: normal inspection Neurological exam: Present: altered, CN II-XII intact, other (Patient is not able to cooperate with the neurologic exam. She does move all 4 extremities. Oriented only to person). Absent: oriented X3, motor sensory deficit Skin exam: Present: warm, dry, intact, normal color. Absent: rash Course Vital Signs 04/20/17 04/20/17 04/21/17 22:04 23:07 00:00 Temperature 98.0 F Pulse Rate 72 65 68 Respiratory 20 22 Rate Blood Pressure 161/99 O2 Sat by Pulse 95 96 94 L Oximetry 04/21/17 04/21/17 04/21/17 00:44 01:39 02:28 Temperature Pulse Rate 63 69 53 L Respiratory 20 16 16 Rate Blood Pressure 150/61 135/58 135/63 O2 Sat by Pulse 96 97 98 Oximetry 04/21/17 04/21/17 04/21/17 03:20 04:15 05:33 Temperature 97.9 F Pulse Rate 53 L 68 70 Respiratory 18 20 Rate Blood Pressure 104/51 112/53 O2 Sat by Pulse 100 99 97 Oximetry Medical Decision Making - Medical Decision Making Patient is an 81-year-old woman sent from [facility] for altered mental status. She does have associated change in her creatinine. Patient be admitted for further evaluation and treatment - Lab Data Result diagrams: 04/24/17 06:45 04/24/17 06:45 Lab Results 04/20/17 04/20/17 04/20/17 Range/Units 22:11 22:11 22:11 WBC 6.2 (3.8-10.6) k/uL RBC 3.38 L (3.80-5.40) m/uL Hgb 9.7 L (11.4-16.0) gm/dL Hct 30.8 L (34.0-46.0) % MCV 91.3 (80.0-100.0) fL MCH 28.7 (25.0-35.0) pg MCHC 31.4 (31.0-37.0) g/dL RDW 14.2 (11.5-15.5) % Plt Count 204 (150-450) k/uL Neutrophils % 59 % Lymphocytes % 22 % Monocytes % 3 % Eosinophils % 14 % Basophils % 1 % Neutrophils # 3.6 (1.3-7.7) k/uL Lymphocytes # 1.4 (1.0-4.8) k/uL Monocytes # 0.2 (0-1.0) k/uL Eosinophils # 0.9 H (0-0.7) k/uL Basophils # 0.0 (0-0.2) k/uL PT (9.0-12.0) sec INR (<1.2) APTT (22.0-30.0) sec Sodium (137-145) mmol/L Potassium (3.5-5.1) mmol/L Chloride (98-107) mmol/L Carbon Dioxide (22-30) mmol/L Anion Gap mmol/L BUN (7-17) mg/dL Creatinine (0.52-1.04) mg/dL Est GFR (MDRD) Af Amer (>60 ml/min/1.73 sqM) Est GFR (MDRD) Non-Af (>60 ml/min/1.73 sqM) Glucose (74-99) mg/dL POC Glucose (mg/dL) (75-99) mg/dL POC Glu [employer] Specialist ID Estimated Ave Glu mg/dL mg/dL Hemoglobin A1c (4.2-6.1) % Plasma Lactic Acid Flex 1.2 (0.7-2.0) mmol/L Calcium (8.4-10.2) mg/dL Iron (50-170) ug/dL TIBC (228-460) ug/dL Iron Saturation (12.00-45.00) Ferritin (10.0-291.0) ng/mL Total Bilirubin (0.2-1.3) mg/dL AST (14-36) U/L ALT (9-52) U/L Alkaline Phosphatase (38-126) U/L Ammonia <9 (<30) umol/L Total Creatine Kinase 88 (30-135) U/L CK-MB (CK-2) 1.9 (0.0-2.4) ng/mL CK-MB (CK-2) Rel Index 2.2 Troponin I <0.012 (0.000-0.034) ng/mL Total Protein (6.3-8.2) g/dL Albumin (3.5-5.0) g/dL Urine Color Urine Appearance (Clear) Urine pH (5.0-8.0) Ur Specific [place] (1.001-1.035) Urine Protein (Negative) Urine Glucose (UA) (Negative) Urine Ketones (Negative) Urine Blood (Negative) Urine Nitrite (Negative) Urine Bilirubin (Negative) Urine Urobilinogen (<2.0) mg/dL Ur Leukocyte Esterase (Negative) Urine RBC (0-5) /hpf Urine WBC (0-5) /hpf Ur Squamous Epith Cells (0-4) /hpf Urine Bacteria (None) /hpf Urine Mucus (None) /hpf 04/20/17 04/20/17 04/20/17 Range/Units 22:11 22:11 22:11 WBC (3.8-10.6) k/uL RBC (3.80-5.40) m/uL Hgb (11.4-16.0) gm/dL Hct (34.0-46.0) % MCV (80.0-100.0) fL MCH (25.0-35.0) pg MCHC (31.0-37.0) g/dL RDW (11.5-15.5) % Plt Count (150-450) k/uL Neutrophils % % Lymphocytes % % Monocytes % % Eosinophils % % Basophils % % Neutrophils # (1.3-7.7) k/uL Lymphocytes # (1.0-4.8) k/uL Monocytes # (0-1.0) k/uL Eosinophils # (0-0.7) k/uL Basophils # (0-0.2) k/uL PT 11.5 (9.0-12.0) sec INR 1.1 (<1.2) APTT 34.0 H (22.0-30.0) sec Sodium 136 L (137-145) mmol/L Potassium 4.2 (3.5-5.1) mmol/L Chloride 95 L (98-107) mmol/L Carbon Dioxide 31 H (22-30) mmol/L Anion Gap 10 mmol/L BUN 48 H (7-17) mg/dL Creatinine 2.00 H (0.52-1.04) mg/dL Est GFR (MDRD) Af Amer 29 (>60 ml/min/1.73 sqM) Est GFR (MDRD) Non-Af 24 (>60 ml/min/1.73 sqM) Glucose 95 (74-99) mg/dL POC Glucose (mg/dL) (75-99) mg/dL POC Glu [employer] Specialist ID Estimated Ave Glu mg/dL mg/dL Hemoglobin A1c (4.2-6.1) % Plasma Lactic Acid Flex (0.7-2.0) mmol/L Calcium 8.8 (8.4-10.2) mg/dL Iron 30 L (50-170) ug/dL TIBC 242 (228-460) ug/dL Iron Saturation 12.40 (12.00-45.00) Ferritin 217.7 (10.0-291.0) ng/mL Total Bilirubin 0.3 (0.2-1.3) mg/dL AST 12 L (14-36) U/L ALT 21 (9-52) U/L Alkaline Phosphatase 78 (38-126) U/L Ammonia (<30) umol/L Total Creatine Kinase (30-135) U/L CK-MB (CK-2) (0.0-2.4) ng/mL CK-MB (CK-2) Rel Index Troponin I (0.000-0.034) ng/mL Total Protein 6.0 L (6.3-8.2) g/dL Albumin 3.4 L (3.5-5.0) g/dL Urine Color Urine Appearance (Clear) Urine pH (5.0-8.0) Ur Specific [place] (1.001-1.035) Urine Protein (Negative) Urine Glucose (UA) (Negative) Urine Ketones (Negative) Urine Blood (Negative) Urine Nitrite (Negative) Urine Bilirubin (Negative) Urine Urobilinogen (<2.0) mg/dL Ur Leukocyte Esterase (Negative) Urine RBC (0-5) /hpf Urine WBC (0-5) /hpf Ur Squamous Epith Cells (0-4) /hpf Urine Bacteria (None) /hpf Urine Mucus (None) /hpf 04/20/17 04/20/17 04/20/17 Range/Units 22:11 23:00 23:12 WBC (3.8-10.6) k/uL RBC (3.80-5.40) m/uL Hgb (11.4-16.0) gm/dL Hct (34.0-46.0) % MCV (80.0-100.0) fL MCH (25.0-35.0) pg MCHC (31.0-37.0) g/dL RDW (11.5-15.5) % Plt Count (150-450) k/uL Neutrophils % % Lymphocytes % % Monocytes % % Eosinophils % % Basophils % % Neutrophils # (1.3-7.7) k/uL Lymphocytes # (1.0-4.8) k/uL Monocytes # (0-1.0) k/uL Eosinophils # (0-0.7) k/uL Basophils # (0-0.2) k/uL PT (9.0-12.0) sec INR (<1.2) APTT (22.0-30.0) sec Sodium (137-145) mmol/L Potassium (3.5-5.1) mmol/L Chloride (98-107) mmol/L Carbon Dioxide (22-30) mmol/L Anion Gap mmol/L BUN (7-17) mg/dL Creatinine (0.52-1.04) mg/dL Est GFR (MDRD) Af Amer (>60 ml/min/1.73 sqM) Est GFR (MDRD) Non-Af (>60 ml/min/1.73 sqM) Glucose (74-99) mg/dL POC Glucose (mg/dL) 116 H (75-99) mg/dL POC Glu Global Marketing Specialist ID Maria Isabel Gonzalez [address] Glu mg/dL 108 mg/dL Hemoglobin A1c 5.4 (4.2-6.1) % Plasma Lactic Acid Flex (0.7-2.0) mmol/L Calcium (8.4-10.2) mg/dL Iron (50-170) ug/dL TIBC (228-460) ug/dL Iron Saturation (12.00-45.00) Ferritin (10.0-291.0) ng/mL Total Bilirubin (0.2-1.3) mg/dL AST (14-36) U/L ALT (9-52) U/L Alkaline Phosphatase (38-126) U/L Ammonia (<30) umol/L Total Creatine Kinase (30-135) U/L CK-MB (CK-2) (0.0-2.4) ng/mL CK-MB (CK-2) Rel Index Troponin I (0.000-0.034) ng/mL Total Protein (6.3-8.2) g/dL Albumin (3.5-5.0) g/dL Urine Color Yellow Urine Appearance Cloudy H (Clear) Urine pH 5.5 (5.0-8.0) Ur Specific [place] 1.015 (1.001-1.035) Urine Protein Trace H (Negative) Urine Glucose (UA) Negative (Negative) Urine Ketones Negative (Negative) Urine Blood Trace H (Negative) Urine Nitrite Negative (Negative) Urine Bilirubin Negative (Negative) Urine Urobilinogen <2.0 (<2.0) mg/dL Ur Leukocyte Esterase Small H (Negative) Urine RBC <1 (0-5) /hpf Urine WBC 2 (0-5) /hpf Ur Squamous Epith Cells 1 (0-4) /hpf Urine Bacteria Rare H (None) /hpf Urine Mucus Rare H (None) /hpf Disposition Clinical Impression: Urinary tract infection, Altered mental status Disposition: ADMITTED IP TO THIS HOSP Condition: Poor
== END 2017-04-24 17:05 | DRG 682 ==
LOC: EC 21:55 → 3SUR 04-21 05:18
PROVIDERS: ADMIT Family Medicine; ATTEND Family Medicine
DX: N17.9 Acute kidney failure, unspecified (principal); G93.41 Metabolic encephalopathy; L89.153 Pressure ulcer of sacral region, stage 3; E11.22 Type 2 diabetes mellitus with diabetic chronic kidney disease; F02.81 Dementia in other diseases classified elsewhere, unspecified severity, with behavioral disturbance; E11.42 Type 2 diabetes mellitus with diabetic polyneuropathy; G30.9 Alzheimer's disease, unspecified; I13.10 Hypertensive heart and chronic kidney disease without heart failure, with stage 1 through stage 4 chronic kidney disease, or unspecified chronic kidney disease; R13.10 Dysphagia, unspecified; E83.42 Hypomagnesemia; F33.9 Major depressive disorder, recurrent, unspecified; E87.70 Fluid overload, unspecified; E86.0 Dehydration; G20 Parkinson's disease; D63.1 Anemia in chronic kidney disease; I45.10 Unspecified right bundle-branch block; J45.909 Unspecified asthma, uncomplicated; N18.3 Chronic kidney disease, stage 3 (moderate); I25.10 Atherosclerotic heart disease of native coronary artery without angina pectoris; E78.5 Hyperlipidemia, unspecified; G24.4 Idiopathic orofacial dystonia; G25.81 Restless legs syndrome; R32 Unspecified urinary incontinence; M48.00 Spinal stenosis, site unspecified; M51.37 Other intervertebral disc degeneration, lumbosacral region; M19.91 Primary osteoarthritis, unspecified site; F41.9 Anxiety disorder, unspecified; G89.29 Other chronic pain; E87.6 Hypokalemia; K21.9 Gastro-esophageal reflux disease without esophagitis; Z79.82 Long term (current) use of aspirin; Z79.84 Long term (current) use of oral hypoglycemic drugs; Z79.899 Other long term (current) drug therapy; Z74.01 Bed confinement status; Z87.440 Personal history of urinary (tract) infections; Z90.49 Acquired absence of other specified parts of digestive tract; Z87.891 Personal history of nicotine dependence; Z90.710 Acquired absence of both cervix and uterus; Z86.14 Personal history of Methicillin resistant Staphylococcus aureus infection; Z86.73 Personal history of transient ischemic attack (TIA), and cerebral infarction without residual deficits; Z96.653 Presence of artificial knee joint, bilateral; Z88.5 Allergy status to narcotic agent; Z88.0 Allergy status to penicillin; Z88.2 Allergy status to sulfonamides
CPT/HCPCS: 36415; 70450; 71010; 80048; 80053; 81001; 82140; 82550; 82553; 82728; 83036; 83540; 83550; 83605; 83735; 84484; 85025; 85610; 85730; 87040; 87077; 87086; 87186; 93005; 93306; 94640; 94760; 95819; 96360; 96361; 99285

== ENCOUNTER 2017-05-16 11:41 | Day surgery (SDC) | payer MEDICARE, OTHER ==
[2017-05-16 12:04] VITALS: RESP 16; TEMP 98.1
[2017-05-16] MEDS ORDERED: LIDOCAINE 2% INJ 20 MG/ML SQ ONE (12:50)
[2017-05-16] MEDS ORDERED: HYDROcodone/APAP 7.5-325MG 1 EACH TAB PO PRN (13:04)
[2017-05-16] MEDS ORDERED: HYDROcodone/APAP 7.5-325MG 1 EACH TAB ONE (13:06)
[2017-05-16 13:29] VITALS: BP 146/89; PULSE 88
--- NOTE | 2017-05-16 14:29 | IR ---
EXAMINATION TYPE: IR cvc insert >=5 years DATE OF EXAM: 05/16/2017 COMPARISON: NONE CLINICAL HISTORY: UTI Needs long-term intravenous access for antibiotics. PROCEDURE: After informed consent, the skin overlying the right basilic vein was localized with ultrasound and n oted to be compressible and patent. An ultrasound image was obtained and submitted on the patient's chart. The overlying skin was prepped and draped and Lidocaine was used for local anesthesia. A ski n eric was made with a scalpel. Access was gained to the vein under ultrasound guidance with a 21 ga uge needle and a 0.018 inch wire was advanced. Access site was dilated with Peel-Away sheath and cat heter tailored to the appropriate length and advanced such that the distal tip is at the cavoatrial j unction. Spot image was obtained verifying placement. Catheter was fixed to the skin with suture an d a sterile dressing was placed following hemostasis. Catheter was aspirated and flushed with saline . Patient was discharged in stable condition without complication. Maximal barrier technique is util ized. Ultrasound image is documented on the chart. Ultrasound used with sterile technique. Fluoro time and fluoroscopic images submitted to document procedure: 15 intraoperative C-arm images, 0.5 minutes fluoroscopy time IMPRESSION: STATUS POST ULTRASOUND AND FLUOROSCOPIC GUIDED PICC LINE PLACEMENT, READY FOR USE. THIS PROCEDURE WAS PERFORMED BY THE UNDERSIGNED.
== END 2017-05-16 13:15 ==
LOC: CATHCVL 11:41
PROVIDERS: ATTEND Radiology Diagnostic Radiology
DX: N39.0 Urinary tract infection, site not specified (principal)
CPT/HCPCS: 36569; 76937; 77001; C1751; C1769; J2001; 36415; 83036

== ENCOUNTER 2018-04-28 00:52 | Inpatient (IN) | payer MEDICARE, OTHER ==
[2018-04-28] MEDS ORDERED: ACETAMINOPHEN TAB 325 MG TAB PO STA (01:10)
[2018-04-28 01:27] LABS: RBC 3.42 m/uL (3.80-5.40); WBC 5.8 k/uL (3.8-10.6)
[2018-04-28 01:28] LABS: Basophils % (A) 1 %; Eosinophils # (A) 0.5 k/uL (0-0.7); Eosinophils % (A) 8 %; HCT 31.4 % (34.0-46.0); HGB 10.1 gm/dL (11.4-16.0); Lymphocytes # (A) 1.9 k/uL (1.0-4.8); Lymphocytes % (A) 32 %; MCH 29.4 pg (25.0-35.0); MCV 91.8 fL (80.0-100.0); Mean Platelet Volume 7.2; Monocytes # (A) 0.2 k/uL (0-1.0); Monocytes % (A) 3 %; Neutrophils # (A) 3.1 k/uL (1.3-7.7); Neutrophils % (A) 54 %; Platelet Count 158 k/uL (150-450); RDW 13.7 % (11.5-15.5)
[2018-04-28 01:35] LABS: Appearance,Urine Turbid (Clear); Bacteria,Urine Many /hpf; Bilirubin,Urine Negative (Negative); Blood,Urine Small (Negative); Color,Urine Yellow; Glucose,Urine (UA) Negative (Negative); Ketones,Urine Negative (Negative); Leukocyte Esterase,Urine Large (Negative); Mucus,Urine Few /hpf; Nitrite,Urine Positive (Negative); PH, Urine 5.5 (5.0-8.0); Protein,Urine 1+ (Negative); RBC,Urine 28 /hpf (0-5); Specific Gravity,Urine 1.017 (1.001-1.035); Urobilinogen,Urine <2.0 mg/dL (<2.0); WBC,Urine >182 /hpf (0-5)
[2018-04-28 01:40] LABS: Albumin 3.5 g/dL (3.5-5.0); Calcium 8.7 mg/dL (8.4-10.2); Potassium 4.7 mmol/L (3.5-5.1); Total Bilirubin 0.3 mg/dL (0.2-1.3); Total Protein 6.3 g/dL (6.3-8.2)
--- NOTE | 2018-04-28 02:02 | XR ---
EXAMINATION TYPE: XR chest 1V portable DATE OF EXAM: 04/28/2018 COMPARISON: 08/24/2017 HISTORY: Altered mental status TECHNIQUE: Single frontal view of the chest is obtained. FINDINGS: There is some infiltrate in the left lower lobe. The right lung is clear. There is no hear t failure. There is atheromatous aorta. Trachea is midline. Bony thorax appears intact. IMPRESSION: Left-sided pulmonary infiltrate is unchanged. This could be pulmonary scarring. No gross heart failure.
[2018-04-28] MEDS ORDERED: MORPHINE SULFATE 2 MG/ML SYRINGE IVP STA (02:19)
[2018-04-28] MEDS ORDERED: MORPHINE SULFATE 4 MG/ML SYRINGE IV STA ×2 (02:21→04:14)
[2018-04-28] MEDS ORDERED: LEVOFLOXACIN 750MG-D5W PMX 750 MG in DEXTROSE/WATER 1 150ML.BAG IVPB STA (02:50)
[2018-04-28] MEDS ORDERED: NALOXONE 0.4 MG/ML 1 ML VIAL IV PRN (03:10)
[2018-04-28] MEDS ORDERED: SODIUM CHLORIDE 0.9% 500 ML 500 ML IV STA (03:53)
--- NOTE | 2018-04-28 03:59 | ED ---
Altered Mental Status HPI - General Chief Complaint: Altered Mental Status Stated Complaint: poss sepsis Time Seen by Provider: 04/28/18 00:59 Source: patient, EMS Mode of arrival: EMS Limitations: physical limitation (Suspected delirium) - History of Present Illness Initial Comments: 's patient is an 82-year-old woman with history of underlying Parkinson's disease, [facility] for confusion and altered mental status. It is reported that the patient has history of similar presentation when she had urinary tract infection and sepsis. When I interview the patient, she is alert and is oriented to person and place, and she is denying complaints. The review of systems is unremarkable. MD Complaint: altered mental status, confusion -: hour(s) Severity: moderate Consistency of Symptoms: waxing and waning Context: history of similar presentation Associated Symptoms: denies other symptoms - Related Data Home Medications Medication Instructions Recorded Confirmed Fluticasone/Salmeterol [Advair 1 puff INHALATION RT-BID@0800,1700 07/30/1408/23 500-50 Diskus] Memantine [Namenda] 10 mg PO BID 07/30/14 04/28/18 Pramipexole [Mirapex] 0.5 mg PO HS 07/30/14 04/28/18 Carbidopa-Levodopa 25-100 mg 1 tab PO QID 12/29/14 04/28/18 [Sinemet 25-100 mg] Donepezil [Aricept] 10 mg PO HS 12/29/14 04/28/18 Pravastatin Sodium [Pravachol] 40 mg PO HS 12/30/14 04/28/18 Isosorbide Mononitrate ER [Imdur] 30 mg PO DAILY 03/03/15 04/28/18 Magnesium Hydroxide [Milk of 7,200 mg PO DAILY PRN 04/10/15 08/23/17 Magnesia Concentrate] Albuterol Nebulized [Ventolin 2.5 mg INHALATION RT-BID@0800,1700 08/16/15 Nebulized] Acetaminophen Tab [Tylenol] 500 mg PO Q8HR PRN 09/08/15 04/28/18 Losartan Potassium [Cozaar] 50 mg PO QAM 05/14/16 04/28/18 Bisacodyl [Dulcolax] 10 mg RECTAL DAILY PRN 05/23/16 08/23/17 Montelukast [Singulair] 10 mg PO HS 05/23/16 04/28/18 Menthol [Biofreeze] 1 applic TOPICAL Q6H PRN 06/24/16 04/28/18 Na Phos,M-B/Na Phos,Di-Ba [Fleet 133 ml RECTAL DAILY PRN 11/11/16 08/23/17 Adult] Omeprazole [PriLOSEC] 20 mg PO QAM 03/07/17 04/28/18 QUEtiapine [SEROquel] 50 mg PO HS 04/03/17 04/28/18 lamoTRIgine 400 mg PO QAM 04/03/17 04/28/18 Aspirin 81 mg PO QAM 04/20/17 04/28/18 Furosemide [Lasix] 40 mg PO QAM 04/20/17 04/28/18 Baclofen [Lioresal] 10 mg PO Q8H PRN 08/23/17 04/28/18 Gabapentin [Neurontin] 300 mg PO TID 08/23/17 04/28/18 Lidocaine 2% Gel [Xylocaine Jelly 1 applic TOPICAL DAILY PRN 08/23/17 04/28/18 2%] Mag Hydrox/Al Hydrox/Simeth 30 ml PO Q6H PRN 08/23/17 08/23/17 [Maalox] Magic Butt Paste 1 applic TOPICAL TID PRN 08/23/17 08/23/17 Metoprolol Tartrate [Lopressor] 25 mg PO BID 08/23/17 04/28/18 Sennosides/Docusate Sodium [Tammy 1 tab PO DAILY 08/23/17 08/23/17 Colace] sitaGLIPtin [Januvia] 50 mg PO DAILY 08/23/17 04/28/18 Previous Rx's Medication Instructions Recorded Melatonin 3 mg PO HS tab 03/12/17 ALPRAZolam [Xanax] 0.25 mg PO BID@1400,2100 #60 tab 08/26/17 HYDROcodone/APAP 7.5-325MG [[place] 1 tab PO Q6H PRN #90 tab 08/26/17 7.5-325] Ketotifen 0.025% Ophth Soln 1 drops BOTH EYES BID@0700,1700 ml 08/26/17 [Zaditor] Levofloxacin [Levaquin] 500 mg PO DAILY #5 tab 08/26/17 Oseltamivir [Tamiflu] 75 mg PO Q12HR #4 cap 08/26/17 guaiFENesin [Mucinex] 600 mg PO Q12HR tablet.er 08/26/17 Allergies Allergy/AdvReac Type Severity Reaction Status Date / Time codeine Allergy Unknown Verified 08/23/17 10:48 Penicillins Allergy Unknown Verified 08/23/17 10:48 Sulfa (Sulfonamide Allergy Unknown Verified 08/23/17 10:48 Antibiotics) Review of Systems ROS Statement: Those systems with pertinent positive or pertinent negative responses have been documented in the HPI. ROS Other: All systems not noted in ROS Statement are negative. Limitations: ROS unobtainable due to patients medical condition (Possible delirium) Constitutional: Denies: fever, chills, weakness ENT: Denies: throat pain Respiratory: Denies: cough, dyspnea Cardiovascular: Denies: chest pain, edema, syncope Gastrointestinal: Denies: abdominal pain, vomiting, diarrhea, constipation Genitourinary: Denies: dysuria Musculoskeletal: Denies: back pain Skin: Denies: rash Neurological: Reports: as per HPI, confusion. Denies: headache, weakness, numbness, paresthesias Past Medical History Past Medical History: Asthma, CVA/TIA, Dementia, Diabetes Mellitus, GERD/Reflux , Hyperlipidemia, Hypertension, Musculoskeletal Disorder, Neurologic Disorder, Osteoarthritis (OA), Renal Disease Additional Past Medical History / Comment(s): Pt recently admitted to [facility] on 04/03/17 with UTI/sepsis, AMS, severe metabolic encephalopathy Other HX: Current stage III decubitus ulcer, TIA possible CVA, insomina, RLS, Parkinson's disease with orofacial dyskinesia, dysphagia, spinal stenosis, DDD (lumbosacral region), NIDDM type II, polyneuropathy, UTI, chronic kidney dx stage IV, bowel/ bladder incontinence, past fecal impaction, chronic pain, per family-pt has periods of lucidity and occasional confusion. History of Any Multi-Drug Resistant Organisms: MRSA Date of last positivie culture/infection: 12/11/15 MDRO Source:: sputum Past Surgical History: Appendectomy, Cholecystectomy, Hysterectomy, Joint Replacement, Orthopedic Surgery Additional Past Surgical History / Comment(s): Cervical surgery x2 (1954), BL knee replacements. Pain clinic procedure. Past Anesthesia/Blood Transfusion Reactions: No Reported Reaction Past Psychological History: Unable to Obtain, Anxiety, Depression Smoking Status: Former smoker Past Alcohol Use History: Unable to Obtain Past Drug Use History: None Reported - Past Family History Father Family Medical History: Cancer Additional Family Medical History / Comment(s): Unknown type of cancer. Sister(s) Family Medical History: Cancer Brother(s) Family Medical History: No Reported History Daughter(s) Family Medical History: No Reported History Son(s) Family Medical History: No Reported History Mother Family Medical History: Diabetes Mellitus Additional Family Medical History / Comment(s): PER HALFWAY UNKNOWN FAMILY HISTORY General Exam Limitations: no limitations General appearance: alert, in no apparent distress Head exam: Present: atraumatic, normocephalic Eye exam: Present: normal appearance. Absent: scleral icterus, conjunctival injection ENT exam: Present: mucous membranes dry Neck exam: Present: normal inspection, full ROM. Absent: meningismus Respiratory exam: Present: normal lung sounds bilaterally. Absent: respiratory distress, wheezes, rales, rhonchi, stridor Cardiovascular Exam: Present: regular rate, normal rhythm, normal heart sounds. Absent: systolic murmur, diastolic murmur, rubs, gallop GI/Abdominal exam: Present: soft. Absent: tenderness, guarding, rebound, mass Extremities exam: Present: normal inspection, normal capillary refill. Absent: pedal edema, calf tenderness Neurological exam: Present: alert, CN II-XII intact. Absent: oriented X3 ( Patient is oriented to person and place but could not name the exact date. She did know the year), motor sensory deficit Skin exam: Present: warm, dry, intact, normal color. Absent: rash Course Vital Signs 04/28/18 04/28/18 04/28/18 00:57 03:09 03:57 Temperature 97.7 F Pulse Rate 65 53 L 52 L Pulse Rate [ Pulse Oximetery ] Respiratory 20 18 18 Rate Blood Pressure 150/62 95/46 104/51 Blood Pressure [Right Arm] O2 Sat by Pulse 95 97 97 Oximetry 04/28/18 04/28/18 04/28/18 04:27 05:31 06:35 Temperature 97.0 F L Pulse Rate 58 L Pulse Rate [ 54 L Pulse Oximetery ] Respiratory 20 20 18 Rate Blood Pressure 110/53 Blood Pressure 88/48 [Right Arm] O2 Sat by Pulse 94 L 94 L Oximetry Medical Decision Making - Medical Decision Making Patient is an 82-year-old woman [facility]. She is found to have urinary tract infection, started on antibiotics and admitted area - Lab Data Result diagrams: 04/28/18 01:10 04/28/18 01:10 Lab Results 04/28/18 04/28/18 04/28/18 Range/Units 01:10 01:10 01:10 WBC 5.8 (3.8-10.6) k/uL RBC 3.42 L (3.80-5.40) m/uL Hgb 10.1 L (11.4-16.0) gm/dL Hct 31.4 L (34.0-46.0) % MCV 91.8 (80.0-100.0) fL MCH 29.4 (25.0-35.0) pg MCHC 32.0 (31.0-37.0) g/dL RDW 13.7 (11.5-15.5) % Plt Count 158 (150-450) k/uL Neutrophils % 54 % Lymphocytes % 32 % Monocytes % 3 % Eosinophils % 8 % Basophils % 1 % Neutrophils # 3.1 (1.3-7.7) k/uL Lymphocytes # 1.9 (1.0-4.8) k/uL Monocytes # 0.2 (0-1.0) k/uL Eosinophils # 0.5 (0-0.7) k/uL Basophils # 0.0 (0-0.2) k/uL Sodium 139 (137-145) mmol/L Potassium 4.7 (3.5-5.1) mmol/L Chloride 101 (98-107) mmol/L Carbon Dioxide 28 (22-30) mmol/L Anion Gap 10 mmol/L BUN 76 H (7-17) mg/dL Creatinine 2.82 H (0.52-1.04) mg/dL Est GFR (CKD-EPI)AfAm 17 (>60 ml/min/1.73 sqM) Est GFR (CKD-EPI)NonAf 15 (>60 ml/min/1.73 sqM) Glucose 100 H (74-99) mg/dL Plasma Lactic Acid Flex 1.3 (0.7-2.0) mmol/L Calcium 8.7 (8.4-10.2) mg/dL Total Bilirubin 0.3 (0.2-1.3) mg/dL AST 19 (14-36) U/L ALT 11 (9-52) U/L Alkaline Phosphatase 111 (38-126) U/L Total Protein 6.3 (6.3-8.2) g/dL Albumin 3.5 (3.5-5.0) g/dL Urine Color Urine Appearance (Clear) Urine pH (5.0-8.0) Ur Specific [place] (1.001-1.035) Urine Protein (Negative) Urine Glucose (UA) (Negative) Urine Ketones (Negative) Urine Blood (Negative) Urine Nitrite (Negative) Urine Bilirubin (Negative) Urine Urobilinogen (<2.0) mg/dL Ur Leukocyte Esterase (Negative) Urine RBC (0-5) /hpf Urine WBC (0-5) /hpf Urine WBC Clumps (None) /hpf Urine Bacteria (None) /hpf Urine Mucus (None) /hpf 04/28/18 Range/Units 01:15 WBC (3.8-10.6) k/uL RBC (3.80-5.40) m/uL Hgb (11.4-16.0) gm/dL Hct (34.0-46.0) % MCV (80.0-100.0) fL MCH (25.0-35.0) pg MCHC (31.0-37.0) g/dL RDW (11.5-15.5) % Plt Count (150-450) k/uL Neutrophils % % Lymphocytes % % Monocytes % % Eosinophils % % Basophils % % Neutrophils # (1.3-7.7) k/uL Lymphocytes # (1.0-4.8) k/uL Monocytes # (0-1.0) k/uL Eosinophils # (0-0.7) k/uL Basophils # (0-0.2) k/uL Sodium (137-145) mmol/L Potassium (3.5-5.1) mmol/L Chloride (98-107) mmol/L Carbon Dioxide (22-30) mmol/L Anion Gap mmol/L BUN (7-17) mg/dL Creatinine (0.52-1.04) mg/dL Est GFR (CKD-EPI)AfAm (>60 ml/min/1.73 sqM) Est GFR (CKD-EPI)NonAf (>60 ml/min/1.73 sqM) Glucose (74-99) mg/dL Plasma Lactic Acid Flex (0.7-2.0) mmol/L Calcium (8.4-10.2) mg/dL Total Bilirubin (0.2-1.3) mg/dL AST (14-36) U/L ALT (9-52) U/L Alkaline Phosphatase (38-126) U/L Total Protein (6.3-8.2) g/dL Albumin (3.5-5.0) g/dL Urine Color Yellow Urine Appearance Turbid H (Clear) Urine pH 5.5 (5.0-8.0) Ur Specific [place] 1.017 (1.001-1.035) Urine Protein 1+ H (Negative) Urine Glucose (UA) Negative (Negative) Urine Ketones Negative (Negative) Urine Blood Small H (Negative) Urine Nitrite Positive H (Negative) Urine Bilirubin Negative (Negative) Urine Urobilinogen <2.0 (<2.0) mg/dL Ur Leukocyte Esterase Large H (Negative) Urine RBC 28 H (0-5) /hpf Urine WBC >182 H (0-5) /hpf Urine WBC Clumps Many H (None) /hpf Urine Bacteria Many H (None) /hpf Urine Mucus Few H (None) /hpf Disposition Clinical Impression: Altered mental status, Urinary tract infection Disposition: ADMITTED IP TO THIS HOSP Condition: Fair Is patient prescribed a controlled substance at d/c from ED?: No Referrals: Jose Luis Diamond MD [Primary Care Provider] - 1-2 days
[2018-04-28 04:57] VITALS: BMI 32.0
[2018-04-28] MEDS: SODIUM CHLORIDE 0.9% 1,000 ML IV SCH ×2 (06:39→19:11)
[2018-04-28] MEDS: ACETAMINOPHEN TAB 325 MG TAB PO PRN ×2 (09:30→18:23)
[2018-04-28] MEDS: ONDANSETRON 4 MG/2 ML VIAL IVP PRN ×2 (12:11→20:48)
[2018-04-28] MEDS ORDERED: METHYL SALICYLATE/MENTHOL CREAM 5 OZ TOPICAL PRN (15:18)
[2018-04-28] MEDS ORDERED: HYDROcodone/APAP 7.5-325MG 1 EACH TAB PO PRN (15:18)
[2018-04-28] MEDS ORDERED: POLYETHYLENE GLYCOL 3350 17 GM POWD.PACK PO PRN (15:18)
[2018-04-28] MEDS ORDERED: SENNOSIDES-DOCUSATE SODIUM 1 EACH TAB PO PRN (15:18)
[2018-04-28] MEDS ORDERED: ACETAMINOPHEN TAB 500 MG TAB PO PRN (15:18)
[2018-04-28] MEDS ORDERED: BISACODYL 10 MG SUPP RECTAL PRN (15:18)
[2018-04-28] MEDS ORDERED: BACLOFEN 10 MG TAB PO PRN (15:18)
[2018-04-28] MEDS ORDERED: PANTOPRAZOLE 40 MG TABLET PO PRN (15:26)
--- NOTE | 2018-04-28 15:29 | P.HPIM ---
History of Present Illness H&P Date: 04/28/18 Chief Complaint: Confusion This is an 82-year-old female patient of Dr. Diamond who resides at [facility]. She has underlying history of dementia, asthma, CAD, diabetes mellitus, hypertension, chronic kidney disease stage III and Parkinson's disease , previous CVAs. According to her son Constantino at the bedside, patient's Parkinson is usually under control. She is usually able to carry on a conversation. She did have a tooth pulled a couple weeks ago but other shrestha has been feeling fine. He does state that when she has urinary tract infections in the past she gets confused and also emotional. She has been residing at [facility] for the past 4 years. Patient was brought into [facility] emergency center for evaluation. She has been afebrile, her pressure has been labile and down to 88 systolic at times. Pulse ox 95% on 2 L. Her white count and hemoglobin were normal but renal function was worse at BUN is 76 and creatinine 2.8 to. Urinalysis was turbid with leukoesterase large, WBC greater than 182 and comes many bacteria many. Urine culture was sent. Chest x-ray shows left-sided pulmonary infiltrate is unchanged. This could be pulmonary scarring. No gross heart failure. Patient has been started on Levaquin and is status post a 500 mL fluid bolus. Patient also received morphine in the ER. She has been admitted to the [facility] floor and blood culture will be ordered. Patient had episode of emesis during evaluation. Review of Systems ROS unobtainable: due to mental status All systems: negative Constitutional: Reports fatigue, Reports lethargy, Reports malaise, Reports poor appetite, Reports weakness, Denies chills, Denies fever Eyes: denies blurred vision, denies pain Ears, nose, mouth and throat: Denies headache, Denies sore throat Cardiovascular: Denies chest pain, Denies shortness of breath Respiratory: Denies cough Gastrointestinal: Denies abdominal pain, Denies diarrhea, Denies nausea, Denies vomiting Genitourinary: Denies dysuria, Denies hematuria Musculoskeletal: Denies myalgias Integumentary: Denies pruritus, Denies rash Neurological: Reports confusion, Denies numbness, Denies weakness Psychiatric: Denies anxiety, Denies depression Endocrine: Denies fatigue, Denies weight change Past Medical History Past Medical History: Asthma, CVA/TIA, Dementia, Diabetes Mellitus, GERD/Reflux , Hyperlipidemia, Hypertension, Musculoskeletal Disorder, Neurologic Disorder, Osteoarthritis (OA), Renal Disease Additional Past Medical History / Comment(s): Pt recently admitted to [facility] on 04/03/17 with UTI/sepsis, AMS, severe metabolic encephalopathy Other HX: Current stage III decubitus ulcer, TIA possible CVA, insomina, RLS, Parkinson's disease with orofacial dyskinesia, dysphagia, spinal stenosis, DDD (lumbosacral region), NIDDM type II, polyneuropathy, UTI, chronic kidney dx stage IV, bowel/ bladder incontinence, past fecal impaction, chronic pain, per family-pt has periods of lucidity and occasional confusion. History of Any Multi-Drug Resistant Organisms: MRSA Date of last positivie culture/infection: 12/11/15 MDRO Source:: sputum Past Surgical History: Appendectomy, Cholecystectomy, Hysterectomy, Joint Replacement, Orthopedic Surgery Additional Past Surgical History / Comment(s): Cervical surgery x2 (1953), BL knee replacements. Pain clinic procedure. Past Anesthesia/Blood Transfusion Reactions: No Reported Reaction Past Psychological History: Unable to Obtain, Anxiety, Depression Smoking Status: Former smoker Past Alcohol Use History: Unable to Obtain Additional Past Alcohol Use History / Comment(s): Patient has been residing at [facility] since 2014. She is up in a chair via left. She is normally able to feed herself. She has history of smoking and quit in 1966. Past Drug Use History: None Reported - Past Family History Father Family Medical History: Cancer Additional Family Medical History / Comment(s): Unknown type of cancer. Sister(s) Family Medical History: Cancer Brother(s) Family Medical History: No Reported History Daughter(s) Family Medical History: No Reported History Son(s) Family Medical History: No Reported History Mother Family Medical History: Diabetes Mellitus Additional Family Medical History / Comment(s): PER RESIDENTIAL UNKNOWN FAMILY HISTORY Medications and Allergies Home Medications Medication Instructions Recorded Confirmed Type Fluticasone/Salmeterol [Advair 1 puff INHALATION RT-BID@0800,1700 07/30/1404/28 History 500-50 Diskus] Memantine [Namenda] 10 mg PO BID 07/30/14 04/28/18 History Pramipexole [Mirapex] 0.5 mg PO HS 07/30/14 04/28/18 History Carbidopa-Levodopa 25-100 mg 1 tab PO QID 12/29/14 04/28/18 History [Sinemet 25-100 mg] Isosorbide Mononitrate ER [Imdur] 30 mg PO DAILY 03/03/15 04/28/18 History Acetaminophen Tab [Tylenol] 500 mg PO Q8HR PRN 09/08/15 04/28/18 History Bisacodyl [Dulcolax] 10 mg RECTAL DAILY PRN 05/23/16 04/28/18 History Menthol [Biofreeze] 1 applic TOPICAL Q6H PRN 06/24/16 04/28/18 History Omeprazole [PriLOSEC] 20 mg PO QAM PRN 03/07/17 04/28/18 History Baclofen [Lioresal] 10 mg PO Q8H PRN 08/23/17 04/28/18 History Metoprolol Tartrate [Lopressor] 25 mg PO BID 08/23/17 04/28/18 History Sennosides/Docusate Sodium [Tammy 1 tab PO DAILY PRN 08/23/17 04/28/18 History Colace] sitaGLIPtin [Januvia] 50 mg PO DAILY 08/23/17 04/28/18 History HYDROcodone/APAP 7.5-325MG [[place] 1 tab PO Q6H PRN #90 tab 08/26/17 04/28/18 Rx 7.5-325] Ketotifen 0.025% Ophth Soln 1 drops BOTH EYES BID@0800,1700 04/28/18 04/28/18 History [Zaditor] Polyethylene Glycol 3350 [Miralax] 17 gm PO DAILY PRN 04/28/18 04/28/18 History Allergies Allergy/AdvReac Type Severity Reaction Status Date / Time codeine Allergy Unknown Verified 04/28/18 08:56 Penicillins Allergy Unknown Verified 04/28/18 08:56 Sulfa (Sulfonamide Allergy Unknown Verified 04/28/18 08:56 Antibiotics) Physical Exam Vitals: Vital Signs Temp Pulse Pulse Resp BP BP Pulse Ox 04/28/18 15:00 97.3 F L 70 18 100/50 96 04/28/18 09:18 153/62 95 10/02/18 06:35 97.0 F L 54 L 18 88/48 94 L 04/28/18 05:31 20 04/28/18 04:27 58 L 20 110/53 94 L 04/28/18 03:57 52 L 18 104/51 97 04/28/18 03:09 53 L 18 95/46 97 04/28/18 00:57 97.7 F 65 20 150/62 95 Intake and Output 04/28/18 04/28/18 04/28/18 06:59 14:59 22:59 Intake Total 450 Balance 450 Intake: Intake, IV Titration 50 Amount cefTRIAXone 1,000 mg In 50 Sodium Chloride 0.9% 50 ml @ 100 mls/hr IVPB Q24HR [facility] Rx#:[id number] Oral 400 Other: # Voids 1 2 # Bowel Movements 0 Weight 90 kg General appearance: average body habitus, cooperative, no acute distress, obese - EENT Eyes: anicteric sclerae, EOMI, PERRLA, dentition normal, normal appearance ENT: NA/AT, normal oropharynx - Neck Neck: normal ROM - Respiratory Respiratory: bilateral: CTA, negative: diminished, dullness, rales, rhonchi - Cardiovascular Rhythm: regular Abnormal Heart Sounds: no systolic murmur, no diastolic murmur, no rub, no S3 Gallop, no S4 Gallop, no click, no other - Gastrointestinal General gastrointestinal: normal bowel sounds, soft - Integumentary Integumentary: normal, normal turgor - Neurologic Neurologic: CNII-XII intact - Musculoskeletal Musculoskeletal: generalized weakness, strength equal bilaterally - Psychiatric Psychiatric: A&O x's 2, appropriate affect Results CBC & Chem 7: 04/28/18 01:10 04/28/18 01:10 Labs: Abnormal Lab Results - Last 24 Hours (Table) 04/28/18 04/28/18 04/28/18 Range/Units 01:10 01:10 01:15 RBC 3.42 L (3.80-5.40) m/uL Hgb 10.1 L (11.4-16.0) gm/dL Hct 31.4 L (34.0-46.0) % BUN 76 H (7-17) mg/dL Creatinine 2.82 H (0.52-1.04) mg/dL Glucose 100 H (74-99) mg/dL Urine Appearance Turbid H (Clear) Urine Protein 1+ H (Negative) Urine Blood Small H (Negative) Urine Nitrite Positive H (Negative) Ur Leukocyte Esterase Large H (Negative) Urine RBC 28 H (0-5) /hpf Urine WBC >182 H (0-5) /hpf Urine WBC Clumps Many H (None) /hpf Urine Bacteria Many H (None) /hpf Urine Mucus Few H (None) /hpf Microbiology - Last 24 Hours (Table) 04/28/18 01:15 Urine Culture - Preliminary Urine,Catheterized Thrombosis Risk Factor Assmnt - DVT/VTE Prophylaxis DVT/VTE Prophylaxis: Pharmacologic Prophylaxis ordered - Choose All That Apply Each Factor Represents 1 point: Medical pt on bed rest Each Risk Factor Represents 3 Points: Age 75 years or older Thrombosis Risk Factor Assessment Total Risk Factor Score: 4 Thrombosis Risk Factor Assessment Level: Moderate Risk Assessment and Plan Plan: 1. Metabolic encephalopathy secondary to urinary tract infection and sepsis. Antibiotics will be switched to ceftriaxone which she has tolerated in the past. Urine culture is in progress. Blood culture will be obtained. 2. Acute kidney injury with chronic kidney disease stage III with dehydration. Avoid nephrotoxic agents. Continue to monitor kidney function. 3. CAD. Continue patient on Imdur 30 mg orally once every day, Lopressor 25 mg twice daily. 4. Hypertension and hypertensive cardiovascular disease. Continue Lopressor and Imdur 5. Hyperlipidemia. She is not currently on statin. 6. Diabetes mellitus type 2. Continue Januvia. Humalog scale before meals and at bedtime. 7. Parkinson with orofacial dyskinesia. Continue patient on Sinemet 25/100 one tablet orally 4 times every day, Baclofen 10 mg every 8 hours as needed, Namenda 10 mg twice daily. 8. Diabetic polyneuropathy. Off gabapentin. 9. Restless leg syndrome. Continue patient on Mirapex 0.5 mg at bedtime. 10. Alzheimer dementia with behavior disturbance and impaired oral phase of eating patient tends to pocket food. Continue Namenda 10 mg orally twice every day 11. Depression, recurrent. Off medication. 12. DVT prophylaxis. Heparin 5000 units every 12 hours subcutaneously. 14. GI prophylaxis. Omeprazole or equivalent. 15. Patient is no code no CPR and no ventilation, no aggressive medical. 16. Admit to inpatient. Estimate a length of stay 2 midnights. Discharge plan: Return to [facility] Impression and plan of care have been directed as dictated by the signing physician. Jailyn Navarro nurse practitioner acting as scribe for signing physician.
[2018-04-28 18:23] LABS: Glucose,Whole Blood 94 mg/dL (75-99)
[2018-04-28] MEDS: KETOTIFEN 0.025% OPHTH DROPS 5 ML BTL BOTH EYES SCH (18:24)
[2018-04-28] MEDS: CARBIDOPA-LEVODOPA 25-100 MG 1 EACH TAB PO SCH ×2 (18:25→20:37)
[2018-04-28] MEDS: INSULIN ASPART 100 UNIT/ML 1 ML 10 ML VIAL SQ SCH ×2 (18:25→21:56)
[2018-04-28] MEDS: SYMBICORT 160-4.5 MCG INHALER INHALATION SCH (19:25)
[2018-04-28] MEDS: METOPROLOL TARTRATE 25 MG TAB PO SCH (20:36)
[2018-04-28] MEDS: PRAMIPEXOLE 0.5 MG TAB PO SCH (20:36)
[2018-04-28] MEDS: MEMANTINE 10 MG TAB PO SCH (20:36)
[2018-04-28] MEDS: HEPARIN SODIUM,PORCINE 5,000 UNIT/ML 1 ML VIAL SQ SCH (20:41)
[2018-04-28 21:06] LABS: Glucose,Whole Blood 176 mg/dL (75-99)
[2018-04-29] MEDS: ACETAMINOPHEN TAB 325 MG TAB PO PRN ×2 (02:55→09:13)
[2018-04-29 06:03] LABS: Hemoglobin A1C 5.6 % (4.0-6.0)
[2018-04-29] MEDS: SODIUM CHLORIDE 0.9% 1,000 ML IV SCH ×3 (06:22→21:38)
[2018-04-29 07:11] LABS: Glucose,Whole Blood 111 mg/dL (75-99)
[2018-04-29] MEDS: MEMANTINE 10 MG TAB PO SCH ×2 (09:13→21:36)
[2018-04-29] MEDS: METOPROLOL TARTRATE 25 MG TAB PO SCH ×2 (09:13→21:36)
[2018-04-29] MEDS: CARBIDOPA-LEVODOPA 25-100 MG 1 EACH TAB PO SCH ×4 (09:13→21:36)
[2018-04-29] MEDS: LINAGLIPTIN 5 MG TABLET PO SCH (09:13)
[2018-04-29] MEDS: ISOSORBIDE MONONITRATE ER 30 MG TAB.ER.24H PO SCH (09:14)
[2018-04-29] MEDS: HEPARIN SODIUM,PORCINE 5,000 UNIT/ML 1 ML VIAL SQ SCH ×2 (09:14→21:36)
[2018-04-29] MEDS: KETOTIFEN 0.025% OPHTH DROPS 5 ML BTL BOTH EYES SCH ×2 (09:14→18:11)
[2018-04-29] MEDS: INSULIN ASPART 100 UNIT/ML 1 ML 10 ML VIAL SQ SCH ×4 (09:15→21:37)
[2018-04-29] MEDS ORDERED: METOCLOPRAMIDE 5 MG/ML 2 ML VIAL IVP PRN (09:56)
[2018-04-29] MEDS: SYMBICORT 160-4.5 MCG INHALER INHALATION SCH ×2 (10:10→19:16)
[2018-04-29 11:35] LABS: Glucose,Whole Blood 105 mg/dL (75-99)
[2018-04-29 11:37] LABS: Calcium 8.1 mg/dL (8.4-10.2); Potassium 5.4 mmol/L (3.5-5.1)
--- NOTE | 2018-04-29 15:37 | P.PN ---
Subjective Progress Note Date: 04/29/18 This is an 82-year-old female patient of Dr. Diamond who resides at [facility]. She has underlying history of dementia, asthma, CAD, diabetes mellitus, hypertension, chronic kidney disease stage III and Parkinson's disease , previous CVAs. According to her son Constantino at the bedside, patient's Parkinson is usually under control. She is usually able to carry on a conversation. She did have a tooth pulled a couple weeks ago but other shrestha has been feeling fine. He does state that when she has urinary tract infections in the past she gets confused and also emotional. She has been residing at [facility] for the past 4 years. Patient was brought into [facility] emergency center for evaluation. She has been afebrile, her pressure has been labile and down to 88 systolic at times. Pulse ox 95% on 2 L. Her white count and hemoglobin were normal but renal function was worse at BUN is 76 and creatinine 2.8 to. Urinalysis was turbid with leukoesterase large, WBC greater than 182 and comes many bacteria many. Urine culture was sent. Chest x-ray shows left-sided pulmonary infiltrate is unchanged. This could be pulmonary scarring. No gross heart failure. Patient has been started on Levaquin and is status post a 500 mL fluid bolus. Patient also received morphine in the ER. She has been admitted to the [facility] floor and blood culture will be ordered. Patient had episode of emesis during evaluation. 04/29: Patient's mental status is slightly improved from yesterday. Potassium is 5.4 and patient is not on potassium supplement. BUN 47 and creatinine 2.09. Urine culture is showing gram-negative bacilli. She is currently on ceftriaxone. Anticipate possible discharge back to [facility] tomorrow. Objective - Vital Signs Vital signs: Vital Signs Temp 98.4 F 04/29/18 06:26 Pulse 81 04/29/18 06:26 Resp 18 04/29/18 06:26 BP 138/63 04/29/18 06:26 Pulse Ox 94 L 04/29/18 06:26 Intake & Output 04/28/18 04/29/18 04/29/18 18:59 06:59 18:59 Intake Total 450 Balance 450 Intake: Intake, IV Titration 50 Amount cefTRIAXone 1,000 mg In 50 Sodium Chloride 0.9% 50 ml @ 100 mls/hr IVPB Q24HR NABEEL Rx#:[id number] Oral 400 Other: # Voids 2 2 # Bowel Movements 0 - Exam General appearance: average body habitus, cooperative, no acute distress, obese - EENT Eyes: anicteric sclerae, EOMI, PERRLA, dentition normal, normal appearance ENT: NA/AT, normal oropharynx - Neck Neck: normal ROM - Respiratory Respiratory: bilateral: CTA, negative: diminished, dullness, rales, rhonchi - Cardiovascular Rhythm: regular Abnormal Heart Sounds: no systolic murmur, no diastolic murmur, no rub, no S3 Gallop, no S4 Gallop, no click, no other - Gastrointestinal General gastrointestinal: normal bowel sounds, soft - Integumentary Integumentary: normal, normal turgor - Neurologic Neurologic: CNII-XII intact - Musculoskeletal Musculoskeletal: generalized weakness, strength equal bilaterally - Psychiatric Psychiatric: A&O x's 3, appropriate affect - Labs CBC & Chem 7: 04/28/18 01:10 04/29/18 11:10 Labs: Abnormal Lab Results - Last 24 Hours (Table) 04/28/18 04/29/18 Range/Units 20:57 07:04 POC Glucose (mg/dL) 176 H 111 H (75-99) mg/dL Microbiology - Last 24 Hours (Table) 04/28/18 01:15 Urine Culture - Preliminary Urine,Catheterized Assessment and Plan Plan: 1. Metabolic encephalopathy secondary to urinary tract infection and sepsis. Antibiotics will be switched to ceftriaxone which she has tolerated in the past. Urine culture is in progress. Blood culture will be obtained. 2. Acute kidney injury with chronic kidney disease stage III with dehydration. Avoid nephrotoxic agents. Continue to monitor kidney function. 3. CAD. Continue patient on Imdur 30 mg orally once every day, Lopressor 25 mg twice daily. 4. Hypertension and hypertensive cardiovascular disease. Continue Lopressor and Imdur 5. Hyperlipidemia. She is not currently on statin. 6. Diabetes mellitus type 2. Continue Januvia. Humalog scale before meals and at bedtime. 7. Parkinson with orofacial dyskinesia. Continue patient on Sinemet 25/100 one tablet orally 4 times every day, Baclofen 10 mg every 8 hours as needed, Namenda 10 mg twice daily. 8. Diabetic polyneuropathy. Off gabapentin. 9. Restless leg syndrome. Continue patient on Mirapex 0.5 mg at bedtime. 10. Alzheimer dementia with behavior disturbance and impaired oral phase of eating patient tends to pocket food. Continue Namenda 10 mg orally twice every day 11. Depression, recurrent. Off medication. 12. DVT prophylaxis. Heparin 5000 units every 12 hours subcutaneously. 14. GI prophylaxis. Omeprazole or equivalent. 15. Patient is no code no CPR and no ventilation, no aggressive medical. Discharge plan: Return to [facility] Impression and plan of care have been directed as dictated by the signing physician. Jailyn Navarro nurse practitioner acting as scribe for signing physician.
[2018-04-29 17:05] LABS: Glucose,Whole Blood 211 mg/dL (75-99)
[2018-04-29] MEDS: ONDANSETRON 4 MG/2 ML VIAL IVP PRN ×2 (18:26→23:29)
[2018-04-29 20:54] LABS: Glucose,Whole Blood 122 mg/dL (75-99)
[2018-04-29] MEDS: PRAMIPEXOLE 0.5 MG TAB PO SCH (21:36)
[2018-04-30] MEDS: SYMBICORT 160-4.5 MCG INHALER INHALATION SCH (07:27)
[2018-04-30 07:38] LABS: Glucose,Whole Blood 115 mg/dL (75-99)
[2018-04-30 08:00] LABS: Calcium 8.3 mg/dL (8.4-10.2); Potassium 5.3 mmol/L (3.5-5.1)
[2018-04-30 08:01] VITALS: BP 181/75; PULSE 66; RESP 18; TEMP 98.1
[2018-04-30] MEDS: ONDANSETRON 4 MG/2 ML VIAL IVP PRN (08:23)
[2018-04-30] MEDS: INSULIN ASPART 100 UNIT/ML 1 ML 10 ML VIAL SQ SCH ×2 (08:23→13:47)
[2018-04-30] MEDS: MEMANTINE 10 MG TAB PO SCH (10:55)
[2018-04-30] MEDS: METOPROLOL TARTRATE 25 MG TAB PO SCH (10:55)
[2018-04-30] MEDS: ISOSORBIDE MONONITRATE ER 30 MG TAB.ER.24H PO SCH (10:55)
[2018-04-30] MEDS: HEPARIN SODIUM,PORCINE 5,000 UNIT/ML 1 ML VIAL SQ SCH (10:56)
[2018-04-30] MEDS: LINAGLIPTIN 5 MG TABLET PO SCH (10:56)
[2018-04-30] MEDS: KETOTIFEN 0.025% OPHTH DROPS 5 ML BTL BOTH EYES SCH (10:56)
[2018-04-30] MEDS: CARBIDOPA-LEVODOPA 25-100 MG 1 EACH TAB PO SCH (10:56)
[2018-04-30] MEDS: SODIUM CHLORIDE 0.9% 1,000 ML IV SCH ×2 (11:35→16:31)
[2018-04-30 11:52] LABS: Glucose,Whole Blood 106 mg/dL (75-99)
--- NOTE | 2018-04-30 14:55 | P.DS ---
Providers Date of admission: 04/28/18 10:50 Expected date of discharge: 04/30/18 Attending physician: Lily Hanley MD Primary care physician: Jose Luis Diamond [facility] Course: This is an 82-year-old female patient of Dr. Diamond who resides at [facility]. She has underlying history of dementia, asthma, CAD, diabetes mellitus, hypertension, chronic kidney disease stage III and Parkinson's disease , previous CVAs. According to her son Constantino at the bedside, patient's Parkinson is usually under control. She is usually able to carry on a conversation. She did have a tooth pulled a couple weeks ago but other shrestha has been feeling fine. He does state that when she has urinary tract infections in the past she gets confused and also emotional. She has been residing at [facility] for the past 4 years. Patient was brought into [facility] emergency center for evaluation. She has been afebrile, her pressure has been labile and down to 88 systolic at times. Pulse ox 95% on 2 L. Her white count and hemoglobin were normal but renal function was worse at BUN is 76 and creatinine 2.8 to. Urinalysis was turbid with leukoesterase large, WBC greater than 182 and comes many bacteria many. Urine culture was sent. Chest x-ray shows left-sided pulmonary infiltrate is unchanged. This could be pulmonary scarring. No gross heart failure. Patient has been started on Levaquin and is status post a 500 mL fluid bolus. Patient also received morphine in the ER. She has been admitted to the [facility] floor and blood culture will be ordered. Patient had episode of emesis during evaluation. 04/29: Patient's mental status is slightly improved from yesterday. Potassium is 5.4 and patient is not on potassium supplement. BUN 47 and creatinine 2.09. Urine culture is showing gram-negative bacilli. She is currently on ceftriaxone. Anticipate possible discharge back to [facility] tomorrow. 04/30: Repeat BUN 33 and creatinine 1.62 with potassium of 5.3. Urine culture is positive for E. coli sensitive to ceftriaxone. Antibiotics will be switched to oral Keflex and patient will be discharged back to [facility] today in stable condition. Mental status appears to be her baseline. Discharge diagnoses: 1. Metabolic encephalopathy secondary to urinary tract infection and sepsis. 2. Acute kidney injury with chronic kidney disease stage III with dehydration. 3. CAD. 4. Hypertension and hypertensive cardiovascular disease. 5. Hyperlipidemia. 6. Diabetes mellitus type 2. 7. Parkinson with orofacial dyskinesia. 8. Diabetic polyneuropathy. 9. Restless leg syndrome. 10. Alzheimer dementia with behavior disturbance and impaired oral phase of eating patient tends to pocket food. 11. Depression, recurrent. 12. Hyperkalemia secondary to kidney disease. Discharge plan: Return to [facility] Impression and plan of care have been directed as dictated by the signing physician. Jailyn Navarro nurse practitioner acting as scribe for signing physician. Patient Condition at Discharge: Good Plan - Discharge Summary New Discharge Prescriptions: New Cephalexin [Keflex] 250 mg PO Q12HR #14 capsule Continue Memantine [Namenda] 10 mg PO BID Pramipexole [Mirapex] 0.5 mg PO HS Fluticasone/Salmeterol [Advair 500-50 Diskus] 1 puff INHALATION RT-BID@0800, 1700 Carbidopa-Levodopa 25-100 mg [Sinemet 25-100 mg] 1 tab PO QID Isosorbide Mononitrate ER [Imdur] 30 mg PO DAILY Acetaminophen Tab [Tylenol] 500 mg PO Q8HR PRN PRN Reason: Pain Bisacodyl [Dulcolax] 10 mg RECTAL DAILY PRN PRN Reason: Constipation Menthol [Biofreeze] 1 applic TOPICAL Q6H PRN PRN Reason: Pain Omeprazole [PriLOSEC] 20 mg PO QAM PRN PRN Reason: GERD Baclofen [Lioresal] 10 mg PO Q8H PRN PRN Reason: Spasms Metoprolol Tartrate [Lopressor] 25 mg PO BID Sennosides/Docusate Sodium [Tammy Colace] 1 tab PO DAILY PRN PRN Reason: Constipation sitaGLIPtin [Januvia] 50 mg PO DAILY Ketotifen 0.025% Ophth Soln [Zaditor] 1 drops BOTH EYES BID@0800,1700 Polyethylene Glycol 3350 [Miralax] 17 gm PO DAILY PRN PRN Reason: Constipation HYDROcodone/APAP 7.5-325MG [[place] 7.5-325] 1 tab PO Q6H PRN #12 tab PRN Reason: Severe Pain Discharge Medication List Fluticasone/Salmeterol [Advair 500-50 Diskus] 1 puff INHALATION RT-BID@0800, 1700 07/30/14 [History] Memantine [Namenda] 10 mg PO BID 07/30/14 [History] Pramipexole [Mirapex] 0.5 mg PO HS 07/30/14 [History] Carbidopa-Levodopa 25-100 mg [Sinemet 25-100 mg] 1 tab PO QID 12/29/14 [History] Isosorbide Mononitrate ER [Imdur] 30 mg PO DAILY 03/03/15 [History] Acetaminophen Tab [Tylenol] 500 mg PO Q8HR PRN 09/08/15 [History] Bisacodyl [Dulcolax] 10 mg RECTAL DAILY PRN 05/23/16 [History] Menthol [Biofreeze] 1 applic TOPICAL Q6H PRN 06/24/16 [History] Omeprazole [PriLOSEC] 20 mg PO QAM PRN 03/07/17 [History] Baclofen [Lioresal] 10 mg PO Q8H PRN 08/23/17 [History] Metoprolol Tartrate [Lopressor] 25 mg PO BID 08/23/17 [History] Sennosides/Docusate Sodium [Tammy Colace] 1 tab PO DAILY PRN 08/23/17 [History] sitaGLIPtin [Januvia] 50 mg PO DAILY 08/23/17 [History] Ketotifen 0.025% Ophth Soln [Zaditor] 1 drops BOTH EYES BID@0800,1700 04/28/18 [ History] Polyethylene Glycol 3350 [Miralax] 17 gm PO DAILY PRN 04/28/18 [History] Cephalexin [Keflex] 250 mg PO Q12HR #14 capsule 04/30/18 [Rx] HYDROcodone/APAP 7.5-325MG [[place] 7.5-325] 1 tab PO Q6H PRN #12 tab 04/30/18 [Rx ] Follow up Appointment(s)/Referral(s): Jose Luis Diamond MD [Primary Care Provider] - 1 Week (at [facility]) Roel Singh, [NON-STAFF] - Patient Instructions/Handouts: Urinary Tract Infection in Women (DC) Activity/Diet/Wound Care/Special Instructions: Up with assist, fall precautions, change positions every 2 hours while awake. Cardiac, diabetic diet. Assist with meals. Aspiration precautions. MRSA precautions. DNR code status. Discharge Disposition: TRANSFER TO SNF/ECF
== END 2018-04-30 16:40 | DRG 871 ==
LOC: EC 00:52 → 4MS4W 03:10 → OBSVTOIN 10:50
PROVIDERS: ADMIT Internal Medicine; ATTEND Internal Medicine
DX: A41.9 Sepsis, unspecified organism (principal); L89.153 Pressure ulcer of sacral region, stage 3; G93.41 Metabolic encephalopathy; F02.81 Dementia in other diseases classified elsewhere, unspecified severity, with behavioral disturbance; F33.9 Major depressive disorder, recurrent, unspecified; N17.9 Acute kidney failure, unspecified; N39.0 Urinary tract infection, site not specified; R65.20 Severe sepsis without septic shock; E11.22 Type 2 diabetes mellitus with diabetic chronic kidney disease; E11.42 Type 2 diabetes mellitus with diabetic polyneuropathy; G20 Parkinson's disease; E86.0 Dehydration; E87.5 Hyperkalemia; R13.11 Dysphagia, oral phase; R15.9 Full incontinence of feces; G30.9 Alzheimer's disease, unspecified; I13.10 Hypertensive heart and chronic kidney disease without heart failure, with stage 1 through stage 4 chronic kidney disease, or unspecified chronic kidney disease; N18.3 Chronic kidney disease, stage 3 (moderate); F41.9 Anxiety disorder, unspecified; E78.5 Hyperlipidemia, unspecified; G24.4 Idiopathic orofacial dystonia; G25.81 Restless legs syndrome; I25.10 Atherosclerotic heart disease of native coronary artery without angina pectoris; J45.909 Unspecified asthma, uncomplicated; K21.9 Gastro-esophageal reflux disease without esophagitis; M19.90 Unspecified osteoarthritis, unspecified site; R91.8 Other nonspecific abnormal finding of lung field; G47.00 Insomnia, unspecified; M48.00 Spinal stenosis, site unspecified; M51.37 Other intervertebral disc degeneration, lumbosacral region; R32 Unspecified urinary incontinence; G89.29 Other chronic pain; Z79.84 Long term (current) use of oral hypoglycemic drugs; Z79.82 Long term (current) use of aspirin; Z79.890 Hormone replacement therapy; Z79.899 Other long term (current) drug therapy; Z90.710 Acquired absence of both cervix and uterus; Z87.440 Personal history of urinary (tract) infections; Z86.73 Personal history of transient ischemic attack (TIA), and cerebral infarction without residual deficits; Z90.49 Acquired absence of other specified parts of digestive tract; Z87.891 Personal history of nicotine dependence; Z88.5 Allergy status to narcotic agent; Z88.0 Allergy status to penicillin; Z88.2 Allergy status to sulfonamides; Z86.14 Personal history of Methicillin resistant Staphylococcus aureus infection; Z96.653 Presence of artificial knee joint, bilateral; Z83.3 Family history of diabetes mellitus; Z80.9 Family history of malignant neoplasm, unspecified
CPT/HCPCS: 36415; 71045; 80048; 80053; 81001; 83036; 83605; 85025; 87040; 87077; 87086; 87186; 93005; 94640; 96365; 96375; 96376; 99285

== ENCOUNTER 2018-05-29 12:41 | Day surgery (SDC) | payer MEDICARE, OTHER ==
[2018-05-28 13:27] VITALS: BMI 37.0
[2018-05-29 11:26] VITALS: BP 117/56; PULSE 57; RESP 20; TEMP 97.8
[~2018-05-29 12:41] MED LIST changes: -LACTATED RINGERS 1,000 ML IV SCH; +LIDOCAINE 1% INJ 10MG/ML (20 ML MDV) SQ ONE
--- NOTE | 2018-05-29 13:15 | XR ---
EXAMINATION TYPE: XR chest 1V DATE OF EXAM: 05/29/2018 COMPARISON: 04/28/2018 HISTORY: PICC line placement TECHNIQUE: Single frontal view of the chest is obtained. FINDINGS: Sided PICC line seen with the tip overlying the SVC. Atherosclerotic change of the aorta. Subsegmental changes involving the lung suggestive of scar or atelectasis and stable. Underlying COPD suspected. Arthropathy of the shoulders. Subsegmental changes at the left lung base are stable. IMPRESSION: 1. PICC line is in good position. 2. Left-sided subsegmental areas of infiltrate are stable follow resolution recommended.
--- NOTE | 2018-05-29 13:37 | IR ---
PICC LINE PLACEMENT: HISTORY: Infection requiring long-term antibiotic therapy PROCEDURE: Ultrasound and fluoroscopic guidance of PICC line placement. COMPLICATIONS: None ANESTHESIA: 1. 1% Lidocaine locally. FINDINGS/TECHNIQUE: The procedure was explained to the patient. The risks, complications, benefits and alternatives were discussed and any questions were answered. Informed consent was obtained. The patient was placed supine on the fluoroscopic table and prepped and draped in the usual sterile fash ion. Utilizing a 21 gauge needle and sonographic and fluoroscopic guidance, access in the left basi lic vein was achieved and there is placement of a 0.018 guidewire. The vein is patent. A 4-F sheath was placed over the guidewire. The guidewire and dilator were removed and a 4-F. PICC line was plac ed through the sheath with the tip at the level of the SVC. The sheath was removed, the catheter was flushed and sutured into position. The patient was stable throughout the procedure and remained sta ble upon discharge from the Department of Radiology. The vein puncture was patent under ultrasound. A torres scale image was obtained to document patency of the vein punctured. All elements of the maximal barrier technique were utilized. FLUOROSCOPY TIME: 0.5 minutes, one image submitted IMPRESSION: Successful PICC line placement under ultrasound and fluoroscopic guidance.
== END 2018-05-29 13:28 | disposition home or self-care (01) ==
LOC: CATHCVL 12:41
PROVIDERS: ATTEND Radiology Diagnostic Radiology
DX: N39.0 Urinary tract infection, site not specified (principal)
CPT/HCPCS: 36569; 76937; 77001; 71045; C1751; C1769; J2001

== ENCOUNTER 2018-06-01 02:47 | Emergency (ER) | payer MEDICARE, OTHER ==
[2018-06-01] MEDS ORDERED: FAMOTIDINE 20 MG/2 ML VIAL IV STA (03:01)
[2018-06-01] MEDS ORDERED: methylPREDNISolone SOD SUCCI 125 MG/2 ML VIAL IV STA (03:01)
--- NOTE | 2018-06-01 04:23 | ED ---
Allergic Reaction HPI - General Chief complaint: Allergic Reaction Stated complaint: infection Time Seen by Provider: 06/01/18 02:52 Source: patient, EMS Mode of arrival: EMS Limitations: no limitations - History of Present Illness Initial Comments: 82-year-old female patient presents to the emergency department today for evaluation of rash and possible ALLERGIC reaction. Patient resides at [facility] and rehab. She is being treated for urinary tract infection with meropenem through the PICC line. Patient developed a rash to her chest, arms, and legs this evening. Patient reports that the rash is itchy. She did receive 50 mg of Benadryl prior to arrival however did not help her symptoms so the physician at [facility] wanted her sent here for further evaluation. Patient denies any lip, tongue, or throat swelling. Denies any shortness of breath. She denies exposure to other new substances including soaps, lotions, creams, or detergents that she knows of however laundry is done by [facility] staff. She denies any fever, chills, chest pain, chest tightness, abdominal pain, nausea, or vomiting. - Related Data Home Medications Medication Instructions Recorded Confirmed Fluticasone/Salmeterol [Advair 1 puff INHALATION RT-BID@0800,1700 07/30/1405/28 500-50 Diskus] Memantine [Namenda] 10 mg PO BID 07/30/14 05/28/18 Pramipexole [Mirapex] 0.5 mg PO HS 07/30/14 05/28/18 Carbidopa-Levodopa 25-100 mg 1 tab PO QID 12/29/14 05/28/18 [Sinemet 25-100 mg] Isosorbide Mononitrate ER [Imdur] 30 mg PO DAILY 03/03/15 05/28/18 Acetaminophen Tab [Tylenol] 500 mg PO Q8HR PRN 09/08/15 05/28/18 Bisacodyl [Dulcolax] 10 mg RECTAL DAILY PRN 05/23/16 05/28/18 Menthol [Biofreeze] 1 applic TOPICAL Q6H PRN 06/24/16 05/28/18 Omeprazole [PriLOSEC] 20 mg PO QAM PRN 03/07/17 05/28/18 Baclofen [Lioresal] 10 mg PO Q8H PRN 08/23/17 05/28/18 Sennosides/Docusate Sodium [Tammy 1 tab PO DAILY PRN 08/23/17 05/28/18 Colace] sitaGLIPtin [Januvia] 50 mg PO DAILY 08/23/17 05/28/18 Ketotifen 0.025% Ophth Soln 1 drops BOTH EYES BID@0800,1700 04/28/18 05/28/18 [Zaditor] Polyethylene Glycol 3350 [Miralax] 17 gm PO DAILY PRN 04/28/18 05/28/18 Albuterol Nebulized [Ventolin 2.5 mg INHALATION Q6H 05/28/18 05/29/18 Nebulized] Aspirin 81 mg PO DAILY 05/28/18 05/28/18 Buprenorphine [Butrans 10 MCG/HOUR] 1 each TRANSDERM Q7D 05/28/18 05/28/18 Donepezil HCl [Aricept] 10 mg PO DAILY 05/28/18 05/28/18 Furosemide [Lasix] 40 mg PO DAILY 05/28/18 05/28/18 Gabapentin [Neurontin] 300 mg PO DAILY 05/28/18 05/28/18 Ibuprofen [Motrin] 600 mg PO Q8HR PRN 05/28/18 05/28/18 Losartan Potassium 50 mg PO DAILY 05/28/18 05/28/18 Melatonin 1 mg PO HS 05/28/18 05/28/18 Metoprolol Tartrate [Lopressor] 25 mg PO BID 05/28/18 05/28/18 Pravastatin Sodium [Pravachol] 40 mg PO DAILY 05/28/18 05/28/18 lamoTRIgine [LaMICtal] 200 mg PO BID 05/28/18 05/28/18 Previous Rx's Medication Instructions Recorded HYDROcodone/APAP 7.5-325MG [[place] 1 tab PO Q6H PRN #12 tab 04/30/18 7.5-325] Famotidine [Pepcid] 20 mg PO DAILY #3 tablet 06/01/18 predniSONE 50 mg PO DAILY #3 tablet 06/01/18 Allergies Allergy/AdvReac Type Severity Reaction Status Date / Time codeine Allergy Unknown Verified 05/28/18 12:43 Penicillins Allergy Unknown Verified 05/28/18 12:43 Sulfa (Sulfonamide Allergy Unknown Verified 05/28/18 12:43 Antibiotics) Review of Systems ROS Statement: Those systems with pertinent positive or pertinent negative responses have been documented in the HPI. ROS Other: All systems not noted in ROS Statement are negative. Past Medical History Past Medical History: Asthma, CVA/TIA, Dementia, Diabetes Mellitus, GERD/Reflux , Hyperlipidemia, Hypertension, Musculoskeletal Disorder, Neurologic Disorder, Osteoarthritis (OA), Renal Disease Additional Past Medical History / Comment(s): Pt recently admitted to [facility] on 04/03/17 with UTI/sepsis, AMS, severe metabolic encephalopathy Other HX: Current stage III decubitus ulcer, TIA, possible CVA, insomina, RLS, Parkinson' s disease, dyskinesia, dysphagia, spinal stenosis, DDD (lumbosacral region), NIDDM type II, polyneuropathy, UTI, chronic kidney dx stage III, bowel/bladder incontinence, past fecal impaction. Frequent UTI's has to take antxb. or will become septic. 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 Pain clinic procedure. Past Anesthesia/Blood Transfusion Reactions: No Reported Reaction Past Psychological History: Unable to Obtain, Anxiety, Depression Smoking Status: Former smoker - Past Family History Father Family Medical History: Cancer Additional Family Medical History / Comment(s): Unknown type of cancer. Sister(s) Family Medical History: Cancer Brother(s) Family Medical History: No Reported History Daughter(s) Family Medical History: No Reported History Son(s) Family Medical History: No Reported History Mother Family Medical History: Diabetes Mellitus Additional Family Medical History / Comment(s): PER SNF UNKNOWN FAMILY HISTORY General Exam Limitations: no limitations General appearance: alert, in no apparent distress, other (This is a well- developed, well-nourished elderly female patient in no acute distress. Vital signs upon presentation are temperature 98.8F, pulse 66, respirations 16, blood pressure 133/49, pulse ox 95% on room air.) Eye exam: Present: normal appearance, PERRL, EOMI. Absent: scleral icterus, conjunctival injection, periorbital swelling ENT exam: Present: normal exam, normal oropharynx, mucous membranes moist Respiratory exam: Present: normal lung sounds bilaterally. Absent: respiratory distress, wheezes, rales, rhonchi, stridor Cardiovascular Exam: Present: regular rate, normal rhythm, normal heart sounds. Absent: systolic murmur, diastolic murmur, rubs, gallop, clicks GI/Abdominal exam: Present: soft, normal bowel sounds. Absent: distended, tenderness, guarding, rebound, rigid Neurological exam: Present: alert, oriented X3, CN II-XII intact Psychiatric exam: Present: normal affect, normal mood Skin exam: Present: warm, dry, intact, normal color, rash (Rash to bilateral arms, chest, neck, and anterior thighs is urticarial. Lesions are non-petechial , nonvesicular, nonmucosal. No drainage from the lesions.) Course Vital Signs 06/01/18 02:54 Temperature 98.8 F Pulse Rate 66 Respiratory 16 Rate Blood Pressure 133/49 O2 Sat by Pulse 95 Oximetry Medical Decision Making - Medical Decision Making 82-year-old female patient presented to the emergency department today for evaluation of rash to her arms, chest, and anterior legs. Physical examination did reveal an urticarial type rash to these areas. Patient is currently receiving meropenem IV at the nursing facility where she resides. Patient has had several doses of the medication however there is concern for delayed hypersensitivity reaction. Patient was given IV Solu-Medrol and Pepcid here in the department. Upon reevaluation she states that the itching has improved. Rash is still visible. Patient has not had any respiratory distress or facial swelling while here. We will discharge her back to the facility with prescriptions for prednisone and Pepcid to take for 3 days. Instructions to take Benadryl every 6 hours as needed. Return parameters were discussed in detail. She verbalizes understanding and agrees with this plan. Disposition Clinical Impression: Allergic reaction to drug Disposition: HOME SELF-CARE Condition: Good Instructions: General Allergic Reaction (ED) Additional Instructions: Complete steroid prescription. Take pepcid as directed. Take benadryl every 6 hours as needed for itching. Consult with Dr. Diamond regarding antibiotic regimen. Return immediately for any new, worsening, or concerning symptoms. Prescriptions: Famotidine [Pepcid] 20 mg PO DAILY #3 tablet predniSONE 50 mg PO DAILY #3 tablet Is patient prescribed a controlled substance at d/c from ED?: No Referrals: Jose Luis Diamond MD [Primary Care Provider] - 1-2 days Time of Disposition: 04:23
[2018-06-01 04:35] VITALS: BP 123/46; PULSE 58; RESP 16; TEMP 98.5
== END 2018-06-01 04:56 | disposition home or self-care (01) ==
LOC: EC 02:47
DX: R21 Rash and other nonspecific skin eruption (principal); T36.1X5A Adverse effect of cephalosporins and other beta-lactam antibiotics, initial encounter; J45.909 Unspecified asthma, uncomplicated; G30.9 Alzheimer's disease, unspecified; F02.80 Dementia in other diseases classified elsewhere, unspecified severity, without behavioral disturbance, psychotic disturbance, mood disturbance, and anxiety; K21.9 Gastro-esophageal reflux disease without esophagitis; E78.5 Hyperlipidemia, unspecified; I10 Essential (primary) hypertension; M19.90 Unspecified osteoarthritis, unspecified site; E11.40 Type 2 diabetes mellitus with diabetic neuropathy, unspecified; G25.81 Restless legs syndrome; G20 Parkinson's disease; F32.9 Major depressive disorder, single episode, unspecified; F41.9 Anxiety disorder, unspecified; Z86.73 Personal history of transient ischemic attack (TIA), and cerebral infarction without residual deficits; Z87.440 Personal history of urinary (tract) infections; Z87.891 Personal history of nicotine dependence; Z79.84 Long term (current) use of oral hypoglycemic drugs; Z79.51 Long term (current) use of inhaled steroids; Z79.82 Long term (current) use of aspirin; Z79.899 Other long term (current) drug therapy; Z88.0 Allergy status to penicillin; Z88.2 Allergy status to sulfonamides; Z88.5 Allergy status to narcotic agent; Z96.653 Presence of artificial knee joint, bilateral
CPT/HCPCS: 99284; 96374; 96375; J2930

== ENCOUNTER 2018-06-13 23:17 | Inpatient (IN) | payer MEDICARE, OTHER ==
--- NOTE | 2018-06-13 23:41 | ED ---
Altered Mental Status HPI - General Chief Complaint: Altered Mental Status Stated Complaint: Altered Mental Status Time Seen by Provider: 06/13/18 23:30 Source: family, EMS Mode of arrival: EMS Limitations: altered mental status - History of Present Illness Initial Comments: Pain is an 82-year-old female with an extensive past medical history is brought to the emergency department today via EMS for evaluation of altered mental status. Per her daughter bedside the patient was in her usual state of health on Friday when she visited, patient was able to sit up and carry on a brief conversation, she participated in her art classes at her snf facility during the week. However today the patient has been sleepy, less verbal than usual, just moaning. This is an acute change for the patient. Patient moans and is able to answer yes and no questions however is not reliable. - Related Data Home Medications Medication Instructions Recorded Confirmed Fluticasone/Salmeterol [Advair 1 puff INHALATION RT-BID@0800,1700 07/30/1405/28 500-50 Diskus] Memantine [Namenda] 10 mg PO BID 07/30/14 05/28/18 Pramipexole [Mirapex] 0.5 mg PO HS 07/30/14 05/28/18 Carbidopa-Levodopa 25-100 mg 1 tab PO QID 12/29/14 05/28/18 [Sinemet 25-100 mg] Isosorbide Mononitrate ER [Imdur] 30 mg PO DAILY 03/03/15 05/28/18 Acetaminophen Tab [Tylenol] 500 mg PO Q8HR PRN 09/08/15 05/28/18 Bisacodyl [Dulcolax] 10 mg RECTAL DAILY PRN 05/23/16 05/28/18 Menthol [Biofreeze] 1 applic TOPICAL Q6H PRN 06/24/16 05/28/18 Omeprazole [PriLOSEC] 20 mg PO QAM PRN 03/07/17 05/28/18 Baclofen [Lioresal] 10 mg PO Q8H PRN 08/23/17 05/28/18 Sennosides/Docusate Sodium [Tammy 1 tab PO DAILY PRN 08/23/17 05/28/18 Colace] sitaGLIPtin [Januvia] 50 mg PO DAILY 08/23/17 05/28/18 Ketotifen 0.025% Ophth Soln 1 drops BOTH EYES BID@0800,1700 04/28/18 05/28/18 [Zaditor] Polyethylene Glycol 3350 [Miralax] 17 gm PO DAILY PRN 04/28/18 05/28/18 Albuterol Nebulized [Ventolin 2.5 mg INHALATION Q6H 05/28/18 05/29/18 Nebulized] Aspirin 81 mg PO DAILY 05/28/18 05/28/18 Buprenorphine [Butrans 10 MCG/HOUR] 1 each TRANSDERM Q7D 05/28/18 05/28/18 Donepezil HCl [Aricept] 10 mg PO DAILY 05/28/18 05/28/18 Furosemide [Lasix] 40 mg PO DAILY 05/28/18 05/28/18 Gabapentin [Neurontin] 300 mg PO DAILY 05/28/18 05/28/18 Ibuprofen [Motrin] 600 mg PO Q8HR PRN 05/28/18 05/28/18 Losartan Potassium 50 mg PO DAILY 05/28/18 05/28/18 Melatonin 1 mg PO HS 05/28/18 05/28/18 Metoprolol Tartrate [Lopressor] 25 mg PO BID 05/28/18 05/28/18 Pravastatin Sodium [Pravachol] 40 mg PO DAILY 05/28/18 05/28/18 lamoTRIgine [LaMICtal] 200 mg PO BID 05/28/18 05/28/18 Previous Rx's Medication Instructions Recorded HYDROcodone/APAP 7.5-325MG [[place] 1 tab PO Q6H PRN #12 tab 04/30/18 7.5-325] Famotidine [Pepcid] 20 mg PO DAILY #3 tablet 06/01/18 predniSONE 50 mg PO DAILY #3 tablet 06/01/18 Allergies Allergy/AdvReac Type Severity Reaction Status Date / Time codeine Allergy Unknown Verified 06/13/18 23:32 Penicillins Allergy Unknown Verified 06/13/18 23:32 Sulfa (Sulfonamide Allergy Unknown Verified 06/13/18 23:32 Antibiotics) Review of Systems ROS Statement: Those systems with pertinent positive or pertinent negative responses have been documented in the HPI. ROS Other: All systems not noted in ROS Statement are negative. Limitations: ROS unobtainable due to patients medical condition Past Medical History Past Medical History: Asthma, CVA/TIA, Dementia, Diabetes Mellitus, GERD/Reflux , Hyperlipidemia, Hypertension, Musculoskeletal Disorder, Neurologic Disorder, Osteoarthritis (OA), Renal Disease Additional Past Medical History / Comment(s): Pt recently admitted to [facility] on 04/03/17 with UTI/sepsis, AMS, severe metabolic encephalopathy Other HX: Current stage III decubitus ulcer, TIA, possible CVA, insomina, RLS, Parkinson' s disease, dyskinesia, dysphagia, spinal stenosis, DDD (lumbosacral region), NIDDM type II, polyneuropathy, UTI, chronic kidney dx stage III, bowel/bladder incontinence, past fecal impaction. Frequent UTI's has to take antxb. or will become septic. 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 Pain clinic procedure. Past Anesthesia/Blood Transfusion Reactions: No Reported Reaction Past Psychological History: Unable to Obtain, Anxiety, Depression Smoking Status: Former smoker - Past Family History Father Family Medical History: Cancer Additional Family Medical History / Comment(s): Unknown type of cancer. Sister(s) Family Medical History: Cancer Brother(s) Family Medical History: No Reported History Daughter(s) Family Medical History: No Reported History Son(s) Family Medical History: No Reported History Mother Family Medical History: Diabetes Mellitus Additional Family Medical History / Comment(s): PER GROUP HOME UNKNOWN FAMILY HISTORY General Exam - General Exam Comments Initial Comments: GENERAL: Chronically ill-appearing obese female appears profoundly dehydrated HENT: Normocephalic, Well healing bruise in the center of the forehead, perfectly round with a small abrasion in the center. Appears to be healing and a couple of days old not acute. Mucous membranes are dry EYES: Pupils 2 mm bilaterally PULMONARY: Unlabored respirations. Good breath sounds bilaterally. No audible rales rhonchi or wheezing was noted. CARDIOVASCULAR: There is a regular rate and rhythm without any murmurs gallops or rubs. ABDOMEN: Soft and nontender with normal bowel sounds. SKIN: Skin is pale, clear with no lesions or rashes and otherwise unremarkable. NEUROLOGIC: Patient is resting with her eyes closed, opens eyes to voice and follows commands Moans responses MUSCULOSKELETAL: Decreased strength in all extremities LYMPHATICS: No significant lymphadenopathy is noted PSYCHIATRIC: Examination limited by patient's mental status Limitations: no limitations Limitations: altered mental status Course Vital Signs 06/13/18 06/13/18 06/13/18 23:22 23:23 23:30 Temperature 97.9 F Pulse Rate 53 L 53 L Pulse Rate [ Pulse Oximetery ] Respiratory 22 24 Rate Blood Pressure 92/51 92/51 Blood Pressure [Right Arm] O2 Sat by Pulse 99 98 99 Oximetry 06/14/18 06/14/18 06/14/18 00:00 00:10 00:36 Temperature Pulse Rate 46 L 52 L Pulse Rate [ Pulse Oximetery ] Respiratory 20 22 Rate Blood Pressure 87/42 61/29 75/58 Blood Pressure [Right Arm] O2 Sat by Pulse 99 98 Oximetry 06/14/18 06/14/18 06/14/18 01:01 01:15 01:30 Temperature 97.5 F L Pulse Rate 51 L 52 L 53 L Pulse Rate [ Pulse Oximetery ] Respiratory 20 15 15 Rate Blood Pressure 97/37 110/54 121/52 Blood Pressure [Right Arm] O2 Sat by Pulse 98 97 96 Oximetry 06/14/18 06/14/18 06/14/18 01:45 02:00 02:15 Temperature Pulse Rate 50 L 52 L 53 L Pulse Rate [ Pulse Oximetery ] Respiratory 13 15 15 Rate Blood Pressure 115/69 133/58 129/54 Blood Pressure [Right Arm] O2 Sat by Pulse 97 96 95 Oximetry 06/14/18 06/14/18 06/14/18 02:30 02:45 03:00 Temperature Pulse Rate 55 L 62 63 Pulse Rate [ Pulse Oximetery ] Respiratory 14 19 13 Rate Blood Pressure 124/48 116/50 99/72 Blood Pressure [Right Arm] O2 Sat by Pulse 95 99 100 Oximetry 06/14/18 06/14/18 06/14/18 03:15 03:30 03:45 Temperature Pulse Rate 65 64 64 Pulse Rate [ Pulse Oximetery ] Respiratory 47 H 19 13 Rate Blood Pressure 131/99 123/67 142/49 Blood Pressure [Right Arm] O2 Sat by Pulse 100 100 96 Oximetry 06/14/18 06/14/18 06/14/18 04:00 04:15 04:30 Temperature Pulse Rate 65 68 65 Pulse Rate [ Pulse Oximetery ] Respiratory 14 14 13 Rate Blood Pressure 143/78 136/62 147/87 Blood Pressure [Right Arm] O2 Sat by Pulse 100 99 100 Oximetry 06/14/18 04:59 Temperature 97.2 F L Pulse Rate Pulse Rate [ 76 Pulse Oximetery ] Respiratory Rate Blood Pressure Blood Pressure 94/52 [Right Arm] O2 Sat by Pulse 91 L Oximetry Medical Decision Making - Medical Decision Making The patient was seen and evaluated upon arrival in the emergency department. Patient was noted to be altered, moaning appear dehydrated does have some old trauma on her forehead. Full workup was ordered, IV fluids infusing. Daughter did confirm that the patient is a DNA R but would consent to IV fluids and antibiotics if needed Labs and imaging were ordered CT head with no acute findings, chest x-ray with no acute findings Labs reveal elevated creatinine appears to be prerenal Urinalysis with possible early urine tract infection - Rocephin was ordered Patient was hypotensive decision was made to start levothyroid at low dose. While IV fluids continued to infuse Patient's blood pressure improving after IV fluids, Levaquin being weaned down Patient care was discussed with Dr. jairo marie who accepts the admission and agrees with the plan to continue fluid resuscitation in the ER and wean Levophed. At this time we do not feel there is any indication for admission to the ICU. Patient was able to be weaned off levothyroid, hemodynamically stable. Has responded well to IV fluids. Continued IV fluid infusion ordered. - Lab Data Result diagrams: 06/13/18 23:34 06/13/18 23:34 Lab Results 06/13/18 06/13/18 06/13/18 Range/Units 23:34 23:34 23:34 WBC 6.7 (3.8-10.6) k/uL RBC 3.09 L (3.80-5.40) m/uL Hgb 9.2 L (11.4-16.0) gm/dL Hct 27.9 L (34.0-46.0) % MCV 90.5 (80.0-100.0) fL MCH 29.6 (25.0-35.0) pg MCHC 32.8 (31.0-37.0) g/dL RDW 14.1 (11.5-15.5) % Plt Count 173 (150-450) k/uL Neutrophils % 69 % Lymphocytes % 19 % Monocytes % 4 % Eosinophils % 6 % Basophils % 0 % Neutrophils # 4.6 (1.3-7.7) k/uL Lymphocytes # 1.2 (1.0-4.8) k/uL Monocytes # 0.3 (0-1.0) k/uL Eosinophils # 0.4 (0-0.7) k/uL Basophils # 0.0 (0-0.2) k/uL PT (9.0-12.0) sec INR (<1.2) APTT (22.0-30.0) sec Sodium 137 (137-145) mmol/L Potassium 4.9 (3.5-5.1) mmol/L Chloride 99 (98-107) mmol/L Carbon Dioxide 28 (22-30) mmol/L Anion Gap 10 mmol/L BUN 46 H (7-17) mg/dL Creatinine 2.70 H (0.52-1.04) mg/dL Est GFR (CKD-EPI)AfAm 18 (>60 ml/min/1.73 sqM) Est GFR (CKD-EPI)NonAf 16 (>60 ml/min/1.73 sqM) Glucose 101 H (74-99) mg/dL Plasma Lactic Acid Flex (0.7-2.0) mmol/L Calcium 8.4 (8.4-10.2) mg/dL Total Bilirubin 0.4 (0.2-1.3) mg/dL AST 12 L (14-36) U/L ALT 19 (9-52) U/L Alkaline Phosphatase 66 (38-126) U/L Total Creatine Kinase 23 L (30-135) U/L CK-MB (CK-2) 0.5 (0.0-2.4) ng/mL CK-MB (CK-2) Rel Index 2.2 Troponin I <0.012 (0.000-0.034) ng/mL Total Protein 6.0 L (6.3-8.2) g/dL Albumin 3.4 L (3.5-5.0) g/dL Urine Color Urine Appearance (Clear) Urine pH (5.0-8.0) Ur Specific [place] (1.001-1.035) Urine Protein (Negative) Urine Glucose (UA) (Negative) Urine Ketones (Negative) Urine Blood (Negative) Urine Nitrite (Negative) Urine Bilirubin (Negative) Urine Urobilinogen (<2.0) mg/dL Ur Leukocyte Esterase (Negative) Urine RBC (0-5) /hpf Urine WBC (0-5) /hpf Urine WBC Clumps (None) /hpf Ur Squamous Epith Cells (0-4) /hpf Amorphous Sediment (None) /hpf Urine Bacteria (None) /hpf Hyaline Casts (0-2) /lpf Urine Mucus (None) /hpf 06/13/18 06/13/18 06/14/18 Range/Units 23:34 23:34 00:24 WBC (3.8-10.6) k/uL RBC (3.80-5.40) m/uL Hgb (11.4-16.0) gm/dL Hct (34.0-46.0) % MCV (80.0-100.0) fL MCH (25.0-35.0) pg MCHC (31.0-37.0) g/dL RDW (11.5-15.5) % Plt Count (150-450) k/uL Neutrophils % % Lymphocytes % % Monocytes % % Eosinophils % % Basophils % % Neutrophils # (1.3-7.7) k/uL Lymphocytes # (1.0-4.8) k/uL Monocytes # (0-1.0) k/uL Eosinophils # (0-0.7) k/uL Basophils # (0-0.2) k/uL PT 9.8 (9.0-12.0) sec INR 1.0 (<1.2) APTT 25.6 (22.0-30.0) sec Sodium (137-145) mmol/L Potassium (3.5-5.1) mmol/L Chloride (98-107) mmol/L Carbon Dioxide (22-30) mmol/L Anion Gap mmol/L BUN (7-17) mg/dL Creatinine (0.52-1.04) mg/dL Est GFR (CKD-EPI)AfAm (>60 ml/min/1.73 sqM) Est GFR (CKD-EPI)NonAf (>60 ml/min/1.73 sqM) Glucose (74-99) mg/dL Plasma Lactic Acid Flex 0.9 (0.7-2.0) mmol/L Calcium (8.4-10.2) mg/dL Total Bilirubin (0.2-1.3) mg/dL AST (14-36) U/L ALT (9-52) U/L Alkaline Phosphatase (38-126) U/L Total Creatine Kinase (30-135) U/L CK-MB (CK-2) (0.0-2.4) ng/mL CK-MB (CK-2) Rel Index Troponin I (0.000-0.034) ng/mL Total Protein (6.3-8.2) g/dL Albumin (3.5-5.0) g/dL Urine Color Yellow Urine Appearance Clear (Clear) Urine pH 5.0 (5.0-8.0) Ur Specific [place] 1.012 (1.001-1.035) Urine Protein Trace H (Negative) Urine Glucose (UA) Negative (Negative) Urine Ketones Negative (Negative) Urine Blood Trace H (Negative) Urine Nitrite Negative (Negative) Urine Bilirubin Negative (Negative) Urine Urobilinogen <2.0 (<2.0) mg/dL Ur Leukocyte Esterase Small H (Negative) Urine RBC 4 (0-5) /hpf Urine WBC 4 (0-5) /hpf Urine WBC Clumps Rare H (None) /hpf Ur Squamous Epith Cells 3 (0-4) /hpf Amorphous Sediment Rare H (None) /hpf Urine Bacteria Rare H (None) /hpf Hyaline Casts 7 H (0-2) /lpf Urine Mucus Rare H (None) /hpf - EKG Data -: EKG Interpreted by Me EKG Comments: EKG obtained at 11:26 PM, rate is 53, rhythm is sinus bradycardia, there is left axis deviation and a right bundle branch block, MN is 192, QRS 148, QTC is 439. No acute ST elevations or depressions no evidence of acute ischemia or infarction Critical Care Time Critical Care Time: Yes Total Critical Care Time: 45 Critical Care Time: Critical care time was exclusive of separately billable procedures and treating other patients Critical care was necessary to treat or prevent imminent or life-threatening deterioration. Critical care was time spent personally by me on the following activities: development of treatment plan with patient or surrogate, discussions with consultants, discussions with primary provider, evaluation of patient's response to treatment, examination of patient, obtaining history from patient or surrogate, ordering and performing treatments and interventions, ordering and review of laboratory studies, ordering and review of radiographic studies, pulse oximetry, re-evaluation of patient's condition and review of old charts. Disposition Clinical Impression: Uremic encephalopathy, Altered mental status, Hypovolemia, Urinary tract infection, Dementia Disposition: ADMITTED IP TO THIS [facility] Condition: Serious
[2018-06-13] MEDS: SODIUM CHLORIDE 0.9% 500 ML 500 ML IV SCH (23:55)
[2018-06-14 00:05] LABS: Basophils % (A) 0 %; Eosinophils # (A) 0.4 k/uL (0-0.7); Eosinophils % (A) 6 %; HCT 27.9 % (34.0-46.0); HGB 9.2 gm/dL (11.4-16.0); Lymphocytes # (A) 1.2 k/uL (1.0-4.8); Lymphocytes % (A) 19 %; MCH 29.6 pg (25.0-35.0); MCHC 32.8 g/dL (31.0-37.0); MCV 90.5 fL (80.0-100.0); Mean Platelet Volume 7.4; Monocytes # (A) 0.3 k/uL (0-1.0); Monocytes % (A) 4 %; Neutrophils # (A) 4.6 k/uL (1.3-7.7); Neutrophils % (A) 69 %; Platelet Count 173 k/uL (150-450); RBC 3.09 m/uL (3.80-5.40); RDW 14.1 % (11.5-15.5); WBC 6.7 k/uL (3.8-10.6)
--- NOTE | 2018-06-14 00:13 | XR ---
EXAMINATION TYPE: XR chest 1V portable DATE OF EXAM: 06/14/2018 COMPARISON: May 29, 2018 HISTORY: Fever TECHNIQUE: Single frontal view of the chest is obtained. FINDINGS: There is mild linear density in the left lower lung field. There is no heart failure. Hear t size is normal. There is no pleural effusion. IMPRESSION: Scarring and subsegmental atelectasis left lower lobe unchanged. No heart failure.
[2018-06-14 00:15] LABS: Albumin 3.4 g/dL (3.5-5.0); Calcium 8.4 mg/dL (8.4-10.2); Potassium 4.9 mmol/L (3.5-5.1); Total Bilirubin 0.4 mg/dL (0.2-1.3)
[2018-06-14] MEDS ORDERED: NOREPINEPHRINE 4 MG in SODIUM CHLORIDE 0.9% 250 ML IV ONE (00:17)
[2018-06-14 00:19] LABS: Partial Thromboplastin Time 25.6 sec (22.0-30.0); Prothrombin Time 9.8 sec (9.0-12.0)
[2018-06-14] MEDS ORDERED: SODIUM CHLORIDE 0.9% 1,000 ML IV ONE (00:19)
[2018-06-14 00:27] LABS: Creatine Kinase 23 U/L (30-135)
--- NOTE | 2018-06-14 00:28 | CT ---
EXAMINATION TYPE: CT brain renetta rojo DATE OF EXAM: 06/14/2018 COMPARISON: 07/30/2014 HISTORY: fall headache. Neck pain CT DLP: 889.2 mGycm Automated exposure control for dose reduction was used. TECHNIQUE: CT scan of the head and cervical spine are performed without contrast. FINDINGS: There is cerebral cortical atrophy. There is no mass effect nor midline shift. There is n o sign of intracranial hemorrhage. The calvarium is intact. There is mucosal thickening and fluid lev el left maxillary sinus. There is mild mucosal thickening in the posterior ethmoid sinus on the left side. The calvarium is intact. There is apparent old multilevel anterior fusion surgery from C4 to C7. The posterior elements are in tact. There is anterior subluxation of C7 in relation to T1 of 5 mm. There is multilevel facet arthro ernesto. The skull base is intact. There is moderate spondylosis at C3-4. There is uncovertebral spurri ng and right-sided neural foraminal narrowing at C3-4. IMPRESSION: Cerebral atrophy. No acute intracranial abnormality. Multilevel old anterior fusion surgery. Degenerative C7-T1 spondylolisthesis unchanged. No acute frac ture seen.
[2018-06-14 00:40] LABS: Creatine Kinase MB 0.5 ng/mL (0.0-2.4); Troponin I <0.012 ng/mL (0.000-0.034)
[2018-06-14 00:45] LABS: Amorphous Sediment,Urine Rare /hpf; Appearance,Urine Clear (Clear); Bacteria,Urine Rare /hpf; Bilirubin,Urine Negative (Negative); Blood,Urine Trace (Negative); Color,Urine Yellow; Glucose,Urine (UA) Negative (Negative); Hyaline Casts,Urine 7 /lpf (0-2); Ketones,Urine Negative (Negative); Leukocyte Esterase,Urine Small (Negative); Mucus,Urine Rare /hpf; Nitrite,Urine Negative (Negative); Protein,Urine Trace (Negative); RBC,Urine 4 /hpf (0-5); Specific Gravity,Urine 1.012 (1.001-1.035); Squamous Epithelial Cell,Urine 3 /hpf (0-4); Urobilinogen,Urine <2.0 mg/dL (<2.0); WBC,Urine 4 /hpf (0-5)
[2018-06-14] MEDS ORDERED: NALOXONE 0.4 MG/ML 1 ML VIAL IV PRN (02:40)
[2018-06-14] MEDS ORDERED: FUROSEMIDE 10 MG/ML 4 ML VIAL IV STA (09:43)
[2018-06-14] MEDS ORDERED: FUROSEMIDE 10 MG/ML 4 ML VIAL ONE (09:45)
[2018-06-14] MEDS ORDERED: HALOPERIDOL LACTATE 5 MG/ML 1 ML VIAL IM PRN (09:57)
[2018-06-14 10:00] LABS: Glucose,Whole Blood 100 mg/dL (75-99)
[2018-06-14] MEDS ORDERED: ALBUTEROL NEBULIZED 2.5 MG/3 ML INHALATION PRN (10:01)
[2018-06-14] MEDS: SODIUM CHLORIDE 0.9% 1,000 ML IV SCH ×4 (13:04→19:44)
[2018-06-14 15:46] VITALS: BMI 45.1
[2018-06-14] MEDS: ACETAMINOPHEN IV (For NPO) 1,000 MG in EMPTY BAG 1 BAG IVPB PRN ×2 (17:17→22:38)
[2018-06-14 20:28] LABS: Glucose,Whole Blood 97 mg/dL (75-99)
[2018-06-14] MEDS: SYMBICORT 160-4.5 MCG INHALER INHALATION SCH (20:36)
--- NOTE | 2018-06-14 22:08 | P.HPIM ---
History of Present Illness H&P Date: 06/14/18 Chief Complaint: AMS This is a 52 years old female with past medical history significant for dementia and Parkinson disease presents to the emergency department with worsening confusion intractable nausea and vomiting and weakness. In the emergency department patient is not following commands unable to provide any information and all the history obtained from medical record and detention information as I spoke to the charge nurse. Patient was found to have urinary tract infection, acute kidney injury and was started on IV antibiotics and IV fluid patient currently still confused morning not following commands and responding only to pain stimuli Review of Systems All 14 systems reviewed and negative except as above Past Medical History Past Medical History: Asthma, CVA/TIA, Dementia, Diabetes Mellitus, GERD/Reflux , Hyperlipidemia, Hypertension, Musculoskeletal Disorder, Neurologic Disorder, Osteoarthritis (OA), Renal Disease Additional Past Medical History / Comment(s): Pt recently admitted to [facility] on 04/03/17 with UTI/sepsis, AMS, severe metabolic encephalopathy Other HX: Current stage III decubitus ulcer, TIA, possible CVA, insomina, RLS, Parkinson' s disease, dyskinesia, dysphagia, spinal stenosis, DDD (lumbosacral region), NIDDM type II, polyneuropathy, UTI, chronic kidney dx stage III, bowel/bladder incontinence, past fecal impaction. Frequent UTI's has to take antxb. or will become septic. 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 Pain clinic procedure. Past Anesthesia/Blood Transfusion Reactions: No Reported Reaction Past Psychological History: Unable to Obtain, Anxiety, Depression Smoking Status: Former smoker - Past Family History Father Family Medical History: Cancer Additional Family Medical History / Comment(s): Unknown type of cancer. Sister(s) Family Medical History: Cancer Brother(s) Family Medical History: No Reported History Daughter(s) Family Medical History: No Reported History Son(s) Family Medical History: No Reported History Mother Family Medical History: Diabetes Mellitus Additional Family Medical History / Comment(s): PER CORRECTION UNKNOWN FAMILY HISTORY Medications and Allergies Home Medications Medication Instructions Recorded Confirmed Type Fluticasone/Salmeterol [Advair 1 puff INHALATION RT-BID@0800,1700 07/30/1406/14 History 500-50 Diskus] Memantine [Namenda] 10 mg PO BID@0800,1700 07/30/14 06/14/18 History Pramipexole [Mirapex] 0.5 mg PO HS 07/30/14 06/14/18 History Carbidopa-Levodopa 25-100 mg 1 tab PO QID 12/29/14 06/14/18 History [Sinemet 25-100 mg] Isosorbide Mononitrate ER [Imdur] 30 mg PO DAILY 03/03/15 06/14/18 History Acetaminophen Tab [Tylenol] 500 mg PO Q8HR PRN 09/08/15 06/14/18 History Bisacodyl [Dulcolax] 10 mg RECTAL DAILY PRN 05/23/16 06/14/18 History Menthol [Biofreeze] 1 applic TOPICAL Q6H PRN 06/24/16 06/14/18 History Omeprazole [PriLOSEC] 20 mg PO QAM 03/07/17 06/14/18 History Baclofen [Lioresal] 10 mg PO Q8H PRN 08/23/17 06/14/18 History Sennosides/Docusate Sodium [Tammy 1 tab PO DIRECTED 08/23/17 06/14/18 History Colace] sitaGLIPtin [Januvia] 50 mg PO DAILY 08/23/17 06/14/18 History Ketotifen 0.025% Ophth Soln 1 drops BOTH EYES BID@0800,1700 04/28/18 06/14/18 History [Zaditor] Polyethylene Glycol 3350 [Miralax] 17 gm PO DAILY PRN 04/28/18 06/14/18 History Albuterol Nebulized [Ventolin 2.5 mg INHALATION RT-BID PRN 05/28/18 06/14/18 History Nebulized] Aspirin 81 mg PO DAILY 05/28/18 06/14/18 History Buprenorphine [Butrans 10 MCG/HOUR] 1 patch TRANSDERM SA 05/28/18 06/14/18 History Donepezil HCl [Aricept] 10 mg PO DAILY 05/28/18 06/14/18 History Furosemide [Lasix] 40 mg PO DAILY 05/28/18 06/14/18 History Gabapentin [Neurontin] 300 mg PO TID 05/28/18 06/14/18 History Ibuprofen [Motrin] 600 mg PO Q8HR PRN 05/28/18 06/14/18 History Losartan Potassium 50 mg PO DAILY 05/28/18 06/14/18 History Metoprolol Tartrate [Lopressor] 25 mg PO BID@0800,1700 05/28/18 06/14/18 History Pravastatin Sodium [Pravachol] 40 mg PO HS 05/28/18 06/14/18 History lamoTRIgine [LaMICtal] 400 mg PO BID 05/28/18 06/14/18 History ALPRAZolam [Xanax] 0.25 mg PO BID@1400,2100 06/14/18 06/14/18 History Albuterol Nebulized [Ventolin 2.5 mg INHALATION RT-BID@0800,1700 06/14/18 History Nebulized] Hydrocortisone Cream 1 applic TOPICAL TID PRN 06/14/18 06/14/18 History [Hydrocortisone 1% Cream] Lactose-Reduced Food [Ensure Plus] 240 can PO HS 06/14/18 06/14/18 History Loperamide [Imodium] 2 mg PO QID PRN 06/14/18 06/14/18 History Magnesium Hydroxide [Milk of 2,400 mg PO DAILY PRN 06/14/18 06/14/18 History Magnesia] Melatonin 3 mg PO HS 06/14/18 06/14/18 History Montelukast [Singulair] 10 mg PO HS 06/14/18 06/14/18 History Na Phos,M-B/Na Phos,Di-Ba [Fleet 133 ml RECTAL DAILY PRN 06/14/18 06/14/18 History Adult] QUEtiapine [SEROquel] 50 mg PO HS 06/14/18 06/14/18 History Sodium Chloride 0.9% Irrigatio 10 ml IV TID 06/14/18 06/14/18 History [Saline 0.9% Irrigation] diphenhydrAMINE [Benadryl] 25 mg PO QID PRN 06/14/18 06/14/18 History Allergies Allergy/AdvReac Type Severity Reaction Status Date / Time codeine Allergy Unknown Verified 06/14/18 09:02 Penicillins Allergy Unknown Verified 06/14/18 09:02 Sulfa (Sulfonamide Allergy Unknown Verified 06/14/18 09:02 Antibiotics) Physical Exam Vitals: Vital Signs Temp Pulse Pulse Resp BP BP Pulse Ox 06/14/18 19:34 99.5 F 81 18 100/62 98 06/14/18 17:19 100.2 F H 06/14/18 15:00 100.0 F H 74 22 105/67 94 L 06/14/18 09:45 24 06/14/18 04:59 97.2 F L 76 94/52 91 L 06/14/18 04:30 65 13 147/87 100 06/14/18 04:15 68 14 136/62 99 06/14/18 04:00 65 14 143/78 100 06/14/18 03:45 64 13 142/49 96 06/14/18 03:30 64 19 123/67 100 06/14/18 03:15 65 47 H 131/99 100 06/14/18 03:00 63 13 99/72 100 06/14/18 02:45 62 19 116/50 99 06/14/18 02:30 55 L 14 124/48 95 06/14/18 02:15 53 L 15 129/54 95 06/14/18 02:00 52 L 15 133/58 96 06/14/18 01:45 50 L 13 115/69 97 06/14/18 01:30 53 L 15 121/52 96 06/14/18 01:15 52 L 15 110/54 97 06/14/18 01:01 97.5 F L 51 L 20 97/37 98 06/14/18 00:36 52 L 22 75/58 98 06/14/18 00:10 46 L 20 61/29 99 06/14/18 00:00 87/42 06/13/18 23:30 53 L 24 92/51 99 06/13/18 23:23 97.9 F 53 L 22 92/51 98 06/13/18 23:22 99 Intake and Output 06/14/18 06/14/18 06/14/18 06:59 14:59 22:59 Intake Total 1783.625 750 210 Output Total 300 1000 Balance 1483.625 750 -790 Intake: Amount of Fluid Infused ( 1750 ml) Intake, IV Titration 33.625 750 210 Amount Norepinephrine 4 mg In 33.625 Sodium Chloride 0.9% 250 ml @ Titrate IV .Q0M [facility] Rx#:[id number] Sodium Chloride 0.9% 1, 200 000 ml @ 125 mls/hr IV . Q8H [facility] Rx#:[id number] Sodium Chloride 0.9% 1, 550 210 000 ml @ 60 mls/hr IV . [id number] [facility] Rx#:[id number] Output: Urine 300 1000 Uretheral (Constantino) 300 Other: Voiding Method Indwelling Catheter Indwelling Catheter Indwelling Catheter Weight 115.666 kg HEENT atraumatic normocephalic PERRLA Neck supple no masses or thyromegaly Heart normal S1 and S2 Lungs diminished bilaterally Abdomen soft no tenderness breast also all 4 quadrant no guarding or rebound Skin no new rash Neuro moving all 4 extremities spontaneously Psych confused and lethargic and does not follow command Results CBC & Chem 7: 06/13/18 23:34 06/13/18 23:34 Labs: Abnormal Lab Results - Last 24 Hours (Table) 06/13/18 06/13/18 06/13/18 Range/Units 23:34 23:34 23:34 RBC 3.09 L (3.80-5.40) m/uL Hgb 9.2 L (11.4-16.0) gm/dL Hct 27.9 L (34.0-46.0) % BUN 46 H (7-17) mg/dL Creatinine 2.70 H (0.52-1.04) mg/dL Glucose 101 H (74-99) mg/dL POC Glucose (mg/dL) (75-99) mg/dL AST 12 L (14-36) U/L Total Creatine Kinase 23 L (30-135) U/L Total Protein 6.0 L (6.3-8.2) g/dL Albumin 3.4 L (3.5-5.0) g/dL Urine Protein (Negative) Urine Blood (Negative) Ur Leukocyte Esterase (Negative) Urine WBC Clumps (None) /hpf Amorphous Sediment (None) /hpf Urine Bacteria (None) /hpf Hyaline Casts (0-2) /lpf Urine Mucus (None) /hpf 06/14/18 06/14/18 Range/Units 00:24 09:32 RBC (3.80-5.40) m/uL Hgb (11.4-16.0) gm/dL Hct (34.0-46.0) % BUN (7-17) mg/dL Creatinine (0.52-1.04) mg/dL Glucose (74-99) mg/dL POC Glucose (mg/dL) 100 H (75-99) mg/dL AST (14-36) U/L Total Creatine Kinase (30-135) U/L Total Protein (6.3-8.2) g/dL Albumin (3.5-5.0) g/dL Urine Protein Trace H (Negative) Urine Blood Trace H (Negative) Ur Leukocyte Esterase Small H (Negative) Urine WBC Clumps Rare H (None) /hpf Amorphous Sediment Rare H (None) /hpf Urine Bacteria Rare H (None) /hpf Hyaline Casts 7 H (0-2) /lpf Urine Mucus Rare H (None) /hpf Microbiology - Last 24 Hours (Table) 06/14/18 00:24 Urine Culture - Preliminary Urine,Voided Thrombosis Risk Factor Assmnt - Choose All That Apply Each Factor Represents 1 point: Abnormal pulmonary function (COPD), Obesity ( BMI >25), Swollen legs (current), Varicose veins Each Risk Factor Represents 2 Points: Central venous access, Patient confined to bed Each Risk Factor Represents 3 Points: Age 75 years or older Other congenital or acquired thrombophilia - If yes, enter type in comment: No Thrombosis Risk Factor Assessment Total Risk Factor Score: 11 Thrombosis Risk Factor Assessment Level: High Risk Assessment and Plan Assessment: 1. Acute encephalopathy multifactorial in nature including history of dementia, Parkinson disease complicated with intractable nausea and vomiting and acute urinary tract infection with polypharmacy. 2. Intractable nausea and vomiting. 3. Polypharmacy. 4. Acute kidney injury. 5. Parkinson disease. 6. Dementia. 7. Hypertension. 8. Seizure disorder. 9. Anxiety and depression. 10. Insomnia. Plan discussed with nursing staff at the bedside after rapid response has been cold due to worsening lethargy and I would like to continue with her IV fluid at 60 mL per hour and monitor kidney function closely and avoid nephrotoxic medication and repeat electrolytes in the morning. I would like to follow up on final urine culture results he had thyroid like to hold on her sedatives medication and introduce them based on clinical progress. Meantime I would like to use Haldol for agitation on as needed basis. And reintroduce her blood pressure medication based on holding parameters. Prognosis is guarded. CODE STATUS is DNR limited
[2018-06-15] MEDS: SODIUM CHLORIDE 0.9% 1,000 ML IV SCH ×6 (03:47→19:01)
[2018-06-15 07:00] LABS: Glucose,Whole Blood 108 mg/dL (75-99)
[2018-06-15] MEDS: SYMBICORT 160-4.5 MCG INHALER INHALATION SCH ×2 (07:58→20:43)
[2018-06-15 09:32] LABS: Basophils % (A) 0 %; Eosinophils # (A) 0.2 k/uL (0-0.7); Eosinophils % (A) 3 %; HCT 30.1 % (34.0-46.0); HGB 9.3 gm/dL (11.4-16.0); Hypochromasia Moderate; Lymphocytes # (A) 0.7 k/uL (1.0-4.8); Lymphocytes % (A) 10 %; MCH 29.1 pg (25.0-35.0); MCHC 30.9 g/dL (31.0-37.0); MCV 94.1 fL (80.0-100.0); Mean Platelet Volume 7.3; Monocytes # (A) 0.3 k/uL (0-1.0); Monocytes % (A) 3 %; Neutrophils # (A) 6.3 k/uL (1.3-7.7); Neutrophils % (A) 83 %; Platelet Count 187 k/uL (150-450); RBC 3.19 m/uL (3.80-5.40); RDW 14.3 % (11.5-15.5); WBC 7.7 k/uL (3.8-10.6)
[2018-06-15 09:58] LABS: Albumin 3.2 g/dL (3.5-5.0); Calcium 8.4 mg/dL (8.4-10.2); Magnesium 2.5 mg/dL (1.6-2.3); Total Bilirubin 0.2 mg/dL (0.2-1.3)
[2018-06-15] MEDS ORDERED: MAGNESIUM HYDROXIDE 2,400 MG/10 ML CUP PO PRN (10:16)
[2018-06-15] MEDS ORDERED: BISACODYL 10 MG SUPP RECTAL PRN (10:16)
[2018-06-15] MEDS ORDERED: LOPERAMIDE 2 MG CAP PO PRN (10:16)
[2018-06-15] MEDS ORDERED: METHYL SALICYLATE/MENTHOL CREAM 5 OZ TOPICAL PRN (10:16)
[2018-06-15] MEDS ORDERED: HYDROCORTISONE 1% CREAM 30 GM TUBE TOPICAL PRN (10:16)
[2018-06-15] MEDS ORDERED: POLYETHYLENE GLYCOL 3350 17 GM POWD.PACK PO PRN (10:16)
[2018-06-15] MEDS: CARBIDOPA-LEVODOPA 25-100 MG 1 EACH TAB PO SCH ×3 (11:24→22:33)
[2018-06-15] MEDS: METOPROLOL TARTRATE 25 MG TAB PO SCH ×2 (11:24→18:12)
[2018-06-15] MEDS: GABAPENTIN 300 MG CAP PO SCH ×2 (11:25→22:33)
[2018-06-15] MEDS: MEMANTINE 10 MG TAB PO SCH (11:25)
[2018-06-15 11:57] LABS: Glucose,Whole Blood 106 mg/dL (75-99)
--- NOTE | 2018-06-15 12:08 | P.PN ---
Subjective Progress Note Date: 06/15/18 This is a 82-year-old female with past medical history significant for dementia and Parkinson disease presents to the emergency department with worsening confusion intractable nausea and vomiting and weakness. In the emergency department patient is not following commands unable to provide any information and all the history obtained from medical record and prison information as I spoke to the charge nurse. Patient was found to have urinary tract infection, acute kidney injury and was started on IV antibiotics and IV fluid patient currently still confused morning not following commands and responding only to pain stimuli 06/15: Blood sugars are running 97-108, creatinine 2.02 and BUN 28 which improved from yesterday. Urine culture is in progress, blood culture is no growth at 24 hours. Patient continues to be lethargic and confused. She has taken few bites of applesauce with medications. Nausea and vomiting have resolved. Daughter is at bedside and states patient is usually interactive ie plays bingo etc. She is wheelchair bound. She has been seen by Dr. Kinsey in the past. Daughter states that patient had a PICC line placed 2 weeks ago and treated with antibiotics for UTI managed by Dr. Diamond. Urine culture positive for pseudomonas. It appears merrem was antibiotic used. Will ask for consult with Dr. Marquez, renal ultrasound and rocephin changed to Merrem. Sodium bicarb to be added to IV fluids for metabolic acidoses. Review Of Systems: Unable to obtain due to mental status changes Objective - Vital Signs Vital signs: Vital Signs Temp 99.9 F H 06/15/18 07:00 Pulse 94 06/15/18 07:00 Resp 12 06/15/18 07:00 BP 111/58 06/15/18 07:00 Pulse Ox 97 06/15/18 07:53 Intake & Output 06/14/18 06/15/18 06/15/18 18:59 06:59 18:59 Intake Total 750 260 Output Total 1000 455 Balance -250 -195 Intake: Intake, IV Titration 750 260 Amount Sodium Chloride 0.9% 1, 200 000 ml @ 125 mls/hr IV . Q8H [facility] Rx#:[id number] Sodium Chloride 0.9% 1, 550 210 000 ml @ 60 mls/hr IV . [id number] [facility] Rx#:[id number] cefTRIAXone 1,000 mg In 50 Sodium Chloride 0.9% 50 ml @ 100 mls/hr IVPB Q24HR [facility] Rx#:[id number] Output: Urine 1000 455 Other: Voiding Method Indwelling Catheter Indwelling Catheter Indwelling Catheter - Exam HEENT atraumatic normocephalic PERRLA Neck supple no masses or thyromegaly Heart normal S1 and S2 Lungs diminished bilaterally Abdomen soft no tenderness breast also all 4 quadrant no guarding or rebound Skin no new rash Neuro moving all 4 extremities spontaneously Psych confused and lethargic and does not follow command, oriented x0 - Labs CBC & Chem 7: 06/15/18 08:41 06/15/18 08:41 Labs: Abnormal Lab Results - Last 24 Hours (Table) 06/15/18 06/15/18 06/15/18 Range/Units 06:45 08:41 08:41 RBC 3.19 L (3.80-5.40) m/uL Hgb 9.3 L (11.4-16.0) gm/dL Hct 30.1 L (34.0-46.0) % MCHC 30.9 L (31.0-37.0) g/dL Lymphocytes # 0.7 L (1.0-4.8) k/uL Chloride 111 H (98-107) mmol/L BUN 28 H (7-17) mg/dL Creatinine 2.02 H (0.52-1.04) mg/dL Glucose 101 H (74-99) mg/dL POC Glucose (mg/dL) 108 H (75-99) mg/dL Magnesium 2.5 H (1.6-2.3) mg/dL Total Protein 6.0 L (6.3-8.2) g/dL Albumin 3.2 L (3.5-5.0) g/dL Microbiology - Last 24 Hours (Table) 06/13/18 23:34 Blood Culture - Preliminary Blood No Growth after 24 hours 06/14/18 00:24 Urine Culture - Preliminary Urine,Voided Assessment and Plan Plan: 1. Uremic metabolic encephalopathy secondary to urinary tract infection and sepsis. Ceftriaxone changed to Merrem. Urine culture is in progress. WBC clumping on UA. Blood culture showing no growth. Continue Haldol as needed for agitation. Xanax, baclofen Benadryl on hold. Consult Dr Marquez, renal ultrasound ordered. Recent treatment for Pseudomonas UTI at [facility]. 2. Acute kidney injury, chronic kidney disease stage III with dehydration and metabolic acidoses secondary to intractable nausea and vomiting. Avoid nephrotoxic agents. Continue to monitor kidney function. Hold Lasix. Continue IVF. Sodium bicarb to be added to IV fluids. 3. CAD. Continue patient on Imdur 30 mg orally once every day, Lopressor 25 mg twice daily. 4. Hypertension and hypertensive cardiovascular disease. Continue Lopressor and Imdur 5. Hyperlipidemia. She is not currently on statin. 6. Diabetes mellitus type 2. Januvia on hold. Humalog scale before meals and at bedtime. 7. Parkinson with orofacial dyskinesia. Continue patient on Sinemet 25/100 one tablet orally 4 times every day, Baclofen 10 mg every 8 hours as needed, Namenda 10 mg twice daily. 8. Diabetic polyneuropathy. Continue gabapentin. 9. Restless leg syndrome. Continue patient on Mirapex 0.5 mg at bedtime. 10. Alzheimer dementia with behavior disturbance and impaired oral phase of eating patient tends to pocket food. Continue Namenda 10 mg orally twice every day and Aricept. 11. Depression, recurrent. Continue Seroquel 50 mg at bedtime. 12. DVT prophylaxis. Heparin 5000 units every 12 hours subcutaneously. 14. GI prophylaxis. Omeprazole. 15. Patient is no code no CPR and no ventilation, no aggressive medical. Discharge plan: Return to [facility] Impression and plan of care have been directed as dictated by the signing physician. Jailyn Navarro nurse practitioner acting as scribe for signing physician.
[2018-06-15] MEDS: LOSARTAN 50 MG TAB PO SCH (12:28)
[2018-06-15] MEDS: lamoTRIgine 100 MG TAB PO SCH ×2 (12:28→22:32)
[2018-06-15] MEDS: ISOSORBIDE MONONITRATE ER 30 MG TAB.ER.24H PO SCH (12:28)
[2018-06-15] MEDS: ASPIRIN 81 MG PO SCH (12:28)
[2018-06-15] MEDS: ACETAMINOPHEN TAB 500 MG TAB PO PRN (12:28)
[2018-06-15] MEDS: DONEPEZIL 10 MG TAB PO SCH (12:28)
[2018-06-15] MEDS ORDERED: MEROPENEM 1 GM in SODIUM CHLORIDE 0.9% 100 ML IVPB SCH (13:00)
[2018-06-15 13:22] LABS: Hemoglobin A1C 5.8 % (4.0-6.0)
--- NOTE | 2018-06-15 14:16 | US ---
EXAMINATION TYPE: US kidneys/renal and bladder DATE OF EXAM: 06/15/2018 COMPARISON: US 04/03/2017 CLINICAL HISTORY: UTI. EXAM MEASUREMENTS: Right Kidney: 10.5 x 4.1 x 6.3 cm Left Kidney: 11.7 x 6.0 x 4.9 cm Technically difficult exam due to being done portable on a patient unable to cooperate. Right Kidney: Cystic structure upper pole measures 3.4 x 3.0 x 3.5 cm, there is another cyst just sup erior that either separate or it is one with a septation, upper one measures 2.1 x 1.4 x 2.2 cm. Left Kidney: No hydronephrosis or masses seen Bladder: not seen, patient has catheter Bilateral Jets seen: not seen, patient has catheter There is no evidence for hydronephrosis at this point in time. No nephrolithiasis is seen. No solid masses are identified. The urinary bladder is anechoic. Bilateral ureteral jets are seen. IMPRESSION: 1. Renal cystic changes as noted.
--- NOTE | 2018-06-15 15:05 | P.CONS ---
History of Present Illness - Reason for Consult Consult date: 06/15/18 - History of Present Illness This is an 82-year-old female with past medical history significant for dementia and Parkinson disease, residing at [facility]. Patient presented to [facility] emergency department with worsening confusion, intractable nausea and vomiting and weakness. Patient wound not follow commands and was not able to provide any history. CAT scan of the brain showed cerebral atrophy. No acute intracranial abnormality. There is multilevel old anterior fusion surgery. Chest x-ray shows scarring and subsegmental atelectasis and left lower lobe unchanged. No heart failure. White count was 6.7, hemoglobin 9.2, platelet count 173, BUN 46 and creatinine 2.7, troponin was 0.012, albumin 3.4, urinalysis was clear with blood trace, protein trace, leukoesterase small, rare WBC clumps, rare bacteria. Patient was started on ceftriaxone and admitted to the [facility] floor. Subsequently, it was found out the patient had a PICC line placed 2 weeks ago and treated with antibiotics for UTI managed by Dr. Diamond. Urine culture positive for pseudomonas. It appears merrem was antibiotic used. Renal ultrasound has been ordered, antibiotics were changed to meropenem and blood culture ordered from the PICC line. Review of Systems ROS unobtainable: due to mental status Past Medical History Past Medical History: Asthma, CVA/TIA, Dementia, Diabetes Mellitus, GERD/Reflux , Hyperlipidemia, Hypertension, Musculoskeletal Disorder, Neurologic Disorder, Osteoarthritis (OA), Renal Disease Additional Past Medical History / Comment(s): Pt recently admitted to [facility] on 04/03/17 with UTI/sepsis, AMS, severe metabolic encephalopathy Other HX: Current stage III decubitus ulcer, TIA, possible CVA, insomina, RLS, Parkinson' s disease, dyskinesia, dysphagia, spinal stenosis, DDD (lumbosacral region), NIDDM type II, polyneuropathy, UTI, chronic kidney dx stage III, bowel/bladder incontinence, past fecal impaction. Frequent UTI's has to take antxb. or will become septic. 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 Pain clinic procedure. Past Anesthesia/Blood Transfusion Reactions: No Reported Reaction Past Psychological History: Unable to Obtain, Anxiety, Depression Smoking Status: Former smoker - Past Family History Father Family Medical History: Cancer Additional Family Medical History / Comment(s): Unknown type of cancer. Sister(s) Family Medical History: Cancer Brother(s) Family Medical History: No Reported History Daughter(s) Family Medical History: No Reported History Son(s) Family Medical History: No Reported History Mother Family Medical History: Diabetes Mellitus Additional Family Medical History / Comment(s): PER [facility] UNKNOWN FAMILY HISTORY Medications and Allergies Home Medications Medication Instructions Recorded Confirmed Type Fluticasone/Salmeterol [Advair 1 puff INHALATION RT-BID@0800,1700 07/30/1406/14 History 500-50 Diskus] Memantine [Namenda] 10 mg PO BID@0800,1700 07/30/14 06/14/18 History Pramipexole [Mirapex] 0.5 mg PO HS 07/30/14 06/14/18 History Carbidopa-Levodopa 25-100 mg 1 tab PO QID 12/29/14 06/14/18 History [Sinemet 25-100 mg] Isosorbide Mononitrate ER [Imdur] 30 mg PO DAILY 03/03/15 06/14/18 History Acetaminophen Tab [Tylenol] 500 mg PO Q8HR PRN 09/08/15 06/14/18 History Bisacodyl [Dulcolax] 10 mg RECTAL DAILY PRN 05/23/16 06/14/18 History Menthol [Biofreeze] 1 applic TOPICAL Q6H PRN 06/24/16 06/14/18 History Omeprazole [PriLOSEC] 20 mg PO QAM 03/07/17 06/14/18 History Baclofen [Lioresal] 10 mg PO Q8H PRN 08/23/17 06/14/18 History Sennosides/Docusate Sodium [Tammy 1 tab PO HS 08/23/17 06/15/18 History Colace] sitaGLIPtin [Januvia] 50 mg PO DAILY 08/23/17 06/14/18 History Ketotifen 0.025% Ophth Soln 1 drops BOTH EYES BID@0800,1700 04/28/18 06/14/18 History [Zaditor] Polyethylene Glycol 3350 [Miralax] 17 gm PO DAILY PRN 04/28/18 06/14/18 History Albuterol Nebulized [Ventolin 2.5 mg INHALATION RT-BID PRN 05/28/18 06/14/18 History Nebulized] Aspirin 81 mg PO DAILY 05/28/18 06/14/18 History Buprenorphine [Butrans 10 MCG/HOUR] 1 patch TRANSDERM SA 05/28/18 06/14/18 History Donepezil HCl [Aricept] 10 mg PO DAILY 05/28/18 06/14/18 History Furosemide [Lasix] 40 mg PO DAILY 05/28/18 06/14/18 History Gabapentin [Neurontin] 300 mg PO TID 05/28/18 06/14/18 History Ibuprofen [Motrin] 600 mg PO Q8HR PRN 05/28/18 06/14/18 History Losartan Potassium 50 mg PO DAILY 05/28/18 06/14/18 History Metoprolol Tartrate [Lopressor] 25 mg PO BID@0800,1700 05/28/18 06/14/18 History Pravastatin Sodium [Pravachol] 40 mg PO HS 05/28/18 06/14/18 History lamoTRIgine [LaMICtal] 400 mg PO BID 05/28/18 06/14/18 History ALPRAZolam [Xanax] 0.25 mg PO BID@1400,2100 06/14/18 06/14/18 History Albuterol Nebulized [Ventolin 2.5 mg INHALATION RT-BID@0800,1700 06/14/18 History Nebulized] Hydrocortisone Cream 1 applic TOPICAL TID PRN 06/14/18 06/14/18 History [Hydrocortisone 1% Cream] Lactose-Reduced Food [Ensure Plus] 240 can PO HS 06/14/18 06/14/18 History Loperamide [Imodium] 2 mg PO QID PRN 06/14/18 06/14/18 History Magnesium Hydroxide [Milk of 2,400 mg PO DAILY PRN 06/14/18 06/14/18 History Magnesia] Melatonin 3 mg PO HS 06/14/18 06/14/18 History Montelukast [Singulair] 10 mg PO HS 06/14/18 06/14/18 History Na Phos,M-B/Na Phos,Di-Ba [Fleet 133 ml RECTAL DAILY PRN 06/14/18 06/14/18 History Adult] QUEtiapine [SEROquel] 50 mg PO HS 06/14/18 06/14/18 History Sodium Chloride 0.9% Irrigatio 10 ml IV TID 06/14/18 06/14/18 History [Saline 0.9% Irrigation] diphenhydrAMINE [Benadryl] 25 mg PO QID PRN 06/14/18 06/14/18 History Allergies Allergy/AdvReac Type Severity Reaction Status Date / Time codeine Allergy Unknown Verified 06/14/18 09:02 Penicillins Allergy Unknown Verified 06/14/18 09:02 Sulfa (Sulfonamide Allergy Unknown Verified 06/14/18 09:02 Antibiotics) Physical Exam Vitals: Vital Signs Temp Pulse Resp BP Pulse Ox 06/15/18 07:53 97 06/15/18 07:00 99.9 F H 94 12 111/58 98 06/14/18 22:42 99.2 F 87 142/61 97 06/14/18 19:34 99.5 F 81 18 100/62 98 06/14/18 17:19 100.2 F H 06/14/18 15:00 100.0 F H 74 22 105/67 94 L Intake and Output 06/14/18 06/15/18 06/15/18 22:59 06:59 14:59 Intake Total 210 50 Output Total 1000 455 Balance -790 -405 Intake: Intake, IV Titration 210 50 Amount Sodium Chloride 0.9% 1, 210 000 ml @ 60 mls/hr IV . [id number] NABEEL Rx#:[id number] cefTRIAXone 1,000 mg In 50 Sodium Chloride 0.9% 50 ml @ 100 mls/hr IVPB Q24HR NABEEL Rx#:[id number] Output: Urine 1000 455 Other: Voiding Method Indwelling Catheter Indwelling Catheter Weight 115.666 kg Gen: This is an 82-year-old female. She is sitting up in bed appears to be in no acute distress. Patient remains confused and unable to follow directions. Patient's daughter is at the bedside. HEENT: Head is atraumatic, normocephalic. Pupils equal, round. Sclerae is anicteric. NECK: Supple. No JVD. No lymphadenopathy. No thyromegaly. LUNGS: Diminished bilaterally. No intercostal retractions. HEART: Regular rate and rhythm. No murmur. ABDOMEN: Soft. Bowel sounds are present. No masses. No tenderness. EXTREMITIES: No pedal edema. No calf tenderness. PICC line to the left upper arm with no signs of infection, drainage. NEUROLOGICAL: Patient is awake, lethargic and unable to follow directions. Results Results: Laboratory Results WBC 7.7 k/uL (3.8-10.6) 06/15/18 08:41 RBC 3.19 m/uL (3.80-5.40) L 06/15/18 08:41 Hgb 9.3 gm/dL (11.4-16.0) L 06/15/18 08:41 Hct 30.1 % (34.0-46.0) L 06/15/18 08:41 MCV 94.1 fL (80.0-100.0) 06/15/18 08:41 MCH 29.1 pg (25.0-35.0) 06/15/18 08:41 MCHC 30.9 g/dL (31.0-37.0) L 06/15/18 08:41 RDW 14.3 % (11.5-15.5) 06/15/18 08:41 Plt Count 187 k/uL (150-450) 06/15/18 08:41 Neutrophils % 83 % 06/15/18 08:41 Lymphocytes % 10 % 06/15/18 08:41 Monocytes % 3 % 06/15/18 08:41 Eosinophils % 3 % 06/15/18 08:41 Basophils % 0 % 06/15/18 08:41 Neutrophils # 6.3 k/uL (1.3-7.7) 06/15/18 08:41 Lymphocytes # 0.7 k/uL (1.0-4.8) L 06/15/18 08:41 Monocytes # 0.3 k/uL (0-1.0) 06/15/18 08:41 Eosinophils # 0.2 k/uL (0-0.7) 06/15/18 08:41 Basophils # 0.0 k/uL (0-0.2) 06/15/18 08:41 Hypochromasia Moderate 06/15/18 08:41 PT 9.8 sec (9.0-12.0) 06/13/18 23:34 INR 1.0 (<1.2) 06/13/18 23:34 APTT 25.6 sec (22.0-30.0) 06/13/18 23:34 Sodium 144 mmol/L (137-145) 06/15/18 08:41 Potassium 5.0 mmol/L (3.5-5.1) 06/15/18 08:41 Chloride 111 mmol/L (98-107) H 06/15/18 08:41 Carbon Dioxide 27 mmol/L (22-30) 06/15/18 08:41 Anion Gap 6 mmol/L 06/15/18 08:41 BUN 28 mg/dL (7-17) H 06/15/18 08:41 Creatinine 2.02 mg/dL (0.52-1.04) H 06/15/18 08:41 Est GFR (CKD-EPI)AfAm 26 (>60 ml/min/1.73 sqM) 06/15/18 08:41 Est GFR (CKD-EPI)NonAf 23 (>60 ml/min/1.73 sqM) 06/15/18 08:41 Glucose 101 mg/dL (74-99) H 06/15/18 08:41 POC Glucose (mg/dL) 106 mg/dL (75-99) H 06/15/18 11:45 POC Glu Javascript Ui Developer ID Fide Huang 06/15/18 11:[address] Glu mg/dL 120 06/13/18 23:34 Hemoglobin A1c 5.8 % (4.0-6.0) 06/13/18 23:34 Plasma Lactic Acid Flex 0.9 mmol/L (0.7-2.0) 06/13/18 23:34 Calcium 8.4 mg/dL (8.4-10.2) 06/15/18 08:41 Magnesium 2.5 mg/dL (1.6-2.3) H 06/15/18 08:41 Total Bilirubin 0.2 mg/dL (0.2-1.3) 06/15/18 08:41 AST 14 U/L (14-36) 06/15/18 08:41 ALT 17 U/L (9-52) 06/15/18 08:41 Alkaline Phosphatase 72 U/L (38-126) 06/15/18 08:41 Total Creatine Kinase 23 U/L (30-135) L 06/13/18 23:34 CK-MB (CK-2) 0.5 ng/mL (0.0-2.4) 06/13/18 23:34 CK-MB (CK-2) Rel Index 2.2 06/13/18 23:34 Troponin I <0.012 ng/mL (0.000-0.034) 06/13/18 23:34 Total Protein 6.0 g/dL (6.3-8.2) L 06/15/18 08:41 Albumin 3.2 g/dL (3.5-5.0) L 06/15/18 08:41 Urine Color Yellow 06/14/18 00:24 Urine Appearance Clear (Clear) 06/14/18 00:24 Urine pH 5.0 (5.0-8.0) 06/14/18 00:24 Ur Specific [place] 1.012 (1.001-1.035) 06/14/18 00:24 Urine Protein Trace (Negative) H 06/14/18 00:24 Urine Glucose (UA) Negative (Negative) 06/14/18 00:24 Urine Ketones Negative (Negative) 06/14/18 00:24 Urine Blood Trace (Negative) H 06/14/18 00:24 Urine Nitrite Negative (Negative) 06/14/18 00:24 Urine Bilirubin Negative (Negative) 06/14/18 00:24 Urine Urobilinogen <2.0 mg/dL (<2.0) 06/14/18 00:24 Ur Leukocyte Esterase Small (Negative) H 06/14/18 00:24 Urine RBC 4 /hpf (0-5) 06/14/18 00:24 Urine WBC 4 /hpf (0-5) 06/14/18 00:24 Urine WBC Clumps Rare /hpf (None) H 06/14/18 00:24 Ur Squamous Epith Cells 3 /hpf (0-4) 06/14/18 00:24 Amorphous Sediment Rare /hpf (None) H 06/14/18 00:24 Urine Bacteria Rare /hpf (None) H 06/14/18 00:24 Hyaline Casts 7 /lpf (0-2) H 06/14/18 00:24 Urine Mucus Rare /hpf (None) H 06/14/18 00:24 CBC & Chem 7: 06/15/18 08:41 06/15/18 08:41 Labs: Abnormal Lab Results - Last 24 Hours (Table) 06/15/18 06/15/18 06/15/18 Range/Units 06:45 08:41 08:41 RBC 3.19 L (3.80-5.40) m/uL Hgb 9.3 L (11.4-16.0) gm/dL Hct 30.1 L (34.0-46.0) % MCHC 30.9 L (31.0-37.0) g/dL Lymphocytes # 0.7 L (1.0-4.8) k/uL Chloride 111 H (98-107) mmol/L BUN 28 H (7-17) mg/dL Creatinine 2.02 H (0.52-1.04) mg/dL Glucose 101 H (74-99) mg/dL POC Glucose (mg/dL) 108 H (75-99) mg/dL Magnesium 2.5 H (1.6-2.3) mg/dL Total Protein 6.0 L (6.3-8.2) g/dL Albumin 3.2 L (3.5-5.0) g/dL Microbiology - Last 24 Hours (Table) 06/13/18 23:34 Blood Culture - Preliminary Blood No Growth after 24 hours 06/14/18 00:24 Urine Culture - Preliminary Urine,Voided Assessment and Plan Plan: This is an 82-year-old female who presented to hospital with uremic metabolic encephalopathy secondary to urinary tract infection and sepsis. She was recently treated for Pseudomonas UTI at [facility]. Antibiotics were changed from ceftriaxone to meropenem. Merrem will be changed to Ceftazidime for now. Blood culture was requested from the PICC line site. Urine culture is in progress. Continue supportive care. Patient also presented with acute kidney injury, chronic kidney disease stage III with dehydration and metabolic acidoses secondary to intractable nausea and vomiting. Nausea and vomiting have resolved. Patient has had no diarrhea. Further recommendations as patient progresses. The above dictated assessment and findings were discussed with Dr. Marquez. The impression and plan of care have been directed as dictated. Jailyn Navarro nurse practitioner acting as scribe for Dr. Marquez.
[2018-06-15] MEDS: INSULIN ASPART 100 UNIT/ML 1 ML 10 ML VIAL SQ SCH ×3 (15:34→22:32)
[2018-06-15] MEDS: ALPRAZolam 0.25 MG TAB PO SCH ×2 (15:37→22:32)
[2018-06-15 17:32] LABS: Glucose,Whole Blood 104 mg/dL (75-99)
[2018-06-15] MEDS: KETOTIFEN 0.025% OPHTH DROPS 5 ML BTL BOTH EYES SCH (18:11)
--- NOTE | 2018-06-15 20:16 | P.CON ---
Consult Note - . Consult date: 06/15/18 Assessment/Plan:: This is an 82-year-old female with past medical history significant for dementia and Parkinson disease, residing at [facility]. Patient presented to [facility] emergency department with worsening confusion, intractable nausea and vomiting and weakness. Patient wound not follow commands and was not able to provide any history. CAT scan of the brain showed cerebral atrophy. No acute intracranial abnormality. There is multilevel old anterior fusion surgery. Chest x-ray shows scarring and subsegmental atelectasis and left lower lobe unchanged. No heart failure. White count was 6.7, hemoglobin 9.2, platelet count 173, BUN 46 and creatinine 2.7, troponin was 0.012, albumin 3.4, urinalysis was clear with blood trace, protein trace, leukoesterase small, rare WBC clumps, rare bacteria. Patient was started on ceftriaxone and admitted to the [facility] floor. Subsequently, it was found out the patient had a PICC line placed 2 weeks ago and treated with antibiotics for UTI managed by Dr. Diamond. Urine culture positive for pseudomonas. It appears merrem was antibiotic used. Renal ultrasound has been ordered, antibiotics were changed to meropenem and blood culture ordered from the PICC line. Please see the consult is dictated by nurse practitioner Mrs. Jailyn Navarro. 82-year-old woman who has a history of significant dementia and Parkinson's disease is transferred from the [facility] care [facility] with worsening of her status. There has been recent urinary tract infection treated with intravenous antibiotic therapy with Rocephin. However recent culture showing evidence of Pseudomonas and also now to gram-negative bacilli. Does appear that the Pseudomonas is susceptible to ceftazidime and consequently will utilize this for now and attempt to save carbapenem's if needed at a later date. There appears to be no gram-positive infections and would not enhance gram-positive coverage at this time. Her PICC line appears to be intact and will be utilized. Blood cultures are negative so far and urine culture will help further clarify the course of antibiotic therapy at the time of her transfer back to the [facility]. I agree with evaluation, assessment and plan this dictated by nurse practitioner Mrs. Jailyn Navarro.
[2018-06-15] MEDS: ALBUTEROL NEBULIZED 2.5 MG/3 ML INHALATION SCH (20:43)
[2018-06-15] MEDS ORDERED: LACTOSE REDUCED FOOD PO SCH (21:00)
[2018-06-15 22:21] LABS: Glucose,Whole Blood 106 mg/dL (75-99)
[2018-06-15] MEDS: MONTELUKAST 10 MG TAB PO SCH (22:32)
[2018-06-15] MEDS: PRAVASTATIN SODIUM 40 MG TAB PO SCH (22:32)
[2018-06-15] MEDS: MELATONIN 3 MG TABLET PO SCH (22:32)
[2018-06-15] MEDS: QUEtiapine 50 MG TAB PO SCH (22:32)
[2018-06-15] MEDS: PRAMIPEXOLE 0.5 MG TAB PO SCH (22:32)
[2018-06-15] MEDS: SENNOSIDES-DOCUSATE SODIUM 1 EACH TAB PO SCH (22:33)
[2018-06-16] MEDS: SODIUM CHLORIDE 0.9% 1,000 ML IV SCH ×3 (03:35→20:38)
[2018-06-16 07:40] LABS: Glucose,Whole Blood 102 mg/dL (75-99)
[2018-06-16] MEDS ORDERED: LORazepam 2 MG/ML INJ IV STA (08:08)
[2018-06-16] MEDS ORDERED: ENALAPRILAT 1.25 MG/ML 1 ML VIAL IVP PRN (08:09)
[2018-06-16] MEDS ORDERED: ACETAMINOPHEN IV (For NPO) 1,000 MG in EMPTY BAG 1 BAG IVPB ONE (08:10)
[2018-06-16] MEDS ORDERED: hydrALAZINE HCL 20 MG/ML 1 ML VIAL IVP PRN (08:11)
[2018-06-16] MEDS: INSULIN ASPART 100 UNIT/ML 1 ML 10 ML VIAL SQ SCH ×4 (08:30→23:05)
[2018-06-16] MEDS: ALBUTEROL NEBULIZED 2.5 MG/3 ML INHALATION SCH ×2 (08:36→20:06)
[2018-06-16] MEDS: SYMBICORT 160-4.5 MCG INHALER INHALATION SCH ×3 (08:36→20:08)
[2018-06-16 09:12] LABS: HCT 30.5 % (34.0-46.0); HGB 9.6 gm/dL (11.4-16.0); Hypochromasia Slight; MCH 29.2 pg (25.0-35.0); MCHC 31.7 g/dL (31.0-37.0); MCV 92.1 fL (80.0-100.0); Mean Platelet Volume 7.2; Platelet Count 162 k/uL (150-450); RBC 3.31 m/uL (3.80-5.40); RDW 14.2 % (11.5-15.5); WBC 10.3 k/uL (3.8-10.6)
[2018-06-16 09:35] LABS: Calcium 8.9 mg/dL (8.4-10.2); Potassium 4.6 mmol/L (3.5-5.1)
[2018-06-16 12:00] LABS: Glucose,Whole Blood 119 mg/dL (75-99)
[2018-06-16] MEDS: MEMANTINE 10 MG TAB PO SCH ×2 (12:11→22:45)
[2018-06-16] MEDS: ASPIRIN 81 MG PO SCH (12:11)
[2018-06-16] MEDS: METOPROLOL TARTRATE 25 MG TAB PO SCH ×2 (12:11→22:45)
[2018-06-16] MEDS: PANTOPRAZOLE 40 MG TABLET PO SCH (12:11)
[2018-06-16] MEDS: GABAPENTIN 300 MG CAP PO SCH ×3 (12:12→22:46)
[2018-06-16] MEDS: CARBIDOPA-LEVODOPA 25-100 MG 1 EACH TAB PO SCH ×4 (12:12→22:45)
[2018-06-16] MEDS: lamoTRIgine 100 MG TAB PO SCH ×2 (12:12→22:44)
[2018-06-16] MEDS: DONEPEZIL 10 MG TAB PO SCH (12:12)
[2018-06-16] MEDS: ISOSORBIDE MONONITRATE ER 30 MG TAB.ER.24H PO SCH (12:12)
[2018-06-16] MEDS: LOSARTAN 50 MG TAB PO SCH (12:13)
--- NOTE | 2018-06-16 14:29 | P.PN ---
Subjective Progress Note Date: 06/16/18 This is a 82-year-old female with past medical history significant for dementia and Parkinson disease presents to the emergency department with worsening confusion intractable nausea and vomiting and weakness. In the emergency department patient is not following commands unable to provide any information and all the history obtained from medical record and jail information as I spoke to the charge nurse. Patient was found to have urinary tract infection, acute kidney injury and was started on IV antibiotics and IV fluid patient currently still confused morning not following commands and responding only to pain stimuli 06/15: Blood sugars are running 97-108, creatinine 2.02 and BUN 28 which improved from yesterday. Urine culture is in progress, blood culture is no growth at 24 hours. Patient continues to be lethargic and confused. She has taken few bites of applesauce with medications. Nausea and vomiting have resolved. Daughter is at bedside and states patient is usually interactive ie plays bingo etc. She is wheelchair bound. She has been seen by Dr. Kinsey in the past. Daughter states that patient had a PICC line placed 2 weeks ago and treated with antibiotics for UTI managed by Dr. Diamond. Urine culture positive for pseudomonas. It appears merrem was antibiotic used. Will ask for consult with Dr. Marquez, renal ultrasound and rocephin changed to Merrem. Sodium bicarb to be added to IV fluids for metabolic acidoses. 06/16: Patient has been moaning all through the night. She is unable to follow commands. This morning her temperature max 101.4 with heart rate of 110 and blood pressure 205/91. Hydralazine IV and IV Tylenol added as well as 1 dose of Ativan. Repeat blood culture will be obtained. Blood culture from yesterday drawn from the PICC line is positive for gram-positive cocci. Patient has been seen by Dr. Marquez and IVs antibiotics are currently Fortaz. Renal ultrasound shows renal cystic changes. Her fever was down and blood pressure improved. She is able to recognize and state her daughter's name. Therapy has evaluated and will start diet this afternoon. Patient will be maintained on her oral medications. Review Of Systems: Unable to obtain due to mental status changes Objective - Vital Signs Vital signs: Vital Signs Temp 98.9 F 06/16/18 00:20 Pulse 80 06/16/18 00:20 Resp 14 06/16/18 00:20 BP 138/79 06/16/18 00:20 Pulse Ox 95 06/16/18 00:20 Intake & Output 06/15/18 06/15/18 06/16/18 06:59 18:59 06:59 Intake Total 260 960 Output Total 455 600 650 Balance -195 -600 310 Weight 115.666 kg Intake: Intake, IV Titration 260 960 Amount Sodium Chloride 0.9% 1, 210 960 000 ml @ 60 mls/hr IV . [id number] NABEEL Rx#:[id number] cefTRIAXone 1,000 mg In 50 Sodium Chloride 0.9% 50 ml @ 100 mls/hr IVPB Q24HR NABEEL Rx#:[id number] Output: Urine 455 600 650 Other: Voiding Method Indwelling Catheter Indwelling Catheter Indwelling Catheter - Exam HEENT atraumatic normocephalic PERRLA Neck supple no masses or thyromegaly Heart normal S1 and S2 Lungs diminished bilaterally Abdomen soft no tenderness breast also all 4 quadrant no guarding or rebound Skin no new rash Neuro moving all 4 extremities spontaneously Psych awake and confused and lethargic and able to follow a few simple commands. - Labs CBC & Chem 7: 06/16/18 08:39 06/16/18 08:40 Labs: Abnormal Lab Results - Last 24 Hours (Table) 06/15/18 06/15/18 06/15/18 Range/Units 06:45 08:41 08:41 RBC 3.19 L (3.80-5.40) m/uL Hgb 9.3 L (11.4-16.0) gm/dL Hct 30.1 L (34.0-46.0) % MCHC 30.9 L (31.0-37.0) g/dL Lymphocytes # 0.7 L (1.0-4.8) k/uL Chloride 111 H (98-107) mmol/L BUN 28 H (7-17) mg/dL Creatinine 2.02 H (0.52-1.04) mg/dL Glucose 101 H (74-99) mg/dL POC Glucose (mg/dL) 108 H (75-99) mg/dL Magnesium 2.5 H (1.6-2.3) mg/dL Total Protein 6.0 L (6.3-8.2) g/dL Albumin 3.2 L (3.5-5.0) g/dL 06/15/18 06/15/18 06/15/18 Range/Units 11:45 17:21 22:10 RBC (3.80-5.40) m/uL Hgb (11.4-16.0) gm/dL Hct (34.0-46.0) % MCHC (31.0-37.0) g/dL Lymphocytes # (1.0-4.8) k/uL Chloride (98-107) mmol/L BUN (7-17) mg/dL Creatinine (0.52-1.04) mg/dL Glucose (74-99) mg/dL POC Glucose (mg/dL) 106 H 104 H 106 H (75-99) mg/dL Magnesium (1.6-2.3) mg/dL Total Protein (6.3-8.2) g/dL Albumin (3.5-5.0) g/dL Microbiology - Last 24 Hours (Table) 06/13/18 23:34 Blood Culture - Final Blood 06/14/18 00:24 Urine Culture - Preliminary Urine,Voided Assessment and Plan Plan: 1. Uremic metabolic encephalopathy secondary to urinary tract infection and sepsis with possible gram-positive bacteremia. Urine culture is in progress. WBC clumping on UA. Blood culture showing gram-positive cocci from the PICC line. Continue Haldol as needed for agitation. Xanax, baclofen Benadryl on hold. Dr Marquez consult appreciated. Antibiotics changed to Fortaz., renal ultrasound as above. Recent treatment for Pseudomonas UTI at [facility]. 2. Acute kidney injury, chronic kidney disease stage III with dehydration and metabolic acidoses secondary to intractable nausea and vomiting. Avoid nephrotoxic agents. Continue to monitor kidney function. Hold Lasix. Continue IVF. Sodium bicarb to be added to IV fluids. 3. CAD. Continue patient on Imdur 30 mg orally once every day, Lopressor 25 mg twice daily. 4. Hypertension and hypertensive cardiovascular disease. Continue Lopressor and Imdur 5. Hyperlipidemia. She is not currently on statin. 6. Diabetes mellitus type 2. Januvia on hold. Humalog scale before meals and at bedtime. 7. Parkinson with orofacial dyskinesia. Continue patient on Sinemet 25/100 one tablet orally 4 times every day, Baclofen 10 mg every 8 hours as needed, Namenda 10 mg twice daily. 8. Diabetic polyneuropathy. Continue gabapentin. 9. Restless leg syndrome. Continue patient on Mirapex 0.5 mg at bedtime. 10. Alzheimer dementia with behavior disturbance and impaired oral phase of eating patient tends to pocket food. Continue Namenda 10 mg orally twice every day and Aricept. 11. Depression, recurrent. Continue Seroquel 50 mg at bedtime. 12. DVT prophylaxis. Heparin 5000 units every 12 hours subcutaneously. 14. GI prophylaxis. Omeprazole. 15. Patient is no code no CPR and no ventilation, no aggressive medical. Discharge plan: Return to [facility] Impression and plan of care have been directed as dictated by the signing physician. Jailyn Navarro nurse practitioner acting as scribe for signing physician.
[2018-06-16] MEDS: ALPRAZolam 0.25 MG TAB PO SCH ×2 (15:11→22:46)
[2018-06-16] MEDS: KETOTIFEN 0.025% OPHTH DROPS 5 ML BTL BOTH EYES SCH ×2 (15:11→20:38)
[2018-06-16] MEDS: DAPTOmycin 500 MG in SODIUM CHLORIDE 0.9% 50 ML IVPB SCH (15:11)
[2018-06-16] MEDS: DEXTROSE 5% IN WATER 1,000 ML IV SCH (15:57)
[2018-06-16] MEDS: ACETAMINOPHEN TAB 500 MG TAB PO PRN (16:11)
[2018-06-16 16:51] LABS: Glucose,Whole Blood 192 mg/dL (75-99)
[2018-06-16 20:30] LABS: Glucose,Whole Blood 124 mg/dL (75-99)
--- NOTE | 2018-06-16 22:30 | P.PN ---
Subjective Progress Note Date: 06/16/18 This is an 82-year-old female with past medical history significant for dementia and Parkinson disease, residing at [facility]. Patient presented to [facility] emergency department with worsening confusion, intractable nausea and vomiting and weakness. Patient wound not follow commands and was not able to provide any history. CAT scan of the brain showed cerebral atrophy. No acute intracranial abnormality. There is multilevel old anterior fusion surgery. Chest x-ray shows scarring and subsegmental atelectasis and left lower lobe unchanged. No heart failure. White count was 6.7, hemoglobin 9.2, platelet count 173, BUN 46 and creatinine 2.7, troponin was 0.012, albumin 3.4, urinalysis was clear with blood trace, protein trace, leukoesterase small, rare WBC clumps, rare bacteria. Patient was started on ceftriaxone and admitted to the [facility] floor. Subsequently, it was found out the patient had a PICC line placed 2 weeks ago and treated with antibiotics for UTI managed by Dr. Diamond. Urine culture positive for pseudomonas. It appears merrem was antibiotic used. Renal ultrasound has been ordered, antibiotics were changed to meropenem and blood culture ordered from the PICC line 06/16/2018 patient is having some improvement today. She already temperature 101.4 overnight. Blood cultures being called is positive. Daptomycin is added. Follow blood cultures also requested. Objective - Vital Signs Vital signs: Vital Signs Temp 99.2 F 06/16/18 19:54 Pulse 94 06/16/18 20:17 Resp 16 06/16/18 19:54 BP 148/70 06/16/18 19:54 Pulse Ox 97 06/16/18 20:07 Intake & Output 06/16/18 06/16/18 06/17/18 06:59 18:59 06:59 Intake Total 960 0 Output Total 650 500 Balance 310 -500 Intake: Intake, IV Titration 960 Amount Sodium Chloride 0.9% 1, 960 000 ml @ 60 mls/hr IV . [id number] [facility] Rx#:[id number] Oral 0 Output: Urine 650 500 Other: Voiding Method Indwelling Catheter Indwelling Catheter - Exam Gen: This is an 82-year-old female. She is sitting up in bed appears to be in no acute distress. Patient remains confused and unable to follow directions. Patient's daughter is at the bedside. HEENT: Head is atraumatic, normocephalic. Pupils equal, round. Sclerae is anicteric. NECK: Supple. No JVD. No lymphadenopathy. No thyromegaly. LUNGS: Diminished bilaterally. No intercostal retractions. HEART: Regular rate and rhythm. No murmur. ABDOMEN: Soft. Bowel sounds are present. No masses. No tenderness. EXTREMITIES: No pedal edema. No calf tenderness. PICC line to the left upper arm with no signs of infection, drainage. NEUROLOGICAL: Patient is awake, lethargic and unable to follow directions. - Labs CBC & Chem 7: 06/16/18 08:39 06/16/18 08:40 Labs: Abnormal Lab Results - Last 24 Hours (Table) 06/16/18 06/16/18 06/16/18 Range/Units 07:38 08:39 08:40 RBC 3.31 L (3.80-5.40) m/uL Hgb 9.6 L (11.4-16.0) gm/dL Hct 30.5 L (34.0-46.0) % Sodium 149 H (137-145) mmol/L Chloride 114 H (98-107) mmol/L BUN 27 H (7-17) mg/dL Creatinine 1.72 H (0.52-1.04) mg/dL Glucose 104 H (74-99) mg/dL POC Glucose (mg/dL) 102 H (75-99) mg/dL 06/16/18 06/16/18 06/16/18 Range/Units 11:58 16:49 20:18 RBC (3.80-5.40) m/uL Hgb (11.4-16.0) gm/dL Hct (34.0-46.0) % Sodium (137-145) mmol/L Chloride (98-107) mmol/L BUN (7-17) mg/dL Creatinine (0.52-1.04) mg/dL Glucose (74-99) mg/dL POC Glucose (mg/dL) 119 H 192 H 124 H (75-99) mg/dL Microbiology - Last 24 Hours (Table) 06/15/18 12:39 Blood Culture - Preliminary Blood No Growth after 24 hours 06/13/18 23:34 Blood Culture Gram Stain - Preliminary Blood Blood Culture - Preliminary Micrococcus species 06/13/18 23:34 Blood Culture - Final Blood Laboratory Results WBC 10.3 k/uL (3.8-10.6) 06/16/18 08:39 RBC 3.31 m/uL (3.80-5.40) L 06/16/18 08:39 Hgb 9.6 gm/dL (11.4-16.0) L 06/16/18 08:39 Hct 30.5 % (34.0-46.0) L 06/16/18 08:39 MCV 92.1 fL (80.0-100.0) 06/16/18 08:39 MCH 29.2 pg (25.0-35.0) 06/16/18 08:39 MCHC 31.7 g/dL (31.0-37.0) 06/16/18 08:39 RDW 14.2 % (11.5-15.5) 06/16/18 08:39 Plt Count 162 k/uL (150-450) 06/16/18 08:39 Neutrophils % 83 % 06/15/18 08:41 Lymphocytes % 10 % 06/15/18 08:41 Monocytes % 3 % 06/15/18 08:41 Eosinophils % 3 % 06/15/18 08:41 Basophils % 0 % 06/15/18 08:41 Neutrophils # 6.3 k/uL (1.3-7.7) 06/15/18 08:41 Lymphocytes # 0.7 k/uL (1.0-4.8) L 06/15/18 08:41 Monocytes # 0.3 k/uL (0-1.0) 06/15/18 08:41 Eosinophils # 0.2 k/uL (0-0.7) 06/15/18 08:41 Basophils # 0.0 k/uL (0-0.2) 06/15/18 08:41 Hypochromasia Slight 06/16/18 08:39 PT 9.8 sec (9.0-12.0) 06/13/18 23:34 INR 1.0 (<1.2) 06/13/18 23:34 APTT 25.6 sec (22.0-30.0) 06/13/18 23:34 Sodium 149 mmol/L (137-145) H 06/16/18 08:40 Potassium 4.6 mmol/L (3.5-5.1) 06/16/18 08:40 Chloride 114 mmol/L (98-107) H 06/16/18 08:40 Carbon Dioxide 24 mmol/L (22-30) 06/16/18 08:40 Anion Gap 11 mmol/L 06/16/18 08:40 BUN 27 mg/dL (7-17) H 06/16/18 08:40 Creatinine 1.72 mg/dL (0.52-1.04) H 06/16/18 08:40 Est GFR (CKD-EPI)AfAm 32 (>60 ml/min/1.73 sqM) 06/16/18 08:40 Est GFR (CKD-EPI)NonAf 28 (>60 ml/min/1.73 sqM) 06/16/18 08:40 Glucose 104 mg/dL (74-99) H 06/16/18 08:40 POC Glucose (mg/dL) 124 mg/dL (75-99) H 06/16/18 20:18 POC Glu Associate Java Developer LUIS FELIPE DiazIvyjohncarley 06/16/18 20:[address] Glu mg/dL 120 06/13/18 23:34 Hemoglobin A1c 5.8 % (4.0-6.0) 06/13/18 23:34 Plasma Lactic Acid Flex 0.9 mmol/L (0.7-2.0) 06/13/18 23:34 Calcium 8.9 mg/dL (8.4-10.2) 06/16/18 08:40 Magnesium 2.5 mg/dL (1.6-2.3) H 06/15/18 08:41 Total Bilirubin 0.2 mg/dL (0.2-1.3) 06/15/18 08:41 AST 14 U/L (14-36) 06/15/18 08:41 ALT 17 U/L (9-52) 06/15/18 08:41 Alkaline Phosphatase 72 U/L (38-126) 06/15/18 08:41 Total Creatine Kinase 23 U/L (30-135) L 06/13/18 23:34 CK-MB (CK-2) 0.5 ng/mL (0.0-2.4) 06/13/18 23:34 CK-MB (CK-2) Rel Index 2.2 06/13/18 23:34 Troponin I <0.012 ng/mL (0.000-0.034) 06/13/18 23:34 Total Protein 6.0 g/dL (6.3-8.2) L 06/15/18 08:41 Albumin 3.2 g/dL (3.5-5.0) L 06/15/18 08:41 Urine Color Yellow 06/14/18 00:24 Urine Appearance Clear (Clear) 06/14/18 00:24 Urine pH 5.0 (5.0-8.0) 06/14/18 00:24 Ur Specific Strong 1.012 (1.001-1.035) 06/14/18 00:24 Urine Protein Trace (Negative) H 06/14/18 00:24 Urine Glucose (UA) Negative (Negative) 06/14/18 00:24 Urine Ketones Negative (Negative) 06/14/18 00:24 Urine Blood Trace (Negative) H 06/14/18 00:24 Urine Nitrite Negative (Negative) 06/14/18 00:24 Urine Bilirubin Negative (Negative) 06/14/18 00:24 Urine Urobilinogen <2.0 mg/dL (<2.0) 06/14/18 00:24 Ur Leukocyte Esterase Small (Negative) H 06/14/18 00:24 Urine RBC 4 /hpf (0-5) 06/14/18 00:24 Urine WBC 4 /hpf (0-5) 06/14/18 00:24 Urine WBC Clumps Rare /hpf (None) H 06/14/18 00:24 Ur Squamous Epith Cells 3 /hpf (0-4) 06/14/18 00:24 Amorphous Sediment Rare /hpf (None) H 06/14/18 00:24 Urine Bacteria Rare /hpf (None) H 06/14/18 00:24 Hyaline Casts 7 /lpf (0-2) H 06/14/18 00:24 Urine Mucus Rare /hpf (None) H 18 00:24 Microbiology 06/15/18 12:39 Blood Blood Culture - Preliminary No Growth after 24 hours 06/13/18 23:34 Blood Blood Culture Gram Stain - Preliminary 06/13/18 23:34 Blood Blood Culture - Preliminary Micrococcus species 06/13/18 23:34 Blood Blood Culture - Final 06/14/18 00:24 Urine,Voided Urine Culture - Preliminary Assessment and Plan (1) Altered mental status Current Visit: Yes Status: Acute Code(s): R41.82 - ALTERED MENTAL STATUS, UNSPECIFIED SNOMED Code(s): 397090243 (2) Urinary tract infection Narrative/Plan: 82-year-old woman who has a history of significant dementia and Parkinson's disease [place] [facility] [place] status. There has been recent urinary tract infection treated with intravenous antibiotic therapy with Rocephin. However recent culture showing evidence of Pseudomonas and also now to gram-negative bacilli. Does appear that the Pseudomonas is susceptible to ceftazidime and consequently will utilize this for now and attempt to save carbapenem's if needed at a later date. There appears to be no gram-positive infections and would not enhance gram-positive coverage at this time. Her PICC line appears to be intact and will be utilized. Blood cultures are negative so far and urine culture will help further clarify the course of antibiotic therapy at the time of her transfer back to the [facility]. 06/16/2018 patient is with some minimal improvement today. Urine culture remains in process. Blood culture with gram-positive cocci. She is currently on ceftazidime will add daptomycin for now until further culture results are available. Because she has a PICC line in place will be important to remove this since there is now a positive culture. Nursing staff is requested to remove the line. Current Visit: Yes Status: Acute Code(s): N39.0 - URINARY TRACT INFECTION, SITE NOT SPECIFIED SNOMED Code(s): 63362533 (3) Metabolic encephalopathy Current Visit: No Status: Acute Code(s): G93.41 - METABOLIC ENCEPHALOPATHY SNOMED Code(s): 26046562
[2018-06-16] MEDS: SENNOSIDES-DOCUSATE SODIUM 1 EACH TAB PO SCH (22:45)
[2018-06-16] MEDS: PRAVASTATIN SODIUM 40 MG TAB PO SCH (22:45)
[2018-06-16] MEDS: MONTELUKAST 10 MG TAB PO SCH (22:45)
[2018-06-16] MEDS: MELATONIN 3 MG TABLET PO SCH (22:46)
[2018-06-16] MEDS: PRAMIPEXOLE 0.5 MG TAB PO SCH (23:16)
[2018-06-16] MEDS: QUEtiapine 50 MG TAB PO SCH (23:16)
[2018-06-17] MEDS: SODIUM CHLORIDE 0.9% 1,000 ML IV SCH ×3 (02:35→21:57)
[2018-06-17] MEDS: ACETAMINOPHEN TAB 500 MG TAB PO PRN ×2 (05:17→15:58)
[2018-06-17 07:14] LABS: Glucose,Whole Blood 121 mg/dL (75-99)
[2018-06-17 08:00] LABS: HCT 27.1 % (34.0-46.0); HGB 8.7 gm/dL (11.4-16.0); Hypochromasia Slight; MCH 29.6 pg (25.0-35.0); MCV 92.5 fL (80.0-100.0); Mean Platelet Volume 7.1; Platelet Count 130 k/uL (150-450); RBC 2.93 m/uL (3.80-5.40); RDW 14.2 % (11.5-15.5); WBC 7.1 k/uL (3.8-10.6)
[2018-06-17] MEDS: ISOSORBIDE MONONITRATE ER 30 MG TAB.ER.24H PO SCH (08:08)
[2018-06-17] MEDS: MEMANTINE 10 MG TAB PO SCH ×2 (08:09→17:53)
[2018-06-17] MEDS: KETOTIFEN 0.025% OPHTH DROPS 5 ML BTL BOTH EYES SCH ×2 (08:09→18:03)
[2018-06-17] MEDS: PANTOPRAZOLE 40 MG TABLET PO SCH (08:09)
[2018-06-17] MEDS: CARBIDOPA-LEVODOPA 25-100 MG 1 EACH TAB PO SCH ×4 (08:09→22:08)
[2018-06-17] MEDS: GABAPENTIN 300 MG CAP PO SCH ×3 (08:10→22:07)
[2018-06-17] MEDS: DONEPEZIL 10 MG TAB PO SCH (08:10)
[2018-06-17] MEDS: LOSARTAN 50 MG TAB PO SCH (08:10)
[2018-06-17] MEDS: METOPROLOL TARTRATE 25 MG TAB PO SCH ×2 (08:10→17:53)
[2018-06-17] MEDS: ASPIRIN 81 MG PO SCH (08:11)
[2018-06-17] MEDS: lamoTRIgine 100 MG TAB PO SCH ×2 (08:14→22:08)
[2018-06-17 08:15] LABS: Potassium 3.9 mmol/L (3.5-5.1)
[2018-06-17 08:16] LABS: Calcium 8.3 mg/dL (8.4-10.2)
[2018-06-17] MEDS: INSULIN ASPART 100 UNIT/ML 1 ML 10 ML VIAL SQ SCH ×4 (08:30→22:08)
[2018-06-17] MEDS: ALBUTEROL NEBULIZED 2.5 MG/3 ML INHALATION SCH ×2 (09:47→19:13)
[2018-06-17] MEDS: SYMBICORT 160-4.5 MCG INHALER INHALATION SCH ×2 (09:47→19:14)
--- NOTE | 2018-06-17 11:52 | P.PN ---
Subjective Progress Note Date: 06/17/18 This is a 82-year-old female with past medical history significant for dementia and Parkinson disease presents to the emergency department with worsening confusion intractable nausea and vomiting and weakness. In the emergency department patient is not following commands unable to provide any information and all the history obtained from medical record and senior living information as I spoke to the charge nurse. Patient was found to have urinary tract infection, acute kidney injury and was started on IV antibiotics and IV fluid patient currently still confused morning not following commands and responding only to pain stimuli 06/15: Blood sugars are running 97-108, creatinine 2.02 and BUN 28 which improved from yesterday. Urine culture is in progress, blood culture is no growth at 24 hours. Patient continues to be lethargic and confused. She has taken few bites of applesauce with medications. Nausea and vomiting have resolved. Daughter is at bedside and states patient is usually interactive ie plays bingo etc. She is wheelchair bound. She has been seen by Dr. Kinsey in the past. Daughter states that patient had a PICC line placed 2 weeks ago and treated with antibiotics for UTI managed by Dr. Diamond. Urine culture positive for pseudomonas. It appears merrem was antibiotic used. Will ask for consult with Dr. Marquez, renal ultrasound and rocephin changed to Merrem. Sodium bicarb to be added to IV fluids for metabolic acidoses. 06/16: Patient has been moaning all through the night. She is unable to follow commands. This morning her temperature max 101.4 with heart rate of 110 and blood pressure 205/91. Hydralazine IV and IV Tylenol added as well as 1 dose of Ativan. Repeat blood culture will be obtained. Blood culture from yesterday drawn from the PICC line is positive for gram-positive cocci. Patient has been seen by Dr. Marquez and IVs antibiotics are currently Fortaz. Renal ultrasound shows renal cystic changes. Her fever was down and blood pressure improved. She is able to recognize and state her daughter's name. Therapy has evaluated and will start diet this afternoon. Patient will be maintained on her oral medications. 06/17: White count remains normal, hemoglobin 8.7 and platelet count 1:30. BUN 25 and creatinine 1.43. Blood sugars have been running in the 120s. Blood culture drawn from the PICC line is positive for gram-positive cocci. PICC line to be removed today. Repeat blood culture obtained this morning, Dr. Marquez has placed her on daptomycin in addition to Fortaz. Urine culture finalized with ESBL Proteus mirabilis and E. coli. She has been afebrile for 24 hours. The patient is awake and alert this morning was able to take her medications with applesauce and ate yogurt for breakfast. She is now somewhat lethargic and tired. We will check B12 level and TSH and increase melatonin 6 mg at bedtime. She has not had any choking episodes. She is on a special diet. Review Of Systems: Unable to obtain due to mental status changes Objective - Vital Signs Vital signs: Vital Signs Temp 98.5 F 06/17/18 07:20 Pulse 70 06/17/18 07:20 Resp 16 06/17/18 07:20 BP 121/69 06/17/18 07:20 Pulse Ox 100 06/17/18 07:20 Intake & Output 06/16/18 06/17/18 06/17/18 18:59 06:59 18:59 Intake Total 0 1120 Output Total 500 325 Balance -500 795 Intake: Intake, IV Titration 400 Amount Dextrose 5% in Water 1, 400 000 ml @ 50 mls/hr IV . Q20H [facility] Rx#:[id number] Oral 0 720 Output: Urine 500 325 Other: Voiding Method Indwelling Catheter Indwelling Catheter - Exam Gen: This is a morbidly obese 82-year-old female. She is in bed and appears to be in no acute distress. HEENT: Head is atraumatic, normocephalic. Pupils equal, round. Sclerae is anicteric. NECK: Supple. No JVD. No lymphadenopathy. No thyromegaly. LUNGS: Clear to auscultation but diminished bilaterally. No wheezes or rhonchi. No intercostal retractions. HEART: Regular rate and rhythm. No murmur. ABDOMEN: Soft. Bowel sounds are present. No masses. No tenderness. EXTREMITIES: No pedal edema. No calf tenderness. NEUROLOGICAL: Patient is awake, sleepy. Generalized weakness noted - Labs CBC & Chem 7: 06/17/18 07:12 06/17/18 07:12 Labs: Abnormal Lab Results - Last 24 Hours (Table) 06/16/18 06/16/18 06/16/18 Range/Units 08:40 11:58 16:49 RBC (3.80-5.40) m/uL Hgb (11.4-16.0) gm/dL Hct (34.0-46.0) % Plt Count (150-450) k/uL Sodium 149 H (137-145) mmol/L Chloride 114 H (98-107) mmol/L BUN 27 H (7-17) mg/dL Creatinine 1.72 H (0.52-1.04) mg/dL Glucose 104 H (74-99) mg/dL POC Glucose (mg/dL) 119 H 192 H (75-99) mg/dL Calcium (8.4-10.2) mg/dL 06/16/18 06/17/18 06/17/18 Range/Units 20:18 07:03 07:12 RBC 2.93 L (3.80-5.40) m/uL Hgb 8.7 L (11.4-16.0) gm/dL Hct 27.1 L (34.0-46.0) % Plt Count 130 L (150-450) k/uL Sodium (137-145) mmol/L Chloride (98-107) mmol/L BUN (7-17) mg/dL Creatinine (0.52-1.04) mg/dL Glucose (74-99) mg/dL POC Glucose (mg/dL) 124 H 121 H (75-99) mg/dL Calcium (8.4-10.2) mg/dL 06/17/18 Range/Units 07:12 RBC (3.80-5.40) m/uL Hgb (11.4-16.0) gm/dL Hct (34.0-46.0) % Plt Count (150-450) k/uL Sodium (137-145) mmol/L Chloride 110 H (98-107) mmol/L BUN 25 H (7-17) mg/dL Creatinine 1.43 H (0.52-1.04) mg/dL Glucose 119 H (74-99) mg/dL POC Glucose (mg/dL) (75-99) mg/dL Calcium 8.3 L (8.4-10.2) mg/dL Microbiology - Last 24 Hours (Table) 06/15/18 12:39 Blood Culture - Preliminary Blood No Growth after 24 hours 06/13/18 23:34 Blood Culture Gram Stain - Preliminary Blood Blood Culture - Preliminary Micrococcus species Assessment and Plan Plan: 1. Uremic and septic metabolic encephalopathy secondary to ESBL Proteus mirabilis and E. coli urinary tract infection and sepsis with PICC associated gram-positive bacteremia. Urine culture as above. Blood culture showing gram- positive cocci from the PICC line. Continue Haldol as needed for agitation. Xanax, baclofen Benadryl on hold. Dr Marquez consult appreciated. Continue daptomycin and Fortaz, renal ultrasound as above. Repeat blood culture pending this morning. To be removed today. 2. Acute kidney injury, chronic kidney disease stage III with dehydration and metabolic acidoses secondary to intractable nausea and vomiting. Avoid nephrotoxic agents. Continue to monitor kidney function. Hold Lasix. Continue IVF. Sodium bicarb to be added to IV fluids. 3. CAD. Continue patient on Imdur 30 mg orally once every day, Lopressor 25 mg twice daily. 4. Hypertension and hypertensive cardiovascular disease. Continue Lopressor and Imdur 5. Hyperlipidemia. She is not currently on statin. 6. Diabetes mellitus type 2. Januvia on hold. Humalog scale before meals and at bedtime. 7. Parkinson with orofacial dyskinesia. Continue patient on Sinemet 25/100 one tablet orally 4 times every day, Baclofen 10 mg every 8 hours as needed, Namenda 10 mg twice daily. 8. Diabetic polyneuropathy. Continue gabapentin. 9. Restless leg syndrome. Continue patient on Mirapex 0.5 mg at bedtime. 10. Alzheimer dementia with behavior disturbance and impaired oral phase of eating patient tends to pocket food. Continue Namenda 10 mg orally twice every day and Aricept. 11. Depression, recurrent. Continue Seroquel 50 mg at bedtime. 12. DVT prophylaxis. Heparin 5000 units every 12 hours subcutaneously. 14. GI prophylaxis. Omeprazole. 15. Patient is no code no CPR and no ventilation, no aggressive medical. Discharge plan: Return to [facility] earliest on Friday. Most likely discharge will occur on Friday Impression and plan of care have been directed as dictated by the signing physician. Jailyn Navarro nurse practitioner acting as scribe for signing physician.
[2018-06-17 12:00] LABS: Glucose,Whole Blood 140 mg/dL (75-99)
[2018-06-17] MEDS: DEXTROSE 5% IN WATER 1,000 ML IV SCH (13:02)
[2018-06-17] MEDS: ALPRAZolam 0.25 MG TAB PO SCH ×2 (13:04→22:07)
--- NOTE | 2018-06-17 13:09 | ECHOF ---
Referral Reason:vegetation MEASUREMENTS -------- HEIGHT: 160.0 cm WEIGHT: 115.7 kg BP: IVSd: 1.1 cm (0.6 - 1.1) LVIDd: 4.9 cm (3.9 - 5.3) LVPWd: 1.4 cm (0.6 - 1.1) IVSs: 1.9 cm LVIDs: 2.8 cm LVPWs: 2.1 cm Ao Diam: 2.8 cm (2.0 - 3.7) AV Cusp: 1.1 cm (1.5 - 2.6) LA Diam: 3.4 cm (2.7 - 3.8) MV EXCURSION: 19.783 mm (> 18.000) MV EF SLOPE: 53 mm/s (70 - 150) EPSS: 0.9 cm MV E Santiago: 1.26 m/s MV DecT: 208 ms MV A Santiago: 1.30 m/s MV E/A Ratio: 0.97 AV maxP.20 mmHg AV meanP.13 mmHg RAP: 5.00 mmHg RVSP: 39.07 mmHg FINDINGS -------- Sinus rhythm. Resting tachycardia (HR>100bpm). This was a technically good study. The left ventricular size is normal. There is mild concentric left ventricular hypertrophy. Overa ll left ventricular systolic function is normal with, an EF between 55 - 60 %. The right ventricle is normal in size and function. The left atrium is normal in size. The right atrium is normal in size. Aortic valve is trileaflet and is moderately thickened. There is mild aortic stenosis present. Pe ak/mean gradient across the Aortic Valve is 36.20mmHg / 16.13mmHg. Gyhhwfxm-[id number]-[id number] mitral regurgitation is present. Mild tricuspid regurgitation present. There is mild pulmonary hypertension. The right ventricular systolic pressure, as measured by Doppler, is 39.07mmHg. Pulmonic valve appears structurally normal. The aortic root size is normal. The pericardium is normal. CONCLUSIONS -------- 1. Sinus rhythm. 2. Resting tachycardia (HR>100bpm). 3. This was a technically good study. 4. The left ventricular size is normal. 5. There is mild concentric left ventricular hypertrophy. 6. Overall left ventricular systolic function is normal with, an EF between 55 - 60 %. 7. The right ventricle is normal in size and function. 8. The left atrium is normal in size. 9. The right atrium is normal in size. 10. Aortic valve is trileaflet and is moderately thickened. 11. There is mild aortic stenosis present. 12. Peak/mean gradient across the Aortic Valve is 36.20mmHg / 16.13mmHg. 13. Vidwxizp-bt-etfwze mitral regurgitation is present. 14. Mild tricuspid regurgitation present. 15. There is mild pulmonary hypertension. 16. The right ventricular systolic pressure, as measured by Doppler, is 39.07mmHg. 17. Pulmonic valve appears structurally normal. 18. The aortic root size is normal. 19. The pericardium is normal. PHYSICIAN: Debra Darling RDCS
[2018-06-17 17:23] LABS: Glucose,Whole Blood 142 mg/dL (75-99)
[2018-06-17 19:54] LABS: Glucose,Whole Blood 168 mg/dL (75-99)
[2018-06-17] MEDS: MELATONIN 3 MG TABLET PO SCH (22:07)
[2018-06-17] MEDS: MONTELUKAST 10 MG TAB PO SCH (22:07)
[2018-06-17] MEDS: SENNOSIDES-DOCUSATE SODIUM 1 EACH TAB PO SCH (22:07)
[2018-06-17] MEDS: PRAVASTATIN SODIUM 40 MG TAB PO SCH (22:08)
[2018-06-17] MEDS: QUEtiapine 50 MG TAB PO SCH (22:08)
[2018-06-17] MEDS: PRAMIPEXOLE 0.5 MG TAB PO SCH (22:08)
[2018-06-17] MEDS ORDERED: DEXTROSE 5%-0.45% NACL 500 ML IV SCH (23:45)
[2018-06-18] MEDS ORDERED: MIDODRINE 5 MG TAB PO ONE
[2018-06-18] MEDS: SODIUM CHLORIDE 0.9% 1,000 ML IV SCH ×3 (03:19→17:20)
[2018-06-18] MEDS: DEXTROSE 5% IN WATER 1,000 ML IV SCH ×2 (06:50→11:02)
[2018-06-18 07:16] LABS: Glucose,Whole Blood 133 mg/dL (75-99)
[2018-06-18 08:19] LABS: HCT 27.3 % (34.0-46.0); HGB 8.5 gm/dL (11.4-16.0); Hypochromasia Moderate; MCH 29.5 pg (25.0-35.0); MCHC 31.1 g/dL (31.0-37.0); Mean Platelet Volume 7.3; Platelet Count 117 k/uL (150-450); RBC 2.87 m/uL (3.80-5.40); RDW 14.2 % (11.5-15.5); WBC 6.8 k/uL (3.8-10.6)
[2018-06-18] MEDS: ALBUTEROL NEBULIZED 2.5 MG/3 ML INHALATION SCH ×2 (08:55→21:26)
[2018-06-18] MEDS: SYMBICORT 160-4.5 MCG INHALER INHALATION SCH ×2 (08:55→21:26)
[2018-06-18] MEDS: INSULIN ASPART 100 UNIT/ML 1 ML 10 ML VIAL SQ SCH ×4 (09:22→20:49)
[2018-06-18] MEDS: DONEPEZIL 10 MG TAB PO SCH (11:14)
[2018-06-18] MEDS: PANTOPRAZOLE 40 MG TABLET PO SCH (11:14)
--- NOTE | 2018-06-18 11:14 | P.PN ---
Subjective Progress Note Date: 06/18/18 This is a 82-year-old female with past medical history significant for dementia and Parkinson disease presents to the emergency department with worsening confusion intractable nausea and vomiting and weakness. In the emergency department patient is not following commands unable to provide any information and all the history obtained from medical record and [facility] information as I spoke to the charge nurse. Patient was found to have urinary tract infection, acute kidney injury and was started on IV antibiotics and IV fluid patient currently still confused morning not following commands and responding only to pain stimuli 06/15: Blood sugars are running 97-108, creatinine 2.02 and BUN 28 which improved from yesterday. Urine culture is in progress, blood culture is no growth at 24 hours. Patient continues to be lethargic and confused. She has taken few bites of applesauce with medications. Nausea and vomiting have resolved. Daughter is at bedside and states patient is usually interactive ie plays bingo etc. She is wheelchair bound. She has been seen by Dr. Kinsey in the past. Daughter states that patient had a PICC line placed 2 weeks ago and treated with antibiotics for UTI managed by Dr. Diamond. Urine culture positive for pseudomonas. It appears merrem was antibiotic used. Will ask for consult with Dr. Marquez, renal ultrasound and rocephin changed to Merrem. Sodium bicarb to be added to IV fluids for metabolic acidoses. 06/16: Patient has been moaning all through the night. She is unable to follow commands. This morning her temperature max 101.4 with heart rate of 110 and blood pressure 205/91. Hydralazine IV and IV Tylenol added as well as 1 dose of Ativan. Repeat blood culture will be obtained. Blood culture from yesterday drawn from the PICC line is positive for gram-positive cocci. Patient has been seen by Dr. Marquez and IVs antibiotics are currently Fortaz. Renal ultrasound shows renal cystic changes. Her fever was down and blood pressure improved. She is able to recognize and state her daughter's name. Therapy has evaluated and will start diet this afternoon. Patient will be maintained on her oral medications. 06/17: White count remains normal, hemoglobin 8.7 and platelet count 1:30. BUN 25 and creatinine 1.43. Blood sugars have been running in the 120s. Blood culture drawn from the PICC line is positive for gram-positive cocci. PICC line to be removed today. Repeat blood culture obtained this morning, Dr. Marquez has placed her on daptomycin in addition to Fortaz. Urine culture finalized with ESBL Proteus mirabilis and E. coli. She has been afebrile for 24 hours. The patient is awake and alert this morning was able to take her medications with applesauce and ate yogurt for breakfast. She is now somewhat lethargic and tired. We will check B12 level and TSH and increase melatonin 6 mg at bedtime. She has not had any choking episodes. She is on a special diet. 06/17: [place] remained stable. She had episode of hypotension last night with a blood pressure of 74/43 she received a 500 mL bolus of normal saline last night. Her blood pressure this morning was 110/57 she is not having any complaints of dizziness, lightheadedness, or dictation. Patient has been afebrile for the last 2 days temperature today 99.4. Patient had her PICC line removed yesterday. Patient has been able to tolerate meals without any difficulties. Her echocardiogram showed no vegetation she does have severe mitral regurg. Patient denies any back pain, choking episodes, or fever. Objective - Vital Signs Vital signs: Vital Signs Temp 99.0 F 06/18/18 07:10 Pulse 88 06/18/18 09:11 Resp 16 06/18/18 07:10 BP 123/70 06/18/18 07:10 Pulse Ox 98 06/18/18 07:10 Intake & Output 06/17/18 06/18/18 06/18/18 18:59 06:59 18:59 Intake Total 500 720 Output Total 600 400 Balance -100 320 Weight 115.666 kg Intake: Intake, IV Titration 480 Amount Dextrose 5% in Water 1, 480 000 ml @ 100 mls/hr IV . Q10H [facility] Rx#:[id number] Oral 500 240 Output: Urine 600 400 Other: Voiding Method Indwelling Catheter Indwelling Catheter - Exam Gen: This is a morbidly obese 82-year-old female. She is in bed and appears to be in no acute distress. HEENT: Head is atraumatic, normocephalic. Pupils equal, round. Sclerae is anicteric. NECK: Supple. No JVD. No lymphadenopathy. No thyromegaly. LUNGS: Clear to auscultation but diminished bilaterally. No wheezes or rhonchi. No intercostal retractions. HEART: Regular rate and rhythm. No murmur. ABDOMEN: Soft. Bowel sounds are present. No masses. No tenderness. EXTREMITIES: No pedal edema. No calf tenderness. NEUROLOGICAL: Patient is awake, sleepy. Generalized weakness noted - Labs CBC & Chem 7: 06/18/18 07:16 06/18/18 07:16 Labs: Abnormal Lab Results - Last 24 Hours (Table) 06/17/18 06/17/18 06/17/18 Range/Units 11:49 17:12 19:42 RBC (3.80-5.40) m/uL Hgb (11.4-16.0) gm/dL Hct (34.0-46.0) % Plt Count (150-450) k/uL BUN (7-17) mg/dL Creatinine (0.52-1.04) mg/dL Glucose (74-99) mg/dL POC Glucose (mg/dL) 140 H 142 H 168 H (75-99) mg/dL Calcium (8.4-10.2) mg/dL 06/18/18 06/18/18 06/18/18 Range/Units 07:03 07:16 07:16 RBC 2.87 L (3.80-5.40) m/uL Hgb 8.5 L (11.4-16.0) gm/dL Hct 27.3 L (34.0-46.0) % Plt Count 117 L (150-450) k/uL BUN 23 H (7-17) mg/dL Creatinine 1.40 H (0.52-1.04) mg/dL Glucose 116 H (74-99) mg/dL POC Glucose (mg/dL) 133 H (75-99) mg/dL Calcium 8.0 L (8.4-10.2) mg/dL Microbiology - Last 24 Hours (Table) 06/17/18 07:12 Blood Culture - Preliminary Blood No Growth after 24 hours 06/16/18 08:39 Blood Culture Gram Stain - Preliminary Blood Blood Culture - Preliminary Coagulase Negative Staph 06/15/18 12:39 Blood Culture - Preliminary Blood No Growth after 48 hours 06/16/18 08:39 Blood Culture - Final Blood 06/13/18 23:34 Blood Culture Gram Stain - Final Blood Blood Culture - Final Micrococcus species Assessment and Plan Plan: 1. Uremic and septic metabolic encephalopathy secondary to ESBL Proteus mirabilis and E. coli urinary tract infection and sepsis with PICC associated gram-positive bacteremia. Urine culture as above. Blood culture showing gram- positive cocci from the PICC line. Continue Haldol as needed for agitation. Xanax, baclofen Benadryl on hold. Dr Marquez consult appreciated. Continue daptomycin and Fortaz, renal ultrasound as above. Repeat blood culture pending this morning. To be removed today. 2. Acute kidney injury, chronic kidney disease stage III with dehydration and metabolic acidoses secondary to intractable nausea and vomiting. Avoid nephrotoxic agents. Continue to monitor kidney function. Hold Lasix. Continue IVF. Sodium bicarb to be added to IV fluids. 3. CAD. Continue patient on Imdur 30 mg orally once every day, Lopressor 25 mg twice daily. 4. Hypertension and hypertensive cardiovascular disease. Continue Lopressor and Imdur 5. Hyperlipidemia. She is not currently on statin. 6. Diabetes mellitus type 2. Januvia on hold. Humalog scale before meals and at bedtime. 7. Parkinson with orofacial dyskinesia. Continue patient on Sinemet 25/100 one tablet orally 4 times every day, Baclofen 10 mg every 8 hours as needed, Namenda 10 mg twice daily. 8. Diabetic polyneuropathy. Continue gabapentin. 9. Restless leg syndrome. Continue patient on Mirapex 0.5 mg at bedtime. 10. Alzheimer dementia with behavior disturbance and impaired oral phase of eating patient tends to pocket food. Continue Namenda 10 mg orally twice every day and Aricept. 11. Depression, recurrent. Continue Seroquel 50 mg at bedtime. 12. DVT prophylaxis. Heparin 5000 units every 12 hours subcutaneously. 14. GI prophylaxis. Omeprazole. 15. Patient is no code no CPR and no ventilation, no aggressive medical. Discharge plan: Return to [facility] earliest on Friday. Most likely discharge will occur on Friday Impression and plan of care have been directed as dictated by the signing physician. Talia Beckett nurse practitioner acting as scribe for signing physician.
[2018-06-18] MEDS: CARBIDOPA-LEVODOPA 25-100 MG 1 EACH TAB PO SCH ×4 (11:15→20:53)
[2018-06-18] MEDS: GABAPENTIN 300 MG CAP PO SCH ×3 (11:15→20:53)
[2018-06-18] MEDS: lamoTRIgine 100 MG TAB PO SCH ×2 (11:15→20:46)
[2018-06-18] MEDS: ALPRAZolam 0.25 MG TAB PO SCH ×2 (11:15→20:46)
[2018-06-18] MEDS: METOPROLOL TARTRATE 25 MG TAB PO SCH ×2 (11:15→17:19)
[2018-06-18] MEDS: MEMANTINE 10 MG TAB PO SCH ×2 (11:16→17:19)
[2018-06-18] MEDS: LOSARTAN 50 MG TAB PO SCH (11:16)
[2018-06-18] MEDS: KETOTIFEN 0.025% OPHTH DROPS 5 ML BTL BOTH EYES SCH ×2 (11:16→17:19)
[2018-06-18] MEDS: ISOSORBIDE MONONITRATE ER 30 MG TAB.ER.24H PO SCH (11:16)
[2018-06-18] MEDS: ASPIRIN 81 MG PO SCH (11:17)
[2018-06-18 12:07] LABS: Glucose,Whole Blood 126 mg/dL (75-99)
[2018-06-18] MEDS: DAPTOmycin 500 MG in SODIUM CHLORIDE 0.9% 50 ML IVPB SCH (15:03)
[2018-06-18 17:11] LABS: Glucose,Whole Blood 126 mg/dL (75-99)
[2018-06-18] MEDS: PRAVASTATIN SODIUM 40 MG TAB PO SCH (20:48)
[2018-06-18] MEDS: QUEtiapine 50 MG TAB PO SCH (20:48)
[2018-06-18] MEDS: SENNOSIDES-DOCUSATE SODIUM 1 EACH TAB PO SCH (20:48)
[2018-06-18] MEDS: MELATONIN 3 MG TABLET PO SCH (20:48)
[2018-06-18] MEDS: MONTELUKAST 10 MG TAB PO SCH (20:48)
[2018-06-18] MEDS: PRAMIPEXOLE 0.5 MG TAB PO SCH (20:49)
[2018-06-18 20:50] LABS: Glucose,Whole Blood 142 mg/dL (75-99)
[2018-06-19] MEDS: SODIUM CHLORIDE 0.9% 1,000 ML IV SCH (05:35)
[2018-06-19] MEDS: DEXTROSE 5% IN WATER 1,000 ML IV SCH ×2 (05:35→16:12)
[2018-06-19 07:59] LABS: Glucose,Whole Blood 109 mg/dL (75-99)
[2018-06-19] MEDS: INSULIN ASPART 100 UNIT/ML 1 ML 10 ML VIAL SQ SCH ×4 (08:18→21:28)
[2018-06-19 08:20] LABS: HCT 27.9 % (34.0-46.0); HGB 8.9 gm/dL (11.4-16.0); Hypochromasia Moderate; MCH 30.3 pg (25.0-35.0); MCHC 31.8 g/dL (31.0-37.0); MCV 95.3 fL (80.0-100.0); Platelet Count 118 k/uL (150-450); RBC 2.93 m/uL (3.80-5.40); RDW 14.1 % (11.5-15.5); WBC 6.6 k/uL (3.8-10.6)
[2018-06-19 08:31] LABS: Calcium 8.3 mg/dL (8.4-10.2); Potassium 4.9 mmol/L (3.5-5.1)
[2018-06-19] MEDS ORDERED: ERTAPENEM 1 GM in SODIUM CHLORIDE 0.9% 50 ML IVPB SCH (09:00)
[2018-06-19] MEDS ORDERED: ALPRAZolam 0.25 MG TAB PO PRN (09:28)
--- NOTE | 2018-06-19 10:07 | XR ---
EXAMINATION TYPE: XR chest 1V portable DATE OF EXAM: 06/19/2018 COMPARISON: 06/14/2018 HISTORY: Shortness of breath and congestion TECHNIQUE: Single frontal view of the chest is obtained. FINDINGS: New patchy bibasilar opacities and obscuration of the costophrenic angles, left greater th an right. Left midlung platelike atelectasis is unchanged from the prior. Cardia mediastinal silhouet te is enlarged. Minimal vascular prominence suggests very mild pulmonary vascular congestion. Mild mu ltilevel degenerative changes of the thoracic spine are seen. Osseous structures are slightly deminer alized. IMPRESSION: New trace pleural effusions and bibasilar airspace disease as well as a very mild pulmon oscar vascular congestion all suggesting underlying decompensated congestive heart failure.
[2018-06-19 10:16] LABS: ABG Base Excess 4.3 mmol/L; ABG HCO3 30 mmol/L (21-25); ABG Oxygen Saturation 94.1 % (94-97); ABG PCO2 57 mmHg (35-45); ABG PH 7.34 (7.35-7.45); ABG PO2 65 mmHg (83-108); ABG TCO2 32 mmol/L (19-24)
--- NOTE | 2018-06-19 11:29 | CT ---
EXAMINATION TYPE: CT brain wo con DATE OF EXAM: 06/19/2018 COMPARISON: Prior CT brain 06/13/2018 HISTORY: Altered mental changes CT DLP: 1036.4 mGycm Automated exposure control for dose reduction was used. Helical acquisition through the brain FINDINGS: Cerebral vascular calcifications are present. There is no hemorrhage or hydrocephalus. Periventricula r white matter shows patchy low attenuation as on previous exam. Cortical atrophy is likely age-relat ed. Calvarium is intact. Paranasal sinuses show inflammatory change left maxillary sinus similar to p rior exam with air-fluid level present. There is a partially empty sella present. Punctate metallic d ensity present within the right orbit posteriorly as on prior exam may be vascular IMPRESSION: NO ACUTE ABNORMALITIES EVIDENT. BRAIN MRI COULD BE PERFORMED FOR INCREASED SENSITIVITY INDICATED. SINUS DISEASE.
[2018-06-19 11:51] LABS: Glucose,Whole Blood 96 mg/dL (75-99)
[2018-06-19] MEDS: PANTOPRAZOLE 40 MG TABLET PO SCH (11:57)
[2018-06-19] MEDS: KETOTIFEN 0.025% OPHTH DROPS 5 ML BTL BOTH EYES SCH ×2 (11:57→19:45)
--- NOTE | 2018-06-19 12:49 | P.PN ---
Subjective Progress Note Date: 06/19/18 This is a 82-year-old female with past medical history significant for dementia and Parkinson disease presents to the emergency department with worsening confusion intractable nausea and vomiting and weakness. In the emergency department patient is not following commands unable to provide any information and all the history obtained from medical record and senior living information as I spoke to the charge nurse. Patient was found to have urinary tract infection, acute kidney injury and was started on IV antibiotics and IV fluid patient currently still confused morning not following commands and responding only to pain stimuli 06/15: Blood sugars are running 97-108, creatinine 2.02 and BUN 28 which improved from yesterday. Urine culture is in progress, blood culture is no growth at 24 hours. Patient continues to be lethargic and confused. She has taken few bites of applesauce with medications. Nausea and vomiting have resolved. Daughter is at bedside and states patient is usually interactive ie plays bingo etc. She is wheelchair bound. She has been seen by Dr. Kinsey in the past. Daughter states that patient had a PICC line placed 2 weeks ago and treated with antibiotics for UTI managed by Dr. Diamond. Urine culture positive for pseudomonas. It appears merrem was antibiotic used. Will ask for consult with Dr. Marquez, renal ultrasound and rocephin changed to Merrem. Sodium bicarb to be added to IV fluids for metabolic acidoses. 06/16: Patient has been moaning all through the night. She is unable to follow commands. This morning her temperature max 101.4 with heart rate of 110 and blood pressure 205/91. Hydralazine IV and IV Tylenol added as well as 1 dose of Ativan. Repeat blood culture will be obtained. Blood culture from yesterday drawn from the PICC line is positive for gram-positive cocci. Patient has been seen by Dr. Marquez and IVs antibiotics are currently Fortaz. Renal ultrasound shows renal cystic changes. Her fever was down and blood pressure improved. She is able to recognize and state her daughter's name. Therapy has evaluated and will start diet this afternoon. Patient will be maintained on her oral medications. 06/17: White count remains normal, hemoglobin 8.7 and platelet count 1:30. BUN 25 and creatinine 1.43. Blood sugars have been running in the 120s. Blood culture drawn from the PICC line is positive for gram-positive cocci. PICC line to be removed today. Repeat blood culture obtained this morning, Dr. Marquez has placed her on daptomycin in addition to Fortaz. Urine culture finalized with ESBL Proteus mirabilis and E. coli. She has been afebrile for 24 hours. The patient is awake and alert this morning was able to take her medications with applesauce and ate yogurt for breakfast. She is now somewhat lethargic and tired. We will check B12 level and TSH and increase melatonin 6 mg at bedtime. She has not had any choking episodes. She is on a special diet. 06/17: [place] remained stable. She had episode of hypotension last night with a blood pressure of 74/43 she received a 500 mL bolus of normal saline last night. Her blood pressure this morning was 110/57 she is not having any complaints of dizziness, lightheadedness, or dictation. Patient has been afebrile for the last 2 days temperature today 99.4. Patient had her PICC line removed yesterday. Patient has been able to tolerate meals without any difficulties. Her echocardiogram showed no vegetation she does have severe mitral regurg. Patient denies any back pain, choking episodes, or fever. 06/19: Patient is more confused today. She is unable to wake up and take her medications. She is not alert enough to eat this morning. Seroquel will be decreased to 25 mg and Xanax will be changed to as, Haldol discontinued. Her last dose on hold all his back on the . Consult with neurology, EEG and CAT scan of the brain ordered. Will also ask for chest x-ray and ABGs show shows mild respiratory acidosis. She has generalized anasarca and IV fluids will be decreased from 100 mL to 50 mL per hour. Reviewed microbiology with Dr. Marquez and antibiotics changed to ertapenem which she will need a total of 14 day course. Daptomycin and Fortaz discontinued. Midline will be requested for IV access and for antibiotics at the senior living. Anticipate possible discharge on Friday. Today, hemoglobin is 8.9, BUN 19 creatinine 1.29, blood sugars are running between 96 and 142. Review Of Systems: Unable to obtain due to mental status changes Objective - Vital Signs Vital signs: Vital Signs Temp 98.6 F 06/19/18 00:52 Pulse 70 06/19/18 04:30 Resp 18 06/19/18 04:30 BP 130/66 06/19/18 00:52 Pulse Ox 99 06/19/18 00:52 Intake & Output 06/18/18 06/19/18 06/19/18 18:59 06:59 18:59 Intake Total 1200 50 Output Total 700 550 Balance 500 -500 Intake: Intake, IV Titration 700 Amount DAPTOmycin 500 mg In 50 Sodium Chloride 0.9% 50 ml @ 100 mls/hr IVPB Q48H [facility] Rx#:[id number] Dextrose 5% in Water 1, 650 000 ml @ 100 mls/hr IV . Q10H [facility] Rx#:[id number] Oral 500 50 Output: Urine 700 550 Uretheral (Constantino) 700 550 Other: Voiding Method Indwelling Catheter Indwelling Catheter # Bowel Movements 0 - Exam Gen: This is a morbidly obese 82-year-old female. She is in bed and appears to be in no acute distress. HEENT: Head is atraumatic, normocephalic. Pupils equal, round. Sclerae is anicteric. NECK: Supple. No JVD. No lymphadenopathy. No thyromegaly. LUNGS: Clear to auscultation but diminished bilaterally. No wheezes or rhonchi. No intercostal retractions. HEART: Regular rate and rhythm. No murmur. ABDOMEN: Soft. Bowel sounds are present. No masses. No tenderness. EXTREMITIES: No pedal edema. No calf tenderness. NEUROLOGICAL: Patient is lethargic, not following directions. Generalized weakness noted - Labs CBC & Chem 7: 06/19/18 07:37 06/19/18 07:37 Labs: Abnormal Lab Results - Last 24 Hours (Table) 06/18/18 06/18/18 06/18/18 Range/Units 07:03 07:16 07:16 RBC 2.87 L (3.80-5.40) m/uL Hgb 8.5 L (11.4-16.0) gm/dL Hct 27.3 L (34.0-46.0) % Plt Count 117 L (150-450) k/uL BUN 23 H (7-17) mg/dL Creatinine 1.40 H (0.52-1.04) mg/dL Glucose 116 H (74-99) mg/dL POC Glucose (mg/dL) 133 H (75-99) mg/dL Calcium 8.0 L (8.4-10.2) mg/dL 06/18/18 06/18/18 06/18/18 Range/Units 11:56 17:00 20:39 RBC (3.80-5.40) m/uL Hgb (11.4-16.0) gm/dL Hct (34.0-46.0) % Plt Count (150-450) k/uL BUN (7-17) mg/dL Creatinine (0.52-1.04) mg/dL Glucose (74-99) mg/dL POC Glucose (mg/dL) 126 H 126 H 142 H (75-99) mg/dL Calcium (8.4-10.2) mg/dL Microbiology - Last 24 Hours (Table) 06/16/18 08:39 Blood Culture Gram Stain - Final Blood Blood Culture - Final Staphylococcus epidermidis 06/15/18 12:39 Blood Culture - Preliminary Blood No Growth after 72 hours 06/17/18 07:12 Blood Culture - Preliminary Blood No Growth after 24 hours Assessment and Plan Plan: 1. Uremic and septic metabolic encephalopathy secondary to ESBL Proteus mirabilis and E. coli urinary tract infection and sepsis with PICC associated gram-positive bacteremia. Urine culture as above. Blood culture showing contamination. Haldol, baclofen, Benadryl have been discontinued. Xanax changed as needed. Seroquel decreased to [address] Marquez consult appreciated. Antibiotics changed to ertapenem, renal ultrasound as above. PICC line was removed. Repeat blood cultures are showing no growth and midline will be requested. Patient will need to complete a 14 day course of ertapenem per Dr. Marquez. Consult with Dr. Acosta, EEG, CAT scan of the brain, chest x-ray and ABGs ordered. 2. Acute kidney injury, chronic kidney disease stage III with dehydration and metabolic acidoses secondary to intractable nausea and vomiting. Avoid nephrotoxic agents. Continue to monitor kidney function. Hold Lasix. Continue IVF. 3. CAD. Continue patient on Imdur 30 mg orally once every day, Lopressor 25 mg twice daily. 4. Hypertension and hypertensive cardiovascular disease. Continue Lopressor and Imdur 5. Hyperlipidemia. She is not currently on statin. 6. Diabetes mellitus type 2. Januvia on hold. Humalog scale before meals and at bedtime. 7. Parkinson with orofacial dyskinesia. Continue patient on Sinemet 25/100 one tablet orally 4 times every day, Baclofen 10 mg every 8 hours as needed, Namenda 10 mg twice daily. 8. Diabetic polyneuropathy. Continue gabapentin. 9. Restless leg syndrome. Continue patient on Mirapex 0.5 mg at bedtime. 10. Alzheimer dementia with behavior disturbance and impaired oral phase of eating patient tends to pocket food. Continue Namenda 10 mg orally twice every day and Aricept. 11. Depression, recurrent. Continue Seroquel 50 mg at bedtime. 12. DVT prophylaxis. Heparin 5000 units every 12 hours subcutaneously. 14. GI prophylaxis. Omeprazole. 15. Patient is no code no CPR and no ventilation, no aggressive medical. Discharge plan: Return to [facility] on Friday Impression and plan of care have been directed as dictated by the signing physician. Jailyn Navarro nurse practitioner acting as scribe for signing physician.
[2018-06-19] MEDS: METOPROLOL TARTRATE 25 MG TAB PO SCH ×2 (13:58→19:43)
[2018-06-19] MEDS: CARBIDOPA-LEVODOPA 25-100 MG 1 EACH TAB PO SCH ×4 (13:58→21:29)
[2018-06-19] MEDS: ASPIRIN 81 MG PO SCH (13:58)
[2018-06-19] MEDS: MEMANTINE 10 MG TAB PO SCH ×2 (13:58→19:44)
[2018-06-19] MEDS: ISOSORBIDE MONONITRATE ER 30 MG TAB.ER.24H PO SCH (13:59)
[2018-06-19] MEDS: GABAPENTIN 300 MG CAP PO SCH ×3 (13:59→21:29)
[2018-06-19] MEDS: lamoTRIgine 100 MG TAB PO SCH ×2 (13:59→21:28)
[2018-06-19] MEDS: FUROSEMIDE 10 MG/ML 4 ML VIAL IV SCH ×2 (14:00→21:27)
--- NOTE | 2018-06-19 15:09 | CDI ---
Last Revision, June 2017 Documentation Clarification Form Date: 06/19/2018 2:47:31 PM From: Sully Fuller RN, CCDS Admit Date: 06/14/2018 2:40:00 AM Patient Name: Elizabet Butcher Visit Number: [id number] Discharge Date: ATTENTION: The Clinical Documentation Specialists (CDI) and [facility] Coding Staff appreciate your assistance in clarifying documentation. Please respond to the clarification below the line at the bottom and electronically sign. The CDI & [facility] Coding staff will review the response and follow-up if needed. Please note: Queries are made part of the Legal Health Record. If you have any questions, please contact the author of this message via ITS. Ricci White MD A current decubitus ulcer stage III was documented in the past medical history and is in the emergency department notes. History/Risk Factors: CVA, TIA, Dementia, Diabetes mellitus, Hypertension, UTI, Sepsis, CKD Stage III, Clinical Indicators: Nursing wound assessment has a coccyx pressure injury staging II Location: Coccyx Wound description: wound margins thickened, drainage notes scant amount Treatment: Nutrition consult Monitor wound healing Glucerna TID Elements for accurate and compliant documentation of an ulcer: The location/laterality of the ulcer Etiology (decubitus/pressure, diabetic, PVD) Stage I-IV, Unstageable, Suspected Deep Tissue Injury (To the deepest stage) If the ulcer was present at admission (POA) or occurred after admission In your professional opinion, can you please clarify the diagnosis, location, laterality and whether present on admission (POA): Stage 1 Pressure/Decubitus Ulcer (intact skin, non-blanching redness of local area) Stage 2 Pressure/Decubitus Ulcer (Partial thickness, loss of dermis, pink wound bed) Stage 3 Pressure/Decubitus Ulcer (Full thickness tissue loss) Stage 4 Pressure/Decubitus Ulcer (Full thickness tissue loss with exposed bone , tendon, or muscle. May have slough or eschar present) Unstageable Other condition, please specify Unable to determine Please indicate etiology of pressure ulcer (if known). Please continue to document in your progress notes and discharge summary in order to capture severity of illness and risk of mortality. Include clinical findings that support your diagnosis. MTDD
[2018-06-19] MEDS ORDERED: ACETAMINOPHEN IV (For NPO) 1,000 MG in EMPTY BAG 1 BAG IVPB ONE (15:33)
[2018-06-19] MEDS: DONEPEZIL 10 MG TAB PO SCH (16:47)
[2018-06-19] MEDS: LOSARTAN 50 MG TAB PO SCH (16:48)
--- NOTE | 2018-06-19 17:10 | P.CNPUL ---
History of Present Illness Consult date: 06/19/18 Requesting physician: Ricci Martines Reason for consult: other Chief complaint: Altered mental status, hypercapnic respiratory failure History of present illness: This is a 82-year-old white female patient with past medical history significant for dementia, Parkinson's disease, diabetes mellitus, hypertension, hyperlipidemia, osteoarthritis, chronic kidney disease, CVA/TIA, asthma, chronic urinary tract infections, was brought to the emergency department on for evaluation of altered mental status. Patient resides at a local [facility] facility, and at her baseline she is able to carry on conversation, participate in activities at the half-way. He was noted to be increasingly lethargic, less verbal, she was having some nausea, vomiting. She had been moaning. Brain CT showed no acute findings, initial chest x-ray was negative, did show scarring and subsegmental atelectasis in left lower lobe. Patient was hypotensive in the emergency department, urinalysis was clear with blood trace, protein trace, leukocyte esterase small, rare WBC clumps and rare bacteria. Patient was started on ceftriaxone and admitted to the medical surgical floor. Patient was recently hospitalized at the end of April, for metabolic encephalopathy, secondary to urinary tract infection and sepsis, acute kidney injury. Urine cultures from that admission were positive for E. coli and Proteus mirabilis, as well as pseudomonas aeruginosa. Note that the Proteus mirabilis was a ESBL organism. ID service was consulted, and patient's current antibiotic coverage includes daptomycin and ertapenem. Patient has been intermittently febrile, and her mentation not much improved. A CT was repeated today on 06/19/2018 and showed no acute abnormalities. Patient was noted to be more confused today, unable to wake up, and take her medications. Blood gas was obtained, and showed pO2 of 66 5, pCO2 57, and pH of 7.34, as was done on FiO2 of 32%. Today's blood work shows WBC of 6.6, hemoglobin is 8.9, X are within normal limits, renal profile has been steadily improving since admission, with BUN of 19, and creatinine of 1.29. Blood culture with gram-positive cocci, final cultures positive for staph epidermidis. Chest x-ray showed new trace pleural effusions, and bibasilar airspace disease, mildly prominent pulmonary vascular congestion, poor inspiratory effort, accentuating the pulmonary vasculature. We were consulted in regards to hypercapnic respiratory failure Review of Systems All systems: negative Constitutional: Reports lethargy, Reports weakness, Denies chills, Denies fever Eyes: denies blurred vision, denies pain Ears, nose, mouth and throat: Denies headache, Denies sore throat Cardiovascular: Denies chest pain, Denies shortness of breath Respiratory: Reports dyspnea, Denies cough Gastrointestinal: Denies abdominal pain, Denies diarrhea, Denies nausea, Denies vomiting Genitourinary: Denies dysuria, Denies hematuria Musculoskeletal: Denies myalgias Integumentary: Denies pruritus, Denies rash Neurological: Denies numbness, Denies weakness Psychiatric: Denies anxiety, Denies depression Endocrine: Denies fatigue, Denies weight change Past Medical History Past Medical History: Asthma, CVA/TIA, Dementia, Diabetes Mellitus, GERD/Reflux , Hyperlipidemia, Hypertension, Musculoskeletal Disorder, Neurologic Disorder, Osteoarthritis (OA), Renal Disease Additional Past Medical History / Comment(s): Pt recently admitted to [facility] on 04/03/17 with UTI/sepsis, AMS, severe metabolic encephalopathy Other HX: Current stage III decubitus ulcer, TIA, possible CVA, insomina, RLS, Parkinson' s disease, dyskinesia, dysphagia, spinal stenosis, DDD (lumbosacral region), NIDDM type II, polyneuropathy, UTI, chronic kidney dx stage III, bowel/bladder incontinence, past fecal impaction. Frequent UTI's has to take antxb. or will become septic. 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 Pain clinic procedure. Past Anesthesia/Blood Transfusion Reactions: No Reported Reaction Past Psychological History: Unable to Obtain, Anxiety, Depression Smoking Status: Former smoker - Past Family History Father Family Medical History: Cancer Additional Family Medical History / Comment(s): Unknown type of cancer. Sister(s) Family Medical History: Cancer Brother(s) Family Medical History: No Reported History Daughter(s) Family Medical History: No Reported History Son(s) Family Medical History: No Reported History Mother Family Medical History: Diabetes Mellitus Additional Family Medical History / Comment(s): PER CORRECTION UNKNOWN FAMILY HISTORY Medications and Allergies Home Medications Medication Instructions Recorded Confirmed Type Fluticasone/Salmeterol [Advair 1 puff INHALATION RT-BID@0800,1700 07/30/1406/14 History 500-50 Diskus] Memantine [Namenda] 10 mg PO BID@0800,1700 07/30/14 06/14/18 History Pramipexole [Mirapex] 0.5 mg PO HS 07/30/14 06/14/18 History Carbidopa-Levodopa 25-100 mg 1 tab PO QID 12/29/14 06/14/18 History [Sinemet 25-100 mg] Isosorbide Mononitrate ER [Imdur] 30 mg PO DAILY 03/03/15 06/14/18 History Acetaminophen Tab [Tylenol] 500 mg PO Q8HR PRN 09/08/15 06/14/18 History Bisacodyl [Dulcolax] 10 mg RECTAL DAILY PRN 05/23/16 06/14/18 History Menthol [Biofreeze] 1 applic TOPICAL Q6H PRN 06/24/16 06/14/18 History Omeprazole [PriLOSEC] 20 mg PO QAM 03/07/17 06/14/18 History Baclofen [Lioresal] 10 mg PO Q8H PRN 08/23/17 06/14/18 History Sennosides/Docusate Sodium [Tammy 1 tab PO HS 08/23/17 06/15/18 History Colace] sitaGLIPtin [Januvia] 50 mg PO DAILY 08/23/17 06/14/18 History Ketotifen 0.025% Ophth Soln 1 drops BOTH EYES BID@0800,1700 04/28/18 06/14/18 History [Zaditor] Polyethylene Glycol 3350 [Miralax] 17 gm PO DAILY PRN 04/28/18 06/14/18 History Albuterol Nebulized [Ventolin 2.5 mg INHALATION RT-BID PRN 05/28/18 06/14/18 History Nebulized] Aspirin 81 mg PO DAILY 05/28/18 06/14/18 History Buprenorphine [Butrans 10 MCG/HOUR] 1 patch TRANSDERM SA 05/28/18 06/14/18 History Donepezil HCl [Aricept] 10 mg PO DAILY 05/28/18 06/14/18 History Furosemide [Lasix] 40 mg PO DAILY 05/28/18 06/14/18 History Gabapentin [Neurontin] 300 mg PO TID 05/28/18 06/14/18 History Ibuprofen [Motrin] 600 mg PO Q8HR PRN 05/28/18 06/14/18 History Losartan Potassium 50 mg PO DAILY 05/28/18 06/14/18 History Metoprolol Tartrate [Lopressor] 25 mg PO BID@0800,1700 05/28/18 06/14/18 History Pravastatin Sodium [Pravachol] 40 mg PO HS 05/28/18 06/14/18 History lamoTRIgine [LaMICtal] 400 mg PO BID 05/28/18 06/14/18 History ALPRAZolam [Xanax] 0.25 mg PO BID@1400,2100 06/14/18 06/14/18 History Albuterol Nebulized [Ventolin 2.5 mg INHALATION RT-BID@0800,1700 06/14/18 History Nebulized] Hydrocortisone Cream 1 applic TOPICAL TID PRN 06/14/18 06/14/18 History [Hydrocortisone 1% Cream] Lactose-Reduced Food [Ensure Plus] 240 can PO HS 06/14/18 06/14/18 History Loperamide [Imodium] 2 mg PO QID PRN 06/14/18 06/14/18 History Magnesium Hydroxide [Milk of 2,400 mg PO DAILY PRN 06/14/18 06/14/18 History Magnesia] Melatonin 3 mg PO HS 06/14/18 06/14/18 History Montelukast [Singulair] 10 mg PO HS 06/14/18 06/14/18 History Na Phos,M-B/Na Phos,Di-Ba [Fleet 133 ml RECTAL DAILY PRN 06/14/18 06/14/18 History Adult] QUEtiapine [SEROquel] 50 mg PO HS 06/14/18 06/14/18 History Sodium Chloride 0.9% Irrigatio 10 ml IV TID 06/14/18 06/14/18 History [Saline 0.9% Irrigation] diphenhydrAMINE [Benadryl] 25 mg PO QID PRN 06/14/18 06/14/18 History Allergies Allergy/AdvReac Type Severity Reaction Status Date / Time codeine Allergy Unknown Verified 06/14/18 09:02 Penicillins Allergy Unknown Verified 06/14/18 09:02 Sulfa (Sulfonamide Allergy Unknown Verified 06/14/18 09:02 Antibiotics) Physical Exam Vitals: Vital Signs Temp Pulse Pulse Resp BP BP Pulse Ox 06/19/18 15:30 100.8 F H 06/19/18 14:50 100.9 F H 86 129/60 98 06/19/18 12:29 90 16 06/19/18 12:19 84 16 06/19/18 09:22 98.2 F 06/19/18 07:00 100 F H 77 116/59 100 06/19/18 04:30 70 18 06/19/18 00:52 98.6 F 70 16 130/66 99 06/18/18 21:44 92 06/18/18 21:26 90 98 06/18/18 19:58 97.9 F 72 18 137/68 96 Intake and Output 06/19/18 06/19/18 06/19/18 06:59 14:59 22:59 Output Total 550 Balance -550 Output: Urine 550 Uretheral (Constantino) 550 Other: Voiding Method Indwelling Catheter Indwelling Catheter # Bowel Movements 0 Weight 115.666 kg GENERAL EXAM: Lethargic, 82-year-old white female, comfortable in no apparent distress. HEAD: Normocephalic/atraumatic. EYES: Normal reaction of pupils, equal size. Conjunctiva pink, sclera white. NOSE: Clear with pink turbinates. THROAT: No erythema or exudates. NECK: No masses, no JVD, no thyroid enlargement, no adenopathy. CHEST: No chest wall deformity. Symmetrical expansion. LUNGS: diminished breath sounds CVS: Regular rate and rhythm, normal S1 and S2, no gallops, no murmurs, no rubs ABDOMEN: Soft, nontender. No hepatosplenomegaly, normal bowel sounds, no guarding or rigidity. EXTREMITIES: No clubbing, no edema, no cyanosis, 2+ pulses and upper and lower extremities. MUSCULOSKELETAL: Muscle strength and tone normal. SPINE: No scoliosis or deformity SKIN: No rashes CENTRAL NERVOUS SYSTEM: Lethargic Results - Laboratory Findings CBC and BMP: 06/19/18 07:37 06/19/18 07:37 ABG ABG pH 7.34 (7.35-7.45) L 06/19/18 10:02 ABG pCO2 57 mmHg (35-45) H 06/19/18 10:02 ABG pO2 65 mmHg (83-108) L 06/19/18 10:02 ABG O2 Saturation 94.1 % (94-97) 06/19/18 10:02 PT/INR, D-dimer PT 9.8 sec (9.0-12.0) 06/13/18 23:34 INR 1.0 (<1.2) 06/13/18 23:34 Abnormal lab findings: Abnormal Labs 06/13/18 06/13/18 06/13/18 23:34 23:34 23:34 RBC 3.09 L Hgb 9.2 L Hct 27.9 L MCHC Plt Count Lymphocytes # ABG pH ABG pCO2 ABG pO2 ABG HCO3 ABG Total CO2 Sodium Chloride BUN 46 H Creatinine 2.70 H Glucose 101 H POC Glucose (mg/dL) Calcium Magnesium AST 12 L Total Creatine Kinase 23 L Total Protein 6.0 L Albumin 3.4 L Urine Protein Urine Blood Ur Leukocyte Esterase Urine WBC Clumps Amorphous Sediment Urine Bacteria Hyaline Casts Urine Mucus 06/14/18 06/14/18 06/15/18 00:24 09:32 06:45 RBC Hgb Hct MCHC Plt Count Lymphocytes # ABG pH ABG pCO2 ABG pO2 ABG HCO3 ABG Total CO2 Sodium Chloride BUN Creatinine Glucose POC Glucose (mg/dL) 100 H 108 H Calcium Magnesium AST Total Creatine Kinase Total Protein Albumin Urine Protein Trace H Urine Blood Trace H Ur Leukocyte Esterase Small H Urine WBC Clumps Rare H Amorphous Sediment Rare H Urine Bacteria Rare H Hyaline Casts 7 H Urine Mucus Rare H 06/15/18 06/15/18 06/15/18 08:41 08:41 11:45 RBC 3.19 L Hgb 9.3 L Hct 30.1 L MCHC 30.9 L Plt Count Lymphocytes # 0.7 L ABG pH ABG pCO2 ABG pO2 ABG HCO3 ABG Total CO2 Sodium Chloride 111 H BUN 28 H Creatinine 2.02 H Glucose 101 H POC Glucose (mg/dL) 106 H Calcium Magnesium 2.5 H AST Total Creatine Kinase Total Protein 6.0 L Albumin 3.2 L Urine Protein Urine Blood Ur Leukocyte Esterase Urine WBC Clumps Amorphous Sediment Urine Bacteria Hyaline Casts Urine Mucus 06/15/18 06/15/18 06/16/18 17:21 22:10 07:38 RBC Hgb Hct MCHC Plt Count Lymphocytes # ABG pH ABG pCO2 ABG pO2 ABG HCO3 ABG Total CO2 Sodium Chloride BUN Creatinine Glucose POC Glucose (mg/dL) 104 H 106 H 102 H Calcium Magnesium AST Total Creatine Kinase Total Protein Albumin Urine Protein Urine Blood Ur Leukocyte Esterase Urine WBC Clumps Amorphous Sediment Urine Bacteria Hyaline Casts Urine Mucus 06/16/18 06/16/18 06/16/18 08:39 08:40 11:58 RBC 3.31 L Hgb 9.6 L Hct 30.5 L MCHC Plt Count Lymphocytes # ABG pH ABG pCO2 ABG pO2 ABG HCO3 ABG Total CO2 Sodium 149 H Chloride 114 H BUN 27 H Creatinine 1.72 H Glucose 104 H POC Glucose (mg/dL) 119 H Calcium Magnesium AST Total Creatine Kinase Total Protein Albumin Urine Protein Urine Blood Ur Leukocyte Esterase Urine WBC Clumps Amorphous Sediment Urine Bacteria Hyaline Casts Urine Mucus 06/16/18 06/16/18 06/17/18 16:49 20:18 07:03 RBC Hgb Hct MCHC Plt Count Lymphocytes # ABG pH ABG pCO2 ABG pO2 ABG HCO3 ABG Total CO2 Sodium Chloride BUN Creatinine Glucose POC Glucose (mg/dL) 192 H 124 H 121 H Calcium Magnesium AST Total Creatine Kinase Total Protein Albumin Urine Protein Urine Blood Ur Leukocyte Esterase Urine WBC Clumps Amorphous Sediment Urine Bacteria Hyaline Casts Urine Mucus 06/17/18 06/17/18 06/17/18 07:12 07:12 11:49 RBC 2.93 L Hgb 8.7 L Hct 27.1 L MCHC Plt Count 130 L Lymphocytes # ABG pH ABG pCO2 ABG pO2 ABG HCO3 ABG Total CO2 Sodium Chloride 110 H BUN 25 H Creatinine 1.43 H Glucose 119 H POC Glucose (mg/dL) 140 H Calcium 8.3 L Magnesium AST Total Creatine Kinase Total Protein Albumin Urine Protein Urine Blood Ur Leukocyte Esterase Urine WBC Clumps Amorphous Sediment Urine Bacteria Hyaline Casts Urine Mucus 06/17/18 06/17/18 06/18/18 17:12 19:42 07:03 RBC Hgb Hct MCHC Plt Count Lymphocytes # ABG pH ABG pCO2 ABG pO2 ABG HCO3 ABG Total CO2 Sodium Chloride BUN Creatinine Glucose POC Glucose (mg/dL) 142 H 168 H 133 H Calcium Magnesium AST Total Creatine Kinase Total Protein Albumin Urine Protein Urine Blood Ur Leukocyte Esterase Urine WBC Clumps Amorphous Sediment Urine Bacteria Hyaline Casts Urine Mucus 06/18/18 06/18/18 06/18/18 07:16 07:16 11:56 RBC 2.87 L Hgb 8.5 L Hct 27.3 L MCHC Plt Count 117 L Lymphocytes # ABG pH ABG pCO2 ABG pO2 ABG HCO3 ABG Total CO2 Sodium Chloride BUN 23 H Creatinine 1.40 H Glucose 116 H POC Glucose (mg/dL) 126 H Calcium 8.0 L Magnesium AST Total Creatine Kinase Total Protein Albumin Urine Protein Urine Blood Ur Leukocyte Esterase Urine WBC Clumps Amorphous Sediment Urine Bacteria Hyaline Casts Urine Mucus 06/18/18 06/18/18 06/19/18 17:00 20:39 07:37 RBC 2.93 L Hgb 8.9 L Hct 27.9 L MCHC Plt Count 118 L Lymphocytes # ABG pH ABG pCO2 ABG pO2 ABG HCO3 ABG Total CO2 Sodium Chloride BUN Creatinine Glucose POC Glucose (mg/dL) 126 H 142 H Calcium Magnesium AST Total Creatine Kinase Total Protein Albumin Urine Protein Urine Blood Ur Leukocyte Esterase Urine WBC Clumps Amorphous Sediment Urine Bacteria Hyaline Casts Urine Mucus 06/19/18 06/19/18 06/19/18 07:37 07:37 10:02 RBC Hgb Hct MCHC Plt Count Lymphocytes # ABG pH 7.34 L ABG pCO2 57 H ABG pO2 65 L ABG HCO3 30 H ABG Total CO2 32 H Sodium Chloride BUN 19 H Creatinine 1.29 H Glucose 112 H POC Glucose (mg/dL) 109 H Calcium 8.3 L Magnesium AST Total Creatine Kinase Total Protein Albumin Urine Protein Urine Blood Ur Leukocyte Esterase Urine WBC Clumps Amorphous Sediment Urine Bacteria Hyaline Casts Urine Mucus - Diagnostic Findings Chest x-ray: report reviewed Assessment and Plan Plan: Assessment: #1. Acute hypoxic and hypercapnic respiratory failure related to atelectasis and hypoventilation, chest x-ray showed patchy basilar opacities likely related to atelectasis, and small pleural effusions. #2. Altered mental status related to metabolic encephalopathy secondary to ESBL Proteus mirabilis and E. coli urinary tract infection and sepsis #3. PICC associated gram-positive bacteremia sepsis #4. Acute kidney injury #5. Chronic kidney disease stage III #6. Hypertension #7. Hyperlipidemia #8. Diabetes mellitus type 2 #9. Parkinson's disease #10. Dementia Plan: Continue BiPAP support, chest x-ray has been reviewed by Dr. Garcia, showed atelectasis, and small pleural effusions, a continue with IV diuretics for 24 hours, we'll repeat chest x-ray in the morning, continue with current antibiotics. GI and DVT prophylaxis, BiPAP support. We'll continue to follow I performed a history & physical examination of the patient and discussed their management with my nurse practitioner, Yoli Spivey. I reviewed the nurse practitioner's note and agree with the documented findings and plan of care. Lung sounds are diminished. The findings and the impression was discussed with the patient. I attest to the documentation by the nurse practitioner. Time with Patient: Greater than 30
[2018-06-19] MEDS: POTASSIUM CHLORIDE 20 MEQ in WATER FOR INJECTION 1 100ML.BAG IVPB SCH (17:13)
[2018-06-19 17:34] LABS: Glucose,Whole Blood 121 mg/dL (75-99)
--- NOTE | 2018-06-19 19:31 | P.CNNES ---
History of Present Illness Consult date: 06/19/18 Requesting physician: Jailyn Navarro Reason for Consult: Encephalopathy Chief complaint: Altered mental status History of Present Illness: Neurology is consulting on an 82 year old female with history of UTI being treated for pseudomonas and gram positive cocci. Patient was admitted to the hospital with known history of significant dementia and Parkinson's disease. Patient began having worsening confusion, intractable nausea and vomiting and weakness. Patient presented to the emergency room after not following commands and being unable to provide any information at all. Information in the emergency room had to be provided from medical records and halfway staff. Patient was found to have urinary tract infection, acute kidney injury and was started on IV antibiotics and IV fluid. Patient was still confused and not following commands and only responding to painful stimuli at that time. Admission was approximately . Currently, patient is reported to be more confused today. She is unable to wake up and take her medications. She was not alert enough to eat this morning. Her Seroquel was decreased by tool and production planner. Xanax was changed and Haldol was discontinued. EEG was ordered. CT of the brain noted no acute process. Per tool and production planner note, infectious disease reviewed antibiotics and made medication changes to regimen. On contact, patient is alert to person only but does not respond to verbal commands but does respond to sound and movement in the room. Patient makes no other effort to comply with physical assessment. Review of Systems systems not noted in HPI are negative Past Medical History Past Medical History: Asthma, CVA/TIA, Dementia, Diabetes Mellitus, GERD/Reflux , Hyperlipidemia, Hypertension, Musculoskeletal Disorder, Neurologic Disorder, Osteoarthritis (OA), Renal Disease Additional Past Medical History / Comment(s): Pt recently admitted to [facility] on 04/03/17 with UTI/sepsis, AMS, severe metabolic encephalopathy Other HX: Current stage III decubitus ulcer, TIA, possible CVA, insomina, RLS, Parkinson' s disease, dyskinesia, dysphagia, spinal stenosis, DDD (lumbosacral region), NIDDM type II, polyneuropathy, UTI, chronic kidney dx stage III, bowel/bladder incontinence, past fecal impaction. Frequent UTI's has to take antxb. or will become septic. 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 Pain clinic procedure. Past Anesthesia/Blood Transfusion Reactions: No Reported Reaction Past Psychological History: Unable to Obtain, Anxiety, Depression Smoking Status: Former smoker - Past Family History Father Family Medical History: Cancer Additional Family Medical History / Comment(s): Unknown type of cancer. Sister(s) Family Medical History: Cancer Brother(s) Family Medical History: No Reported History Daughter(s) Family Medical History: No Reported History Son(s) Family Medical History: No Reported History Mother Family Medical History: Diabetes Mellitus Additional Family Medical History / Comment(s): PER SENIOR LIVING UNKNOWN FAMILY HISTORY Medications and Allergies Home Medications Medication Instructions Recorded Confirmed Type Fluticasone/Salmeterol [Advair 1 puff INHALATION RT-BID@0800,1700 07/30/1406/14 History 500-50 Diskus] Memantine [Namenda] 10 mg PO BID@0800,1700 07/30/14 06/14/18 History Pramipexole [Mirapex] 0.5 mg PO HS 07/30/14 06/14/18 History Carbidopa-Levodopa 25-100 mg 1 tab PO QID 12/29/14 06/14/18 History [Sinemet 25-100 mg] Isosorbide Mononitrate ER [Imdur] 30 mg PO DAILY 03/03/15 06/14/18 History Acetaminophen Tab [Tylenol] 500 mg PO Q8HR PRN 09/08/15 06/14/18 History Bisacodyl [Dulcolax] 10 mg RECTAL DAILY PRN 05/23/16 06/14/18 History Menthol [Biofreeze] 1 applic TOPICAL Q6H PRN 06/24/16 06/14/18 History Omeprazole [PriLOSEC] 20 mg PO QAM 03/07/17 06/14/18 History Baclofen [Lioresal] 10 mg PO Q8H PRN 08/23/17 06/14/18 History Sennosides/Docusate Sodium [Tammy 1 tab PO HS 08/23/17 06/15/18 History Colace] sitaGLIPtin [Januvia] 50 mg PO DAILY 08/23/17 06/14/18 History Ketotifen 0.025% Ophth Soln 1 drops BOTH EYES BID@0800,1700 04/28/18 06/14/18 History [Zaditor] Polyethylene Glycol 3350 [Miralax] 17 gm PO DAILY PRN 04/28/18 06/14/18 History Albuterol Nebulized [Ventolin 2.5 mg INHALATION RT-BID PRN 05/28/18 06/14/18 History Nebulized] Aspirin 81 mg PO DAILY 05/28/18 06/14/18 History Buprenorphine [Butrans 10 MCG/HOUR] 1 patch TRANSDERM SA 05/28/18 06/14/18 History Donepezil HCl [Aricept] 10 mg PO DAILY 05/28/18 06/14/18 History Furosemide [Lasix] 40 mg PO DAILY 05/28/18 06/14/18 History Gabapentin [Neurontin] 300 mg PO TID 05/28/18 06/14/18 History Ibuprofen [Motrin] 600 mg PO Q8HR PRN 05/28/18 06/14/18 History Losartan Potassium 50 mg PO DAILY 05/28/18 06/14/18 History Metoprolol Tartrate [Lopressor] 25 mg PO BID@0800,1700 05/28/18 06/14/18 History Pravastatin Sodium [Pravachol] 40 mg PO HS 05/28/18 06/14/18 History lamoTRIgine [LaMICtal] 400 mg PO BID 05/28/18 06/14/18 History ALPRAZolam [Xanax] 0.25 mg PO BID@1400,2100 06/14/18 06/14/18 History Albuterol Nebulized [Ventolin 2.5 mg INHALATION RT-BID@0800,1700 06/14/18 History Nebulized] Hydrocortisone Cream 1 applic TOPICAL TID PRN 06/14/18 06/14/18 History [Hydrocortisone 1% Cream] Lactose-Reduced Food [Ensure Plus] 240 can PO HS 06/14/18 06/14/18 History Loperamide [Imodium] 2 mg PO QID PRN 06/14/18 06/14/18 History Magnesium Hydroxide [Milk of 2,400 mg PO DAILY PRN 06/14/18 06/14/18 History Magnesia] Melatonin 3 mg PO HS 06/14/18 06/14/18 History Montelukast [Singulair] 10 mg PO HS 06/14/18 06/14/18 History Na Phos,M-B/Na Phos,Di-Ba [Fleet 133 ml RECTAL DAILY PRN 06/14/18 06/14/18 History Adult] QUEtiapine [SEROquel] 50 mg PO HS 06/14/18 06/14/18 History Sodium Chloride 0.9% Irrigatio 10 ml IV TID 06/14/18 06/14/18 History [Saline 0.9% Irrigation] diphenhydrAMINE [Benadryl] 25 mg PO QID PRN 06/14/18 06/14/18 History Allergies Allergy/AdvReac Type Severity Reaction Status Date / Time codeine Allergy Unknown Verified 06/14/18 09:02 Penicillins Allergy Unknown Verified 06/14/18 09:02 Sulfa (Sulfonamide Allergy Unknown Verified 06/14/18 09:02 Antibiotics) Physical Examination - Vital Signs Vital Signs: Vital Signs Temp Pulse Pulse Resp BP BP Pulse Ox 06/19/18 19:08 98.6 F 06/19/18 17:17 99.6 F 06/19/18 15:30 100.8 F H 06/19/18 14:50 100.9 F H 86 129/60 98 06/19/18 12:29 90 16 06/19/18 12:19 84 16 06/19/18 09:22 98.2 F 06/19/18 07:00 100 F H 77 116/59 100 06/19/18 04:30 70 18 06/19/18 00:52 98.6 F 70 16 130/66 99 06/18/18 21:44 92 06/18/18 21:26 90 98 06/18/18 19:58 97.9 F 72 18 137/68 96 Intake and Output 06/19/18 06/19/18 06/19/18 06:59 14:59 22:59 Output Total 550 Balance -550 Output: Urine 550 Uretheral (Constantino) 550 Other: Voiding Method Indwelling Catheter Indwelling Catheter # Voids 0 # Bowel Movements 0 Weight 115.666 kg General appearance: Alert sound and movement in the room only, person only Head: Atraumatic, normocephalic, normal inspection Eyes: PERRLA, EOMI. Absent scleral icterus, conjunctival injection, nystagmus, periorbital swelling. Ear, nose and throat: Normal exam, mucous membranes moist Neck: Normal inspection, absent tenderness, lymphadenopathy. Respiratory: No increased work of breathing Cardiovascular: Regular rate, rhythm GI/abdominal: No guarding, no rigidity Extremities: unable to be assessed Neurological: full neurological assessment unable to be completed as patient cannot comply with verbal commands. no seizure activity noted on physical exam no facial asymmetry noted Psychological: flat affect Results - Laboratory Findings CBC and BMP: 06/19/18 07:37 06/19/18 07:37 Abnormal Lab Findings: Abnormal Labs 06/13/18 06/13/18 06/13/18 23:34 23:34 23:34 RBC 3.09 L Hgb 9.2 L Hct 27.9 L MCHC Plt Count Lymphocytes # ABG pH ABG pCO2 ABG pO2 ABG HCO3 ABG Total CO2 Sodium Chloride BUN 46 H Creatinine 2.70 H Glucose 101 H POC Glucose (mg/dL) Calcium Magnesium AST 12 L Total Creatine Kinase 23 L Total Protein 6.0 L Albumin 3.4 L Urine Protein Urine Blood Ur Leukocyte Esterase Urine WBC Clumps Amorphous Sediment Urine Bacteria Hyaline Casts Urine Mucus 06/14/18 06/14/18 06/15/18 00:24 09:32 06:45 RBC Hgb Hct MCHC Plt Count Lymphocytes # ABG pH ABG pCO2 ABG pO2 ABG HCO3 ABG Total CO2 Sodium Chloride BUN Creatinine Glucose POC Glucose (mg/dL) 100 H 108 H Calcium Magnesium AST Total Creatine Kinase Total Protein Albumin Urine Protein Trace H Urine Blood Trace H Ur Leukocyte Esterase Small H Urine WBC Clumps Rare H Amorphous Sediment Rare H Urine Bacteria Rare H Hyaline Casts 7 H Urine Mucus Rare H 06/15/18 06/15/18 06/15/18 08:41 08:41 11:45 RBC 3.19 L Hgb 9.3 L Hct 30.1 L MCHC 30.9 L Plt Count Lymphocytes # 0.7 L ABG pH ABG pCO2 ABG pO2 ABG HCO3 ABG Total CO2 Sodium Chloride 111 H BUN 28 H Creatinine 2.02 H Glucose 101 H POC Glucose (mg/dL) 106 H Calcium Magnesium 2.5 H AST Total Creatine Kinase Total Protein 6.0 L Albumin 3.2 L Urine Protein Urine Blood Ur Leukocyte Esterase Urine WBC Clumps Amorphous Sediment Urine Bacteria Hyaline Casts Urine Mucus 06/15/18 06/15/18 06/16/18 17:21 22:10 07:38 RBC Hgb Hct MCHC Plt Count Lymphocytes # ABG pH ABG pCO2 ABG pO2 ABG HCO3 ABG Total CO2 Sodium Chloride BUN Creatinine Glucose POC Glucose (mg/dL) 104 H 106 H 102 H Calcium Magnesium AST Total Creatine Kinase Total Protein Albumin Urine Protein Urine Blood Ur Leukocyte Esterase Urine WBC Clumps Amorphous Sediment Urine Bacteria Hyaline Casts Urine Mucus 06/16/18 06/16/18 06/16/18 08:39 08:40 11:58 RBC 3.31 L Hgb 9.6 L Hct 30.5 L MCHC Plt Count Lymphocytes # ABG pH ABG pCO2 ABG pO2 ABG HCO3 ABG Total CO2 Sodium 149 H Chloride 114 H BUN 27 H Creatinine 1.72 H Glucose 104 H POC Glucose (mg/dL) 119 H Calcium Magnesium AST Total Creatine Kinase Total Protein Albumin Urine Protein Urine Blood Ur Leukocyte Esterase Urine WBC Clumps Amorphous Sediment Urine Bacteria Hyaline Casts Urine Mucus 06/16/18 06/16/18 06/17/18 16:49 20:18 07:03 RBC Hgb Hct MCHC Plt Count Lymphocytes # ABG pH ABG pCO2 ABG pO2 ABG HCO3 ABG Total CO2 Sodium Chloride BUN Creatinine Glucose POC Glucose (mg/dL) 192 H 124 H 121 H Calcium Magnesium AST Total Creatine Kinase Total Protein Albumin Urine Protein Urine Blood Ur Leukocyte Esterase Urine WBC Clumps Amorphous Sediment Urine Bacteria Hyaline Casts Urine Mucus 06/17/18 06/17/18 06/17/18 07:12 07:12 11:49 RBC 2.93 L Hgb 8.7 L Hct 27.1 L MCHC Plt Count 130 L Lymphocytes # ABG pH ABG pCO2 ABG pO2 ABG HCO3 ABG Total CO2 Sodium Chloride 110 H BUN 25 H Creatinine 1.43 H Glucose 119 H POC Glucose (mg/dL) 140 H Calcium 8.3 L Magnesium AST Total Creatine Kinase Total Protein Albumin Urine Protein Urine Blood Ur Leukocyte Esterase Urine WBC Clumps Amorphous Sediment Urine Bacteria Hyaline Casts Urine Mucus 06/17/18 06/17/18 06/18/18 17:12 19:42 07:03 RBC Hgb Hct MCHC Plt Count Lymphocytes # ABG pH ABG pCO2 ABG pO2 ABG HCO3 ABG Total CO2 Sodium Chloride BUN Creatinine Glucose POC Glucose (mg/dL) 142 H 168 H 133 H Calcium Magnesium AST Total Creatine Kinase Total Protein Albumin Urine Protein Urine Blood Ur Leukocyte Esterase Urine WBC Clumps Amorphous Sediment Urine Bacteria Hyaline Casts Urine Mucus 06/18/18 06/18/18 06/18/18 07:16 07:16 11:56 RBC 2.87 L Hgb 8.5 L Hct 27.3 L MCHC Plt Count 117 L Lymphocytes # ABG pH ABG pCO2 ABG pO2 ABG HCO3 ABG Total CO2 Sodium Chloride BUN 23 H Creatinine 1.40 H Glucose 116 H POC Glucose (mg/dL) 126 H Calcium 8.0 L Magnesium AST Total Creatine Kinase Total Protein Albumin Urine Protein Urine Blood Ur Leukocyte Esterase Urine WBC Clumps Amorphous Sediment Urine Bacteria Hyaline Casts Urine Mucus 06/18/18 06/18/18 06/19/18 17:00 20:39 07:37 RBC 2.93 L Hgb 8.9 L Hct 27.9 L MCHC Plt Count 118 L Lymphocytes # ABG pH ABG pCO2 ABG pO2 ABG HCO3 ABG Total CO2 Sodium Chloride BUN Creatinine Glucose POC Glucose (mg/dL) 126 H 142 H Calcium Magnesium AST Total Creatine Kinase Total Protein Albumin Urine Protein Urine Blood Ur Leukocyte Esterase Urine WBC Clumps Amorphous Sediment Urine Bacteria Hyaline Casts Urine Mucus 06/19/18 06/19/18 06/19/18 07:37 07:37 10:02 RBC Hgb Hct MCHC Plt Count Lymphocytes # ABG pH 7.34 L ABG pCO2 57 H ABG pO2 65 L ABG HCO3 30 H ABG Total CO2 32 H Sodium Chloride BUN 19 H Creatinine 1.29 H Glucose 112 H POC Glucose (mg/dL) 109 H Calcium 8.3 L Magnesium AST Total Creatine Kinase Total Protein Albumin Urine Protein Urine Blood Ur Leukocyte Esterase Urine WBC Clumps Amorphous Sediment Urine Bacteria Hyaline Casts Urine Mucus 06/19/18 17:23 RBC Hgb Hct MCHC Plt Count Lymphocytes # ABG pH ABG pCO2 ABG pO2 ABG HCO3 ABG Total CO2 Sodium Chloride BUN Creatinine Glucose POC Glucose (mg/dL) 121 H Calcium Magnesium AST Total Creatine Kinase Total Protein Albumin Urine Protein Urine Blood Ur Leukocyte Esterase Urine WBC Clumps Amorphous Sediment Urine Bacteria Hyaline Casts Urine Mucus Assessment and Plan (1) Encephalopathy Current Visit: Yes Status: Acute Code(s): G93.40 - ENCEPHALOPATHY, UNSPECIFIED SNOMED Code(s): 17705662 (2) Altered mental status Current Visit: Yes Status: Acute Code(s): R41.82 - ALTERED MENTAL STATUS, UNSPECIFIED SNOMED Code(s): 039908276 (3) Urinary tract infection Current Visit: Yes Status: Acute Code(s): N39.0 - URINARY TRACT INFECTION, SITE NOT SPECIFIED SNOMED Code(s): 65970686 Plan: At this time, the patient's symptoms and physical exam findings appear highly consistent with metabolic encephalopathy secondary to UTI. CT brain noted no acute process EEG ordered and pending Recommend continue correcting infectious process and correctable underlying etiology. Continue neuro checks every shift Advise neurology of any new neurological status changes Nurology will continue to follow and provide updates as needed or warranted. I have discussed the plan of care with the physician prior to implementation and he agrees with the plan as implemented.
[2018-06-19 20:03] LABS: Glucose,Whole Blood 151 mg/dL (75-99)
[2018-06-19] MEDS: ALBUTEROL NEBULIZED 2.5 MG/3 ML INHALATION SCH ×2 (20:20→20:31)
[2018-06-19] MEDS: SYMBICORT 160-4.5 MCG INHALER INHALATION SCH ×2 (20:27→20:31)
[2018-06-19] MEDS: QUEtiapine 25 MG TAB PO SCH (21:27)
[2018-06-19] MEDS: PRAVASTATIN SODIUM 40 MG TAB PO SCH (21:29)
[2018-06-19] MEDS: SENNOSIDES-DOCUSATE SODIUM 1 EACH TAB PO SCH (21:29)
[2018-06-19] MEDS: MELATONIN 3 MG TABLET PO SCH (21:29)
[2018-06-19] MEDS: MONTELUKAST 10 MG TAB PO SCH (21:29)
[2018-06-19] MEDS: PRAMIPEXOLE 0.5 MG TAB PO SCH (21:33)
[2018-06-20 07:35] LABS: Glucose,Whole Blood 123 mg/dL (75-99)
--- NOTE | 2018-06-20 07:53 | XR ---
EXAMINATION TYPE: XR chest 1V portable DATE OF EXAM: 06/20/2018 CLINICAL HISTORY: Difficulty breathing progress study. TECHNIQUE: Single AP portable semiupright view of the chest is obtained. COMPARISON: Chest x-ray from one day earlier FINDINGS: There is cardiomegaly with atherosclerotic thoracic aorta. Osseous structures are intact. There is bibasilar opacity redemonstrated. Suspect small bilateral pleural effusions. No sizable pneu mothorax is seen. IMPRESSION: Overall stable findings, suspect CHF exacerbation as there is cardiomegaly with small t o tiny bilateral pleural effusions and associated bibasilar atelectasis and/or infiltrate all redemon strated.
[2018-06-20 09:01] LABS: HCT 26.8 % (34.0-46.0); HGB 8.6 gm/dL (11.4-16.0); Hypochromasia Slight; MCH 29.6 pg (25.0-35.0); MCHC 32.2 g/dL (31.0-37.0); MCV 91.7 fL (80.0-100.0); Mean Platelet Volume 7.2; Platelet Count 122 k/uL (150-450); RBC 2.92 m/uL (3.80-5.40); RDW 14.2 % (11.5-15.5); WBC 5.8 k/uL (3.8-10.6)
[2018-06-20] MEDS: SYMBICORT 160-4.5 MCG INHALER INHALATION SCH ×2 (09:03→21:00)
[2018-06-20] MEDS: ALBUTEROL NEBULIZED 2.5 MG/3 ML INHALATION SCH ×2 (09:03→20:56)
[2018-06-20 09:36] LABS: Calcium 8.5 mg/dL (8.4-10.2); Potassium 4.9 mmol/L (3.5-5.1)
[2018-06-20] MEDS: FUROSEMIDE 10 MG/ML 4 ML VIAL IV SCH ×2 (10:39→23:03)
[2018-06-20] MEDS: INSULIN ASPART 100 UNIT/ML 1 ML 10 ML VIAL SQ SCH ×3 (10:52→17:50)
[2018-06-20] MEDS: DEXTROSE 5% IN WATER 1,000 ML IV SCH (11:08)
[2018-06-20] MEDS: ERTAPENEM 0.5 GM in SODIUM CHLORIDE 0.9% 50 ML IVPB SCH (11:58)
[2018-06-20] MEDS: METOPROLOL TARTRATE 25 MG TAB PO SCH ×2 (12:02→19:21)
[2018-06-20] MEDS: PANTOPRAZOLE 40 MG TABLET PO SCH (12:02)
[2018-06-20] MEDS: CARBIDOPA-LEVODOPA 25-100 MG 1 EACH TAB PO SCH ×3 (12:02→19:20)
[2018-06-20] MEDS: ASPIRIN 81 MG PO SCH (12:02)
[2018-06-20] MEDS: lamoTRIgine 100 MG TAB PO SCH (12:02)
[2018-06-20] MEDS: GABAPENTIN 300 MG CAP PO SCH ×2 (12:02→19:19)
[2018-06-20] MEDS: POTASSIUM CHLORIDE 20 MEQ in WATER FOR INJECTION 1 100ML.BAG IVPB SCH (12:03)
[2018-06-20] MEDS: MEMANTINE 10 MG TAB PO SCH ×2 (12:03→19:19)
[2018-06-20] MEDS: ISOSORBIDE MONONITRATE ER 30 MG TAB.ER.24H PO SCH (12:03)
[2018-06-20] MEDS: LOSARTAN 50 MG TAB PO SCH (12:03)
[2018-06-20] MEDS: DONEPEZIL 10 MG TAB PO SCH (12:03)
[2018-06-20] MEDS: KETOTIFEN 0.025% OPHTH DROPS 5 ML BTL BOTH EYES SCH ×2 (12:38→19:19)
--- NOTE | 2018-06-20 12:52 | P.PN ---
Subjective Progress Note Date: 06/20/18 Principal diagnosis: Altered mental status and hypercapnic respiratory failure This is a 82-year-old white female patient with past medical history significant for dementia, Parkinson's disease, diabetes mellitus, hypertension, hyperlipidemia, osteoarthritis, chronic kidney disease, CVA/TIA, asthma, chronic urinary tract infections, was brought to the emergency department on for evaluation of altered mental status. Patient resides at a local alf facility, and at her baseline she is able to carry on conversation, participate in activities at the long-term. He was noted to be increasingly lethargic, less verbal, she was having some nausea, vomiting. She had been moaning. Brain CT showed no acute findings, initial chest x-ray was negative, did show scarring and subsegmental atelectasis in left lower lobe. Patient was hypotensive in the emergency department, urinalysis was clear with blood trace, protein trace, leukocyte esterase small, rare WBC clumps and rare bacteria. Patient was started on ceftriaxone and admitted to the medical surgical floor. Patient was recently hospitalized at the end of April, for metabolic encephalopathy, secondary to urinary tract infection and sepsis, acute kidney injury. Urine cultures from that admission were positive for E. coli and Proteus mirabilis, as well as pseudomonas aeruginosa. Note that the Proteus mirabilis was a ESBL organism. ID service was consulted, and patient's current antibiotic coverage includes daptomycin and ertapenem. Patient has been intermittently febrile, and her mentation not much improved. A CT was repeated today on 06/19/2018 and showed no acute abnormalities. Patient was noted to be more confused today, unable to wake up, and take her medications. Blood gas was obtained, and showed pO2 of 66 5, pCO2 57, and pH of 7.34, as was done on FiO2 of 32%. Today's blood work shows WBC of 6.6, hemoglobin is 8.9, X are within normal limits, renal profile has been steadily improving since admission, with BUN of 19, and creatinine of 1.29. Blood culture with gram-positive cocci, final cultures positive for staph epidermidis. Chest x-ray showed new trace pleural effusions, and bibasilar airspace disease, mildly prominent pulmonary vascular congestion, poor inspiratory effort, accentuating the pulmonary vasculature. We were consulted in regards to hypercapnic respiratory failure Patient was seen today on 06/20/2018, remains on BiPAP, seems to be very comfortable on BiPAP, easily agitated, confused, in no form of respiratory distress. Labs were reviewed, WBC count is 5.8 hemoglobin is 8.6, electrolytes were reviewed, bicarb is 31 BUN is 19 and creatinine is 1.24. Chest x-ray this morning showed mild congestive changes, small bilateral effusions, and bibasilar atelectasis. Objective - Vital Signs Vital signs: Vital Signs Temp 99.5 F 06/20/18 07:00 Pulse 82 06/20/18 07:00 Resp 16 06/20/18 07:00 BP 152/64 06/20/18 07:00 Pulse Ox 95 06/20/18 12:21 Intake & Output 06/19/18 06/20/18 06/20/18 18:59 06:59 18:59 Intake Total 1000 Output Total 2725 600 Balance -1725 -600 Weight 115.666 kg Intake: Intake, IV Titration 900 Amount ACETAMINOPHEN IV (For NPO 100 ) 1,000 mg In Empty Bag 1 bag @ 400 mls/hr IVPB ONCE ONE Rx#:[id number] Dextrose 5% in Water 1, 800 000 ml @ 50 mls/hr IV . Q20H NABEEL Rx#:[id number] Oral 100 Output: Urine 2725 600 Uretheral (Constantino) 600 Other: Voiding Method Indwelling Catheter Indwelling Catheter # Voids 0 - Exam GENERAL EXAM: Lethargic, 82-year-old white female, on BiPAP, in no distress. HEAD: Normocephalic/atraumatic. EYES: Normal reaction of pupils, equal size. Conjunctiva pink, sclera white. NOSE: Clear with pink turbinates. THROAT: No erythema or exudates. NECK: No masses, no JVD, no thyroid enlargement, no adenopathy. CHEST: No chest wall deformity. Symmetrical expansion. LUNGS: diminished breath sounds CVS: Regular rate and rhythm, normal S1 and S2, no gallops, no murmurs, no rubs ABDOMEN: Soft, nontender. No hepatosplenomegaly, normal bowel sounds, no guarding or rigidity. EXTREMITIES: No clubbing, no edema, no cyanosis, 2+ pulses and upper and lower extremities. MUSCULOSKELETAL: Muscle strength and tone normal. SPINE: No scoliosis or deformity SKIN: No rashes CENTRAL NERVOUS SYSTEM: Agitated, confused. - Labs CBC & Chem 7: 06/20/18 07:33 06/20/18 07:33 Labs: Abnormal Lab Results - Last 24 Hours (Table) 06/19/18 06/19/18 06/20/18 Range/Units 17:23 19:49 07:19 RBC (3.80-5.40) m/uL Hgb (11.4-16.0) gm/dL Hct (34.0-46.0) % Plt Count (150-450) k/uL Carbon Dioxide (22-30) mmol/L BUN (7-17) mg/dL Creatinine (0.52-1.04) mg/dL Glucose (74-99) mg/dL POC Glucose (mg/dL) 121 H 151 H 123 H (75-99) mg/dL 06/20/18 06/20/18 Range/Units 07:33 07:33 RBC 2.92 L (3.80-5.40) m/uL Hgb 8.6 L (11.4-16.0) gm/dL Hct 26.8 L (34.0-46.0) % Plt Count 122 L (150-450) k/uL Carbon Dioxide 31 H (22-30) mmol/L BUN 19 H (7-17) mg/dL Creatinine 1.24 H (0.52-1.04) mg/dL Glucose 114 H (74-99) mg/dL POC Glucose (mg/dL) (75-99) mg/dL Microbiology - Last 24 Hours (Table) 06/16/18 08:39 Blood Culture Gram Stain - Final Blood Blood Culture - Final Staphylococcus epidermidis 06/17/18 07:12 Blood Culture - Preliminary Blood No Growth after 72 hours 06/15/18 12:39 Blood Culture - Preliminary Blood No Growth after 96 hours Assessment and Plan Assessment: #1. Acute hypoxic and hypercapnic respiratory failure related to atelectasis and hypoventilation, chest x-ray showed patchy basilar opacities likely related to atelectasis, and small pleural effusions. #2. Altered mental status related to metabolic encephalopathy secondary to ESBL Proteus mirabilis and E. coli urinary tract infection and sepsis #3. PICC associated gram-positive bacteremia sepsis #4. Acute kidney injury #5. Chronic kidney disease stage III #6. Hypertension #7. Hyperlipidemia #8. Diabetes mellitus type 2 #9. Parkinson's disease #10. Dementia Recommendation: Continue BiPAP, chest x-ray was reviewed again, continue diuretics, possible discontinue BiPAP in the next 24 hours. We'll continue to follow. Time with Patient: Less than 30
[2018-06-20 14:08] LABS: Glucose,Whole Blood 132 mg/dL (75-99)
[2018-06-20] MEDS ORDERED: FUROSEMIDE 10 MG/ML 4 ML VIAL IV STA (14:14)
[2018-06-20 14:18] LABS: HCT 27.9 % (34.0-46.0); HGB 9.3 gm/dL (11.4-16.0); MCH 29.9 pg (25.0-35.0); MCHC 33.2 g/dL (31.0-37.0); MCV 89.9 fL (80.0-100.0); Mean Platelet Volume 6.9; Platelet Count 150 k/uL (150-450); RBC 3.11 m/uL (3.80-5.40); RDW 14.2 % (11.5-15.5); WBC 7.6 k/uL (3.8-10.6)
[2018-06-20] MEDS: HALOPERIDOL LACTATE 5 MG/ML 1 ML VIAL IVP PRN (14:20)
[2018-06-20] MEDS: ALPRAZolam 0.25 MG TAB PO SCH (14:37)
[2018-06-20 14:54] LABS: Albumin 3.3 g/dL (3.5-5.0); Calcium 8.7 mg/dL (8.4-10.2); Magnesium 1.9 mg/dL (1.6-2.3); Potassium 4.5 mmol/L (3.5-5.1); Total Bilirubin 0.4 mg/dL (0.2-1.3); Total Protein 6.1 g/dL (6.3-8.2)
[2018-06-20] MEDS: DAPTOmycin 500 MG in SODIUM CHLORIDE 0.9% 50 ML IVPB SCH (14:55)
--- NOTE | 2018-06-20 14:55 | XR ---
EXAMINATION TYPE: XR chest 1V portable DATE OF EXAM: 06/20/2018 CLINICAL HISTORY: Difficulty breathing progress study. TECHNIQUE: Single AP portable upright view of the chest is obtained. COMPARISON: Chest x-ray from earlier today FINDINGS: There is cardiomegaly with atherosclerotic thoracic aorta redemonstrated. Osseous structur es remain demineralized. There is patchy bibasilar opacity redemonstrated. Suspect stable small bilat eral pleural effusions. IMPRESSION: Overall stable findings, cardiomegaly with tiny bilateral pleural effusions and patchy bibasilar atelectasis and/or infiltrate all redemonstrated.
--- NOTE | 2018-06-20 15:51 | P.PN ---
Subjective Progress Note Date: 06/20/18 This is a 82-year-old female with past medical history significant for dementia and Parkinson disease presents to the emergency department with worsening confusion intractable nausea and vomiting and weakness. In the emergency department patient is not following commands unable to provide any information and all the history obtained from medical record and retirement information as I spoke to the charge nurse. Patient was found to have urinary tract infection, acute kidney injury and was started on IV antibiotics and IV fluid patient currently still confused morning not following commands and responding only to pain stimuli 06/15: Blood sugars are running 97-108, creatinine 2.02 and BUN 28 which improved from yesterday. Urine culture is in progress, blood culture is no growth at 24 hours. Patient continues to be lethargic and confused. She has taken few bites of applesauce with medications. Nausea and vomiting have resolved. Daughter is at bedside and states patient is usually interactive ie plays bingo etc. She is wheelchair bound. She has been seen by Dr. Kinsey in the past. Daughter states that patient had a PICC line placed 2 weeks ago and treated with antibiotics for UTI managed by Dr. Diamond. Urine culture positive for pseudomonas. It appears merrem was antibiotic used. Will ask for consult with Dr. Marquez, renal ultrasound and rocephin changed to Merrem. Sodium bicarb to be added to IV fluids for metabolic acidoses. 06/16: Patient has been moaning all through the night. She is unable to follow commands. This morning her temperature max 101.4 with heart rate of 110 and blood pressure 205/91. Hydralazine IV and IV Tylenol added as well as 1 dose of Ativan. Repeat blood culture will be obtained. Blood culture from yesterday drawn from the PICC line is positive for gram-positive cocci. Patient has been seen by Dr. Marquez and IVs antibiotics are currently Fortaz. Renal ultrasound shows renal cystic changes. Her fever was down and blood pressure improved. She is able to recognize and state her daughter's name. Therapy has evaluated and will start diet this afternoon. Patient will be maintained on her oral medications. 06/17: White count remains normal, hemoglobin 8.7 and platelet count 1:30. BUN 25 and creatinine 1.43. Blood sugars have been running in the 120s. Blood culture drawn from the PICC line is positive for gram-positive cocci. PICC line to be removed today. Repeat blood culture obtained this morning, Dr. Marquez has placed her on daptomycin in addition to Fortaz. Urine culture finalized with ESBL Proteus mirabilis and E. coli. She has been afebrile for 24 hours. The patient is awake and alert this morning was able to take her medications with applesauce and ate yogurt for breakfast. She is now somewhat lethargic and tired. We will check B12 level and TSH and increase melatonin 6 mg at bedtime. She has not had any choking episodes. She is on a special diet. 06/17: [place] remained stable. She had episode of hypotension last night with a blood pressure of 74/43 she received a 500 mL bolus of normal saline last night. Her blood pressure this morning was 110/57 she is not having any complaints of dizziness, lightheadedness, or dictation. Patient has been afebrile for the last 2 days temperature today 99.4. Patient had her PICC line removed yesterday. Patient has been able to tolerate meals without any difficulties. Her echocardiogram showed no vegetation she does have severe mitral regurg. Patient denies any back pain, choking episodes, or fever. 06/19: Patient is more confused today. She is unable to wake up and take her medications. She is not alert enough to eat this morning. Seroquel will be decreased to 25 mg and Xanax will be changed to as, Haldol discontinued. Her last dose on hold all his back on the . Consult with neurology, EEG and CAT scan of the brain ordered. Will also ask for chest x-ray and ABGs show shows mild respiratory acidosis. She has generalized anasarca and IV fluids will be decreased from 100 mL to 50 mL per hour. Reviewed microbiology with Dr. Marquez and antibiotics changed to ertapenem which she will need a total of 14 day course. Daptomycin and Fortaz discontinued. Midline will be requested for IV access and for antibiotics at the retirement. Anticipate possible discharge on Friday. Today, hemoglobin is 8.9, BUN 19 creatinine 1.29, blood sugars are running between 96 and 142. 06/20: Patient continues to be confused today she is not wanting to wear her Bi PAP machine and has been removing it. Patient is easily addressed agitated but does not appear in any respiratory distress. Patient did have an episode of diaphoresis and coughing in which a team was called. WBCs 7.6, hemoglobin 9.3. Chest x-ray no tiny bilateral pleural effusion and associated bibasilar atelectasis. Patient is easily addressed dictated but does not appear in any respiratory distress. Review Of Systems: Unable to obtain due to mental status changes Objective - Vital Signs Vital signs: Vital Signs Temp 99.5 F 06/20/18 07:00 Pulse 82 06/20/18 07:00 Resp 16 06/20/18 07:00 BP 152/64 06/20/18 07:00 Pulse Ox 95 06/20/18 12:21 Intake & Output 06/19/18 06/20/18 06/20/18 18:59 06:59 18:59 Intake Total 1000 Output Total 2725 1600 Balance -1725 -1600 Weight 115.666 kg Intake: Intake, IV Titration 900 Amount ACETAMINOPHEN IV (For NPO 100 ) 1,000 mg In Empty Bag 1 bag @ 400 mls/hr IVPB ONCE ONE Rx#:[id number] Dextrose 5% in Water 1, 800 000 ml @ 50 mls/hr IV . Q20H [facility] Rx#:[id number] Oral 100 Output: Urine 2725 1600 Uretheral (Constantino) 1600 Other: Voiding Method Indwelling Catheter Indwelling Catheter # Voids 0 - Exam Gen: This is a morbidly obese 82-year-old female. She is in bed and appears to be in no acute distress. HEENT: Head is atraumatic, normocephalic. Pupils equal, round. Sclerae is anicteric. NECK: Supple. No JVD. No lymphadenopathy. No thyromegaly. LUNGS: Clear to auscultation but diminished bilaterally. No wheezes or rhonchi. No intercostal retractions. HEART: Regular rate and rhythm. No murmur. ABDOMEN: Soft. Bowel sounds are present. No masses. No tenderness. EXTREMITIES: No pedal edema. No calf tenderness. NEUROLOGICAL: Patient is awake, sleepy. Generalized weakness noted - Labs CBC & Chem 7: 06/20/18 14:06 06/20/18 14:00 Labs: Abnormal Lab Results - Last 24 Hours (Table) 06/19/18 06/19/18 06/20/18 Range/Units 17:23 19:49 07:19 RBC (3.80-5.40) m/uL Hgb (11.4-16.0) gm/dL Hct (34.0-46.0) % Plt Count (150-450) k/uL Chloride (98-107) mmol/L Carbon Dioxide (22-30) mmol/L BUN (7-17) mg/dL Creatinine (0.52-1.04) mg/dL Glucose (74-99) mg/dL POC Glucose (mg/dL) 121 H 151 H 123 H (75-99) mg/dL AST (14-36) U/L Total Protein (6.3-8.2) g/dL Albumin (3.5-5.0) g/dL 06/20/18 06/20/18 06/20/18 Range/Units 07:33 07:33 13:37 RBC 2.92 L (3.80-5.40) m/uL Hgb 8.6 L (11.4-16.0) gm/dL Hct 26.8 L (34.0-46.0) % Plt Count 122 L (150-450) k/uL Chloride (98-107) mmol/L Carbon Dioxide 31 H (22-30) mmol/L BUN 19 H (7-17) mg/dL Creatinine 1.24 H (0.52-1.04) mg/dL Glucose 114 H (74-99) mg/dL POC Glucose (mg/dL) 132 H (75-99) mg/dL AST (14-36) U/L Total Protein (6.3-8.2) g/dL Albumin (3.5-5.0) g/dL 06/20/18 06/20/18 Range/Units 14:00 14:06 RBC 3.11 L (3.80-5.40) m/uL Hgb 9.3 L (11.4-16.0) gm/dL Hct 27.9 L (34.0-46.0) % Plt Count (150-450) k/uL Chloride 96 L (98-107) mmol/L Carbon Dioxide 33 H (22-30) mmol/L BUN 18 H (7-17) mg/dL Creatinine 1.28 H (0.52-1.04) mg/dL Glucose 135 H (74-99) mg/dL POC Glucose (mg/dL) (75-99) mg/dL AST 11 L (14-36) U/L Total Protein 6.1 L (6.3-8.2) g/dL Albumin 3.3 L (3.5-5.0) g/dL Microbiology - Last 24 Hours (Table) 06/15/18 12:39 Blood Culture - Preliminary Blood No Growth after 120 hours 06/16/18 08:39 Blood Culture Gram Stain - Final Blood Blood Culture - Final Staphylococcus epidermidis 06/17/18 07:12 Blood Culture - Preliminary Blood No Growth after 72 hours Assessment and Plan Plan: 1. Uremic and septic metabolic encephalopathy secondary to ESBL Proteus mirabilis and E. coli urinary tract infection and sepsis with PICC associated gram-positive bacteremia. Urine culture as above. PICC line has been removed. Antibiotics have been changed toertapenem. Patient will need to complete a 14 day course of ertapenem per Dr. Marquez. Xanax, baclofen Benadryl on hold. Dr. Acosta consult appreciated. Awaiting EEG results. Awaiting carotid Doppler results. CT of the brain shows no acute abnormalities evident. Continue BiPAP. Continue Lasix 40 mg IV twice a day. 2. Acute kidney injury, chronic kidney disease stage III with dehydration and metabolic acidoses secondary to intractable nausea and vomiting. Avoid nephrotoxic agents. Continue to monitor kidney function. Continue IVF. Sodium bicarb to be added to IV fluids. 3. CAD. Continue patient on Imdur 30 mg orally once every day, Lopressor 25 mg twice daily. 4. Hypertension and hypertensive cardiovascular disease. Continue Lopressor and Imdur 5. Hyperlipidemia. She is not currently on statin. 6. Diabetes mellitus type 2. Januvia on hold. Humalog scale before meals and at bedtime. 7. Parkinson with orofacial dyskinesia. Continue patient on Sinemet 25/100 one tablet orally 4 times every day, Baclofen 10 mg every 8 hours as needed, Namenda 10 mg twice daily. 8. Diabetic polyneuropathy. Continue gabapentin. 9. Restless leg syndrome. Continue patient on Mirapex 0.5 mg at bedtime. 10. Alzheimer dementia with behavior disturbance and impaired oral phase of eating patient tends to pocket food. Continue Namenda 10 mg orally twice every day and Aricept. 11. Depression, recurrent. Continue Seroquel 25 mg at bedtime. 12. DVT prophylaxis. Heparin 5000 units every 12 hours subcutaneously. 14. GI prophylaxis. Omeprazole. 15. Patient is no code no CPR and no ventilation, no aggressive medical. Discharge plan: Return to [facility] most likely discharge will occur on Friday Impression and plan of care have been directed as dictated by the signing physician. Talia Beckett nurse practitioner acting as scribe for signing physician.
[2018-06-20 18:11] LABS: Glucose,Whole Blood 113 mg/dL (75-99)
[2018-06-20] MEDS: QUEtiapine 25 MG TAB PO SCH (19:19)
--- NOTE | 2018-06-20 19:22 | P.PN ---
Subjective Progress Note Date: 06/20/18 Principal diagnosis: altered mental status Neurology is following on a 82-year-old female for altered mental status and encephalopathy. It is currently being treated for UTI involving pseudomonas and gram-positive cocci. Patient was admitted to the hospital with known history of dementia and Parkinson's disease. Patient began having worsening confusion, intractable nausea and vomiting and weakness. Patient was unable to provide any information at all upon admission. Information in the emergency room at the be provided from medical records and [facility] staff. Patient was found to have urinary tract infection, acute kidney injury and was started on IV antibiotics and IV fluids. Patient was still confused and not following commands and only responded to painful stimuli at that time. Admission was approximately 06/14 or 06/15/18. On contact today, patient was on BiPAP machine in the room. chest x-ray noted changes including atelectasis. Per staff, patient has been having intermittent episodes of increased agitation and confusion that wax and wane. As previously noted, CT brain was negative. Carotid Doppler was taken but has not been read. EEG has been ordered but has not been taken. Given the patient's waxing and waning status, an MRI of the brain was ordered for further investigation of any possible underlying [employer] etiology or changes. MRI brain is still pending. Objective - Vital Signs Vital signs: Vital Signs Temp 99.5 F 06/20/18 07:00 Pulse 69 06/20/18 15:00 Resp 16 06/20/18 07:00 BP 167/76 06/20/18 15:00 Pulse Ox 99 06/20/18 15:00 Intake & Output 06/20/18 06/20/18 06/21/18 06:59 18:59 06:59 Intake Total 1000 Output Total 2725 1600 Balance -1725 -1600 Intake: Intake, IV Titration 900 Amount ACETAMINOPHEN IV (For NPO 100 ) 1,000 mg In Empty Bag 1 bag @ 400 mls/hr IVPB ONCE ONE Rx#:[id number] Dextrose 5% in Water 1, 800 000 ml @ 50 mls/hr IV . Q20H [facility] Rx#:[id number] Oral 100 Output: Urine 2725 1600 Uretheral (Constantino) 1600 Other: Voiding Method Indwelling Catheter - Exam General appearance: Alert, no apparent distress. Head: Atraumatic, normocephalic, normal inspection Eyes: PERRLA, EOMI. Absent scleral icterus, conjunctival injection, nystagmus, periorbital swelling. Ear, nose and throat: Normal exam, mucous membranes moist Neck: Normal inspection, absent tenderness, lymphadenopathy. Respiratory: No increased work of breathing Cardiovascular: Regular rate, rhythm GI/abdominal: No guarding, no rigidity Extremities: moves all extremities, not on command, appears generally weak Neurological: cranial nerves II through XII intact-Appears generally intact, patient does not comply with verbal commandsunable to be fully assessed on exam, right upper extremity was weaker than the left no seizure activity noted on physical exam no pronator drift and no nystagmus. Strength: right upper extremity weaker than left upper extremity: 2+/5, 3-/5 upper patient does not always comply with physical assessment Sensation: able to assess, patient does not comply Psychological: Mood and Affect appropriate for setting overall the patient appears unchanged from previous day - Labs CBC & Chem 7: 06/20/18 14:06 06/20/18 14:00 Labs: Abnormal Lab Results - Last 24 Hours (Table) 06/19/18 06/20/18 06/20/18 Range/Units 19:49 07:19 07:33 RBC 2.92 L (3.80-5.40) m/uL Hgb 8.6 L (11.4-16.0) gm/dL Hct 26.8 L (34.0-46.0) % Plt Count 122 L (150-450) k/uL Chloride (98-107) mmol/L Carbon Dioxide (22-30) mmol/L BUN (7-17) mg/dL Creatinine (0.52-1.04) mg/dL Glucose (74-99) mg/dL POC Glucose (mg/dL) 151 H 123 H (75-99) mg/dL AST (14-36) U/L Total Protein (6.3-8.2) g/dL Albumin (3.5-5.0) g/dL 06/20/18 06/20/18 06/20/18 Range/Units 07:33 13:37 14:00 RBC (3.80-5.40) m/uL Hgb (11.4-16.0) gm/dL Hct (34.0-46.0) % Plt Count (150-450) k/uL Chloride 96 L (98-107) mmol/L Carbon Dioxide 31 H 33 H (22-30) mmol/L BUN 19 H 18 H (7-17) mg/dL Creatinine 1.24 H 1.28 H (0.52-1.04) mg/dL Glucose 114 H 135 H (74-99) mg/dL POC Glucose (mg/dL) 132 H (75-99) mg/dL AST 11 L (14-36) U/L Total Protein 6.1 L (6.3-8.2) g/dL Albumin 3.3 L (3.5-5.0) g/dL 06/20/18 06/20/18 Range/Units 14:06 17:49 RBC 3.11 L (3.80-5.40) m/uL Hgb 9.3 L (11.4-16.0) gm/dL Hct 27.9 L (34.0-46.0) % Plt Count (150-450) k/uL Chloride (98-107) mmol/L Carbon Dioxide (22-30) mmol/L BUN (7-17) mg/dL Creatinine (0.52-1.04) mg/dL Glucose (74-99) mg/dL POC Glucose (mg/dL) 113 H (75-99) mg/dL AST (14-36) U/L Total Protein (6.3-8.2) g/dL Albumin (3.5-5.0) g/dL Microbiology - Last 24 Hours (Table) 06/15/18 12:39 Blood Culture - Preliminary Blood No Growth after 120 hours 06/16/18 08:39 Blood Culture Gram Stain - Final Blood Blood Culture - Final Staphylococcus epidermidis 06/17/18 07:12 Blood Culture - Preliminary Blood No Growth after 72 hours Assessment and Plan (1) Encephalopathy Current Visit: Yes Status: Acute Code(s): G93.40 - ENCEPHALOPATHY, UNSPECIFIED SNOMED Code(s): 19672196 (2) Altered mental status Current Visit: Yes Status: Acute Code(s): R41.82 - ALTERED MENTAL STATUS, UNSPECIFIED SNOMED Code(s): 823084855 (3) Urinary tract infection Current Visit: Yes Status: Acute Code(s): N39.0 - URINARY TRACT INFECTION, SITE NOT SPECIFIED SNOMED Code(s): 75122388 Plan: At this time, the patient's symptoms and physical exam findings appear highly consistent with metabolic encephalopathy secondary to infectious process. CT brain noted no acute process MRI brain pending EEG ordered and pending carotid Doppler taken not read Recommend continue correcting infectious process and correctable underlying etiology. Continue neuro checks every shift Advise neurology of any new neurological status changes Nurology will continue to follow and provide updates as needed or warranted. I have discussed the plan of care with the physician prior to implementation and he agrees with the plan as implemented.
[2018-06-20 20:47] LABS: Glucose,Whole Blood 114 mg/dL (75-99)
--- NOTE | 2018-06-20 22:03 | US ---
EXAMINATION TYPE: US carotid duplex BILAT DATE OF EXAM: 06/20/2018 COMPARISON: Carotid ultrasound April 07, 2017 CLINICAL HISTORY: AMS. Extremely difficult and limited exam due to patient's altered mental status an d movement. Exam had to be stopped half way through due to A team being called in. Patient on bipap m achine during exam and could not move her head EXAM MEASUREMENTS: RIGHT: Peak Systolic Velocity (PSV) cm/sec ----- Right CCA: 138.7 ----- Right ICA: 178.5 ----- Right ECA: 156.8 ICA/CCA ratio: 1.3 RIGHT: End Diastole cm/sec ----- Right CCA: 19.2 ----- Right ICA: 49.1 ----- Right ECA: 17.8 LEFT: Peak Systolic Velocity (PSV) cm/sec ----- Left CCA: 62.4 ----- Left ICA: 79.8 ----- Left ECA: 49.3 ICA/CCA ratio: 1.3 LEFT: End Diastole cm/sec ----- Left CCA: 14.4 ----- Left ICA: 24.6 ----- Left ECA: 0.0 VERTEBRALS (direction of flow): Right Vertebral: Antegrade Left Vertebral: Antegrade Rhythm: Normal suboptimal study as detailed above. Moderate to severe plaque right carotid bulb leve l is redemonstrated. Increased peak systolic velocity right common carotid artery and internal caroti d artery as well as external carotid arteries are noted. Increased end-diastolic velocity is seen in the right internal carotid artery. There is persistent moderate eccentric plaque left carotid bulb. V elocity measurements remain within normal limits. IMPRESSION: Suboptimal study with moderate to severe plaque right greater than left identified, rob ot exclude significant focal stenosis. Consider further investigation with CTA or MRA of the neck. Criteria for Assigning % of Stenosis / Diameter reduction (Estimation based on the indirect measurements of the internal carotid artery velocities (ICA PSV). 1. Normal (no stenosis)=ICA PSV < 125 cm/s: ratio < 2.0: ICA EDV<40 cm/s. 2. Less than 50% stenosis=ICA PSV < 125 cm/s: ratio < 2.0: ICA EDV<40 cm/s. 3. 50 to 69% stenosis=ICA PSV of 125 to 230 cm/s: ration 2.0 ? 4.0: ICA EDV 40-100 cm/s. 4. Greater than 70% stenosis to near occlusion= ICA PSV > 230 cm/s: ratio > 4.0: ICA EDV > 100 cm/s. 5. Near occlusion= ICA PSV velocities may be low or undetectable: variable ratio and ICA EDV. 6. Total occlusion=unable to detect flow.
[2018-06-21] MEDS: lamoTRIgine 100 MG TAB PO SCH ×3 (01:37→23:59)
[2018-06-21] MEDS: PRAVASTATIN SODIUM 40 MG TAB PO SCH (01:37)
[2018-06-21] MEDS: MONTELUKAST 10 MG TAB PO SCH (01:38)
[2018-06-21] MEDS: CARBIDOPA-LEVODOPA 25-100 MG 1 EACH TAB PO SCH ×5 (01:38→23:59)
[2018-06-21] MEDS: GABAPENTIN 300 MG CAP PO SCH ×4 (01:38→23:59)
[2018-06-21] MEDS: MELATONIN 3 MG TABLET PO SCH (01:38)
[2018-06-21] MEDS: PRAMIPEXOLE 0.5 MG TAB PO SCH (01:39)
[2018-06-21] MEDS: SENNOSIDES-DOCUSATE SODIUM 1 EACH TAB PO SCH (01:40)
[2018-06-21] MEDS: INSULIN ASPART 100 UNIT/ML 1 ML 10 ML VIAL SQ SCH ×4 (01:40→18:47)
[2018-06-21 06:59] LABS: Glucose,Whole Blood 114 mg/dL (75-99)
[2018-06-21] MEDS: ALBUTEROL NEBULIZED 2.5 MG/3 ML INHALATION SCH ×2 (07:40→20:36)
[2018-06-21] MEDS: SYMBICORT 160-4.5 MCG INHALER INHALATION SCH ×2 (07:41→20:36)
[2018-06-21] MEDS ORDERED: FUROSEMIDE 10 MG/ML 4 ML VIAL IV SCH (09:00)
[2018-06-21] MEDS: MEMANTINE 10 MG TAB PO SCH (09:57)
[2018-06-21] MEDS: ASPIRIN 81 MG PO SCH (09:57)
[2018-06-21] MEDS: PANTOPRAZOLE 40 MG TABLET PO SCH (09:57)
[2018-06-21] MEDS: DONEPEZIL 10 MG TAB PO SCH (09:58)
[2018-06-21] MEDS: FUROSEMIDE 10 MG/ML 4 ML VIAL IV SCH (09:58)
[2018-06-21] MEDS: METOPROLOL TARTRATE 25 MG TAB PO SCH ×2 (09:58→17:01)
[2018-06-21] MEDS: LOSARTAN 50 MG TAB PO SCH (09:58)
[2018-06-21] MEDS: KETOTIFEN 0.025% OPHTH DROPS 5 ML BTL BOTH EYES SCH ×2 (09:58→18:47)
[2018-06-21] MEDS: ISOSORBIDE MONONITRATE ER 30 MG TAB.ER.24H PO SCH (09:58)
--- NOTE | 2018-06-21 11:16 | P.PN ---
Subjective Progress Note Date: 06/21/18 Principal diagnosis: altered mental status Neurology is following on a 82-year-old female for altered mental status and encephalopathy. It is currently being treated for UTI involving pseudomonas and gram-positive cocci. Patient was admitted to the hospital with known history of dementia and Parkinson's disease. Patient began having worsening confusion, intractable nausea and vomiting and weakness. Patient was unable to provide any information at all upon admission. Information in the emergency room at the be provided from medical records and [facility] staff. Patient was found to have urinary tract infection, acute kidney injury and was started on IV antibiotics and IV fluids. Patient was still confused and not following commands and only responded to painful stimuli at that time. Admission was approximately 06/14 or 06/15/18. 06/21/18: On contact today, patient was alert and oriented 3. patient is status was significantly improved day over day. Patient was no longer agitated. Patient would respond to verbal commands and would actively participate and comply with physical assessment. Patients carotid Doppler was suboptimal and CT angiogram of the neck was recommended however patient's renal status would not support testing. Patient previously had MRI of the brain scheduled/requested but given the patient's significant improvement, MRI of the brain will be canceled at this time. 06/20/18: On contact today, patient was on BiPAP machine in the room. chest x-ray noted changes including atelectasis. Per staff, patient has been having intermittent episodes of increased agitation and confusion that wax and wane. As previously noted, CT brain was negative. Carotid Doppler was taken but has not been read. EEG has been ordered but has not been taken. Given the patient's waxing and waning status, an MRI of the brain was ordered for further investigation of any possible underlying RETORT SETTER etiology or changes. MRI brain is still pending. Objective - Vital Signs Vital signs: Vital Signs Temp 98.3 F 06/21/18 07:36 Pulse 74 06/21/18 07:36 Resp 18 06/21/18 07:36 BP 145/66 06/21/18 07:36 Pulse Ox 91 L 06/21/18 07:36 Intake & Output 06/20/18 06/21/18 06/21/18 18:59 06:59 18:59 Intake Total 600 Output Total 1600 1900 Balance -1000 -1900 Intake: Intake, IV Titration 600 Amount DAPTOmycin 500 mg In 100 Sodium Chloride 0.9% 50 ml @ 100 mls/hr IVPB Q48H NABEEL Rx#:[id number] Dextrose 5% in Water 1, 300 000 ml @ 50 mls/hr IV . Q20H NABEEL Rx#:[id number] Ertapenem 0.5 gm In 100 Sodium Chloride 0.9% 50 ml @ 100 mls/hr IVPB DAILY NABEEL Rx#:[id number] Potassium Chloride 20 meq 100 In Water For Injection 1 100ml.bag @ 50 mls/hr IVPB DAILY NABEEL Rx#: [id number] Oral 0 Output: Urine 1600 1900 Uretheral (Constantino) 1600 1100 Other: Voiding Method Indwelling Catheter Indwelling Catheter - Exam General appearance: Alert x3, no apparent distress. Head: Atraumatic, normocephalic, normal inspection Eyes: PERRLA, EOMI. Absent scleral icterus, conjunctival injection, nystagmus, periorbital swelling. Ear, nose and throat: Normal exam, mucous membranes moist Neck: Normal inspection, absent tenderness, lymphadenopathy. Respiratory: No increased work of breathing Cardiovascular: Regular rate, rhythm GI/abdominal: No guarding, no rigidity Extremities: moves all extremities, weak Neurological: cranial nerves II through XII intact on exam, right upper extremity was weaker than the left no facial asymmetry observed no seizure activity noted on physical exam no pronator drift and no nystagmus. Strength: right upper extremity weaker than left upper extremity: 3+/5, 3-/5 upper patient does not always comply with physical assessment Sensation: Alex in all 4 extremities Psychological: Mood and Affect appropriate for setting overall the patient appears unchanged from previous day - Labs CBC & Chem 7: 06/20/18 14:06 06/20/18 14:00 Labs: Abnormal Lab Results - Last 24 Hours (Table) 06/20/18 06/20/18 06/20/18 Range/Units 13:37 14:00 14:06 RBC 3.11 L (3.80-5.40) m/uL Hgb 9.3 L (11.4-16.0) gm/dL Hct 27.9 L (34.0-46.0) % Chloride 96 L (98-107) mmol/L Carbon Dioxide 33 H (22-30) mmol/L BUN 18 H (7-17) mg/dL Creatinine 1.28 H (0.52-1.04) mg/dL Glucose 135 H (74-99) mg/dL POC Glucose (mg/dL) 132 H (75-99) mg/dL AST 11 L (14-36) U/L Total Protein 6.1 L (6.3-8.2) g/dL Albumin 3.3 L (3.5-5.0) g/dL 06/20/18 06/20/18 06/21/18 Range/Units 17:49 20:35 06:57 RBC (3.80-5.40) m/uL Hgb (11.4-16.0) gm/dL Hct (34.0-46.0) % Chloride (98-107) mmol/L Carbon Dioxide (22-30) mmol/L BUN (7-17) mg/dL Creatinine (0.52-1.04) mg/dL Glucose (74-99) mg/dL POC Glucose (mg/dL) 113 H 114 H 114 H (75-99) mg/dL AST (14-36) U/L Total Protein (6.3-8.2) g/dL Albumin (3.5-5.0) g/dL Microbiology - Last 24 Hours (Table) 06/17/18 07:12 Blood Culture - Preliminary Blood No Growth after 96 hours 06/15/18 12:39 Blood Culture - Preliminary Blood No Growth after 120 hours 06/16/18 08:39 Blood Culture Gram Stain - Final Blood Blood Culture - Final Staphylococcus epidermidis Assessment and Plan (1) Encephalopathy Narrative/Plan: Patient's mental status has significantly improved today over day. Patient is much more alert and oriented. continue with plan of care Current Visit: Yes Status: Acute Code(s): G93.40 - ENCEPHALOPATHY, UNSPECIFIED SNOMED Code(s): 49290909 (2) Altered mental status Narrative/Plan: See above Current Visit: Yes Status: Acute Code(s): R41.82 - ALTERED MENTAL STATUS, UNSPECIFIED SNOMED Code(s): 570580748 (3) Urinary tract infection Narrative/Plan: resolving Current Visit: Yes Status: Acute Code(s): N39.0 - URINARY TRACT INFECTION, SITE NOT SPECIFIED SNOMED Code(s): 58315374 Plan: At this time, the patient's symptoms and physical exam findings appear highly consistent with metabolic encephalopathy secondary to infectious process. CT brain noted no acute process MRI brain canceled due to improving neurological status EEG ordered and pending carotid Doppler suboptimal study, CT Angiomax unable to be performed due to renal status Recommend continue correcting infectious process and correctable underlying etiology. Continue neuro checks every shift Advise neurology of any new neurological status changes Nurology will continue to follow only on an as-needed basis. I have discussed the plan of care with the physician prior to implementation and he agrees with the plan as implemented.
[2018-06-21 11:41] LABS: Glucose,Whole Blood 136 mg/dL (75-99)
[2018-06-21] MEDS: HALOPERIDOL LACTATE 5 MG/ML 1 ML VIAL IVP PRN (11:47)
[2018-06-21] MEDS ORDERED: HALOPERIDOL LACTATE 5 MG/ML 1 ML VIAL IM PRN (12:12)
[2018-06-21] MEDS ORDERED: ACETAMINOPHEN IV (For NPO) 1,000 MG in EMPTY BAG 1 BAG IVPB PRN (12:45)
[2018-06-21] MEDS: ERTAPENEM 0.5 GM in SODIUM CHLORIDE 0.9% 50 ML IVPB SCH (13:11)
--- NOTE | 2018-06-21 13:54 | CT ---
EXAMINATION TYPE: CT brain wo con DATE OF EXAM: 06/21/2018 COMPARISON: 06/19/2018 HISTORY: Altered mental status, LUCIUS CT DLP: 1078.[address] of the brain was performed. The ventricles, basal cisterns and sulci overlying the cerebral convexities demonstrate mild enlargem ent. There is no evidence for intracranial hemorrhage or sulcal effacement. There is decreased attenuation about the periventricular white matter and deep white matter of both c erebral hemispheres, compatible with chronic small vessel ischemia. Differential diagnosis does inclu de demyelination. No mass effects are seen.No midline shift. Osseous calvarium is intact. Chronic left maxillary sinusitis. If symptoms persist consider MRI. IMPRESSION: 1. Age related atrophic and chronic small vessel ischemic change without acute intracranial process s een at this time.
--- NOTE | 2018-06-21 15:12 | P.PN ---
Subjective Progress Note Date: 06/21/18 This is a 82-year-old female with past medical history significant for dementia and Parkinson disease presents to the emergency department with worsening confusion intractable nausea and vomiting and weakness. In the emergency department patient is not following commands unable to provide any information and all the history obtained from medical record and long-term information as I spoke to the charge nurse. Patient was found to have urinary tract infection, acute kidney injury and was started on IV antibiotics and IV fluid patient currently still confused morning not following commands and responding only to pain stimuli 06/15: Blood sugars are running 97-108, creatinine 2.02 and BUN 28 which improved from yesterday. Urine culture is in progress, blood culture is no growth at 24 hours. Patient continues to be lethargic and confused. She has taken few bites of applesauce with medications. Nausea and vomiting have resolved. Daughter is at bedside and states patient is usually interactive ie plays bingo etc. She is wheelchair bound. She has been seen by Dr. Kinsey in the past. Daughter states that patient had a PICC line placed 2 weeks ago and treated with antibiotics for UTI managed by Dr. Diamond. Urine culture positive for pseudomonas. It appears merrem was antibiotic used. Will ask for consult with Dr. Marquez, renal ultrasound and rocephin changed to Merrem. Sodium bicarb to be added to IV fluids for metabolic acidoses. 06/16: Patient has been moaning all through the night. She is unable to follow commands. This morning her temperature max 101.4 with heart rate of 110 and blood pressure 205/91. Hydralazine IV and IV Tylenol added as well as 1 dose of Ativan. Repeat blood culture will be obtained. Blood culture from yesterday drawn from the PICC line is positive for gram-positive cocci. Patient has been seen by Dr. Marquez and IVs antibiotics are currently Fortaz. Renal ultrasound shows renal cystic changes. Her fever was down and blood pressure improved. She is able to recognize and state her daughter's name. Therapy has evaluated and will start diet this afternoon. Patient will be maintained on her oral medications. 06/17: White count remains normal, hemoglobin 8.7 and platelet count 1:30. BUN 25 and creatinine 1.43. Blood sugars have been running in the 120s. Blood culture drawn from the PICC line is positive for gram-positive cocci. PICC line to be removed today. Repeat blood culture obtained this morning, Dr. Marquez has placed her on daptomycin in addition to Fortaz. Urine culture finalized with ESBL Proteus mirabilis and E. coli. She has been afebrile for 24 hours. The patient is awake and alert this morning was able to take her medications with applesauce and ate yogurt for breakfast. She is now somewhat lethargic and tired. We will check B12 level and TSH and increase melatonin 6 mg at bedtime. She has not had any choking episodes. She is on a special diet. 06/17: Pablo remained stable. She had episode of hypotension last night with a blood pressure of 74/43 she received a 500 mL bolus of normal saline last night. Her blood pressure this morning was 110/57 she is not having any complaints of dizziness, lightheadedness, or dictation. Patient has been afebrile for the last 2 days temperature today 99.4. Patient had her PICC line removed yesterday. Patient has been able to tolerate meals without any difficulties. Her echocardiogram showed no vegetation she does have severe mitral regurg. Patient denies any back pain, choking episodes, or fever. 06/19: Patient is more confused today. She is unable to wake up and take her medications. She is not alert enough to eat this morning. Seroquel will be decreased to 25 mg and Xanax will be changed to as, Haldol discontinued. Her last dose on hold all his back on the . Consult with neurology, EEG and CAT scan of the brain ordered. Will also ask for chest x-ray and ABGs show shows mild respiratory acidosis. She has generalized anasarca and IV fluids will be decreased from 100 mL to 50 mL per hour. Reviewed microbiology with Dr. Marquez and antibiotics changed to ertapenem which she will need a total of 14 day course. Daptomycin and Fortaz discontinued. Midline will be requested for IV access and for antibiotics at the long-term. Anticipate possible discharge on Friday. Today, hemoglobin is 8.9, BUN 19 creatinine 1.29, blood sugars are running between 96 and 142. 06/20: Patient continues to be confused today she is not wanting to wear her Bi PAP machine and has been removing it. Patient is easily addressed agitated but does not appear in any respiratory distress. Patient did have an episode of diaphoresis and coughing in which a team was called. WBCs 7.6, hemoglobin 9.3. Chest x-ray no tiny bilateral pleural effusion and associated bibasilar atelectasis. Patient is easily addressed dictated but does not appear in any respiratory distress. 06/20: Patient is unable to follow commands today. Per the nurse patient was agitated and combative earlier today and 18 was called during that time she received 1 mg of Haldol. Per the nurse prior to this episode she was awake and answering questions appropriately. Her pulse ox was 93% on room air. After the incident, patient was not able to answer questions appropriately she was arousable to stimuli. Family was at bedside discussion regarding hospice care was completed and questions were answered. We will obtain CT of the head prior to making any decisions regarding hospice care. Review Of Systems: Unable to obtain due to mental status changes Objective - Vital Signs Vital signs: Vital Signs Temp 98.3 F 06/21/18 07:36 Pulse 74 06/21/18 07:36 Resp 18 06/21/18 07:36 BP 145/66 06/21/18 07:36 Pulse Ox 91 L 06/21/18 07:36 Intake & Output 06/20/18 06/21/18 06/21/18 18:59 06:59 18:59 Intake Total 600 120 Output Total 1600 1900 Balance -1000 -1900 120 Intake: Intake, IV Titration 600 Amount DAPTOmycin 500 mg In 100 Sodium Chloride 0.9% 50 ml @ 100 mls/hr IVPB Q48H NABEEL Rx#:[id number] Dextrose 5% in Water 1, 300 000 ml @ 50 mls/hr IV . Q20H NABEEL Rx#:[id number] Ertapenem 0.5 gm In 100 Sodium Chloride 0.9% 50 ml @ 100 mls/hr IVPB DAILY NABEEL Rx#:[id number] Potassium Chloride 20 meq 100 In Water For Injection 1 100ml.bag @ 50 mls/hr IVPB DAILY NABEEL Rx#: [id number] Oral 0 120 Output: Urine 1600 1900 Uretheral (Constantino) 1600 1100 Other: Voiding Method Indwelling Catheter Indwelling Catheter Indwelling Catheter - Exam Gen: This is a morbidly obese 82-year-old female. She is in bed and appears to be in no acute distress. HEENT: Head is atraumatic, normocephalic. Pupils equal, round. Sclerae is anicteric. NECK: Supple. No JVD. No lymphadenopathy. No thyromegaly. LUNGS: Clear to auscultation but diminished bilaterally. No wheezes or rhonchi. No intercostal retractions. HEART: Regular rate and rhythm. No murmur. ABDOMEN: Soft. Bowel sounds are present. No masses. No tenderness. EXTREMITIES: No pedal edema. No calf tenderness. NEUROLOGICAL: Patient is awake, sleepy. Generalized weakness noted - Labs CBC & Chem 7: 06/20/18 14:06 06/20/18 14:00 Labs: Abnormal Lab Results - Last 24 Hours (Table) 06/20/18 06/20/18 06/21/18 Range/Units 17:49 20:35 06:57 POC Glucose (mg/dL) 113 H 114 H 114 H (75-99) mg/dL 06/21/18 Range/Units 11:32 POC Glucose (mg/dL) 136 H (75-99) mg/dL Microbiology - Last 24 Hours (Table) 06/15/18 12:39 Blood Culture - Final Blood No Growth after 144 hours 06/17/18 07:12 Blood Culture - Preliminary Blood No Growth after 96 hours 06/16/18 08:39 Blood Culture Gram Stain - Final Blood Blood Culture - Final Staphylococcus epidermidis Assessment and Plan Plan: 1. Uremic and septic metabolic encephalopathy secondary to ESBL Proteus mirabilis and E. coli urinary tract infection and sepsis with PICC associated gram-positive bacteremia. Urine culture as above. PICC line has been removed. Antibiotics have been changed toertapenem. Patient will need to complete a 14 day course of ertapenem per Dr. Marquez. Xanax, baclofen Benadryl on hold. Dr. Acosta consult appreciated. Awaiting EEG results. carotid Doppler results : Suboptimal study with moderate to severe plaque the right greater than the left. Repeat CAT scan shows age-related atrophic and chronic small vessel ischemic changes without acute intracranial process. Continue Lasix 40 mg IV twice a day. IV Tylenol for pain 2. Acute kidney injury, chronic kidney disease stage III with dehydration and metabolic acidoses secondary to intractable nausea and vomiting. Avoid nephrotoxic agents. Continue to monitor kidney function. Continue IVF. Sodium bicarb to be added to IV fluids. 3. CAD. Continue patient on Imdur 30 mg orally once every day, Lopressor 25 mg twice daily. 4. Hypertension and hypertensive cardiovascular disease. Continue Lopressor and Imdur 5. Hyperlipidemia. She is not currently on statin. 6. Diabetes mellitus type 2. Januvia on hold. Humalog scale before meals and at bedtime. 7. Parkinson with orofacial dyskinesia. Continue patient on Sinemet 25/100 one tablet orally 4 times every day, Baclofen 10 mg every 8 hours as needed, Namenda 10 mg twice daily. 8. Diabetic polyneuropathy. Continue gabapentin. 9. Restless leg syndrome. Continue patient on Mirapex 0.5 mg at bedtime. 10. Alzheimer dementia with behavior disturbance and impaired oral phase of eating patient tends to pocket food. Continue Namenda 10 mg orally twice every day and Aricept. 11. Depression, recurrent. Continue Seroquel 25 mg at bedtime. 12. DVT prophylaxis. Heparin 5000 units every 12 hours subcutaneously. 14. GI prophylaxis. Omeprazole. 15. Patient is no code no CPR and no ventilation, no aggressive medical. Discharge plan: Return to [facility] most likely discharge will occur on Friday Impression and plan of care have been directed as dictated by the signing physician. Talia Beckett nurse practitioner acting as scribe for signing physician.
[2018-06-21] MEDS: MEMANTINE 5 MG TAB PO SCH (17:00)
[2018-06-21] MEDS: POTASSIUM CHLORIDE 20 MEQ in WATER FOR INJECTION 1 100ML.BAG IVPB SCH (17:01)
[2018-06-21 17:45] LABS: Glucose,Whole Blood 111 mg/dL (75-99)
[2018-06-21] MEDS: LORazepam 2 MG/ML INJ IV PRN (18:14)
[2018-06-21 22:09] LABS: Glucose,Whole Blood 102 mg/dL (75-99)
[2018-06-22] MEDS: QUEtiapine 25 MG TAB PO SCH
[2018-06-22] MEDS: MONTELUKAST 10 MG TAB PO SCH
[2018-06-22] MEDS: MELATONIN 3 MG TABLET PO SCH
[2018-06-22] MEDS: PRAVASTATIN SODIUM 40 MG TAB PO SCH (00:01)
[2018-06-22] MEDS: ACETAMINOPHEN TAB 500 MG TAB PO PRN (00:14)
[2018-06-22] MEDS: PRAMIPEXOLE 0.5 MG TAB PO SCH (05:40)
[2018-06-22] MEDS: FUROSEMIDE 10 MG/ML 4 ML VIAL IV SCH ×2 (05:40→09:39)
[2018-06-22] MEDS: SENNOSIDES-DOCUSATE SODIUM 1 EACH TAB PO SCH (05:41)
[2018-06-22 07:03] LABS: Glucose,Whole Blood 86 mg/dL (75-99)
[2018-06-22] MEDS: INSULIN ASPART 100 UNIT/ML 1 ML 10 ML VIAL SQ SCH ×3 (07:58→12:46)
[2018-06-22] MEDS: KETOTIFEN 0.025% OPHTH DROPS 5 ML BTL BOTH EYES SCH (08:01)
[2018-06-22] MEDS: PANTOPRAZOLE 40 MG TABLET PO SCH (08:04)
[2018-06-22] MEDS: ISOSORBIDE MONONITRATE ER 30 MG TAB.ER.24H PO SCH (08:30)
[2018-06-22] MEDS: GABAPENTIN 300 MG CAP PO SCH (08:30)
[2018-06-22] MEDS: lamoTRIgine 100 MG TAB PO SCH (08:30)
[2018-06-22] MEDS: METOPROLOL TARTRATE 25 MG TAB PO SCH (08:30)
[2018-06-22] MEDS: LOSARTAN 50 MG TAB PO SCH (08:30)
[2018-06-22] MEDS: ALBUTEROL NEBULIZED 2.5 MG/3 ML INHALATION SCH (08:30)
[2018-06-22] MEDS: SYMBICORT 160-4.5 MCG INHALER INHALATION SCH (08:32)
[2018-06-22] MEDS: MEMANTINE 5 MG TAB PO SCH (08:40)
[2018-06-22 08:46] VITALS: BP 149/71; PULSE 87; RESP 24; TEMP 99.4
[2018-06-22] MEDS ORDERED: ACETAMINOPHEN SUPPOSITORY 650 MG SUPP RECTAL PRN (09:24)
[2018-06-22] MEDS: ERTAPENEM 0.5 GM in SODIUM CHLORIDE 0.9% 50 ML IVPB SCH (09:39)
[2018-06-22] MEDS: LORazepam 2 MG/ML INJ IV PRN (09:47)
[2018-06-22] MEDS ORDERED: ATROPINE OPHTH SOLN 1% 5ML BTL SUBLINGUAL PRN (10:24)
[2018-06-22] MEDS ORDERED: MORPHINE SULFATE (100 MG/2 ML) 100 MG in SODIUM CHLORIDE 0.9% 100 ML IV SCH (10:30)
[2018-06-22] MEDS ORDERED: SCOPOLAMINE 1.5MG/72HR PATCH TRANSDERM SCH (10:30)
--- NOTE | 2018-06-22 11:16 | CDI ---
Last Revision, June 2017 Documentation Clarification Form Date: 06/19/2018 2:47:00 PM From: Sully Fuller RN,CCDS Admit Date: 06/14/2018 2:40:00 AM Patient Name: Elizabet Butcher Visit Number: [id number] Discharge Date: ATTENTION: The Clinical Documentation Specialists (CDI) and [facility] Coding Staff appreciate your assistance in clarifying documentation. Please respond to the clarification below the line at the bottom and electronically sign. The CDI & [facility] Coding staff will review the response and follow-up if needed. Please note: Queries are made part of the Legal Health Record. If you have any questions, please contact the author of this message via ITS. Fide Orona MD A current decubitus ulcer was documented in the past medical history and is in the emergency department notes.. History/Risk Factors: CVA, TIA, Dementia, Diabetes mellitus, Hypertension, UTI, Sepsis, CKD Stage III, Clinical Indicators: Nursing wound assessment has a coccyx pressure injury staging II Location: Coccyx Wound description: wound margins thickened, drainage notes scant amount Treatment: Nutrition consult Monitor wound healing Glucerna TID Elements for accurate and compliant documentation of an ulcer: The location/laterality of the ulcer Etiology (decubitus/pressure, diabetic, PVD) Stage I-IV, Unstageable, Suspected Deep Tissue Injury (To the deepest stage) If the ulcer was present at admission (POA) or occurred after admission In your professional opinion, can you please clarify the diagnosis, location, laterality and whether present on admission (POA): Stage 1 Pressure/Decubitus Ulcer (intact skin, non-blanching redness of local area) Stage 2 Pressure/Decubitus Ulcer (Partial thickness, loss of dermis, pink wound bed) Stage 3 Pressure/Decubitus Ulcer (Full thickness tissue loss) Stage 4 Pressure/Decubitus Ulcer (Full thickness tissue loss with exposed bone , tendon, or muscle. May have slough or eschar present) Unstageable Other condition, please specify Unable to determine Please indicate etiology of pressure ulcer (if known). Please continue to document in your progress notes and discharge summary in order to capture severity of illness and risk of mortality. Include clinical findings that support your diagnosis. MTDD
[2018-06-22] MEDS: POTASSIUM CHLORIDE 20 MEQ in WATER FOR INJECTION 1 100ML.BAG IVPB SCH (11:51)
[2018-06-22] MEDS ORDERED: LORazepam 2 MG/ML INJ IV PRN (11:57)
--- NOTE | 2018-06-22 12:58 | EEG ---
ELECTROENCEPHALOGRAM REPORT DATE OF SERVICE: 06/20/2018 REASON FOR TESTING: Altered mental status. DESCRIPTION OF THE PROCEDURE: This EEG was performed using a 21 channel digital electroencephalograph, following international 10-20 system. DESCRIPTION OF THE RECORDING: From the beginning of the tracing, and with patient's eyes closed, the background rhythm was mostly consisting of 8 to 9 Hz alpha frequency in the posterior occipital leads. No obvious asymmetry is seen. Frequent movement and muscle artifacts are seen. Photic stimulation was performed with a minimal driving response seen. No pathological waves were elicited. Hyperventilation was not performed. Occasional sharp wave activity is seen. The patient remains awake throughout the tracing. More frequent muscle and movement artifacts are seen later in the tracing. INTERPRETATION: This awake EEG is limited due to the frequency of movement and muscle artifacts. Occasional sharp wave activity is seen. This could be consistent with a reduced seizure threshold. No obvious generalized epileptiform discharges were seen. Clinical correlation is recommended. YOLI / GARCIA: [id number] /
[2018-06-22] MEDS: ASPIRIN 81 MG PO SCH (14:20)
[2018-06-22] MEDS: DONEPEZIL 10 MG TAB PO SCH (14:20)
[2018-06-22] MEDS: CARBIDOPA-LEVODOPA 25-100 MG 1 EACH TAB PO SCH (14:20)
--- NOTE | 2018-06-22 15:19 | P.DS ---
Providers Date of admission: 06/14/18 02:40 Expected date of discharge: 06/22/18 Attending physician: Ricci Martines Consults: 06/15/18 11:53 Consult Physician Routine Consulting Provider: Jose Luis Marquez Consult Reason/Comments: MDR UTI Do you want consulting provider notified?: Yes 06/19/18 09:24 Consult Physician Routine Consulting Provider: Jaison Acosta Consult Reason/Comments: metabolic encephalopathy. Do you want consulting provider notified?: Yes 06/19/18 13:21 Consult Physician Routine Consulting Provider: Gordon Franklin Consult Reason/Comments: hypercarbia, hypersomnia Do you want consulting provider notified?: Yes Primary care physician: [facility] Course: This is a 82-year-old female with past medical history significant for dementia and Parkinson disease presents to the emergency department with worsening confusion intractable nausea and vomiting and weakness. In the emergency department patient is not following commands unable to provide any information and all the history obtained from medical record and [facility] information as I spoke to the charge nurse. Patient was found to have urinary tract infection, acute kidney injury and was started on IV antibiotics and IV fluid patient currently still confused morning not following commands and responding only to pain stimuli 06/15: Blood sugars are running 97-108, creatinine 2.02 and BUN 28 which improved from yesterday. Urine culture is in progress, blood culture is no growth at 24 hours. Patient continues to be lethargic and confused. She has taken few bites of applesauce with medications. Nausea and vomiting have resolved. Daughter is at bedside and states patient is usually interactive ie plays bingo etc. She is wheelchair bound. She has been seen by Dr. Kinsey in the past. Daughter states that patient had a PICC line placed 2 weeks ago and treated with antibiotics for UTI managed by Dr. Diamond. Urine culture positive for pseudomonas. It appears merrem was antibiotic used. Will ask for consult with Dr. Marquez, renal ultrasound and rocephin changed to Merrem. Sodium bicarb to be added to IV fluids for metabolic acidoses. 06/16: Patient has been moaning all through the night. She is unable to follow commands. This morning her temperature max 101.4 with heart rate of 110 and blood pressure 205/91. Hydralazine IV and IV Tylenol added as well as 1 dose of Ativan. Repeat blood culture will be obtained. Blood culture from yesterday drawn from the PICC line is positive for gram-positive cocci. Patient has been seen by Dr. Marquez and IVs antibiotics are currently Fortaz. Renal ultrasound shows renal cystic changes. Her fever was down and blood pressure improved. She is able to recognize and state her daughter's name. Therapy has evaluated and will start diet this afternoon. Patient will be maintained on her oral medications. 06/17: White count remains normal, hemoglobin 8.7 and platelet count 1:30. BUN 25 and creatinine 1.43. Blood sugars have been running in the 120s. Blood culture drawn from the PICC line is positive for gram-positive cocci. PICC line to be removed today. Repeat blood culture obtained this morning, Dr. Marquez has placed her on daptomycin in addition to Fortaz. Urine culture finalized with ESBL Proteus mirabilis and E. coli. She has been afebrile for 24 hours. The patient is awake and alert this morning was able to take her medications with applesauce and ate yogurt for breakfast. She is now somewhat lethargic and tired. We will check B12 level and TSH and increase melatonin 6 mg at bedtime. She has not had any choking episodes. She is on a special diet. 06/17: Boaz remained stable. She had episode of hypotension last night with a blood pressure of 74/43 she received a 500 mL bolus of normal saline last night. Her blood pressure this morning was 110/57 she is not having any complaints of dizziness, lightheadedness, or dictation. Patient has been afebrile for the last 2 days temperature today 99.4. Patient had her PICC line removed yesterday. Patient has been able to tolerate meals without any difficulties. Her echocardiogram showed no vegetation she does have severe mitral regurg. Patient denies any back pain, choking episodes, or fever. 06/19: Patient is more confused today. She is unable to wake up and take her medications. She is not alert enough to eat this morning. Seroquel will be decreased to 25 mg and Xanax will be changed to as, Haldol discontinued. Her last dose on hold all his back on the . Consult with neurology, EEG and CAT scan of the brain ordered. Will also ask for chest x-ray and ABGs show shows mild respiratory acidosis. She has generalized anasarca and IV fluids will be decreased from 100 mL to 50 mL per hour. Reviewed microbiology with Dr. Marquez and antibiotics changed to ertapenem which she will need a total of 14 day course. Daptomycin and Fortaz discontinued. Midline will be requested for IV access and for antibiotics at the [facility]. Anticipate possible discharge on Friday. Today, hemoglobin is 8.9, BUN 19 creatinine 1.29, blood sugars are running between 96 and 142. 06/20: Patient continues to be confused today she is not wanting to wear her Bi PAP machine and has been removing it. Patient is easily addressed agitated but does not appear in any respiratory distress. Patient did have an episode of diaphoresis and coughing in which a team was called. WBCs 7.6, hemoglobin 9.3. Chest x-ray no tiny bilateral pleural effusion and associated bibasilar atelectasis. Patient is easily addressed dictated but does not appear in any respiratory distress. 06/21: Patient is unable to follow commands today. Per the nurse patient was agitated and combative earlier today and ATeam was called during that time she received 1 mg of Haldol. Per the nurse prior to this episode she was awake and answering questions appropriately. Her pulse ox was 93% on room air. After the incident, patient was not able to answer questions appropriately she was arousable to stimuli. Family was at bedside discussion regarding hospice care was completed and questions were answered. We will obtain CT of the head prior to making any decisions regarding hospice care. 06/22: Patient continues to be lethargic and unresponsive. We have discontinued all aggressive treatment and patient will be made comfort care. Patient will be transferred back to [facility] today once arrangements are completed. Discharge diagnoses: 1. Uremic and septic metabolic encephalopathy secondary to ESBL Proteus mirabilis and E. coli urinary tract infection and sepsis with PICC associated gram-positive bacteremia( has been ruled out. Blood culture showed contamination). 2. Acute kidney injury, chronic kidney disease stage III with dehydration and metabolic acidoses secondary to intractable nausea and vomiting. 3. CAD. 4. Hypertension and hypertensive cardiovascular disease. 5. Hyperlipidemia. 6. Diabetes mellitus type 2. 7. Parkinson with orofacial dyskinesia. 8. Diabetic polyneuropathy. 9. Restless leg syndrome. 10. Alzheimer dementia with behavior disturbance and impaired oral phase of eating patient tends to pocket food. 11. Depression, recurrent. 12. Patient is no code no CPR and no ventilation, no aggressive medical. Discharge plan: Return to [facility] Impression and plan of care have been directed as dictated by the signing physician. Jailyn Navarro nurse practitioner acting as scribe for signing physician. Patient Condition at Discharge: Stable Plan - Discharge Summary Discharge Rx Participant: No New Discharge Prescriptions: New Atropine Ophth Soln 1% 5Ml [Isopto Atropine 1% 5Ml] 2 drops SUBLINGUAL Q4HR PRN bottle PRN Reason: Excess Secretions LORazepam ORAL CONC [Ativan Intensol] 2 mg PO Q4HR PRN #30 ml PRN Reason: Anxiety MORPHINE ORAL [place] CONC 20mg/mL [Roxanol Oral Soln Conc 20MG/ML] 5 mg PO Q4H PRN #30 ml PRN Reason: Pain Discontinued Memantine [Namenda] 10 mg PO BID@0800,1700 Pramipexole [Mirapex] 0.5 mg PO HS Fluticasone/Salmeterol [Advair 500-50 Diskus] 1 puff INHALATION RT-BID@0800, 1700 Carbidopa-Levodopa 25-100 mg [Sinemet 25-100 mg] 1 tab PO QID Isosorbide Mononitrate ER [Imdur] 30 mg PO DAILY Acetaminophen Tab [Tylenol] 500 mg PO Q8HR PRN PRN Reason: Pain Bisacodyl [Dulcolax] 10 mg RECTAL DAILY PRN PRN Reason: Constipation Menthol [Biofreeze] 1 applic TOPICAL Q6H PRN PRN Reason: Pain Omeprazole [PriLOSEC] 20 mg PO QAM Baclofen [Lioresal] 10 mg PO Q8H PRN PRN Reason: Spasms Sennosides/Docusate Sodium [Tammy Colace] 1 tab PO HS sitaGLIPtin [Januvia] 50 mg PO DAILY Ketotifen 0.025% Ophth Soln [Zaditor] 1 drops BOTH EYES BID@0800,1700 Polyethylene Glycol 3350 [Miralax] 17 gm PO DAILY PRN PRN Reason: Constipation Pravastatin Sodium [Pravachol] 40 mg PO HS Metoprolol Tartrate [Lopressor] 25 mg PO BID@0800,1700 Losartan Potassium 50 mg PO DAILY Furosemide [Lasix] 40 mg PO DAILY lamoTRIgine [LaMICtal] 400 mg PO BID Ibuprofen [Motrin] 600 mg PO Q8HR PRN PRN Reason: Pain Gabapentin [Neurontin] 300 mg PO TID Buprenorphine [Butrans 10 MCG/HOUR] 1 patch TRANSDERM SA Donepezil HCl [Aricept] 10 mg PO DAILY Albuterol Nebulized [Ventolin Nebulized] 2.5 mg INHALATION RT-BID PRN PRN Reason: Shortness Of Breath Aspirin 81 mg PO DAILY Albuterol Nebulized [Ventolin Nebulized] 2.5 mg INHALATION RT-BID@0800,1700 ALPRAZolam [Xanax] 0.25 mg PO BID@1400,2100 diphenhydrAMINE [Benadryl] 25 mg PO QID PRN PRN Reason: ITCHING/RASH Hydrocortisone Cream [Hydrocortisone 1% Cream] 1 applic TOPICAL TID PRN PRN Reason: Rash Lactose-Reduced Food [Ensure Plus] 240 can PO HS Loperamide [Imodium] 2 mg PO QID PRN PRN Reason: Diarrhea Magnesium Hydroxide [Milk of Magnesia] 2,400 mg PO DAILY PRN PRN Reason: Constipation Melatonin 3 mg PO HS Montelukast [Singulair] 10 mg PO HS Na Phos,M-B/Na Phos,Di-Ba [Fleet Adult] 133 ml RECTAL DAILY PRN PRN Reason: Constipation QUEtiapine [SEROquel] 50 mg PO HS Sodium Chloride 0.9% Irrigatio [Saline 0.9% Irrigation] 10 ml IV TID Discharge Medication List Atropine Ophth Soln 1% 5Ml [Isopto Atropine 1% 5Ml] 2 drops SUBLINGUAL Q4HR PRN bottle 06/22/18 [Rx] LORazepam ORAL CONC [Ativan Intensol] 2 mg PO Q4HR PRN #30 ml 06/22/18 [Rx] MORPHINE ORAL INDIA CONC 20mg/mL [Roxanol Oral Soln Conc 20MG/ML] 5 mg PO Q4H PRN #30 ml 06/22/18 [Rx] Follow up Appointment(s)/Referral(s): Jose Luis Diamond MD [Primary Care Provider] - 1 Week (at [facility] ) Activity/Diet/Wound Care/Special Instructions: keep [place] Discharge Disposition: TRANSFER TO SNF/ECF
--- NOTE | 2018-06-22 21:35 | P.PN ---
Subjective Progress Note Date: 06/22/18 This is an 82-year-old female with past medical history significant for dementia and Parkinson disease, residing at [facility]. Patient presented to [facility] emergency department with worsening confusion, intractable nausea and vomiting and weakness. Patient wound not follow commands and was not able to provide any history. CAT scan of the brain showed cerebral atrophy. No acute intracranial abnormality. There is multilevel old anterior fusion surgery. Chest x-ray shows scarring and subsegmental atelectasis and left lower lobe unchanged. No heart failure. White count was 6.7, hemoglobin 9.2, platelet count 173, BUN 46 and creatinine 2.7, troponin was 0.012, albumin 3.4, urinalysis was clear with blood trace, protein trace, leukoesterase small, rare WBC clumps, rare bacteria. Patient was started on ceftriaxone and admitted to the [facility] floor. Subsequently, it was found out the patient had a PICC line placed 2 weeks ago and treated with antibiotics for UTI managed by Dr. Diamond. Urine culture positive for pseudomonas. It appears merrem was antibiotic used. Renal ultrasound has been ordered, antibiotics were changed to meropenem and blood culture ordered from the PICC line 06/16/2018 patient is having some improvement today. She already temperature 101.4 overnight. Blood cultures being called is positive. Daptomycin is added. Follow blood cultures also requested. 06/22/2018 patient status has continued to decline. The case is discussed with the primary team. With the lack of improvement and poor mental status she will be transferred to comfort care later today. Objective - Vital Signs Vital signs: Vital Signs Temp 99.4 F 06/22/18 07:00 Pulse 74 06/22/18 08:39 Resp 24 06/22/18 07:00 BP 149/71 06/22/18 07:00 Pulse Ox 95 06/22/18 07:00 Intake & Output 06/22/18 06/22/18 06/23/18 06:59 18:59 06:59 Intake Total 1.292 Output Total 300 900 Balance -300 -978.707 Weight 115.666 kg Intake: Intake, IV Titration 1.292 Amount Morphine Sulfate (100 mg/ 1.292 2 ml) 100 mg In Sodium Chloride 0.9% 100 ml @ 1 MG/HR 1.02 mls/hr IV . Q24H [facility] Rx#:[id number] Output: Urine 300 900 Other: Voiding Method Indwelling Catheter Indwelling Catheter - Exam Gen: This is an 82-year-old female. Patient is not agitated HEENT: Head is atraumatic, normocephalic. Pupils equal, round. Sclerae is anicteric. NECK: Supple. No JVD. No lymphadenopathy. No thyromegaly. LUNGS: Diminished bilaterally. No intercostal retractions. HEART: Regular rate and rhythm. No murmur. ABDOMEN: Soft. Bowel sounds are present. No masses. No tenderness. EXTREMITIES: No pedal edema. No calf tenderness. PICC line to the left upper arm with no signs of infection, drainage. NEUROLOGICAL: Patient is obtunded - Labs CBC & Chem 7: 06/20/18 14:06 06/20/18 14:00 Labs: Abnormal Lab Results - Last 24 Hours (Table) 06/21/18 Range/Units 21:50 POC Glucose (mg/dL) 102 H (75-99) mg/dL Microbiology - Last 24 Hours (Table) 06/17/18 07:12 Blood Culture - Preliminary Blood No Growth after 120 hours Laboratory Results WBC 7.6 k/uL (3.8-10.6) 06/20/18 14:06 RBC 3.11 m/uL (3.80-5.40) L 06/20/18 14:06 Hgb 9.3 gm/dL (11.4-16.0) L 06/20/18 14:06 Hct 27.9 % (34.0-46.0) L 06/20/18 14:06 MCV 89.9 fL (80.0-100.0) 06/20/18 14:06 MCH 29.9 pg (25.0-35.0) 06/20/18 14:06 MCHC 33.2 g/dL (31.0-37.0) 06/20/18 14:06 RDW 14.2 % (11.5-15.5) 06/20/18 14:06 Plt Count 150 k/uL (150-450) 06/20/18 14:06 Neutrophils % 83 % 06/15/18 08:41 Lymphocytes % 10 % 06/15/18 08:41 Monocytes % 3 % 06/15/18 08:41 Eosinophils % 3 % 06/15/18 08:41 Basophils % 0 % 06/15/18 08:41 Neutrophils # 6.3 k/uL (1.3-7.7) 06/15/18 08:41 Lymphocytes # 0.7 k/uL (1.0-4.8) L 06/15/18 08:41 Monocytes # 0.3 k/uL (0-1.0) 06/15/18 08:41 Eosinophils # 0.2 k/uL (0-0.7) 06/15/18 08:41 Basophils # 0.0 k/uL (0-0.2) 06/15/18 08:41 Hypochromasia Slight 06/20/18 07:33 PT 9.8 sec (9.0-12.0) 06/13/18 23:34 INR 1.0 (<1.2) 06/13/18 23:34 APTT 25.6 sec (22.0-30.0) 06/13/18 23:34 Sample Site rrad 06/19/18 10:02 ABG pH 7.34 (7.35-7.45) L 06/19/18 10:02 ABG pCO2 57 mmHg (35-45) H 06/19/18 10:02 ABG pO2 65 mmHg (83-108) L 06/19/18 10:02 ABG HCO3 30 mmol/L (21-25) H 06/19/18 10:02 ABG Total CO2 32 mmol/L (19-24) H 06/19/18 10:02 ABG O2 Saturation 94.1 % (94-97) 06/19/18 10:02 ABG Base Excess 4.3 mmol/L 06/19/18 10:02 Sd Test Yes 06/19/18 10:02 FiO2 32 % 06/19/18 10:02 Sodium 138 mmol/L (137-145) 06/20/18 14:00 Potassium 4.5 mmol/L (3.5-5.1) 06/20/18 14:00 Chloride 96 mmol/L (98-107) L 06/20/18 14:00 Carbon Dioxide 33 mmol/L (22-30) H 06/20/18 14:00 Anion Gap 9 mmol/L 06/20/18 14:00 BUN 18 mg/dL (7-17) H 06/20/18 14:00 Creatinine 1.28 mg/dL (0.52-1.04) H 06/20/18 14:00 Est GFR (CKD-EPI)AfAm 46 (>60 ml/min/1.73 sqM) 06/20/18 14:00 Est GFR (CKD-EPI)NonAf 40 (>60 ml/min/1.73 sqM) 06/20/18 14:00 Glucose 135 mg/dL (74-99) H 06/20/18 14:00 POC Glucose (mg/dL) 86 mg/dL (75-99) 06/22/18 07:01 POC Glu Spool Winder ID Tracey Mcdonald 06/22/18 07:[address] Glu mg/dL 120 06/13/18 23:34 Hemoglobin A1c 5.8 % (4.0-6.0) 06/13/18 23:34 Plasma Lactic Acid Flex 0.7 mmol/L (0.7-2.0) 06/20/18 14:06 Calcium 8.7 mg/dL (8.4-10.2) 06/20/18 14:00 Magnesium 1.9 mg/dL (1.6-2.3) 06/20/18 14:00 Total Bilirubin 0.4 mg/dL (0.2-1.3) 06/20/18 14:00 AST 11 U/L (14-36) L 06/20/18 14:00 ALT 12 U/L (9-52) 06/20/18 14:00 Alkaline Phosphatase 66 U/L (38-126) 06/20/18 14:00 Total Creatine Kinase 23 U/L (30-135) L 06/13/18 23:34 CK-MB (CK-2) 0.5 ng/mL (0.0-2.4) 06/13/18 23:34 CK-MB (CK-2) Rel Index 2.2 06/13/18 23:34 Troponin I <0.012 ng/mL (0.000-0.034) 06/20/18 14:00 Total Protein 6.1 g/dL (6.3-8.2) L 06/20/18 14:00 Albumin 3.3 g/dL (3.5-5.0) L 06/20/18 14:00 Vitamin B12 332.0 pg/mL (200.0-944.0) 06/17/18 07:12 TSH 2.040 mIU/L (0.465-4.680) 06/17/18 07:12 Urine Color Yellow 06/14/18 00:24 Urine Appearance Clear (Clear) 06/14/18 00:24 Urine pH 5.0 (5.0-8.0) 06/14/18 00:24 Ur Specific [place] 1.012 (1.001-1.035) 06/14/18 00:24 Urine Protein Trace (Negative) H 06/14/18 00:24 Urine Glucose (UA) Negative (Negative) 06/14/18 00:24 Urine Ketones Negative (Negative) 06/14/18 00:24 Urine Blood Trace (Negative) H 06/14/18 00:24 Urine Nitrite Negative (Negative) 06/14/18 00:24 Urine Bilirubin Negative (Negative) 06/14/18 00:24 Urine Urobilinogen <2.0 mg/dL (<2.0) 06/14/18 00:24 Ur Leukocyte Esterase Small (Negative) H 06/14/18 00:24 Urine RBC 4 /hpf (0-5) 06/14/18 00:24 Urine WBC 4 /hpf (0-5) 06/14/18 00:24 Urine WBC Clumps Rare /hpf (None) H 18 00:24 Ur Squamous Epith Cells 3 /hpf (0-4) 06/14/18 00:24 Amorphous Sediment Rare /hpf (None) H 06/14/18 00:24 Urine Bacteria Rare /hpf (None) H 06/14/18 00:24 Hyaline Casts 7 /lpf (0-2) H 06/14/18 00:24 Urine Mucus Rare /hpf (None) H 18 00:24 Microbiology 06/17/18 07:12 Blood Blood Culture - Preliminary No Growth after 120 hours 06/15/18 12:39 Blood Blood Culture - Final No Growth after 144 hours 06/16/18 08:39 Blood Blood Culture Gram Stain - Final 06/16/18 08:39 Blood Blood Culture - Final Staphylococcus epidermidis 06/16/18 08:39 Blood Blood Culture - Final 06/13/18 23:34 Blood Blood Culture Gram Stain - Final 06/13/18 23:34 Blood Blood Culture - Final Micrococcus species 06/13/18 23:34 Blood Blood Culture - Final 06/14/18 00:24 Urine,Voided Urine Culture - Preliminary - Imaging and Cardiology CT Scan - head: report reviewed (No acute change) Assessment and Plan (1) Altered mental status Status: Acute Code(s): R41.82 - ALTERED MENTAL STATUS, UNSPECIFIED SNOMED Code(s): 366124263 (2) Urinary tract infection Narrative/Plan: 82-year-old woman who has a history of significant dementia and Parkinson's disease is transferred from the [facility] care [facility] with worsening of her status. There has been recent urinary tract infection treated with intravenous antibiotic therapy with Rocephin. However recent culture showing evidence of Pseudomonas and also now to gram-negative bacilli. Does appear that the Pseudomonas is susceptible to ceftazidime and consequently will utilize this for now and attempt to save carbapenem's if needed at a later date. There appears to be no gram-positive infections and would not enhance gram-positive coverage at this time. Her PICC line appears to be intact and will be utilized. Blood cultures are negative so far and urine culture will help further clarify the course of antibiotic therapy at the time of her transfer back to the [facility]. 06/16/2018 patient is with some minimal improvement today. Urine culture remains in process. Blood culture with gram-positive cocci. She is currently on ceftazidime will add daptomycin for now until further culture results are available. Because she has a PICC line in place will be important to remove this since there is now a positive culture. Nursing staff is requested to remove the line. 06/22/2018 the patient's status has continued to climb with no improvement of her neurological status. With her lack of improvement the family has decided on comfort care which will be transitioned to today. Antibiotic therapy will be discontinued. Status: Acute Code(s): N39.0 - URINARY TRACT INFECTION, SITE NOT SPECIFIED SNOMED Code(s): 30205631 (3) Metabolic encephalopathy Status: Acute Code(s): G93.41 - METABOLIC ENCEPHALOPATHY SNOMED Code(s): 57620280
== END 2018-06-22 18:11 | disposition hospice, inpatient (51) | DRG 871 ==
LOC: EC 23:17 → 4SSUR 06-14 02:40
PROVIDERS: ADMIT Internal Medicine; ATTEND Internal Medicine
PROC: 5A09457 Assistance with Respiratory Ventilation, 24-96 Consecutive Hours, Continuous Positive Airway Pressure (ICD-10-PCS; principal; 2018-06-19 15:00)
PROC: 3E03329 Introduction of Other Anti-infective into Peripheral Vein, Percutaneous Approach (ICD-10-PCS; 2018-06-19 15:00)
PROC: 05HF33Z Insertion of Infusion Device into Left Cephalic Vein, Percutaneous Approach (ICD-10-PCS; 2018-06-19 15:00)
PROC: B54NZZA Ultrasonography of Left Upper Extremity Veins, Guidance (ICD-10-PCS; 2018-06-19 15:00)
DX: A41.9 Sepsis, unspecified organism (principal); G93.41 Metabolic encephalopathy; J96.01 Acute respiratory failure with hypoxia; J96.02 Acute respiratory failure with hypercapnia; F02.81 Dementia in other diseases classified elsewhere, unspecified severity, with behavioral disturbance; T80.211A Bloodstream infection due to central venous catheter, initial encounter; Z68.41 Body mass index [BMI] 40.0-44.9, adult; N39.0 Urinary tract infection, site not specified; N17.9 Acute kidney failure, unspecified; E87.2 Acidosis; F33.9 Major depressive disorder, recurrent, unspecified; J98.11 Atelectasis; E66.01 Morbid (severe) obesity due to excess calories; Z66 Do not resuscitate; Z51.5 Encounter for palliative care; R65.20 Severe sepsis without septic shock; L89.152 Pressure ulcer of sacral region, stage 2; E11.42 Type 2 diabetes mellitus with diabetic polyneuropathy; E11.22 Type 2 diabetes mellitus with diabetic chronic kidney disease; R13.10 Dysphagia, unspecified; E86.0 Dehydration; E86.1 Hypovolemia; G20 Parkinson's disease; N18.3 Chronic kidney disease, stage 3 (moderate); G30.9 Alzheimer's disease, unspecified; I13.10 Hypertensive heart and chronic kidney disease without heart failure, with stage 1 through stage 4 chronic kidney disease, or unspecified chronic kidney disease; G40.909 Epilepsy, unspecified, not intractable, without status epilepticus; R15.9 Full incontinence of feces; S00.81XA Abrasion of other part of head, initial encounter; B96.4 Proteus (mirabilis) (morganii) as the cause of diseases classified elsewhere; B96.20 Unspecified Escherichia coli [E. coli] as the cause of diseases classified elsewhere; Z16.12 Extended spectrum beta lactamase (ESBL) resistance; G24.4 Idiopathic orofacial dystonia; I25.10 Atherosclerotic heart disease of native coronary artery without angina pectoris; J45.909 Unspecified asthma, uncomplicated; K21.9 Gastro-esophageal reflux disease without esophagitis; E78.5 Hyperlipidemia, unspecified; M19.90 Unspecified osteoarthritis, unspecified site; G25.81 Restless legs syndrome; G47.00 Insomnia, unspecified; R32 Unspecified urinary incontinence; F41.9 Anxiety disorder, unspecified; M48.00 Spinal stenosis, site unspecified; M51.37 Other intervertebral disc degeneration, lumbosacral region; Z87.440 Personal history of urinary (tract) infections; Z79.82 Long term (current) use of aspirin; Z79.899 Other long term (current) drug therapy; Z79.84 Long term (current) use of oral hypoglycemic drugs; Z79.51 Long term (current) use of inhaled steroids; Z87.891 Personal history of nicotine dependence; Z86.14 Personal history of Methicillin resistant Staphylococcus aureus infection; Z90.49 Acquired absence of other specified parts of digestive tract; Z90.710 Acquired absence of both cervix and uterus; Z86.73 Personal history of transient ischemic attack (TIA), and cerebral infarction without residual deficits; Z96.653 Presence of artificial knee joint, bilateral; Z99.3 Dependence on wheelchair; Z98.1 Arthrodesis status; Z88.5 Allergy status to narcotic agent; Z88.0 Allergy status to penicillin; Z88.2 Allergy status to sulfonamides; Z80.9 Family history of malignant neoplasm, unspecified; Y84.6 Urinary catheterization as the cause of abnormal reaction of the patient, or of later complication, without mention of misadventure at the time of the procedure; Z83.3 Family history of diabetes mellitus
CPT/HCPCS: 36415; 36569; 36600; 51702; 70450; 71045; 72125; 76770; 76937; 80048; 80053; 81001; 82550; 82553; 82607; 82805; 83036; 83605; 83735; 84443; 84484; 85025; 85027; 85610; 85730; 87040; 87077; 87086; 87186; 93005; 93306; 93880; 94640; 94660; 94760; 94762; 95816; 96365; 96366; 99291